=== PATIENT | female | born 1970 | race Caucasian/White ===

== ENCOUNTER 2023-03-27 11:01 | Outpatient (OUT) | payer BC, SELFPAY ==
--- NOTE | 2023-03-27 11:18 | US_ITS ---
The [address] [address] Patient Name: JENNIFER NAVARRO MRN: [id number] date: 1970 Sex: F Assigned Patient Location: US Current Patient Location: Accession/Order Number: [id number] Exam Date: 03/27/2023 11:36 Report Date: 03/28/2023 06:48 At the request of: SUZANNE MCCLAIN Procedure: US thyroid EXAMINATION: US thyroid HISTORY: Thyroid Nodule E04.1 COMPARISON: No relevant comparison available. FINDINGS: RIGHT LOBE: Normal size and echotexture. Contains a 3 mm TR 3 nodule. Lobe size: 4.6 x 1.4 x 1.7 cm LEFT LOBE: Normal size and echotexture. Contains a 6 mm TR 4 nodule. Lobe size: 4.6 x 1.3 x 1.5 cm ISTHMUS: Normal size and echotexture. Thickness: 2 mm US/US thyroid IMPRESSION: 1. Normal homogeneous echotexture bilaterally with incidental small TR 3 nodule on right and TR 4 nodule left. Follow-up in 2 years is recommended. TR4 (moderately suspicious): If > 1.0 cm, follow-up ultrasound in 1, 2, 3, and 5 years. If > 1.5 cm, fine needle aspiration (FNA). TR3 (mildly suspicious): > 1.5 cm, follow-up ultrasound in 1, 3, and 5 years. > 2.5 cm, fine needle aspiration. Electronically authenticated by: GLENDA DEL VALLE Date: 03/28/2023 06:48
--- NOTE | 2023-03-27 11:19 | XR_ITS ---
The [address] [address] Patient Name: JENNIFER NAVARRO MRN: [id number] date: 1970 Sex: F Assigned Patient Location: US Current Patient Location: US Accession/Order Number: [id number] Exam Date: 03/27/2023 11:21 Report Date: 03/27/2023 17:26 At the request of: SUZANNE MCCLAIN Procedure: XR chest 2V EXAM: XR chest 2V HISTORY: Sternal Pain R07.89 COMPARISON: None. TECHNIQUE: PA and lateral views of the chest performed. FINDINGS: The trachea is midline. The heart size is normal. The cardiomediastinal silhouette and hilar shadows are normal. The lung volumes are normal. The lung luke are clear. There is no pneumothorax. There is a 0.7 cm metallic appearing foreign body within the left upper abdomen. Correlate with clinical findings to determine the etiology of this. There is no osseous abnormality. XR/XR chest 2V IMPRESSION: There is a 0.7 cm metallic appearing foreign body within the left upper abdomen. Correlate with clinical findings to determine the etiology of this. The PA and lateral views of the chest are otherwise unremarkable. Electronically authenticated by: MARLEN WOODALL Date: 03/27/2023 17:26
== END 2023-03-27 11:02 | disposition home or self-care (01) ==
LOC: US 11:04
PROVIDERS: PCP Family Medicine; Visit Provider Nurse Practitioner Family
DX: E04.1 Nontoxic single thyroid nodule (principal); R13.19 Other dysphagia; R07.89 Other chest pain
CPT/HCPCS: 71046; 76536

== ENCOUNTER 2023-04-13 08:11 | Outpatient (OUT) | payer BC, SELFPAY ==
--- NOTE | 2023-04-13 | XR_ITS ---
The [address] [address] Patient Name: JENNIFER NAVARRO MRN: [id number] date: 1970 Sex: F Assigned Patient Location: LAB Current Patient Location: Accession/Order Number: [id number] Exam Date: 04/13/2023 08:45 Report Date: 04/14/2023 10:58 At the request of: SUZANNE MCCLAIN Procedure: XR abdomen 1V PROCEDURE: XR abdomen 1V DATE: 04/13/2023 7:45 AM SIL[employer] COMPARISONS: Chest x-ray from 03/27/2023 CLINICAL INDICATION: 52 years Female Abnormal Xray FINDINGS: There is moderate stool and scattered gas of the colon. There is a small amount of gas within the stomach. The small bowel is not visualized. No abnormal small bowel distention identified Surgical clips overlie the right upper quadrant No abnormal calcifications overlie the abdomen. The 7 mm high density structure overlying the left upper quadrant on the caudal aspect of the chest x-ray from 03/27/2023 is not seen today. Presumably it was in stool and has passed. A few scattered areas of high density overlies the mid and lower right abdomen possibly high density within stool. Phleboliths overlie the right aspect of the pelvis. The visualized osseous structures show no significant abnormalities. XR/XR abdomen 1V IMPRESSION: Supine abdominal radiograph shows no evidence of significant abnormalities. The 7 mm high density findings left upper quadrant is no longer visualized today. It was probably within stool. It is noted that there again appears to be some scattered high density within stool on today's exam. This scattered high density is presumably related to high density material ingested by the patient, possibly medication. Electronically authenticated by: BENI HAMPTON Date: 04/14/2023 10:58
--- OUTSIDE RECORDS SUMMARY | 2023-04-13 08:14 | XMS_ITS | CCD ---
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 06/27/2022 Mold exposure [Z77.120] 11/10/2020 06/27/2022 Risk of exposure to Lyme disease [Z91.89] 11/10/2020 06/27/2022 EBV exposure [Z20.828] 11/10/2020 06/27/2022 Lipoma of neck [D17.0] 11/14/2020 06/27/2022 NAFLD (nonalcoholic fatty liver disease) [K76.0]09/20/2021 Functional dyspepsia [K30] 11/14/2021 06/27/2022 SVT (supraventricular tachycardia) (HCC) [I47.1*06/27/2022 Osteoarthritis of hands, bilateral [M19.041, M1*06/27/2022 Dysphagia, pharyngoesophageal [R13.14] 03/07/2023 Menopause since age 48 [Z78.0] 03/22/2023 Encounter Status:Closed by RACHEL NASCIMENTO on 03/29/23 [facility] HNO ID: [id number] Author: Coordinator, Mammography Service: ? Author Type: Physician Type: Letter Filed: 03/25/2023 11:35 PM Note Text: March 22, 2023 PID: [id number] Jennifer A. Makeda [address] [place] [address] Dear Shaun Ferraramariel, We are pleased to inform you that the results of your recent breast imaging exam on 03/21/2023 are normal. Your mammogram demonstrates that you have dense breast tissue, which could hide abnormalities. Dense breast tissue, in and of itself, is a relatively common condition. Therefore, this information is not provided to cause undue concern; rather, it is to raise your awareness and promote discussion with your health care provider regarding the presence of dense breast tissue in addition to other risk factors. Early detection of cancer is very important. We also understand recommendations regarding breast cancer screening are controversial. Please discuss with your primary care provider which strategy is best for you and whether a mammogram is right for you. Your imaging studies and report will be kept on file at [facility] as part of your permanent medical record and are available for your continuing care. Thank you for allowing us to help in meeting your health care needs. Sincerely, Dr. Guallpa Interpreting Radiologist [facility] (Normal over 40) [facility] CNOVon 03-22-2023 CNOV Office Visit (GYNMN) -- JENNIFER NAVARRO ([id number]) 1970 F Date Time Provider Department 03/22/23 11:30 AM JOELLEN BROWNING GYNMN During your visit today, we recorded the following information about you: Blood pressure Weight 127/81 80.8 kg Joellen Browning APRN.DIRECTOR HOSPICE OPERATIONS 03/22/2023 10:54 AM Signed Adenomyosis Overview Adenomyosis (rk-kf-dn-my-O-sis) occurs when the tissue that normally lines the uterus (endometrial tissue) grows into the muscular wall of the uterus. The displaced tissue continues to act normally -- thickening, breaking down and bleeding -- during each menstrual cycle. An enlarged uterus and painful, heavy periods can result. Doctors aren't sure what causes adenomyosis, but the disease usually resolves after menopause. For women who have severe discomfort from adenomyosis, hormonal treatments can help. Removal of the uterus (hysterectomy) cures adenomyosis Symptoms Sometimes, adenomyosis causes no signs or symptoms or only mild discomfort. However, adenomyosis can cause: Heavy or prolonged menstrual bleeding Severe cramping or sharp, knifelike pelvic pain during menstruation (dysmenorrhea) Chronic pelvic pain Painful intercourse (dyspareunia) Your uterus might get bigger. Although you might not know if your uterus is bigger, you may notice tenderness or pressure in your lower abdomen. Causes The cause of adenomyosis isn't known. There have been many theories, including: Invasive tissue growth. Some experts believe that endometrial cells from the lining of the uterus invade the muscle that forms the uterine okeefe. Uterine incisions made during an operation such as a section () might promote the direct invasion of the endometrial cells into the wall of the uterus. Developmental origins. Other experts suspect that endometrial tissue is deposited in the uterine muscle when the uterus is first formed in the fetus. Uterine inflammation related to childbirth. Another theory suggests a link between adenomyosis and childbirth. Inflammation of the uterine lining during the period might cause a break in the normal boundary of cells that line the uterus. Stem cell origins. A recent theory proposes that bone marrow stem cells might invade the uterine muscle, causing adenomyosis. Regardless of how adenomyosis develops, its growth depends on the body's circulating estrogen. Risk factors Risk factors for adenomyosis include: Prior uterine surgery, such as , fibroid removal, or dilatation and curettage (DANDC) Childbirth Middle age Most cases of adenomyosis -- which depends on estrogen -- are found in women in their 40s and 50s. Adenomyosis in these women could relate to longer exposure to estrogen compared with that of younger women. However, current research suggests that the condition might also be common in younger women. Complications If you often have prolonged, heavy bleeding during your periods, you can develop chronic anemia, which causes fatigue and other health problems. Although not harmful, the pain and excessive bleeding associated with adenomyosis can disrupt your lifestyle. You might avoid activities you've enjoyed in the past because you're in pain or you worry that you might start bleeding. Your ultrasound is reassuring. There is a suggestion of adenomyosis. Adenomyosis is a very common condition in women in their 40's. It is also seen more often in people who have had babies in the past. Adenomyosis is when the lining of the uterus invaginates into the muscle layer of the uterus making the muscle somewhat boggy. One third of women with adenomyosis on ultrasound have no symptoms and it can be an incidental finding. The most common symptoms of women affected with adenomyosis are heavy, painful periods, abnormal bleeding, painful intercourse, and infertility. Painful periods also can occur in some women with adenomyosis. Joellen Browning, PHARMACY AIDE.DIRECTOR HOSPICE OPERATIONS 03/22/2023 11:35 AM Signed [facility] Benign Gynecology [facility] PATIENT NAME: Jennifer Navarro PCP: Martell Burciaga MD, MD DATE: 03/22/2023 Chief Complaint CC: Annual CHLORINATION OPERATOR exam History of Present Illness: Jennifer is a 52 year old who presents for her annual gynecologic exam. Patient also would like to discuss the following concerns: None Denies vaginal itching, irritation, discharge or odor. Had thyroid nodule incidentally found. US was normal 2020. Postmenopausal: Yes, since age 48 Hot flashes: No Night sweats: No Vaginal dryness: No Mood swings: No Insomnia: No Postmenopausal bleeding: No HRT use: none Component Latest Ref Rng AND Units 01/12/2020 FSH mU/mL 103.3 Estradiol 17B pg/mL <25 PAP HISTORY: Immunocompromised? No Last Pap: 02/26/2022, normal HPV: 02/26/ (more content not included)... Normal [place] HPV W/GENOTYPE THIN PREPon 1 05-23-2022 HPV 16 Ag Ql (Unsp spec) Negative Normal Negative for HPV DNA high risk type 16 by PCR [place] Comment on above: Order Comment: Speci men Type: FLUID SPECIMENOrdering Facility: [facility] Address: [address] [place] [address] Performed By: #### H PVHRT ####[facility] LABCLIA [id number] [place] [address] [place] HPV 18 Ag Ql (Unsp spec) Negative Normal Negative for HPV DNA high risk type 18 by PCR [place] Comment on above: Order Comment: Speci men Type: FLUID SPECIMENOrdering Facility: [facility] Address: [address] [place] [address] Performed By: #### H PVHRT ####[facility] LABCLIA [id number] [place] [address] [place] HPV 31+33+35+39+45+51+52+ 56+58+59+66+68 DNA SONIA+probe Ql (Cvx) Negative for HPV DNA high risk types: 31,33,35,39,45,51,52,56,58 ,59,66,68 by PCR. Normal Negative for HPV DNA high risk types: 31,33,35,3 9,45,51,52 ,56,58,59, 66,68 by PCR. [place] Comment on above: Order Comment: Speci men Type: FLUID SPECIMENOrdering Facility: [facility] Address: [address] [place] [address] Performed By: #### H PVHRT ####[facility] LABCLIA [id number] [place] [address] [place] PAP TESTon 03-22-2023 ADEQUACY Satisfactory for interpretation Normal [place] Comment on above: Order Comment: Speci men Type: FLUID SPECIMENOrdering Facility: [facility] Address: [address] [place] [address] Performed By: #### L [id number] ####[facility] LABCLIA [id number] [place] [address] [place] CASE REPORT Normal [place] Comment on above: Order Comment: Speci men Type: FLUID SPECIMENOrdering Facility: [facility] Address: [address] [place] [address] Result Comment: Gyne cologic Cytology Report Case: [id number] Authorizing Provider: Joellen Browning APRN.DIRECTOR HOSPICE OPERATIONS Collected: 03/22/2023 10:58 AM Ordering Location: Gynecology Received: 03/22/2023 01:03 PM First Screen: Kyle Espinoza Tech Specimen: Pap Test, ThinPrep, Cervix Performed By: #### L [id number] ####[facility] LABCLIA [id number] [place] [id number] [place] CLINICAL HISTORY, CYTOLOGY, CHLORINATION OPERATOR Routine Exam Normal [place] Comment on above: Order Comment: Speci men Type: FLUID SPECIMENOrdering Facility: [facility] Address: [address] [place] [address] Result Comment: Judie pausal Performed By: #### L [id number] ####[facility] LABCLIA [id number] [place] [address] [place] CYTOLOGY PAP OTHER INT Atrophic specimen Normal [place] Comment on above: Order Comment: Speci men Type: FLUID SPECIMENOrdering Facility: [facility] Address: [address] [place] [address] Performed By: #### L [id number] ####[facility] LABCLIA [id number] [place] [address] [place] FINAL PERFORMING LAB Normal [facility] Comment on above: Order Comment: Speci men Type: FLUID SPECIMENOrdering Facility: [facility] Address: [address] [place] [address] Result Comment: Tech nical component, cryptoanalysis teacher screening performed at [facility], [facility] [address] CLIA# [id number] Diagnostic interpretation performed at [facility], [address] [facility], [place] [address] CLIA# [id number] Payroll Administrative Assistant: Juan Mayes M.D. Performed By: #### L [id number] ####[facility] LABCLIA [id number] [place] [address] [place] HPV REFLEX Yes HPV Normal [place] Comment on above: Order Comment: Speci men Type: FLUID SPECIMENOrdering Facility: [facility] Address: [address] [place] [address] Performed By: #### L [id number] ####[facility] LABCLIA [id number] [place] [id number] [place] INTERPRETATION, CYTOLOGY, CHLORINATION OPERATOR Normal [place] Comment on above: Order Comment: Speci men Type: FLUID SPECIMENOrdering Facility: [facility] Address: [address] [place] [address] Result Comment: Nega tive for intraepithelial lesion or malignancy. Performed By: #### L [id number] ####[facility] LABCLIA [id number] [place] [address] [place] LMP menopausal Normal [place] Comment on above: Order Comment: Speci men Type: FLUID SPECIMENOrdering Facility: [facility] Address: [address] [place] [address] Performed By: #### L [id number] ####[facility] LABCLIA [id number] [place] [id number] [place] PAP DISCLAIMER COMMENT The Pap Smear is a screening test for cervical cancer. False negative results occur with all screening tests, emphasizing the need for rescreening at recommended intervals, and clinical correlation. Normal [place] Comment on above: Order Comment: Speci men Type: FLUID SPECIMENOrdering Facility: [facility] Address: [address] [place] [address] Performed By: #### L [id number] ####[facility] LABCLIA [id number] [place] [id number] [place] PAP MICROBIOLOGY TECHNICIAN COMMENT This specimen has be en analyzed by the ThinPrep Imaging System, an automated imaging and review system, which assists the laboratory in evaluating cells on ThinPrep Pap tests. Following automated imaging, selected mariscal from every slide are reviewed by a cryptoanalysis teacher. Normal [place] Comment on above: Order Comment: Speci men Type: FLUID SPECIMENOrdering Facility: [facility] Address: [address] [place], [place] [address] [id number] Performed By: #### L [id number] ####[facility] LABCLIA [id number] [place] [id number] [place] XR ESOPHAGRAMon 03-22-2023 XR ESOPHAGRAM * * *Final Report* * * DATE OF EXAM: Mar 22 2023 9:39AM LUX 5378 - XR ESOPHAGRAM / PROCEDURE REASON: Dysphagia, unspecified type * * * * Physician Interpretation * * * * EXAM: XR ESOPHAGRAM HISTORY: Dysphagia, unspecified type. TECHNIQUE: AP and lateral fluoroscopic spot images of the cervical esophagus during swallows of thick liquid barium. Multiple upright double contrast and recumbent single contrast fluoroscopic spot images of the thoracic esophagus. FINDINGS: No Zenker's diverticulum. Thoracic esophagus displays normal course and caliber with no mucosal irregularity. Motility appears satisfactory. No hiatal hernia. No gastroesophageal reflux is observed. IMPRESSION: Normal esophagram. Fluoroscopic Radiation Summary: Plane A, Air Kerma: 66.3 mGy Dose Area Product (DAP): Fluoro time: 1:24 min:sec Supervisor Audit Clerks: PSCB Transcribe Date/Time: Mar 22 2023 4:25P Dictated by : Elli BAZAN MD This examination was interpreted and the report reviewed and electronically signed by: Elli BAZAN MD on Mar 22 2023 4:33PM EST [id number] [facility] SCREENING W TOMOon 03-21 [facility] SCREENING W ANG * * *Final Report* * * DATE OF EXAM: Mar 21 2023 6:00PM [facility] - [facility] SCREENING W ANG / PROCEDURE REASON: Encounter for screening mammogram for malignant neoplasm of breast * * * * Physician Interpretation * * * * RESULT: #[id number] - [facility] SCREENING W ANG BILATERAL DIGITAL SCREENING MAMMOGRAM TOMOSYNTHESIS WITH CAD: 03/21/2023 HISTORY: Encounter For Screening Mammogram For Malignant Neoplasm Of Breast / Screening Mammogram-Patient reports NO symptoms. /SEE TECH NOTE. RESULT: TECHNIQUE: The study was acquired using full field digital technology and interpreted from soft copy. Digital Breast Tomosynthesis (DBT) images were obtained and used to assist in the interpretation of this examination. Current study was also evaluated with a Computer Aided Detection (CAD). Comparison is made to exams dated: 11/17/2022 mammogram - [facility], 01/03/2022 mammogram - [facility], 06/03/2020 mammogram, and 06/05/2019 mammogram - [facility]. The breasts are heterogeneously dense, which may obscure small masses. No significant masses, calcifications, or other findings are seen in either breast. There has been no significant interval change. IMPRESSION: NEGATIVE There is no mammographic evidence of malignancy. A 1 year screening mammogram is recommended. Sasha sheppard/barney:03/22/2023 08:14:11 Senior Contracts Manager(s): RT Alvarez(R)(M), [facility] letter sent: Normal over 40 Mammogram BI-RADS: 1 Negative Multiple national specialty organizations have released breast cancer screening guidelines for women at average risk for developing breast cancer - guidelines that are based on both evidence and opinion, yet differ on when to start and how often to screen for breast cancer. With representation from Breast Imaging, Internal Medicine, Women's Health, Family Medicine, and Medical/Surgical Oncology, the [facility] has carefully reviewed the data and reached the following consensus: 1) All women should engage in shared decision-making with their providers to decide when to start and how often to screen; 2) All women should have the opportunity to start screening mammography at age 40; 3) For women ages 45-55, we recommend annual screening mammograms; 4) For women ages 55 and over, we support both the transition from an annual to a biennial interval if this aligns more with patient's values and preferences, or continuation with annual screening; 5) All women should discuss with their providers when to stop screening mammograms. Supervisor Audit Clerks: Barney Transcribe Date/Time: Mar 21 2023 5:38P Dictated by : SASHA GUALLPA MD This examination was interpreted and the report reviewed and electronically signed by: SASHA GUALLPA MD on Mar 22 2023 8:14AM EST [id number] Normal [facility] HISTORY PHYSICALon 3 HISTORY PHYSICAL HNO ID: [id number] Author: Moustapha Rivera MD Service: Gastroenterology Author Type: Physician Type: HANDP Filed: 03/12/2023 9:35 AM Note Text: HISTORY AND PHYSICAL Jennifer Amelia Navaror, 52 year old female Current history and physical on file: Yes Is a new History and Physical required for today's visit? Yes Indication for procedure: Dysphagia PROCEDURE(S) SCHEDULED FOR: Dilation (any means), treatment of bleeding (any means) based on clinical findings and EGD (Esophagogastroduodenoscop y) with or without biopsies, removal of polyps or lesions, dilation ( any means), treatment of bleeding ( any means), Barrx treatment of Navjot's Esophagus, image tube placement or cryo therapy treatment based on clinical findings. BASELINE BEHAVIOR: Calm BASELINE ORIENTATION: A AND O x3 All medications and allergies reviewed: Yes Skin Assessment: Warm dry mucus membranes pink Airway/Respiratory Assessment: Airway: visualization of the uvula- Yes Mouth: opening greater than 2 fingerbreadths- Yes Neck: full range of motion- Yes Breath sounds clear/equal- Yes Cardiac Assessment: Regular rate and rhythm without murmur Abdominal Assessment: Abdomen soft, non-tender, no masses or organomegaly. Sedation Plan: Moderate Additional Comments: None Moustapha Rivera MD [facility] NURSING PROGon 03-12-2023 NURSING PROG HNO ID: [id number] Author: Vernell Navarrete LPN Service: ? Author Type: LICENSED NURSE Type: Nursing Progress Note Filed: 03/12/2023 10:06 AM Note Text: AMBULATORY PATIENT EDUCATION NOTE TOPIC: GI PROCEDURES: Esophagogastroduodenoscopy (EGD) with or without biopies based on clinical findings, removal of polyps or lesions READINESS TO LEARN INSTRUCTION PROVIDED TO: Patient and family member COGNITIVE ABILITY: Alert and oriented PTED MOTIVATION TO LEARN: Interested FAMILY SUPPORT: High - Very involved in pt care IPATIENT LEARNS BEST BY: Individual Instruction Written Instruction - Hand-outs Verbal Instruction FACTORS AFFECTING LEARNING: None PHYSICAL LIMITATIONS AFFECTING LEARNING: None LEARNING RESPONSE METHOD OF INSTRUCTION: Individual instruction PATIENT / FAMILY RESPONSE: Verbalizes understanding of: WORSENING CONDITION-Signs and symptoms of a worsening condition that warrant a call to the physician FOLLOW-UP PLAN: Recommend - Recommend continued instruction and follow up as directed SUPPLEMENTAL MATERIAL: Procedure Discharge Instructions REFERRAL (RECOMMENDATION): None Electronically Signed By: Vernell Navarrete LPN Normal [place] NURSING PROG HNO ID: [id number] Author: Sherron Ayala, RN Service: ? Author Type: Registered Nurse Type: Nursing Progress Note Filed: 03/12/2023 9:18 AM Note Text: PRE OP LEARNING ASSESSMENT PROCEDURE/SURGERY: GI PROCEDURES: EGD READINESS TO LEARN COGNITIVE ABILITY: Alert and oriented MOTIVATION TO LEARN: Interested FAMILY SUPPORT: High - Very involved in pt care PATIENT LEARNS BEST BY: Individual Instruction FACTORS AFFECTING LEARNING: None PHYSICAL LIMITATIONS AFFECTING LEARNING: None Electronically Signed By: Sherron Ayala, PHYLLIS In Department: GASTROENTEROLOGY Normal [place] SURGICAL PATHOLOGYon 023 CASE REPORT Normal [place] Comment on above: Order Comment: Reyna sandhu Type: TISSUE SPECIMENOrdering Facility: [facility] Address: [address] [place] [address] Result Comment: Surg ical Pathology Report Case: [id number] Authorizing Provider: Moustapha Rivera MD Collected: 03/12/2023 09:54 AM Ordering Location: Gastroenterology Received: 03/12/2023 01:40 PM Pathologist: Rocco Tipton MD Specimens: A) - ESOPHAGUS BIOPSY, r/o EOE B) - ESOPHAGUS BIOPSY, r/o EOE Performed By: #### S ####[facility] LABCLIA [id number] [address] FINAL DIAGNOSIS Normal [place] Comment on above: Order Comment: Reyna sandhu Type: TISSUE SPECIMENOrdering Facility: [facility] Address: [address] [place] [address] Result Comment: A. E sophagus, distal, biopsy: - Squamous mucosa with no diagnostic abnormality. B. Esophagus, proximal, biopsy: - Squamous mucosa with no diagnostic abnormality. Performed By: #### S ####[facility] LABCLIA [id number] [address] [place] FINAL PERFORMING LAB Normal [facility] Comment on above: Order Comment: Speci men Type: TISSUE SPECIMENOrdering Facility: [facility] Address: [address] [place] [address] Result Comment: Diag nostic interpretation performed at [facility], [address] [place] [address] CLIA# [id number] Payroll Administrative Assistant: Juan Mayes M.D. Performed By: #### S ####[facility] [id number] [place] [address] [place] GROSS DESCRIPTION [facility] Comment on above: Order Comment: Speci men Type: TISSUE SPECIMENOrdering Facility: [facility] Address: [address] [place] [address] Result Comment: A. E SOPHAGUS BIOPSY Received in formalin is one piece of willis, soft tissue measuring 0.6 x 0.4 x 0.2 cm. Totally submitted in one cassette. B. ESOPHAGUS BIOPSY Received in formalin are multiple pieces of willis, soft tissue aggregating to 0.5 x 0.4 x 0.1 cm. Totally submitted in one cassette. March 12, 2023 3:55 PM Gross examination performed at [facility], [address] [place] [address] Performed By: #### S ####[facility] LABIA [id number] [place] [address] [place] Upper GI endoscopy 12--2 023 Upper GI endoscopy A31 Gastrointestinal Endoscopy Patient Name: Jennifer Navarro Procedure Date: 03/12/2023 9:21 AM Date of : 1970 Admit Type: Outpatient Age: 52 Room: [place] [address] Gender: Female Note Status: Finalized Attending MD: Moustapha Rivera MD, [id number] Procedure: Upper GI endoscopy Indications: Dysphagia Providers: Moustapha Rivera MD Patient Profile: This is a 52 year old female. Refer to note in patient chart for documentation of history and physical. Referring Physician: Yancy Perla MD (Referring MD) Medicines: Fentanyl 75 micrograms IV, Midazolam 5 mg IV, Diphenhydramine 25 mg IV Complications: No immediate complications. Requesting Provider: Procedure: Pre-Anesthesia Assessment: - Prior to the procedure, a History and Physical was performed, and patient medications and allergies were reviewed. The patient is competent. The risks and benefits of the procedure and the sedation options and risks were discussed with the patient. All questions were answered and informed consent was obtained. Patient identification and proposed procedure were verified by the physician in the pre-procedure area. Mental Status Examination: alert and oriented. Airway Examination: normal oropharyngeal airway and neck mobility. Respiratory Examination: clear to auscultation. CV Examination: normal. Prophylactic Antibiotics: The patient does not require prophylactic antibiotics. Prior Anticoagulants: The patient has taken no anticoagulant or antiplatelet agents. ASA Grade Assessment: II - A patient with mild systemic disease. After reviewing the risks and benefits, the patient was deemed in satisfactory condition to undergo the procedure. The anesthesia plan was to use minimal sedation / analgesia (anxiolysis). Immediately prior to administration of medications, the patient was re-assessed for adequacy to receive sedatives. The heart rate, respiratory rate, oxygen saturations, blood pressure, adequacy of pulmonary ventilation, and response to care were monitored throughout the procedure. The physical status of the patient was re-assessed after the procedure. After obtaining informed consent, the endoscope was passed under direct vision. Throughout the procedure, the patient's blood pressure, pulse, and oxygen saturations were monitored continuously. The Endoscope was introduced through the mouth, and advanced to the second part of duodenum. The upper GI endoscopy was accomplished without difficulty. The patient tolerated the procedure well. Moderate Sedation: The administration of moderate sedation was initiated at 09:47 AM. Moderate (conscious) sedation was administered by the nurse and supervised by the endoscopist. The following parameters were monitored: oxygen saturation, heart rate, blood pressure, and response to care. Findings: The examined esophagus was normal. Biopsies were taken with a cold forceps for histology. Verification of patient identification for the specimen was done. Estimated blood loss was minimal. The Z-line was variable and was found 35 cm from the incisors. The entire examined stomach was normal. The cardia and gastric fundus were normal on retroflexion. The examined duodenum was normal. Impression: - Normal esophagus. Biopsied. - Z-line variable, 35 cm from the incisors. - Normal stomach. - Normal examined duodenum. Estimated Blood Loss: Estimated blood loss: none. Recommendation: - Patient has a contact number available for emergencies. The signs and symptoms of potential delayed complications were discussed with the patient. Return to normal activities tomorrow. Written discharge instructions were provided to the patient. - Resume previous diet. - Continue present medications. - Await pathology results. - Return to referring physician as previously scheduled. Attending Participation: I personally performed the entire procedure. Scope In: 9:51:42 AM Scope Out: 9:55:35 AM MD Moustapha Lin MD 03/12/2023 9:59:29 AM This report has been signed electronically by Moustapha Rivera MD Number of Addenda: 0 Note Initiated On: 03/12/2023 9:21 AM [facility] [place] ED NOTEon 03-07-2023 ED NOTE HNO ID: [id number] Author: Gera Khan MD Service: Emergency Medicine Author Type: Physician Type: ED Notes Filed: 03/07/2023 6:25 PM Note Text: ED Attending Continuation of Care Note March 07, 2023 3:49 PM Jennifer Navarro was endorsed to me by Dr. Guaman The patient initially presented to the ED for: Difficulty swallowing Signout note reviewed BP 145/84 Pulse 79 Temp 36.6 ?C (97.9 ?F) (Oral) Resp 18 Ht 170.2 cm (5' 7 ) Wt 77.1 kg (170 lb) LMP (LMP Unknown) SpO2 95% BMI 26.63 kg/m? ED Medication Administration from 03/07/2023 0908 to 03/07/2023 1550 None Dx: Clinical Impression ICD-10-CM 1. Dysphagia, unspecified type R13.10 2. Odynophagia R13.10 Disposition: Home Condition: Good Follow-up: With PCP as needed or as previously scheduled. Gera Khan MD [facility] [place] ED PROV NOTEon 03-07-2023 ED PROV NOTE HNO ID: [id number] Author: Marely Tejeda MD Service: Emergency Medicine Author Type: Resident Type: ED Provider Notes Filed: 03/07/2023 4:00 PM Note Text: -- Attestation signed by Quan Guaman MD at 03/07/2023 4:47 PM [facility] STAFF PHYSICIAN NOTE OF PERSONAL INVOLVEMENT IN CARE I evaluated the patient and personally participated in the fraga components. I agree with the resident's findings and plan with the following revisions and/or additions: History revisions or additions: Jennifer Navarro is 52 year old who presents reporting dysphagia. Symptom onset Saturday after eating cheese. [place] it was stuck in throat. Improved on drinking some water. [place] in USOH the next day, swallowing without difficulty. Saturday eating beans and felt stuck. Pain with swallowing, difficulty drinking liquids. Is tolerating liquid intake, but feels difficulty swallowing solids. She ate noodles this morning. No emesis. Has had similar intermittent symptoms over years but this is worse. Last EGD dec 2020, rare eosinophils on bx CT neck last year no acute findings Modified barium is ordered but not completed Denies cough, sputum, n/v, diarrhea Exam revisions or additions: Alert with normal mental status Oropharynx is clear including no erythema or exudate, no palpable mass or abscess, teeth non-tender, oral floor soft, no trismus, uvula midline, normal phonation, swallowing/ handling secretions normally, no other abnormal findings. Symmetric non-labored breathing, normal air movement, clear to ausculation bilaterally. Rrr, no murmur Abdomen soft and non-tender MDM/Plan: Vital signs, triage records, nursing notes, and medical records reviewed. Please refer to the resident note for full details, including a summary of our mutually agreed upon findings, medical decision making, and assessment/plan. In brief: Jennifer Navarro is 52 year old with pmhx as noted including NAFLD, HTN, HLD EGD 01/25/21 -examined esophagus was normal. Biopsies were obtained from proximal and distal esophagus for histology of suspected eosinophilic esophagitis. Subsequent biopsy results showed squamous mucosa with reactive epithelial changes and rare eosinophils This patient returns with odynophagia. On my evaluation alert, normal oropharyngeal exam, no airway signs, tolerating liquids. HANDP does not suggest complete obstruction, no signs airway compromise. Differential includes inflammatory event such as eosinophilic esophagitis. No signs PNA on my evaluation. Pt is non-toxic and there are no signs deep neck space infection. Plan is MBSS. At time of sign out this had been completed and was pending interpretation from NURSING SURGICAL SERVICES DIRECTOR. Plan at time of sign out was to monitor and reassess pending this. Signature: Quan Guaman MD Date: 03/07/2023 Time: 4:42 PM -- ED Provider Note Patient Name: Jennifer Navarro : 1970 SERVICE DATE: 03/07/23 History 52F w/ pmh NAFLD, HTN, HLD presenting with 5 day history of dysphagia to solids and liquids and odynophagia. Symptoms first began on 03/03 when patient was eating cheese. Patient felt cheese get stuck in throat. Patient drank some water which improved symptoms. The next day patient was able to eat and drink normally without sensation of dysphagia or pain. On Saturday patient ate beans and felt that they were stuck in throat. Patient also felt sensation of throat tightness and felt some difficulty getting a full breath of air. Patient also experienced pain with swallowing. The next two day patient's sensation of throat fullness and pain with swallowing improved. Patient has been able to tolerate drinking liquids in the past 2 days, however patient still experiencing dysphagia to solid foods. PAST MEDICAL HISTORY Diagnosis Date Bleeding ulcer Cervical dysplasia 1992 s/p LEEP Cervicalgia 10/17/2020 Cholecystitis 12/2010 cholesterol polyps COVID-19 12/31/2019 presumed - no test - dtr positive Fatty liver Heavy metal exposure 11/10/2020 History of bleeding ulcers when she was 21 years old History of hypertension History of pre-eclampsia HSIL (high grade squamous intraepithelial lesion) on Pap smear of cervix 04/22/2013 1993 LEEP 06/2016 Colposcopy negative 09/2016 PAP LSIL 05/2017 PAP ASCUS HPV NEG 12/2017 PAP normal 12/2018 PAP normal HPV NEG Liver lesion 12/2010 Lung nodule Mold exposure 11/10/2020 NAFLD (nonalcoholic fatty liver disease) 09/20/2021 Osteoarthritis of hands, bilateral Palpitations 08/31/2019 Pap smear for cervical cancer screening 10/2011 due in 11/11 [id number] condition 11/03/2020 RECOVER Clinic initial visit at [place] on 11/03 (VV), pc RECOVER follow up #1 at on 11/11 (VV), pc Preeclampsia Primary hypertension 09/15/2020 (more content not included)... [facility] [place] THERAPY NTon 03-07-2023 THERAPY NT HNO ID: [id number] Author: Serafin Schultz CCC-NURSING SURGICAL SERVICES DIRECTOR Service: Speech/Swallow Author Type: Speech Language Pathologist Type: Therapy (PT/OT/Speech/Resp) Filed: 03/07/2023 2:59 PM Note Text: -- Summary: Modified Barium Swallow Study (MBSS) -- [facility] Speech-Language Pathology (NURSING SURGICAL SERVICES DIRECTOR) Modified Barium Swallow Study (MBSS) March 07, 2023 NURSING SURGICAL SERVICES DIRECTOR is consulted by ED service to complete a MBSS study on Jennifer Navarro to comprehensively assess the oral and pharyngeal phases of swallowing. Chart review and patient interview in the fluoroscopy suite notes that Jennifer experienced a period of dysphagia/odynophagia requiring a visit to the ED on 06/30/22. She was treated for oral thrush at that time and visited Dr. Yancy Perla (GI) on 07/02 when a modified barium swallow, barium esophagram and EGD were ordered. Shaun Daniellemaria a today indicated her swallowing difficulty subsided and she did not schedule these studies. Jennifer today reported that she began to experience further dysphagia with symptoms of food sticking in her throat (cheese) on 03/02. On 03/04 she ate/drank without difficulty swallowing, but on 03/05 again began experiencing symptoms while at work. It felt like her throat was swelling up. She contacted Dr. Perla who suggested she visit the ED. She is able to swallow liquids without difficulty for the most and uses liquids to try to wash down whatever she still felt stuck. Today she showed the area of issues to be between the larynx and the sternal notch. Noodles from (chicken noodle soup) replicated her symptoms in the ED. IMPRESSIONS: Normal oropharyngeal swallow function with good airway protection during trials of thin and nectar thick liquid, semi-solid and a chewable/solid consistency. No aspiration was identified. Ms. Navarro was hesitant to eat/swallow the Pb cracker, but did so when told she could chew as much as needed to turn it into mush . When asked if she felt comfortable swallowing a Ba tablet, she politely refused. NURSING SURGICAL SERVICES DIRECTOR mentioned that one would be given if/when a barium esophagram was completed. An esophageal screening noted the thicker cracker/pudding material to clear from the esophagus with thin liquid barium wash (see [facility] video images 15 and 16). Given that patient was reportedly treated for thrush in June and dysphagia/odynophagia improved, this should be ruled out as a cause of her current dysphagia. ORAL PHASE: Good willi-lingual manipulation, mastication and bolus formation and A-P transfer. The oral cavity cleared very well. There was no anterior loss of material from the mouth. Onset of the pharyngeal swallow response was prompt. PHARYNGEAL PHASE: Tongue base retraction/lingual bolus propulsion, laryngeal elevation and closure of the laryngeal entrance were good. Epiglottic inversion was complete. No retention of contrast material was observed within the pharynx. No laryngeal penetration/subglottic aspiration was identified. [facility] video images are available for review in Epic under the Get Images tab. PROGNOSIS: Appears safe to continue an oral diet given today's results. Further assessment of the esophageal phase may still be warranted. RECOMMENDATIONS: 1. Oral diet as tolerated as aspiration risk does not appear elevated. 2. Follow up with the barium esophagram and EGD if deemed beneficial as per Dr. Perla's orders placed 07/02/22 (assess esophageal motility, etc.). PLAN: Please page or call with questions or concerns. PAST MEDICAL HISTORY Diagnosis Date Bleeding ulcer Cervical dysplasia 1992 s/p LEEP Cervicalgia 10/17/2020 Cholecystitis 12/2010 cholesterol polyps COVID-19 12/31/2019 presumed - no test - dtr positive Fatty liver Heavy metal exposure 11/10/2020 History of bleeding ulcers when she was 21 years old History of hypertension History of pre-eclampsia HSIL (high grade squamous intraepithelial lesion) on Pap smear of cervix 04/22/2013 1993 LEEP 06/2016 Colposcopy negative 09/2016 PAP LSIL 05/2017 PAP ASCUS HPV NEG 12/2017 PAP normal 12/2018 PAP normal HPV NEG Liver lesion 12/2010 Lung nodule Mold exposure 11/10/2020 NAFLD (nonalcoholic fatty liver disease) 09/20/2021 Osteoarthritis of hands, bilateral Palpitations 08/31/2019 Pap smear for cervical cancer screening 10/2011 due in 11/11 [id number] condition 11/03/2020 RECOVER Clinic initial visit at [place] on 11/03 (VV), pc RECOVER follow up #1 at on 11/11 (VV), pc Preeclampsia Primary hypertension 09/15/2020 SVT (supraventricular tachycardia) Tachycardia 08/31/2019 Thyroid nodule 01/19/2021 left 0.6x0.8x0.5 Trauma in childhood 11/10/2020 PAST SURGICAL HISTORY Procedure Laterality Date CHOLECYSTECTOMY HX COLONOSCOPY GEN ANES CONIZATION CERVIX W/ (more content not included)... [facility] [place] XR MOD BARIUM SWALLOW W SPEE Flavio 03-07-2023 XR MOD BARIUM SWALLOW W SPEECH * * *Final Report* * * DATE OF EXAM: Mar 07 2023 2:03PM [id number] [id number] - XR MOD BARIUM SWALLOW W SPEECH / PROCEDURE REASON: Dysphagia, unexplained * * * * Physician Interpretation * * * * EXAMINATION: Modified barium swallow with Speech Therapy. RESULT: Fluoroscopy was provided for an oropharyngeal examination performed by Speech Therapy. The results will be reported by the Speech Therapist in [facility]. Contrast: ORAL: 60 ml of VARIBAR THIN ORAL: 50 ml of VARIBAR NECTAR ORAL: 20 ml of VARIBAR PUDDING Fluoroscopy radiation summary: Fluoroscopy time: 3:24 (min:sec). Air kerma: 40.3 mGy. IMPRESSION: Oropharyngeal evaluation performed by Speech Therapy Supervisor Audit Clerks: BRETT Transcribe Date/Time: Mar 07 2023 2:25P Dictated by : MANNIE STRONG MD This examination was interpreted and the report reviewed and electronically signed by: MANNIE STRONG MD on Mar 07 2023 2:26PM EST [id number] [facility] [place] Quick Strepon 03-06-2023 S. pyogenes Org specific cx Ql (Throat) Negative [employer] [facility] [employer] Other Quick Strep [facility] [employer] Other ECG 12 lead ECGon 03-05-2023 ECG 12 lead ECG [facility] [place] [address] Electrocardiograph Report Signed Patient: Jennifer Navarro MR#: [id number] : 1970 Acct:[id number] Age/Sex: 52 / F ADM Date: 03/05/23 Loc: ER Room: Type: [facility] ER Attending Dr: Ordering Provider: Amanda Diaz DO Date of Service: 03/05/2308/21/2053 ECG/ECG 12 lead ECG: throat discomfort Copies to: Test Reason : Blood Pressure : 181/089 mmHG Vent. Rate : 069 BPM Atrial Rate : 069 BPM P-R Int : 152 ms QRS Dur : 084 ms QT Int : 410 ms P-R-T Axes : 075 045 037 degrees QTc Int : 439 ms Normal sinus rhythm Normal ECG When compared with ECG of 26-FEB-2023 14:59, No significant change was found Confirmed by JM ZULETA [facility], RAVI ([id number]) on 03/08/2023 9:54:30 AM Referred By: Electronically Signed By:RAVI ONEAL MD [facility] Transcribed By: MUS Signed By Ravi Oneal MD, [facility] 03/08/[address] [facility] CNOVon 02-28-2023 CNOV Office Visit (AMDERM ) -- JENNIFER NAVARRO ([id number]) 1970 F Date Time Provider Department 02/28/23 12:30 PM JOAO BELL During your visit today, we recorded the following information about you: Joao Bell PA-C 03/01/2023 8:33 AM Signed SKIN EXAM ESTABLISHED LAST OFFICE VISIT: 02/13/2023 CC: This patient is a 52 year old female. Patient presents with: Rash HPI: # Location: bottom of right foot Appearance (size, shape, color): red spots Duration: just noticed last night Symptoms (growing, itching, bleeding, tender): painful Treatments: alcohol swab Did have some foot pain over weekend Has had rash on the foot previously- ILK injection (broke out in hives) # Notes spot on forehead near left hairline, at last visit deferred LN2 but would like a recheck Getting itchy, dry # Location: bottom on right foot closer to the toes Appearance (size, shape, color): flesh colored, firm Duration: unsure Symptoms (growing, itching, bleeding, tender): tender at times Treatments: none # Notes fingernails are rough, bumpy with ridges No treatment -Personal history of skin cancer: No -Personal history of atypical nevi: No -History of immunosuppression: No -History of blistering sunburns:Yes -Family history of skin cancer: Yes, mother NMSC SOC: Social History Tobacco Use Smoking status: Former Packs/day: 0.50 Years: 10.00 Additional pack years: 0.00 Total pack years: 5.00 Types: Cigarettes Quit date: 02/13/2007 Years since quittin.0 Smokeless tobacco: Never Vaping Use Vaping Use: Never used Substance Use Topics Alcohol use: Not Currently Alcohol/week: 4.0 standard drinks of alcohol Types: 4 Glasses of wine per week Drug use: No MEDS: Current outpatient prescriptions: Current Outpatient Medications on File Prior to Visit Medication Sig simvastatin (ZOCOR) 20 mg tablet TAKE 1 TABLET BY MOUTH EVERYDAY AT BEDTIME (Patient not taking: Reported on 11/16/2022) propranolol (INDERAL) 20 mg tablet Take 1 tablet by mouth as directed. Take 20 mg daily as needed for sustained arrhythmias with HR >110 for >1 hr ibuprofen (MOTRIN) 600 mg tablet Take 1 tablet by mouth every 8 hours as needed for pain. (Patient not taking: Reported on 11/16/2022) cyclobenzaprine (FLEXERIL) 5 mg tablet Take 1 tablet by mouth three times daily. (Patient not taking: Reported on 11/16/2022) fluconazole (DIFLUCAN) 200 mg tablet Take 4 tablets on day 1, then 1 tablet daily for days 2-14 (Patient not taking: Reported on 11/16/2022) No current facility-administered medications on file prior to visit. ALLERGY: ALLERGIES Allergen Reactions Doxycycline Hives Sanjuana [Fexofenadi* Diarrhea, Other: See Comments Causes high heart rate Aristocort Intrales* Hives Cats Anaphylaxis Dogs Anaphylaxis Imodium [Loperamide] Other: See Comments High heart rate Kenalog-H Hives Medrol [Methylpredn* Itching, Shortness of Breath, Other: See Comments Scratchy throat, high heart rate, couldn't catch breath Miralax [Polyethyle* Hives, Itching Polyethylene Glycol Hives, GI Upset, Itching REVIEW OF SYSTEMS: Patient feels well and denies any recent fevers, chills, or nightsweats. PHYSICAL EXAM: The patient is a pleasant female in no distress. Patient appears healthy, well developed, well nourished and in otherwise good health. Alert and oriented x 3. A skin exam was done of the Scalp, face, right foot, fingernails Canseco Skin Type: II IMPRESSION: Left frontal hairline with stuck on white to light pink stuck on plaque Right plantar foot with circular patch several deep seeded erythematous papules Right distal plantar foot with flesh colored thickened small area of skin, pared down Longitudinal ridging throughout fingernails A/P: (L30.1) Dyshidrotic eczema - Counseled patient on the etiology, course, and treatment options - Recommend use of gentle, unscented cleansers - Recommend applying moisturizer after washing - Begin triamcinolone 0.1% cream BID- Apply thin layer to affected areas 2 times daily for up to 5 days. Take 2 days off, and repeat cycle as needed. - Risks, benefits, and alternatives for the medication including possible side effects discussed and reviewed with patient. - Advised generous emollients throughout the day (Cetaphil, CeraVe, Vanicream, Aveeno) (L98.9) Foot lesion - Pared down with no e/o distinct lesion. 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 Reassured of benign nature. -Apply Trevon [facility] nail conditioner to all finger nails once daily -Keep nails trimmed short (L82.1) Seborrheic keratosis -Discussed etiology and educated. Reassured of benign nature. - Discussed R/B/A of treating with LN2, including risk of hyper vs hypopigmentation and risk of reucrrence (more content not included)... [facility] [place] Alanine aminotransferase [En zymatic activity/volume] in Serum or PlasmaOrdered By: Marvin Dimas on 02-26-2023 ALT [Catalytic activity/Vol] 22 U/L 7-52 [facility] Albumin [Mass/volume] in Ser um or Plasma by Bromocresol green (BCG) dye binding methoOrdered By: Marvin Dimas on 02-26-2023 Albumin BCG dye [Mass/Vol] 4.6 g/dL 3.5-5.7 [facility] Alkaline phosphatase [Enzyma tic activity/volume] in Serum or PlasmaOrdered By: Marvin Dimas on 02-26-2023 ALP [Catalytic activity/Vol] 55 U/L 34-104 [facility] Aspartate aminotransferase [ Enzymatic activity/volume] in Serum or PlasmaOrdered By: Marvin Dimas on 02-26-2023 AST [Catalytic activity/Vol] 23 U/L 13-39 [facility] Basophils Auto (Bld) [#/Vol] Ordered By: Marvin Dimas on 02-26-2023 Basophils (Bld) [#/Vol] 0.0 10*3/uL 0.0-0.2 [facility] Basophils/100 WBC Auto (Bld) Ordered By: Marvin Dimas on 02-26-2023 Basophils/100 WBC (Bld) 0.3 % . [facility] Bilirubin Test strip Ql (U)O rdered By: Marvin Dimas on 02-26-2023 Bilirubin Ql (U) Negative Negative [facility] Bilirubin.total [Mass/volume ] in Serum or PlasmaOrdered By: Marvin Dimas on 02-26-2023 Bilirubin [Mass/Vol] 0.5 mg/dL 0.3-1.0 [facility] BioFire Not Detectedon 02-26 BioFire Not Detected Not detected Normal Not Detecte [facility] Comment on above: Result Comment: This is a duplicate RP2.1 COVID (PCR) result to be used for statistical tracking purpose only. PERFORMED BY: [facility] [address] [place] [address] PATHOLOGIST FRONT DESK ADMINISTRATOR WILMER SIDDIQUI M.D. Performed By: #### R DICKSON PANEL UPP., BIOFIRECOVNOTDE #### [address] COVID-19 Detected/Not Detect edOrdered By: Marvin Dimas on 02-26-2023 SARS-CoV-2 (COVID-19) RNA SONIA+non-probe Ql (Nph) Not detected Not Detecte [facility] Comment on above: This is a duplicate RP2.1 COVID (PCR) result to be used for statistical tracking purpose only. Calcium [Mass/volume] in Ser um or PlasmaOrdered By: Marvin Dimas on 02-26-2023 Calcium [Mass/Vol] 9.5 mg/dL 8.6-10.3 [facility] Carbon dioxide, total [Moles /volume] in Serum or PlasmaOrdered By: Marvin Dimas on 02-26-2023 CO2 [Moles/Vol] 27.4 mmol/L 21.0-31.0 [facility] Chloride [Moles/volume] in S joby or PlasmaOrdered By: Marvin Dimas on 02-26-2023 Chloride [Moles/Vol] 108 mmol/L 98-107 [facility] Color Auto (U)Ordered By: Ronald Dimas on 02-26-2023 Color (U) Yellow Yellow [facility] Complete Blood Count Auto Di ffon 02-26-2023 Basophils (Bld) [#/Vol] 0.0 10*3/uL Normal 0.0-0.2 [facility] Comment on above: Result Comment: PERF ORMED BY: [place] [address] PATHOLOGIST FRONT DESK ADMINISTRATOR WILMER SIDDIQUI M.D. Performed By: #### H S TROP, CBC, LIPASE, CMP #### [address] Basophils/100 WBC (Bld) 0.3 % Normal . [facility] Comment on above: Performed By: #### H S TROP, CBC, LIPASE, CMP #### [address] Eosinophils (Bld) [#/Vol] 0.0 10*3/uL Normal 0.0-0.45 [facility] Comment on above: Performed By: #### H S TROP, CBC, LIPASE, CMP #### [address] Eosinophils/100 WBC (Bld) 0.3 % Normal . [facility] Comment on above: Performed By: #### H S TROP, CBC, LIPASE, CMP #### [address] Erythrocyte distribution width (RBC) [Ratio] 14.2 % Normal 11.9-15.3 [facility] Comment on above: Performed By: #### H S TROP, CBC, LIPASE, CMP #### [address] Hematocrit (Bld) [Volume fraction] 42.5 % Normal 34.0-46.4 [facility] Comment on above: Performed By: #### H S TROP, CBC, LIPASE, CMP #### [address] Hemoglobin (Bld) [Mass/Vol] 14.3 g/dL Normal 11.8-15.4 [facility] Comment on above: Performed By: #### H S TROP, CBC, LIPASE, CMP #### [place] [address] [place] Lymphocytes (Bld) [#/Vol] 1.0 10*3/uL Normal 1.00-4.8 [facility] Comment on above: Performed By: #### H S TROP, CBC, LIPASE, CMP #### [address] Lymphocytes/100 WBC (Bld) 14.8 % Normal . [facility] Comment on above: Performed By: #### H S TROP, CBC, LIPASE, CMP #### [address] MCH (RBC) [Entitic mass] 31.2 pg Normal 24.7-34.3 [facility] Comment on above: Performed By: #### H S TROP, CBC, LIPASE, CMP #### [address] MCV (RBC) [Entitic vol] 93.1 fL Normal 80-100 [facility] Comment on above: Performed By: #### H S TROP, CBC, LIPASE, CMP #### [address] Mean Corpuscular HGB Conc 33.5 g/dL Normal 32.0-35.0 [facility] Comment on above: Performed By: #### H S TROP, CBC, LIPASE, CMP #### [address] Monocytes (Bld) [#/Vol] 0.3 10*3/uL Normal 0.0-0.8 [facility] Comment on above: Performed By: #### H S TROP, CBC, LIPASE, CMP #### [address] Monocytes/100 WBC (Bld) 18.10 % Normal 0.00-20.00 [facility] Comment on above: Performed By: #### H S TROP, CBC, LIPASE, CMP #### [address] Monocytes/100 WBC (Bld) 4.9 % Normal . [facility] Comment on above: Performed By: #### H S TROP, CBC, LIPASE, CMP #### [facility] [address] [place] [address] Neutrophils (Bld) [#/Vol] 5.2 10*3/uL Normal 1.8-7.7 [facility] Comment on above: Performed By: #### H S TROP, CBC, LIPASE, CMP #### [address] Neutrophils/100 WBC (Bld) 79.7 % Normal . [facility] Comment on above: Performed By: #### H S TROP, CBC, LIPASE, CMP #### [address] NRBC% 0.0 /100{WBC} Normal 0-0.5 [facility] Comment on above: Performed By: #### H S TROP, CBC, LIPASE, CMP #### [address] Platelet mean volume (Bld) [Entitic vol] 7.6 fL Normal 6.3-10.7 [facility] Comment on above: Performed By: #### H S TROP, CBC, LIPASE, CMP #### [address] Platelets (Bld) [#/Vol] 218 10*3/uL Normal 150-450 [facility] Comment on above: Performed By: #### H S TROP, CBC, LIPASE, CMP #### [address] RBC (Bld) [#/Vol] 4.57 10*6/uL Normal 3.60-5.00 [facility] Comment on above: Performed By: #### H S TROP, CBC, LIPASE, CMP #### [address] WBC (Bld) [#/Vol] 6.5 10*3/uL Normal 3.8-11.6 [facility] Comment on above: Performed By: #### H S TROP, CBC, LIPASE, CMP #### [address] Comprehensive Metabolic Pane alan 02-26-2023 Albumin [Mass/Vol] 4.6 g/dL Normal 3.5-5.7 [facility] Comment on above: Performed By: #### H S TROP, CBC, LIPASE, CMP #### [facility] [address] Albumin/Globulin [Mass ratio] 1.7 {ratio} Normal [facility] Comment on above: Performed By: #### H S TROP, CBC, LIPASE, CMP #### [facility] [address] ALP [Catalytic activity/Vol] 55 U/L Normal 34-104 [facility] Comment on above: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 [address] [facility] Comprehensive Metabolic Pane alan 07-02-2022 Albumin [Mass/Vol] 4.6 g/dL Normal 3.5-5.7 [facility] Comment on above: Performed By: #### C BC, CMP ####[place] [address] [place] [address] [facility] Albumin/Globulin [Mass ratio] 2.2 {ratio} Normal [facility] Comment on above: Performed By: #### C BC, CMP ####[address] [address] [facility] ALP [Catalytic activity/Vol] 64 U/L Normal 34-104 [facility] Comment on above: Performed By: #### C CRIS, CMP ####[address] [address] [facility] ALT [Catalytic activity/Vol] 15 U/L Normal 7-52 [facility] Comment on above: Performed By: #### C CRIS, CMP ####[place] [id number] [facility] Anion gap [Moles/Vol] 10.9 mmol/L Normal 6.0-15.0 [facility] Comment on above: Performed By: #### C CRIS, CMP ####[address] [address] [facility] AST [Catalytic activity/Vol] 20 U/L Normal 13-39 [facility] Comment on above: Performed By: #### C CRIS, CMP ####[address] [address] [facility] Bilirubin [Mass/Vol] 0.4 mg/dL Normal 0.3-1.0 [facility] Comment on above: Performed By: #### C BC, CMP ####[address] [address] [facility] Calcium [Mass/Vol] 9.1 mg/dL Normal 8.6-10.3 [facility] Comment on above: Performed By: #### C BC, CMP ####[address] [address] [facility] Chloride [Moles/Vol] 105 mmol/L Normal 98-107 [facility] Comment on above: Performed By: #### C BC, CMP ####[place] [address] [place] [address] [facility] CO2 [Moles/Vol] 25.9 mmol/L Normal 21.0-31.0 [facility] Comment on above: Performed By: #### C BC, CMP ####[place] [address] [place] [address] [facility] Creatinine [Mass/Vol] 0.66 mg/dL Normal 0.60-1.20 [facility] Comment on above: Performed By: #### C BC, CMP ####[place] [address] [place] [address] [facility] Creatinine Clr Calc Pharmacy 111.[address] [facility] Comment on above: Result Comment: PERF ORMED BY: [facility] [address] [facility] [place] [address] PATHOLOGIST FRONT DESK ADMINISTRATOR WILMER SIDDIQUI M.D. Performed By: #### C BC, CMP ####[address] [address] [facility] GFR/1.73 sq M.predicted MDRD (S/P/Bld) [Vol rate/Area] mL/min/{1.73_m2} [facility] Comment on above: Performed By: #### C BC, CMP ####[place] [address] [place] [address] [facility] Globulin (S) [Mass/Vol] 2.1 g/dL [facility] Comment on above: Performed By: #### C BC, CMP ####[place] [address] [place] [address] [facility] Glucose [Mass/Vol] 85 mg/dL Normal 70-100 [facility] Comment on above: Result Comment: [place] Glucose Reference Range is dependent on time and content of last meal. Glucose of more than 200 mg/dL in a nonstressed, ambulatory subject supports the diagnosis of Diabetes Mellitus. ADA recommended reference range Performed By: #### C BC, CMP ####[place] [address] [place] [address] Potassium [Moles/Vol] 3.8 mmol/L Normal 3.5-5.1 [facility] Comment on above: Performed By: #### C BC, CMP ####[facility] [address] [place] [id number] [facility] Protein [Mass/Vol] 6.7 g/dL Normal 6.4-8.9 [facility] Comment on above: Performed By: #### C BC, CMP ####[facility] [address] [place] [id number] [facility] Sodium [Moles/Vol] 138 mmol/L Normal 136-145 [facility] Comment on above: Performed By: #### C CRIS, CMP ####[facility] [address] Urea nitrogen [Mass/Vol] 10 mg/dL Normal 7-25 [facility] Comment on above: Performed By: #### C CRIS, CMP ####[facility] Qeo[address] Creatinine [Mass/volume] in Serum or PlasmaOrdered By: Akiko Bullimore on 07-02-2022 Creatinine [Mass/Vol] 0.66 mg/dL 0.60-1.20 [facility] Eosinophils Auto (Bld) [#/Vo l]Ordered By: Akiko Bullimore on 07-02-2022 Eosinophils (Bld) [#/Vol] 0.1 10*3/uL 0.0-0.45 [facility] Eosinophils/100 WBC Auto (Bl d)Ordered By: Akiko Bullimore on 07-02-2022 Eosinophils/100 WBC (Bld) 1.4 % . [facility] Erythrocyte distribution wid th Auto (RBC) [Ratio]Ordered By: Akiko Bullimore on 07-02-2022 Erythrocyte distribution width (RBC) [Ratio] 13.7 % 11.9-15.3 [facility] Globulin Calc (S) [Mass/Vol] Ordered By: Akiko Bullimore on 07-02-2022 Globulin (S) [Mass/Vol] 2.1 g/dL [facility] Glucose [Mass/volume] in Ser um or PlasmaOrdered By: Akiko Ayoub on 07-02-2022 Glucose [Mass/Vol] 85 mg/dL 70-100 [facility] Comment on above: ADA recommended refe rence rangeRandom Glucose Reference Range is dependent on time and content of last meal. Glucose of more than 200 mg/dL in a nonstressed, ambulatory subject supports the diagnosis of Diabetes Mellitus. Hematocrit Auto (Bld) [Volum e fraction]Ordered By: Akiko Ayoub on 07-02-2022 Hematocrit (Bld) [Volume fraction] 41.7 % 34.0-46.4 [facility] Hemoglobin [Mass/volume] in BloodOrdered By: Akiko Ayoub on 07-02-2022 Hemoglobin (Bld) [Mass/Vol] 13.7 g/dL 11.8-15.4 [facility] Ketones Auto test strip (U) [Mass/Vol]Ordered By: Akiko Ayoub on 07-02-2022 Ketones (U) [Mass/Vol] Negative Negative [facility] Leukocytes [#/volume] correc bernabe for nucleated erythrocytes in Blood by Automated counOrdered By: Akiko Ayoub on 07-02-2022 WBC corrected for nucl RBC Auto (Bld) [#/Vol] 5.5 10*3/uL 3.8-11.6 [facility] Lymphocytes Auto (Bld) [#/Vo l]Ordered By: Akikonimesh Ayoub on 07-02-2022 Lymphocytes (Bld) [#/Vol] 1.4 10*3/uL 1.00-4.8 [facility] Lymphocytes/100 WBC Auto (Bl d)Ordered By: Akikonimesh Ayoub on 07-02-2022 Lymphocytes/100 WBC (Bld) 24.8 % . [facility] MCH Auto (RBC) [Entitic mass ]Ordered By: Akiko Ayoub on 07-02-2022 MCH (RBC) [Entitic mass] 30.9 pg 24.7-34.3 [facility] MCHC Auto (RBC) [Mass/Vol]Or dered By: Akiko Ayoub on 07-02-2022 MCHC (RBC) [Mass/Vol] 32.9 g/dL 32.0-35.0 [facility] MCV Auto (RBC) [Entitic vol] Ordered By: Akiko Ayoub on 07-02-2022 MCV (RBC) [Entitic vol] 94.0 fL 80-100 [facility] Monocyte distribution width [Entitic volume] in Blood by AutomatedOrdered By: Akiko Garciaimore on 07-02-2022 Monocyte distribution width Auto (Bld) [Entitic vol] 15.47 % 0.00-20.00 [facility] Monocytes Auto (Bld) [#/Vol] Ordered By: Akiko Garciaimore on 07-02-2022 Monocytes (Bld) [#/Vol] 0.5 10*3/uL 0.0-0.8 [facility] Monocytes/100 WBC Auto (Bld) Ordered By: Akiko Garciaimore on 07-02-2022 Monocytes/100 WBC (Bld) 8.6 % . [facility] Neutrophils Auto (Bld) [#/Vo l]Ordered By: Akiko Ayoub on 07-02-2022 Neutrophils (Bld) [#/Vol] 3.6 10*3/uL 1.8-7.7 [facility] Neutrophils/100 WBC Auto (Bl d)Ordered By: Akiko Ayoub on 07-02-2022 Neutrophils/100 WBC (Bld) 64.8 % . [facility] Nitrite Test strip Ql (U)Ord ered By: Akikonimesh Ayoub on 07-02-2022 Nitrite Ql (U) Negative Negative [facility] No Panel InformationOrdered By: Akiko Ayoub on 07-02-2022 SARS Antigen (LFIA) [facility] Estimated GFR (CKD-EPI) > 60.0 mL/Min [facility] Creatinine Clearance (Chem 111.86 [facility] Nucleated erythrocytes [Pres ence] in Blood by Automated countOrdered By: Akiko Ayoub on 07-02-2022 Nucleated RBC Auto Ql (Bld) 0.1 /100{WBC} 0-0.5 [facility] Platelet mean volume Auto (B ld) [Entitic vol]Ordered By: Akiko Garciaimore on 04-03-2023 Platelet mean volume (Bld) [Entitic vol] 7.4 fL 6.3-10.7 [facility] Platelets Auto (Bld) [#/Vol] Ordered By: Akiko Bullimore on 07-02-2022 Platelets (Bld) [#/Vol] 226 10*3/uL 150-450 [facility] Potassium [Moles/volume] in Serum or PlasmaOrdered By: Akiko Bullimore on 07-02-2022 Potassium [Moles/Vol] 3.8 mmol/L 3.5-5.1 [facility] Protein Auto test strip (U) [Mass/Vol]Ordered By: Akiko Bullimore on 07-02-2022 Protein (U) [Mass/Vol] Negative Negative [facility] Protein [Mass/volume] in Ser um or PlasmaOrdered By: Akiko Bullimore on 07-02-2022 Protein [Mass/Vol] 6.7 g/dL 6.4-8.9 [facility] RBC Auto (Bld) [#/Vol]Ordere d By: Akiko Bullimore on 07-02-2022 RBC (Bld) [#/Vol] 4.43 10*6/uL 3.60-5.00 [facility] Serum or plasma albumin/glob ulin mass ratioOrdered By: Akiko Bullimore on 07-02-2022 Albumin/Globulin [Mass ratio] 2.2 {ratio} [facility] Serum or plasma anion gap de terminationOrdered By: Akiko Bullimore on 07-02-2022 Anion gap [Moles/Vol] 10.9 mmol/L 6.0-15.0 [facility] Sodium [Moles/volume] in Ser um or PlasmaOrdered By: Akiko Bullimore on 07-02-2022 Sodium [Moles/Vol] 138 mmol/L 136-145 [facility] Galen Ag Negativeon 07-03-19 23 Galen Ag Negative Negative Normal Negative [facility] Comment on above: Result Comment: This is a duplicate Galen SARS Antigen (MERI) result to be used for statistical tracking purpose only. PERFORMED BY: [facility] [address] [place] [address] PATHOLOGIST FRONT DESK ADMINISTRATOR WILMER SIDDIQUI M.D. Performed By: #### C OVID-19 GALEN, SOFIANEG ####[place] [address] [place] [id number] [facility] Specific gravity Auto test s trip (U) [Rel density]Ordered By: Akiko Ayoub on 07-02-2022 Specific gravity (U) [Rel density] 1.001 1.001-1.03 0 [facility] Troponin I High Sensitivityo n 07-02-2022 Troponin I High Sensitivity 3.6 pg/mL Normal 0.0-15.0 [facility] Comment on above: Result Comment: PERF ORMED BY: [facility] [address] [place] [address] PATHOLOGIST FRONT DESK ADMINISTRATOR WILMER SIDDIQUI M.D. Performed By: #### H S TROP ####[place] [id number] [facility] Troponin I.cardiac [Mass/vol ume] in Serum or Plasma by Detection limit <= 0.01 ng/Ordered By: Akiko Ayoub on 07-02-2022 Troponin I.cardiac DL <= 0.01 ng/mL [Mass/Vol] 3.6 pg/mL 0.0-15.0 [facility] Urea nitrogen [Mass/volume] in Serum or PlasmaOrdered By: Akiko Anitra on 07-02-2022 Urea nitrogen [Mass/Vol] 10 mg/dL 7-25 [facility] Urinalysison 07-02-2022 Appearance (U) Clear Normal Clear [facility] Comment on above: Order Comment: Name Collection Type:: Clean-Voided Midstream Performed By: #### U A #### [facility] [address] Bilirubin,Urine Negative Normal Negative [facility] Comment on above: Order Comment: Name Collection Type:: Clean-Voided Midstream Performed By: #### U A #### [facility] [address] Color (U) Yellow Normal Yellow [facility] Comment on above: Order Comment: Name Collection Type:: Clean-Voided Midstream Performed By: #### U A #### [facility] [address] [place] [address] [place] Glucose Ql (U) Normal Normal Normal [facility] Comment on above: Order Comment: Name Collection Type:: Clean-Voided Midstream Performed By: #### U A #### [facility] [address] [place] [address] [place] Ketones Ql (U) Negative Normal Negative [facility] Comment on above: Order Comment: Name Collection Type:: Clean-Voided Midstream Performed By: #### U A #### [address] Leukocyte esterase Test strip Ql (U) Negative Normal Negative [facility] Comment on above: Order Comment: Name Collection Type:: Clean-Voided Midstream Performed By: #### U A #### [place] [address] [place] Nitrite,Urine Negative Normal Negative [facility] Comment on above: Order Comment: Name Collection Type:: Clean-Voided Midstream Performed By: #### U A #### [place] [address] [place] Occult Blood,Urine Negative Normal Negative [facility] Comment on above: Order Comment: Name Collection Type:: Clean-Voided Midstream Result Comment: PERF ORMED BY: [place] [address] PATHOLOGIST FRONT DESK ADMINISTRATOR WILMER SIDDIQUI M.D. Performed By: #### U A #### [facility] [address] [place] [address] [place] pH (U) 6.0 [pH] Normal 5.0-9.0 [facility] Comment on above: Order Comment: Name Collection Type:: Clean-Voided Midstream Performed By: #### U A #### [place] [address] [place] Protein,Urine Negative Normal Negative [facility] Comment on above: Order Comment: Name Collection Type:: Clean-Voided Midstream Performed By: #### U A #### [facility] [address] Specificy [place],Urine 1.001 Normal 1.001-1.03 0 [facility] Comment on above: Order Comment: Name Collection Type:: Clean-Voided Midstream Performed By: #### U A #### [facility] [address] Urobilinogen,Urine Normal Normal Normal [facility] Comment on above: Order Comment: Name Collection Type:: Clean-Voided Midstream Performed By: #### U A #### [facility] [address] Urine clarity by refractomet ry automatedOrdered By: Akiko Ayoub on 07-02-2022 Clarity Refractometry automated (U) Clear Clear [facility] Urine glucose measurement by automated test strip (mass/volume)Ordered By: Akiko Ayoub on 07-02-2022 Glucose Auto test strip (U) [Mass/Vol] Normal mg/dL Normal [facility] Urine hemoglobin detection b y automated test stripOrdered By: Akiko Ayoub on 07-02-2022 Hemoglobin Auto test strip Ql (U) Negative Negative [facility] Urine leukocyte esterase det ection by automated test stripOrdered By: Akiko Ayoub on 07-02-2022 Leukocyte esterase Auto test strip Ql (U) Negative Negative [facility] Urobilinogen Auto test strip (U) [Mass/Vol]Ordered By: Akiko Ayoub on 07-02-2022 Urobilinogen (U) [Mass/Vol] Normal mg/dL Normal [facility] WBC Auto (Bld) [#/Vol]Ordere d By: Akiko Ayoub on 07-02-2022 WBC (Bld) [#/Vol] 5.5 10*3/uL 3.8-11.6 [facility] pH Auto test strip (U)Ordere d By: Akiko Ayoub on 07-02-2022 pH (U) 6.0 [pH] 5.0-9.0 [facility] Basic metabolic 2000 panelon 06-30-2022 Anion gap [Moles/Vol] 12 mmol/L Normal 9-18 [facility] Comment on above: Order Comment: Speci men Type: BLOOD SPECIMENOrdering Facility: [facility] Address: [address] [address] Performed By: #### 2 4321-2 ####[facility] LABORATORYCLIA [id number] [place] [address] [place] Calcium [Mass/Vol] 9.4 mg/dL Normal 8.5-10.2 [facility] Comment on above: Order Comment: Speci men Type: BLOOD SPECIMENOrdering Facility: [facility] Address: [address] [address] Performed By: #### 2 4321-2 ####[facility] [id number] [place] [address] [place] Chloride [Moles/Vol] 103 mmol/L Normal 97-105 [facility] Comment on above: Order Comment: Speci men Type: BLOOD SPECIMENOrdering Facility: [facility] Address: [address] [address] Performed By: #### 2 4321-2 ####[facility] LABORATORYIA [id number] [place] [address] [place] CO2 [Moles/Vol] 25 mmol/L Normal 22-30 [facility] Comment on above: Order Comment: Speci men Type: BLOOD SPECIMENOrdering Facility: [facility] Address: [address] Performed By: #### 2 4321-2 ####[facility] LABORATORYIA [id number] [place] [address] [place] Creatinine [Mass/Vol] 0.71 mg/dL Normal 0.58-0.96 [facility] Comment on above: Order Comment: Speci men Type: BLOOD SPECIMENOrdering Facility: [facility] Address: [address] [address] Performed By: #### 2 4321-2 ####[facility] LABORATORYIA [id number] [place] [address] [place] ESTIMATED GLOMERULAR FILTRATION RATE 104 mL/min/1.73m??? Normal >=60 [facility] Comment on above: Order Comment: Reyna sandhu Type: BLOOD SPECIMENOrdering Facility: [facility] Address: [address] [place] [address] Result Comment: Lien mated Glomerular Filtration Rate (eGFR) is calculated using the 2020 CKD-EPI creatinine equation. This equation utilizes serum creatinine, sex, and age as parameters. The creatinine assay has traceable calibration to isotope dilution-mass spectrometry. Refer to KDIGO guidelines for clinical interpretation. In patients with unstable renal function, e.g. those with acute kidney injury, the eGFR may not accurately reflect actual GFR. Performed By: #### 2 4321-2 ####[facility] LABORATORYCLIA [id number] [place] [address] [place] Glucose [Mass/Vol] 88 mg/dL Normal 74-99 [facility] Comment on above: Order Comment: Reyna sandhu Type: BLOOD SPECIMENOrdering Facility: [facility] Address: [address] [place] [address] Result Comment: The [place] Diabetes Association (ADA) provides guidance for cutoff values for fasting glucose and random glucose. The ADA defines fasting as no caloric intake for at least 8 hours. Fasting plasma glucose results between 100 to 125 mg/dL indicate increased risk for diabetes (prediabetes). Fasting plasma glucose results greater than or equal to 126 mg/dL meet the criteria for diagnosis of diabetes. In the absence of unequivocal hyperglycemia, results should be confirmed by repeat testing. In a patient with classic symptoms of hyperglycemia or hyperglycemic crisis, random plasma glucose results greater than or equal to 200 mg/dL meet the criteria for diagnosis of diabetes. Reference: Standards of Medical Care in Diabetes 2016, [place] [employer] Association. Diabetes Care. 2016.39(Suppl 1). Performed By: #### 2 4321-2 ####[facility] LABORATORYCLIA [id number] [place] [address] [place] Potassium [Moles/Vol] 3.5 mmol/L Low 3.7-5.1 [facility] Comment on above: Order Comment: Speci men Type: BLOOD SPECIMENOrdering Facility: [facility] Address: [address] [address] Performed By: #### 2 4321-2 ####[facility] [id number] [address] [place] Sodium [Moles/Vol] 140 mmol/L Normal 136-144 [facility] Comment on above: Order Comment: Speci men Type: BLOOD SPECIMENOrdering Facility: [facility] Address: [address] [address] Performed By: #### 2 4321-2 ####[facility] [id number] [place] [address] [place] Urea nitrogen [Mass/Vol] 11 mg/dL Normal 7-21 [facility] Comment on above: Order Comment: Speci men Type: BLOOD SPECIMENOrdering Facility: [facility] Address: [address] [address] Performed By: #### 2 4321-2 ####[facility] [id number] [place] [address] [place] CBC W Auto Differential pane l (Bld)on 06-30-2022 Basophils (Bld) [#/Vol] 10*3/uL Normal <0.11 [facility] Comment on above: Order Comment: Speci men Type: BLOOD SPECIMENOrdering Facility: [facility] Address: [address] [address] Performed By: #### 5 7021-8 ####[facility] [id number] [address] [place] Basophils/100 WBC (Bld) 0.3 % Normal [facility] Comment on above: Order Comment: Speci men Type: BLOOD SPECIMENOrdering Facility: [facility] Address: [address] [address] Performed By: #### 5 7021-8 ####[facility] LABORATORYIA [id number] [address] [place] Differential cell count method Nom (Bld) Auto Normal [facility] Comment on above: Order Comment: Speci men Type: BLOOD SPECIMENOrdering Facility: [facility] Address: [address] [address] Performed By: #### 5 7021-8 ####[facility] LABORATORYCLIA [id number] [place] [address] [place] Eosinophils (Bld) [#/Vol] 0.05 10*3/uL Normal <0.46 [facility] Comment on above: Order Comment: Speci men Type: BLOOD SPECIMENOrdering Facility: [facility] Address: [address] [address] Performed By: #### 5 7021-8 ####[facility] LABORATORYCLIA [id number] [address] [place] Eosinophils/100 WBC (Bld) 0.8 % Normal [facility] Comment on above: Order Comment: Speci men Type: BLOOD SPECIMENOrdering Facility: [facility] Address: [address] [address] Performed By: #### 5 7021-8 ####[facility] LABORATORYIA [id number] [address] [place] Erythrocyte distribution width (RBC) [Ratio] 13.1 % Normal 11.5-15.0 [facility] Comment on above: Order Comment: Speci men Type: BLOOD SPECIMENOrdering Facility: [facility] Address: [address] [address] Performed By: #### 5 7021-8 ####[facility] LABORATORYCLIA [id number] [address] [place] Hematocrit (Bld) [Volume fraction] 44.5 % Normal 36.0-46.0 [facility] Comment on above: Order Comment: Speci men Type: BLOOD SPECIMENOrdering Facility: [facility] Address: [address] [address] Performed By: #### 5 7021-8 ####[facility] LABORATORYIA [id number] [place] [address] [place] Hemoglobin (Bld) [Mass/Vol] 14.4 g/dL Normal 11.5-15.5 [facility] Comment on above: Order Comment: Speci men Type: BLOOD SPECIMENOrdering Facility: [facility] Address: [address] [address] Performed By: #### 5 7021-8 ####[facility] LABORATORYCLIA [id number] [facility] [place] [address] [place] Immature granulocytes (Bld) [#/Vol] 10*3/uL Normal <0.10 [facility] Comment on above: Order Comment: Speci men Type: BLOOD SPECIMENOrdering Facility: [facility] Address: [address] [place] [address] Performed By: #### 5 7021-8 ####[facility]ITALIA [id number] [place] [address] [place] Immature granulocytes/100 WBC (Bld) 0.3 % Normal [facility] Comment on above: Order Comment: Speci men Type: BLOOD SPECIMENOrdering Facility: [facility] Address: [address] [place] [address] Performed By: #### 5 7021-8 ####[facility] LABORATORYIA [id number] [address] [id number] [place] Lymphocytes (Bld) [#/Vol] 1.68 10*3/uL Normal 1.00-4.00 [facility] Comment on above: Order Comment: Speci men Type: BLOOD SPECIMENOrdering Facility: [facility] Address: [address] [place] [address] Performed By: #### 5 7021-8 ####[facility] LABORATORYIA [id number] [address] [id number] [place] Lymphocytes/100 WBC (Bld) 26.4 % Normal [facility] Comment on above: Order Comment: Speci men Type: BLOOD SPECIMENOrdering Facility: [facility] Address: [address] [address] Performed By: #### 5 7021-8 ####[facility]ITALIA [id number] [address] MCH (RBC) [Entitic mass] 30.2 pg Normal 26.0-34.0 [facility] Comment on above: Order Comment: Speci men Type: BLOOD SPECIMENOrdering Facility: [facility] Address: [address] [address] Performed By: #### 5 7021-8 ####[facility]ITALIA [id number] [address] OF [facility] MCHC (RBC) [Mass/Vol] 32.4 g/dL Normal 30.5-36.0 [facility] Comment on above: Order Comment: Speci men Type: BLOOD SPECIMENOrdering Facility: [facility] Address: [address] [address] Performed By: #### 5 7021-8 ####[facility] [id number] [address] [place] MCV (RBC) [Entitic vol] 93.3 fL Normal 80.0-100.0 [facility] Comment on above: Order Comment: Speci men Type: BLOOD SPECIMENOrdering Facility: [facility] Address: [address] [address] Performed By: #### 5 7021-8 ####[facility]ITAL[facility] [id number] [address] [place] Monocytes (Bld) [#/Vol] 0.34 10*3/uL Normal <0.87 [facility] Comment on above: Order Comment: Speci men Type: BLOOD SPECIMENOrdering Facility: [facility] Address: [address] [address] Performed By: #### 5 7021-8 ####[facility] LABORATORYIA [id number] [place] [address] [place] Monocytes/100 WBC (Bld) 5.3 % Normal [facility] Comment on above: Order Comment: Speci men Type: BLOOD SPECIMENOrdering Facility: [facility] Address: [address] [address] Performed By: #### 5 7021-8 ####[facility] LABORATORYCLIA [id number] [place] [address] [place] Neutrophils (Bld) [#/Vol] 4.26 10*3/uL Normal 1.45-7.50 [facility] Comment on above: Order Comment: Speci men Type: BLOOD SPECIMENOrdering Facility: [facility] Address: [address] [address] Performed By: #### 5 7021-8 ####[facility] LABORATORYCLIA [id number] [address] [place] Neutrophils/100 WBC (Bld) 66.9 % Normal [facility] Comment on above: Order Comment: Speci men Type: BLOOD SPECIMENOrdering Facility: [facility] Address: [address] [address] Performed By: #### 5 7021-8 ####[facility] LABORATORYIA [id number] [place] [address] [place] Nucleated RBC (Bld) [#/Vol] 10*3/uL Normal <0.01 [facility] Comment on above: Order Comment: Speci men Type: BLOOD SPECIMENOrdering Facility: [facility] Address: [address] [address] Performed By: #### 5 7021-8 ####[facility] LABORATORYCLIA [id number] [place] [address] [place] Nucleated RBC/100 WBC (Bld) [Ratio] 0.0 /100 WBC Normal [facility] Comment on above: Order Comment: Speci men Type: BLOOD SPECIMENOrdering Facility: [facility] Address: [address] [address] Performed By: #### 5 7021-8 ####[facility] LABORATORYIA [id number] [place] [address] [place] Platelet mean volume (Bld) [Entitic vol] 9.2 fL Normal 9.0-12.7 [facility] Comment on above: Order Comment: Speci men Type: BLOOD SPECIMENOrdering Facility: [facility] Address: [address] [place] [address] Performed By: #### 5 7021-8 ####[facility]ITALIA [id number] [place] [address] [place] Platelets (Bld) [#/Vol] 242 10*3/uL Normal 150-400 [facility] Comment on above: Order Comment: Speci men Type: BLOOD SPECIMENOrdering Facility: [facility] Address: [address] [place] [address] Performed By: #### 5 7021-8 ####[facility] [id number] [address] [id number] [place] RBC (Bld) [#/Vol] 4.77 10*6/uL Normal 3.90-5.20 [facility] Comment on above: Order Comment: Speci men Type: BLOOD SPECIMENOrdering Facility: [facility] Address: [address] Performed By: #### 5 7021-8 ####[facility]ITALIA [id number] [address] [id number] [place] WBC (Bld) [#/Vol] 6.37 10*3/uL Normal 3.70-11.00 [facility] Comment on above: Order Comment: Speci men Type: BLOOD SPECIMENOrdering Facility: [facility] Address: [address] [place], [place] [address] Performed By: #### 5 7021-8 ####[facility] [id number] [place] [address] [facility] [place] ED NOTEon 06-30-2022 ED NOTE HNO ID: [id number] Author: Radha Carpio PHYLLIS Service: ? Author Type: Registered Nurse Type: ED Notes Filed: 06/30/2022 12:04 PM Note Text: Patient states that she feels like her throat is restricted for past few days, worse today. Patient states that she is able to swallow water, able to maintain full sentences. Patient states that it feels like things are getting stuck. Patient denies any fevers or chills. Airway patent in triage. [facility] ED PROV NOTEon 06-30-2022 ED PROV NOTE HNO ID: [id number]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 video telecommunication system which permits real time communications between the patient (at the originating site) and provider (at the distant site) was utilized to provide this telehealth service. Verbal consent was requested and obtained from JENNIFER NAVARRO on this date, 11/06/2021 10:20 AM , for a telehealth visit. History of Present IllnessMsShaun Guadarrama is a 50 year old woman following up for ELEVATED CALCIUM LEVEL. She was last seen 03/27/21. Reports she has had calcium checked a couple times and sometimes it is normal (9s) and sometimes still mildly elevated. Lost weight but is concerned because most recent fibroscan showed she developed fibrosis. Has deep leg aches and pain in her hands/feet, intermittently. No personal hx of nephrolithiasis or fractures. Hasn't had DXA yet but scheduled in Mar 2022. ENDOCRINE Hx: Noted to have mildly elevated calcium level on/off in the past. 09/05/20: Ca 9.5, Alb 4.4 01/24/21: Ca 10.3 (ULN 10.2), Albumin 4.7, vit D 34.3, Alk phos 107, normal LFTs AND CBC 02/13/21: PTH 44, calcium 9.1, albumin 3.9 THYROID ULTRASOUND 01/22/21: TI-RADS 4 LLL nodule 0.6 x 0.9 x 0.5 cm (solid, hypoechoic) Started gaining weight about 2013 associated with significant stress in life - weighed 120-140 lbs prior to that. More recently, lost weight from 200 lbs in July to 148 lbs in Nov 2020, after changing diet and exercising twice a day. Postmenopausal - No menses in 3 years (age 47) PAST MEDICAL HISTORY: Migraines with aura Hemangioma of liver COVID in Dec 2019 GERD starting in May 2020 NAFLD first noted on a CT scan spring 2020 Allergy to peanuts recently discovered Lipoma in neck s/p surgical removal 10/2020 s/p cholecystecomy 2010 osteoarthritis SOCIAL HISTORY: DIET: follows a whole food diet, no processed food other than some 92% chocolate PHYSICAL ACTIVITY: not right now FAMILY HISTORY: mom went through menopause at age 50 mom's side has diabetes great grandmother with osteoporosis; hip fx in 70s ROS: 10 point review of systems was otherwise negative except per the HPI. Active Problems Problems Chronic diarrhea (787.91) (K52.9) Chronic right upper quadrant pain (789.01,338.29) (R10.11,G89.29) Colon cancer screening (V76.51) (Z12.11) Muscle cramps (729.82) (R25.2) NAFLD (nonalcoholic fatty liver disease) (571.8) (K76.0) Fibroscan 08/22/20 [facility] F0-F1 and steatosis S3 Serum calcium elevated (275.42) (E83.52) Past Medical History Problems Chronic diarrhea (787.91) (K52.9) Chronic right upper quadrant pain (789.01,338.29) (R10.11,G89.29) Colon cancer screening (V76.51) (Z12.11) History of COVID-19 virus infection (079.89) (U07.1) History of bleeding peptic ulcer (V12.71) (Z87.11) History of cervical dysplasia (V13.22) (Z87.410) History of Hemangioma of liver (V13.89) (Z86.018) History of hypertension (V12.59) (Z86.79) History of insulin resistance (V12.29) (Z86.39) History of palpitations (V12.59) (Z87.898) History of tachycardia (V13.89) (Z87.898) NAFLD (nonalcoholic fatty liver disease) (571.8) (K76.0) Fibroscan 08/22/20 [facility] F0-F1 and steatosis S3 Surgica (more content not included)... Normal [facility] Initial Visit (Gastroenterol ogy)on 07-14-2021 Initial Visit (Gastroenterology) Diagnoses/Problems Assessed Colon cancer screening (V76.51) (Z12.11) NAFLD (nonalcoholic fatty liver disease) (571.8) (K76.0) Fibroscan 08/22/20 [facility] F0-F1 and steatosis S3 Orders Chronic diarrhea Start: Colestipol HCl - 1 GM Oral Tablet; TAKE 1 TABLET Before meals PRN before fatty meals Rx By: Evans Arevalo; Dispense: 30 Days ; #:90 Tablet; Refill: 1;For: Chronic diarrhea; KRYS = N; Verified Transmission to [facility]; Last Updated By: [employer]; 07/14/2021 12:54:44 PM Colon cancer screening Start: Suprep Bowel Prep Kit 17.5-3.13-1.6 GM/177ML Oral Solution; DILUTE CONTENTS AND USE DIRECTED FOR BOWEL PREP Rx By: Evans Arevalo; Dispense: 0 Days ; #:1 X 2 x 177 ML Bottle; Refill: 0;For: Colon cancer screening; KRYS = N; Verified Transmission to [facility]; Last Updated By: [employer]; 07/14/2021 12:41:33 PM Colonoscopy Screening; Status:Hold For - Scheduling; Requested for:14Jul2021; [facility]; Due:[id number]; Last Updated By:Rick Arredondo; 07/14/2021 12:42:15 PM;Ordered; For:Colon cancer screening; Ordered By:Rick Arredondo; Patient competent to provide consent? : Yes-pt mentally competent to provide consent Sedation Type : Anesthesia (Deep Sedation) NAFLD (nonalcoholic fatty liver disease) Complete Blood Count; Status:Active; Requested for:[id number]; Perform:Lab Services - Lab To Draw (Blood Test); Due:[id number]; Last Updated By:Rick Arredondo; 07/14/2021 12:45:10 PM;Ordered; For:NAFLD (nonalcoholic fatty liver disease); Ordered By:Rick Arredondo; Comprehensive Metabolic Panel; Status:Active; Requested for:14Jul2021; Perform:Lab Services - Lab To Draw (Blood Test); Due:[id number]; Last Updated By:Rick Arredondo; 07/14/2021 12:45:10 PM;Ordered; For:NAFLD (nonalcoholic fatty liver disease); Ordered By:Rick Arredondo; Patient Discussion/Summary Thank you very much for visiting our clinic today. As per our discussion, your abdominal pain could be related to ribs pains, scar from prior gallbladder surgery or muscular pains. Your abdominal exam did not show any any issues with your liver. We are excited to hear that you had lost 50 Ib. Please exercising and reduce the amount of carbohydrate consumption and replace it with non-starchy meals. Regarding your diarrhea, it is likely related to post gallbladder resection diarrhea with element of Irritable bowel Syndrome. We will prescribe you some medication for that. Please see us in clinic in 6 months and do the blood works prior to clinic visit. Provider Impressions Mrs. Navarro is a 50 year old female, known to have NAFLD, Cholelithiasis s/p lap fab complicated with loose stools who presents today for second opinion. # Fatty liver: - Established Diagnosis at [facility]. - Her AST and ALT were x2 upper normal and US liver suggestive of fatty liver. - Patient lost 50 ib (intentional weight loss). - Patient does not have any history of DM or dyslipidemia. # Diarrhea: - Patient had alternating bowel habits (more of diarrhea) for few years. - This could be augmented with cholecystectomy (post cholecystectomy syndrome). - DDx: IBS-D, Post Cholecystectomy syndrome, food intolerance (Artificial sweetener causes diarrhea). - Patient denied any alarming symptoms. Plan: - Patient encouraged to keep losing weight and consume less carbohydrates. - Prescribe colestipol as PRN for diarrhea. - Proceed with colonoscopy. Given allergy to polyethylene glycol will prep using Suprep. - RTC in 6 months with labs. Chief Complaint New patient Vist; 50 y/o female here today for initial evaluation History of Present IllnessMrsShaun Navarro is a 50 year old female, known to have NAFLD, Cholelithiasis s/p lap fab complicated with loose stools who presents today for second opinion. Patient stated that her fatty liver disease was first diagnosed at [facility] (AST/ALT x2 upper normal and US liver suggestive of fatty liver). Of note, patient lost 50 ib (intentional weight loss). Regarding her abdominal pain, she described it as a non-specific dull RUQ abdominal pain, neither radiating nor migrating, worse with applying pressure over chest wall. She described her BMs as very soft to occasionally watery diarrhea, however, with normal color. She denied any signs of GI bleeding, vomiting, jaundice, pruritus, urinary symptoms or other pertinent symptoms. [facility] US ABD RIGHT UPPER QUADRANT * * *Final Report* * * DATE OF EXAM: Feb 24 2021 11:23AM LNU 1032 - US ABD RIGHT UPPER QUADRANT / PROCEDURE REASON: multiple diagnoses * * * * Physician Interpretation * * * * EXAMINATION: RIGHT UPPER QUADRANT AND SPLEEN ULTRASOUND CLINICAL HISTORY: Fatty liver. TECHNIQUE: Sonography of the right upper quadrant and spleen was performed. Images were obtained and stored in a permanent archive. MQ: [id number] COMPARISON: 11/05/2020 RESULT: Pancreas: Not vis (more content not included)... Normal [facility] Tobacco Screening.on 022 Fall risk assessment a) No falls within the last year [facility] Work Phone: Tobacco use status CPHS b) No [facility] Work Phone: US EXT NON VASC LIMITED LTon 05-08-2021 US EXT NON VASC LIMITED LT EXAMINATION: US EXT NON VASC LIMITED LT HISTORY: Benign lipomatous tumor COMPARISON: No relevant comparison available. FINDINGS: Ultrasound of the proximal left arm demonstrates normal skin, subcutaneous fat and muscle. No focal mass to correspond to the patient's palpable abnormality. Ultrasound of the distal forearm in the area the patient's palpable abnormality demonstrates an oval area of hypoechogenicity measuring 3.9 x 1.3 x 2.1 mm. No color-flow definitively seen. This lesion is just below the skin surface within the subcutaneous fat.. IMPRESSION: No mass to correspond to the patient's proximal left arm mass 3.9 mm indeterminate hypodensity in the area of the patient's distal forearm mass. As there is bruising in this area, consideration should be given to a small hematoma. Electronically authenticated by: RUBY SMALL Date: 2021-05-08 14:52 Normal [facility] Complete Blood Count with Au to Diffon 05-02-2021 Basophils (Bld) [#/Vol] 0.02 10*3/uL Normal 0.00-0.20 [facility] Comment on above: Performed By: #### V ITD, TSH reflex FT4, CMP, CBCAD #### [facility] [address], [place] [id number] Basophils/100 WBC (Bld) 0.4 % Normal [facility] Comment on above: Performed By: #### V ITD, TSH reflex FT4, CMP, CBCAD #### [facility] [address], [place] [id number] Eosinophils (Bld) [#/Vol] 0.22 10*3/uL Normal 0.02-0.50 [facility] Comment on above: Performed By: #### V ITD, TSH reflex FT4, CMP, CBCAD #### [facility] [address], [place] [id number] Eosinophils/100 WBC (Bld) 4.1 % Normal [facility] Comment on above: Performed By: #### V ITD, TSH reflex FT4, CMP, CBCAD #### [facility] [address], [place] [id number] Erythrocyte distribution width (RBC) [Ratio] 12.8 % Normal 11.0-15.0 [facility] Comment on above: Performed By: #### V ITD, TSH reflex FT4, CMP, CBCAD #### [facility] [address], [place] [id number] Hematocrit (Bld) [Volume fraction] 44.4 % Normal 35.0-47.0 [facility] Comment on above: Performed By: #### V ITD, TSH reflex FT4, CMP, CBCAD #### [facility] [address], [place] [id number] Hemoglobin (Bld) [Mass/Vol] 14.4 g/dL Normal 11.6-15.5 [facility] Comment on above: Performed By: #### V ITD, TSH reflex FT4, CMP, CBCAD #### [facility] [address], [place] [id number] Lymphocytes (Bld) [#/Vol] 1.6 10*3/uL Normal 0.9-3.9 [facility] Comment on above: Performed By: #### V ITD, TSH reflex FT4, CMP, CBCAD #### [facility] [address], [place] [id number] Lymphocytes/100 WBC (Bld) 29.5 % Normal [facility] Comment on above: Performed By: #### V ITD, TSH reflex FT4, CMP, CBCAD #### [facility] [address], [place] [id number] MCH (RBC) [Entitic mass] 31.5 pg Normal 27.0-33.0 [facility] Comment on above: Performed By: #### V ITD, TSH reflex FT4, CMP, CBCAD #### [facility] [address], [place] [id number] MCHC (RBC) [Mass/Vol] 32.4 g/dL Normal 32.0-36.0 [facility] Comment on above: Performed By: #### V ITD, TSH reflex FT4, CMP, CBCAD #### [facility] [address], [place] [id number] MCV (RBC) [Entitic vol] 97 fL Normal 80-100 [facility] Comment on above: Performed By: #### V ITD, TSH reflex FT4, CMP, CBCAD #### [facility] [address], [place] [id number] Monocytes (Bld) [#/Vol] 0.4 10*3/uL Normal 0.2-0.9 [facility] Comment on above: Performed By: #### V ITD, TSH reflex FT4, CMP, CBCAD #### [facility] [address], [place] [id number] Monocytes/100 WBC (Bld) 7.1 % Normal [facility] Comment on above: Performed By: #### V ITD, TSH reflex FT4, CMP, CBCAD #### [facility] [address], [place] [id number] Neutrophils (Bld) [#/Vol] 3.1 10*3/uL Normal 1.5-7.8 [facility] Comment on above: Performed By: #### V ITD, TSH reflex FT4, CMP, CBCAD #### [facility] [address], [place] [id number] Neutrophils/100 WBC (Bld) 58.7 % Normal [facility] Comment on above: Performed By: #### V ITD, TSH reflex FT4, CMP, CBCAD #### [facility] [address], [place] [id number] Platelet mean volume (Bld) [Entitic vol] 10.30 fL Normal 7.50-12.50 [facility] Comment on above: Performed By: #### V ITD, TSH reflex FT4, CMP, CBCAD #### [facility] [address], [place] [id number] Platelets (Bld) [#/Vol] 235 10*3/uL Normal 140-400 [facility] Comment on above: Performed By: #### V ITD, TSH reflex FT4, CMP, CBCAD #### [facility] [address], [place] [id number] RBC (Bld) [#/Vol] 4.57 10*6/uL Normal 3.90-5.20 [facility] Comment on above: Performed By: #### V ITD, TSH reflex FT4, CMP, CBCAD #### [facility] [address], [place] [id number] RDW-SD 46.3 fL Normal 37.0-50.0 [facility] Comment on above: Performed By: #### V ITD, TSH reflex FT4, CMP, CBCAD #### [facility] [address], [place] [id number] WBC (Bld) [#/Vol] 5.3 10*3/uL Normal 3.8-11.0 [facility]igh muk[facility] [place] [facility] Comment on above: Performed By: #### V ITD, TSH reflex FT4, CMP, CBCAD #### [facility] [address], [place] [id number] Comprehensive Metabolic Pane [facility] 05-02-2021 Albumin [Mass/Vol] 4.7 g/dL Normal 3.6-5.1 Haleigh mukherjee [place] [employer] [facility] Comment on above: Performed By: #### V ITD, TSH reflex FT4, CMP, CBCAD #### [facility] [address], [place] [id number] Albumin/Globulin [Mass ratio] 2.4 {ratio} Normal 1.0-2.5 [facility] [employer] [facility] Comment on above: Performed By: #### V ITD, TSH reflex FT4, CMP, CBCAD #### [facility] [address], [place] [id number] ALP [Catalytic activity/Vol] 90 U/L Normal 35-119 [facility] [employer] Comment on above: Performed By: #### V ITD, TSH reflex FT4, CMP, CBCAD #### [facility] [address], [place] [id number] ALT [Catalytic activity/Vol] 16 U/L Normal 6-33 [facility] [employer] Comment on above: Result Comment: 03/01 Female reference range changed. Performed By: #### V ITD, TSH reflex FT4, CMP, CBCAD #### [facility] [address], [place] [id number] Anion gap [Moles/Vol] 17 mmol/L Normal 12-20 [facility] Comment on above: Result Comment: Effe ctive 04/06/2019 reference range changed. Performed By: #### V ITD, TSH reflex FT4, CMP, CBCAD #### [facility] [address] [place], [place] [id number] AST [Catalytic activity/Vol] 19 U/L Normal 9-34 [facility] Comment on above: Performed By: #### V ITD, TSH reflex FT4, CMP, CBCAD #### [facility] [address], [place] [id number] BUN/CREA 16 Ratio Normal 6-22 [facility] Comment on above: Performed By: #### V ITD, TSH reflex FT4, CMP, CBCAD #### [facility] [address], [place] [id number] Calcium [Mass/Vol] 9.6 mg/dL Normal 8.6-10.2 [facility] Comment on above: Performed By: #### V ITD, TSH reflex FT4, CMP, CBCAD #### [facility] [address], [place] [id number] Chloride [Moles/Vol] 107 mmol/L Normal 98-107 [facility] Comment on above: Performed By: #### V ITD, TSH reflex FT4, CMP, CBCAD #### [facility] [address], [place] [id number] CO2 [Moles/Vol] 25 mmol/L Normal 20-31 [facility] Comment on above: Performed By: #### V ITD, TSH reflex FT4, CMP, CBCAD #### [facility] [address], [place] [id number] Creatinine [Mass/Vol] 0.6 mg/dL Normal 0.6-1.4 [facility] Comment on above: Performed By: #### V ITD, TSH reflex FT4, CMP, CBCAD #### [facility] [address], [place] [id number] eGFRAA 132 mL/min/1.73m2 Normal >60 [facility] Comment on above: Performed By: #### V ITD, TSH reflex FT4, CMP, CBCAD #### [facility] [address], [place] [id number] eGFRNAA 109 mL/min/1.73m2 Normal >60 [facility] Comment on above: Performed By: #### V ITD, TSH reflex FT4, CMP, CBCAD #### [facility] [address], [place] [id number] Globulin (S) [Mass/Vol] 2.0 g/dL Normal 1.9-3.7 [facility] Comment on above: Performed By: #### V ITD, TSH reflex FT4, CMP, CBCAD #### [facility] [address], [place] [id number] Glucose [Mass/Vol] 82 mg/dL Normal 65-99 [facility] Comment on above: Result Comment: For FASTING Glucose --- ADA reference ranges: Normal 65-99 mg/dl Prediabetes 100-125 Diabetes >/= 126 Performed By: #### V ITD, TSH reflex FT4, CMP, CBCAD #### [facility] [address], [place] [id number] Potassium [Moles/Vol] 4.3 mmol/L Normal 3.5-5.5 [facility] Comment on above: Performed By: #### V ITD, TSH reflex FT4, CMP, CBCAD #### [facility] [address], [place] [id number] Protein [Mass/Vol] 6.7 g/dL Normal 6.1-8.1 [facility] Comment on above: Performed By: #### V ITD, TSH reflex FT4, CMP, CBCAD #### [facility] [address], [place] [id number] Sodium [Moles/Vol] 144 mmol/L Normal 135-146 [facility] [employer] [facility] Comment on above: Performed By: #### V ITD, TSH reflex FT4, CMP, CBCAD #### [facility] [address], [place] [id number] TBIL <0.3 Normal [facility] Comment on above: Performed By: #### V ITD, TSH reflex FT4, CMP, CBCAD #### [facility] [address], [place] [id number] Urea nitrogen [Mass/Vol] 10 mg/dL Normal 7-25 [facility] Comment on above: Performed By: #### V ITD, TSH reflex FT4, CMP, CBCAD #### [facility] [address], [place] [id number] TSH w/ Reflex to Free T4on 0 05-02-2021 TSH 1.830 uIU/mL Normal 0.400-4.50 0 [facility] [employer] [facility] Comment on above: Performed By: #### V ITD, TSH reflex FT4, CMP, CBCAD #### [facility] [address], [place] [id number] Vitamin D 25-OHon 05-02-2021 VIT D 25 OH 27 ng/ml Low >29 [facility] [employer] [facility] Comment on above: Result Comment: Obdulia min D Status Deficiency <20 ng/mL Insufficiency 20-29 ng/mL Optimal 30-100 ng/mL Possible Toxicity >=150 ng/mL Performed By: #### V ITD, TSH reflex FT4, CMP, CBCAD #### [facility] [address], [place] [id number] Initial Visit (Endocrinology )on 03-27-2021 Initial Visit (Endocrinology) Diagnoses/Problems Assessed Serum calcium elevated (275.42) (E83.52) Muscle cramps (729.82) (R25.2) Orders Muscle cramps Calcium, Urine 24 Hour; Status:Active; Requested for:27Mar2021; Perform:Lab Services - Lab To Draw (Non-Blood Test); Due:25Jun2021;Ordered; For:Muscle cramps; Ordered By:Yolanda Miguel; Parathormone Intact, Serum; Status:Active; Requested for:27Mar2021; Perform:Lab Services - Lab To Draw (Blood Test); Due:25Jun2021;Ordered; For:Muscle cramps; Ordered By:Yolanda Miguel; Muscle cramps, Serum calcium elevated Renal Function Panel; Status:Active; Requested for:27Mar2021; Perform:Lab Services - Lab To Draw (Blood Test); Due:25Jun2021;Ordered; For:Muscle cramps, Serum calcium elevated; Ordered By:Yolanda Miguel; Provider Impressions Mildly elevated serum calcium noted on some labs (normalizes if corrected for serum albumin) Most recent calcium was wnl Normal 25OH vit D, PTH, alk phos No h/o nephrolithiasis or fracture but does report some bony pains PLAN - labs as ordered - FUV pending review of the above Chief Complaint An interactive audio and video telecommunication system which permits real time communications between the patient (at the originating site) and provider (at the distant site) was utilized to provide this telehealth service. Verbal consent was requested and obtained from JENNIFER GUADARRAMA on this date, 03/27/2021 10:20 AM , for a telehealth visit. History of Present IllnessMsShaun Guadarrama is a 50 year old woman presenting for an initial endocrinology evaluation of ELEVATED CALCIUM LEVEL; she is seeking a second opinion. She notes in her recent labwork she has had some high calcium levels. [place] like it was not really investigated. Reports deep leg aches and pain in her hands/feet, intermittently. No personal hx of nephrolithiasis or fractures. 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 Has been following with apron trimmer at [facility]; most of her other doctors are there as well. Other endocrine issues she has been evaluated for include some up and down blood sugars associated with feeling shaky (ranging 60s to 190s on a home glucometer) after rapid weight loss - this seems to have resolved on its own. This past fall she also had a thyroid ultrasound which noted a small nodule - was told to just keep an eye on it. Started gaining weight about 2013 associated with significant stress in life - weighed 120-140 lbs prior to that. More recently, lost weight - went from 200 lbs in July to 148 lbs in Nov 2020 - after changing diet and exercising twice a day. Postmenopausal - No menses in 3 years (age 47) LABS per CHART REVIEW ([facility]): 02/13/21: PTH 44, calcium 9.1, albumin 3.9 01/24/21: Ca 10.3 (ULN 10.2), Albumin 4.7, vit D 34.3, Alk phos 107, normal LFTs AND CBC 09/05/20: Ca 9.5, Alb 4.4 PAST MEDICAL HISTORY: Migraines with aura Hemangioma of liver COVID in Dec 2019 GERD starting in May 2020 NAFLD first noted on a CT scan spring 2020 Allergy to peanuts recently discovered Lipoma in neck s/p surgical removal 10/2020 s/p cholecystecomy 2010 osteoarthritis SOCIAL HISTORY: DIET: follows a whole food diet, no processed food other than some 92% chocolate PHYSICAL ACTIVITY: not right now FAMILY HISTORY: mom went through menopause at age 50 mom's side has diabetes great grandmother with osteoporosis; hip fx in 70s ROS: 10 point review of systems was otherwise negative except per the HPI. THYROID ULTRASOUND 01/22/21: NODULE 1: Location: LEFT lower Size: 0.6 x 0.9 x 0.5 cm Characteristics: Composition: Solid or almost completely solid, 2 points Echogenicity: Hypoechoic, 2 points Shape: [id number], 0 points Margin: Smooth, 0 points Echogenic foci (add points for all that apply): None, 0 points Internal vascularity: present Interval growth: No prior available for comparison TI-RADS Category: TR4 ACR Recommendation: TI-RADS 4 nodule. No FNA or follow-up imaging is advised. Active Problems Problems NAFLD (nonalcoholic fatty liver disease) (571.8) (K76.0) Past Medical History Problems History of COVID-19 virus infection (079.89) (U07.1) History of Hemangioma of liver (V13.89) (Z86.018) History of insulin resistance (V12.29) (Z86.39) NAFLD (nonalcoholic fatty liver disease) (571.8) (K76.0) Surgical History Problems History of Cholecystectomy History of Esophagogastroduodenoscopy Allergies Medication Sanjuana Hives;; Updated By: Bethanie Arellano; 01/31/2021 8:46:42 AM Kenalog Hives;; Recorded By: Bethanie Arellano; 01/31/2021 1:09:35 PM Medrol Hives;; Updated By: Bethanie Arellano; 01/31/2021 8:46:42 AM MiraLax 17 GM Oral Packet Hives;; Updated By: Bethanie Arellano; 01/31/2021 8:46:42 AM polyethylene glycol 3350 Hives;; Updated By: Bethanie rAellano; 01/31/2021 8:46:42 AM Current Meds Medication NameInstruction No Reported Medications Vitals Vital Signs Recorded: [id number] (more content not included)... Normal [facility] PTH INTACTon 11-16-2021 PTH, Intact 44 pg/mL Normal 15-65 [facility] Comment on above: Performed By: #### P THINT #### [facility] [address] [place] [address] Dr. Mesha Umanzor CBC AUTO DIFFon 02-13-2021 BASO # 0.0 103/ul Normal 0.0-0.1 [facility] Comment on above: Performed By: #### C BC #### [facility] [address] [place] [address] Dr. Mesha Umanzor Basophils/100 WBC (Bld) 0.5 % Normal 0.2-2.0 [facility] Comment on above: Performed By: #### C BC #### [facility] [address] [place] [address] Dr. Mesha Umanzor EO # 0.2 103/ul Normal 0.0-0.7 [facility] Comment on above: Performed By: #### C BC #### [facility] [address] [place] [address] Dr. Mesha Umanzor Eosinophils/100 WBC (Bld) 3.0 % Normal 0.9-7.0 [facility] Comment on above: Performed By: #### C BC #### [facility] [address] [place] [address] Dr. Mesha Umanzor Erythrocyte distribution width (RBC) [Ratio] 12.8 % Normal 11.0-15.0 [facility] Comment on above: Performed By: #### C BC #### [facility] [address] [place] [address] Dr. Mesha Umanzor Hematocrit (Bld) [Volume fraction] 43.0 % Normal 36.0-48.0 [facility] Comment on above: Performed By: #### C BC #### [facility] [address] [place] [address] Dr. Mesha Umanzor Hemoglobin (Bld) [Mass/Vol] 14.2 g/dL Normal 12.0-16.0 [facility] Comment on above: Performed By: #### C BC #### [facility] [address] [place] [address] Dr. Mesha Umanzor IG # 0.00 10e3/ul Normal 0.00-0.03 [facility] Comment on above: Performed By: #### C BC #### [facility] [address] [place] [address] Dr. Mesha Umanzor IG % 0.0 % Normal 0.0-0.5 [facility] Comment on above: Performed By: #### C BC #### [facility] [address] [place] [address] Dr. Mesha Umanzor LYMPH # 1.7 103/ul Normal 1.2-3.8 [facility] Comment on above: Performed By: #### C BC #### [facility] [address] [place] [address] Dr. Mesha Umanzor Lymphocytes/100 WBC (Bld) 30.7 % Normal 20.5-60.0 [facility] Comment on above: Performed By: #### C BC #### [facility] [address] [place] [address] Dr. Mesha Umanzor MANUAL DIFF REQ NO Normal [facility] Comment on above: Performed By: #### C BC #### [facility] [address] [place] [address] Dr. Mesha Umanzor MCH (RBC) [Entitic mass] 32.3 pg Normal 26.7-34.0 [facility] Comment on above: Performed By: #### C BC #### [facility] [address] [place] [address] Dr. Mesha Umanzor MCHC (RBC) [Mass/Vol] 33.0 g/dL Normal 29.9-35.2 [facility] Comment on above: Performed By: #### C BC #### [facility] [address] [place] [address] Dr. Mesha Umanzor MCV (RBC) [Entitic vol] 97.9 fL Normal 81.0-99.0 [facility] Comment on above: Performed By: #### C BC #### [facility] [address] [place] [address] Dr. Mesha Umanzor MONO # 0.4 103/ul Normal 0.3-0.8 [facility] Comment on above: Performed By: #### C BC #### [facility] [address] [place] [address] Dr. Mesha Umanzor Monocytes/100 WBC (Bld) 6.4 % Normal 1.7-12.0 [facility] Comment on above: Performed By: #### C BC #### [facility] [address] [place] [address] Dr. Mesha Umanzor NEUT # 3.4 103/ul Normal 1.4-6.5 [facility] Comment on above: Performed By: #### C BC #### [facility] [address] [place] [address] Dr. Mesha Umanzor Neutrophils/100 WBC (Bld) 59.4 % Normal 43.0-75.0 [facility] Comment on above: Performed By: #### C BC #### [facility] [address] [place] [address] Dr. Mesha Umanzor Platelet mean volume (Bld) [Entitic vol] 9.9 fL Normal 9.5-13.5 [facility] Comment on above: Performed By: #### C BC #### [facility] [address] [place] [address] Dr. Mesha Umanzor PLT 226 103/ul Normal 150-450 [facility] Comment on above: Performed By: #### C BC #### [facility] [address] [place] [address] Dr. Mesha Umanzor RBC 4.39 106/ul Normal 4.20-5.40 [facility] Comment on above: Performed By: #### C BC #### [facility] [address] [place] [address] Dr. Mesha Umanzor WBC 5.7 103/ul Normal 4.0-11.0 [facility] Comment on above: Performed By: #### C BC #### [facility] [address] [place] [address] Dr. Mesha Umanzor PROF 14(COMP METB)on 021 Albumin [Mass/Vol] 3.9 g/dL Normal 3.5-5.0 [place] Comment on above: Performed By: #### C MP #### [facility] [address] [place] [address] Dr. Mesha Umanzor Albumin/Globulin [Mass ratio] 1.3 {ratio} Normal [facility] Comment on above: Performed By: #### C MP #### [facility] [address] [address] [address] Mesha Umanzor ALP [Catalytic activity/Vol] 89 U/L Normal 38-126 [facility] Comment on above: Performed By: #### C MP #### [facility] [address] [place] [address] Dr. Mesha Umanzor ALT [Catalytic activity/Vol] 28 U/L Normal 9-52 [facility] Comment on above: Performed By: #### C MP #### [facility] [address] [place] [address] Dr. Mesha Umanzor Anion gap [Moles/Vol] 11.1 mmol/L Normal [facility] Comment on above: Performed By: #### C MP #### [facility] [address] [place] [address] Dr. Mesha Umanzor AST [Catalytic activity/Vol] 20 U/L Normal 14-36 [facility] Comment on above: Performed By: #### C MP #### [facility] [address] [place] [address] Dr. Mesha Umanzor Bilirubin [Mass/Vol] 0.4 mg/dL Normal 0.2-1.3 [facility] Comment on above: Performed By: #### C MP #### [facility] [address] [place] [address] Dr. Mesha Umanzor Calcium [Mass/Vol] 9.1 mg/dL Normal 8.4-10.2 [facility] Comment on above: Performed By: #### C MP #### [facility] [address] [place] [address] Dr. Mesha Umanzor Chloride [Moles/Vol] 107 mmol/L Normal 98-107 [facility] Comment on above: Performed By: #### C MP #### [facility] [address] [address] [address] Mesha Umanzor CO2 [Moles/Vol] 26.9 mmol/L Normal 22.0-30.0 [facility] Comment on above: Performed By: #### C MP #### [facility] [address] [place] [address] Dr. Mesha Umanzor Creatinine [Mass/Vol] 0.74 mg/dL Normal 0.52-1.04 [facility] Comment on above: Performed By: #### C MP #### [facility] [address] [place] [address] Dr. Mesha Umanzor EGFR-AF IRISH >60 Normal >=60 [facility] Comment on above: Performed By: #### C MP #### [facility] [address] [place] [address] Dr. Mesha Umanzor EGFR-NON AF IRISH >60 Normal >=60 [facility] Comment on above: Performed By: #### C MP #### [facility] [address] [place] [address] Dr. Mesha Umanzor Globulin (S) [Mass/Vol] 3.1 g/dL Normal [facility] Comment on above: Performed By: #### C MP #### [facility] [address] [place] [address] Dr. Mesha Umanzor Glucose [Mass/Vol] 95 mg/dL Normal 74-106 [facility] Comment on above: Performed By: #### C MP #### [facility] [address] [place] [address] Dr. Mesha Umanzor Potassium [Moles/Vol] 4.0 mmol/L Normal 3.4-5.0 [facility] Comment on above: Performed By: #### C MP #### [facility] [address] [place] [address] Dr. Mesha Umanzor Protein [Mass/Vol] 7.0 g/dL Normal 6.1-8.2 [facility] Comment on above: Performed By: #### C MP #### [facility] [address] [place] [address] Dr. Mesha Umanzor Sodium [Moles/Vol] 141 mmol/L Normal 137-145 [place] Comment on above: Performed By: #### C MP #### [facility] [address] [address] [address] Mesha Umanzor Urea nitrogen [Mass/Vol] 15.0 mg/dL Normal 7.0-17.0 [facility] Comment on above: Performed By: #### C MP #### [facility] [address] [address] [address] Mesha Umanzor Urea nitrogen/Creatinine [Mass ratio] 20.3 mg/mg Normal [facility] Comment on above: Performed By: #### C MP #### [facility] [address] [address] [address] Mesha Umanzor Initial Visit (Gastroenterol ogy)on 01-31-2021 Initial Visit (Gastroenterology) Diagnoses/Problems Assessed NAFLD (nonalcoholic fatty liver disease) (571.8) (K76.0) Patient Discussion/Summary follow up with your liver specialist at [facility] Avoid foods which contain complex sugars like wheat, rice, potatoes and corn Avoid eating foods that are rich in sugar in excess such as hgih sugar fruits (pineapple, hafsa...) and desserts, cakes and pies Eat more good foods that are rich in good fat such as cold water fish (salmon, swordfish...) as well as avocados and peanut butter in moderation Snack on nuts that are high in protein and good oils such as walnuts, almonds. Eat a mediteranean diet which is rich in grilled lean meats, high protein beans and legumes and olive oil Exercise for 30 minutes or more at least 3 times a week focus on exercises that build muscle mass like working with weights and lifting. Try swimming or water aerobics if you have access to a pool Aim to lose 7-10% of your total body weight over 6-12 months Provider Impressions our best assessment is that she has NAFLD. Recent fibrosis assessment is not available to us. 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 30 minutes spent discussing condition, explaining results of tests and formulating plan of care Chief Complaint A telephone visit (audio only) between the patient (at the originating site) and the provider (at the distant site) was utilized to provide this telehealth service. Verbal consent was requested and obtained from JENNIFER GUADARRAMA on this date, 01/31/2021 08:00 AM , for a telehealth visit. NPV SECOND OPINION FATTY LIVER, FOLLOWED AT [facility]. History of Present Illnessluz has a longstanding diagnosis of NAFLD and is followed at [facility]. She is here mainly for a second opinion regarding this. it does appear that she has had recent abdominal imaging showing steatosis and recent labs which show a normal hepatic panel. she does endorse fatigue but no significant fluid overload. no records accompany the patient Upper Gastrointestinal: abdominal pain, but no eructation, no heartburn, no nausea, no pain while swallowing, no regurgitation. Lower Gastrointestinal: bloating, steatorrhea, but no constipation, no diarrhea, no fecal incontinence. Perirectal Disease no anal itching, did not have an anal fistula, no anal pain. Symptom History: Modifying Factors: Associated Symptoms: Skin: there are no skin symptoms. Eyes: there are no eye symptoms. Ears: there are no ear symptoms. Nose: there are no nasal symptoms. Mouth/Throat/Teeth: there are no oral symptoms. Cardiovascular: there are no cardiovascular symptoms. Review of Systems Constitutional: recent weight loss, but no fever, no chills and not feeling tired. ENT: no lymphadenopathy. Cardiovascular: no shortness of breath and no chest pain. Respiratory: no cough. Gastrointestinal: as noted in HPI. Musculoskeletal: no joint swelling. Integumentary: no rashes, no skin lesions and was no jaundiced. All other systems have been reviewed and are negative for complaint. Past Medical History Problems History of COVID-19 virus infection (079.89) (U07.1) History of Hemangioma of liver (V13.89) (Z86.018) History of insulin resistance (V12.29) (Z86.39) NAFLD (nonalcoholic fatty liver disease) (571.8) (K76.0) Surgical History Problems History of Cholecystectomy History of Esophagogastroduodenoscopy Allergies Medication Sanjuana Hopkins;; Updated By: Bethaine Arellano; 01/31/2021 8:46:42 AM Kenalog Hives;; Recorded By: Bethanie Arellano; 01/31/2021 1:09:35 PM Medrol Hives;; Updated By: Bethanie Arellano; 01/31/2021 8:46:42 AM MiraLax 17 GM Oral Packet Hives;; Updated By: Bethanie Arellano; 01/31/2021 8:46:42 AM polyethylene glycol 3350 Hives;; Updated By: Bethanie Arellano; 01/31/2021 8:46:42 AM Current Meds Medication NameInstruction No Reported Medications Vitals Vital Signs Recorded: 31Jan2021 08:41AM Height5 ft 7 in Cxodhu131 lb BMI Adluqzstok15.34 kg/m2 BSA Calculated1.78 Signatures Electronically signed by : Elijah Cunningham MD; Feb 10 2021 11:54AM EST (Author) Normal [facility] - Chemistry and C hemistry - challengeon 01-10-2021 Anion gap (Bld) [Moles/Vol] 10 mmol/L 10 - 25 [facility] Work Phone: Calcium.ionized (Bld) [Moles/Vol] 1.20 mmol/L See Below [facility] Work Phone: Comment on above: Reference Range: 1.1 0 - 1.33 Carboxyhemoglobin (BldV) [Mass fraction] 1.9 % Abnormal [facility] Work Phone: Comment on above: REF VALUESNONSMOKERS 0.5-1.5%SMOKERS 0.5-10.0% Chloride [Moles/Vol] 105 mmol/L 98 - 107 [facility] Work Phone: CO2 (BldV) [Partial pressure] 46 mm[Hg] 41 - 51 [facility] ke [facility] Work Phone: Glucose [Mass/Vol] 147 mg/dL above high threshold 74 - 99 [facility] Work Phone: HCO3 (Bld) [Moles/Vol] 28.5 mmol/L above high threshold See Below -Linda irvin [facility] Work Phone: Comment on above: Reference Range: 22. 0 - 26.0 Lactate [Moles/Vol] 1.4 mmol/L 0.4 - 2.0 -Erik irvin [facility] Work Phone: Methemoglobin (BldV) [Mass fraction] 0.8 % 0.0 - 1.5 -Linda irvin [facility] Work Phone: Oxygen (BldV) [Partial pressure] 40 mm[Hg] 35 - 45 Eliseo irvin [address] Work Phone: pH (BldV) 7.40 [pH] See Below Eliseo irvin [address] Work Phone: Comment on above: Reference Range: 7.3 3 - 7.43 Potassium [Moles/Vol] 3.1 mmol/L below low threshold 3.5 - 5.3 Eliseo irvin [facility] Work Phone: Sodium [Moles/Vol] 140 mmol/L 136 - 145 -Mike irvin [facility] Work Phone: Laboratory - Hematology and Cell countson 01-10-2021 Hematocrit (Bld) [Volume fraction] 39.0 % See Below Eliseo irvin [address] Work Phone: Comment on above: Reference Range: 36. 0 - 46.0 Hemoglobin (Bld) [Mass/Vol] 13.3 g/dL See Below -Linda irvin [address] Work Phone: Comment on above: Reference Range: 12. 0 - 16.0 No Panel Informationon 10-12 -2021 3.0 mmol/L -2.0 - 3.0 [facility] Work Phone: 72 % 45 - 75 [facility] Work Phone: 37.0 {degrees_C} [facility] Work Phone: Comment on above: NOTE: PATIENT RESULT S ARE NOT CORRECTED FOR TEMPERATURE. Risk Screen - Adult Emergenc yon 01-10-2021 Risk Screen - Adult Emergency Preferred Language: Preferred Language: Preferred Language for Discussing Health Care (patient/designee)Montenegrin Advanced Directives: Advance Directive/DNRno Family Violence Adult: Abuse Screen: Are you or have you been threatened or abused physically, emotionally, or sexually by anyoneno Learning Assessment (Patient): Learning Assessment (Patient): Patient is Able to be Assessed for Learningyes Factors Influencing Readiness to Learnacuteness of illness Factors that Impact Ability to Learnacuteness of illness Devices/Methods Used to Communicatenone Learning Preferencesverbal instruction; written material Cultural Considerationsnone Developmental Considerationsnone Uatsdin Considerationsnone Learning Assessment (Other Learner): Learning Assessment (Other Learner): Other learner availableno Pressure Injury/TB/Substance: Pressure Injury: Do you have a coughno Smoking Statusformer smoker Admission Risk Screen: Significant IndicatorsComplete CAGE: CAGE: Is this an injured [place] at a Tra[place] Center [place]/ [place] no Electronic Signatures: Sowmya Eckert (PHYLLIS) (Signed 10-Jan-2021 00:47) Authored: Preferred Language, Advanced Directives, Family Violence Adult, Learning Assessment (Patient), Learning Assessment (Other Learner), Pressure Injury/TB/Substance, Pressure Injury, CAGE Last Updated: 10-Jan-2021 00:47 by Sowmya Eckert (PHYLLIS) Normal [facility] [place] - E[place] 01-10-2021 Triage - ED Quick Triage: Are You no Are You Currently Breastfeedingno Chart Review: PRIMARY ASSESSMENT JENNIFER Amelia BUCHANANBERGER's primary assessment is Within Defined Limits. The airway is open and patent. Breathing spontaneous and unlabored with clear breath sounds bilaterally. Circulation is normal with good peripheral pulses. Skin is warm and dry and color is normal for race. ARRIVAL INFORMATION Means of Arrival: Ambulatory Mode of Arrival: private vehicle Accompanied By: self CHIEF COMPLAINT JENNIFER NAVARRO is a Female patient with a chief complaint of eye pain traumatic (bilateral eye redness/burning). Triage Date/Time: 10-Jan-2021 00:43 MARY LOU: 4 Pain Rating (0-10): 6 = Moderate Pain location: bilateral eyes Vital Signs: Temperature: 98.4F ( 36.9C) taken temporal Blood Pressure: 161/93 Mean: Heart Rate: 82 Respiratory Rate: 16 Pulse Oximetry: 98% on room air, no respiratory support. Height: 5 feet 7.00 inches. 170.1 CM Weight: 152.3 pounds. Calculated 69.1 kg. (stated) Calculated BMI (kg/m2): 23.881 Calculated BSA (m2) 1.81 Mcwilliams Coma Scale: Best Eye Response: (E4) spontaneous Best Motor Response: (M6) obeys commands Best Verbal Response: (V5) oriented Mcwilliams Score: 15 Allergies: yes Patient has homicidal thoughts: no Symptoms Are POSITIVE For: eye pain and redness. Symptoms Are Negative For: blurred vision, double vision, eye discharge, FB sensation, itching, photophobia and vision changes. Risk Screens Suicide Risk Screen In the Past Month: Have you wished you were or wished you could go to sleep and not wake up no In the Past Month: Have you had any actual thoughts of killing yourself no In Your Lifetime: Have you ever done anything, started to do anything, or prepared to do anything to end your life no Medina Fall Scale Screening Has the patient fallen before (or is the patient in the ED as a result of a fall) has not had a fall Does the patient have an impaired gait does not have impaired gait Is the patient cognitively impaired not cognitively impaired Interventions: Medina Fall Interventions: LOW INTERVENTIONS: *patient oriented to surroundings and call system, * patient/family falls education completed and documented, *patients fall status communicated during bedside handoff, *whiteboard updated, *mode of toileting discussed with patient, *bed in low position with brakes locked, *call light in reach, * non-skid footwear TRAVEL HISTORY Travel History Coronavirus Screening: COVID positive 14 or more days ago Coronavirus Screening Details: dec 2019 Travel Exposure History: NO travel to International locations in the past 30 days PAIN Pain Scale Used: EVERETT Pain Rating (0-10): 6 = Moderate Past Medical History: Past Medical History Reviewedno Electronic Signatures: Sowmya Eckert (RN) (Signed 10-Jan-2021 00:46) Entered: Risk Screens, Pain, Arrival, ABCD, Travel History, Chart Review, Scores, Past Medical History Authored: Quick Triage, Risk Screens, Pain, Arrival, ABCD, Travel History, Chart Review, Scores, Past Medical History Last Updated: 10-Jan-2021 00:46 by Sowmya Eckert (RN) Normal [facility] [place] ABD RIGHT UPPER QUADRANTo n 08-26-2020 US ABD RIGHT UPPER QUADRANT * * *Final Report* * * DATE OF EXAM: Aug 26 2020 7:54AM SPU 1032 - US ABD RIGHT UPPER QUADRANT / PROCEDURE REASON: multiple diagnoses * * * * Physician Interpretation * * * * RESULT: EXAMINATION: RIGHT UPPER QUADRANT AND SPLEEN ULTRASOUND CLINICAL HISTORY: Fatty liver BMI 30.0-30.9,adult Elevated HDL TECHNIQUE: Sonography of the right upper quadrant and spleen was performed. Images were obtained and stored in a permanent archive. MQ: URUQ_2 COMPARISON: CT abdomen and pelvis dated 08/05/2020.. RESULT: Pancreas: Limited views of the pancreas are grossly unremarkable. Liver: Echotexture: Normal, homogeneous. Echogenicity: Increased Surface contour: Smooth Lesions: None. Biliary: No intrahepatic biliary duct dilation. CBD: 0.8 cm at the hilum. Gallbladder: Prior cholecystectomy Kidneys: No hydronephrosis. The right kidney measures approximately 8.6 cm. The left kidney measures approximately 10.4 cm. Ascites: None. Spleen: The craniocaudal length of the spleen is 9.2 cm, normal. There are no splenic lesions. IMPRESSION: Findings suggesting fatty infiltration of the liver, without focal hepatic lesion. Status post cholecystectomy. Mild biliary dilation, likely related to the cholecystectomy. No splenomegaly or focal splenic mass. Transcribed Using Voice Recognition Transcribe Date/Time: Aug 26 2020 7:59A Dictated by: ANGELA RAGSDALE MD This examination was interpreted and the report reviewed and electronically signed by: ANGELA RAGSDALE MD on Aug 26 2020 8:01AM EST [id number] [facility] US ABD SPLEEN -NBon 08-27-19 21 US ABD SPLEEN -NB * * *Final Report* * * DATE OF EXAM: Aug 26 2020 7:54AM SPU 1232 - US ABD SPLEEN -NB / PROCEDURE REASON: multiple diagnoses * * * * Physician Interpretation * * * * RESULT: EXAMINATION: RIGHT UPPER QUADRANT AND SPLEEN ULTRASOUND CLINICAL HISTORY: Fatty liver BMI 30.0-30.9,adult Elevated HDL TECHNIQUE: Sonography of the right upper quadrant and spleen was performed. Images were obtained and stored in a permanent archive. MQ: URUQ_2 COMPARISON: CT abdomen and pelvis dated 08/05/2020.. RESULT: Pancreas: Limited views of the pancreas are grossly unremarkable. Liver: Echotexture: Normal, homogeneous. Echogenicity: Increased Surface contour: Smooth Lesions: None. Biliary: No intrahepatic biliary duct dilation. CBD: 0.8 cm at the hilum. Gallbladder: Prior cholecystectomy Kidneys: No hydronephrosis. The right kidney measures approximately 8.6 cm. The left kidney measures approximately 10.4 cm. Ascites: None. Spleen: The craniocaudal length of the spleen is 9.2 cm, normal. There are no splenic lesions. IMPRESSION: Findings suggesting fatty infiltration of the liver, without focal hepatic lesion. Status post cholecystectomy. Mild biliary dilation, likely related to the cholecystectomy. No splenomegaly or focal splenic mass. Transcribed Using Voice Recognition Transcribe Date/Time: Aug 26 2020 7:59A Dictated by: ANGELA RAGSDALE MD This examination was interpreted and the report reviewed and electronically signed by: ANGELA RAGSDALE MD on Aug 26 2020 8:01AM EST [id number] [facility] Vital Signs Date Time Vital Sign Value Performing Clinician Facility 03-06-2023 09:55-0500 Body height 170.18 cm Tomás Alegria Other [facility] Other 03-06-2023 09:55-0500 Body mass index (BMI) [Ratio] 26.62 kg/m2 Tomás Alegria Other [facility] Other 03-06-2023 09:55-0500 Body temperature 98.2 [degF] Tomás Alegria Other [facility] Other 03-06-2023 09:55-0500 Body weight 77.11 kg Tomás Alegria Other [facility] Other 03-06-2023 09:55-0500 Diastolic blood pressure 92 mm[Hg] Tomás Alegria Other [facility] Other 03-06-2023 09:55-0500 Respiratory rate 18 /min Tomás Alegria Other [facility] Other 03-06-2023 09:55-0500 SaO2% (BldA) [Mass fraction] 97 % Tomás Alegria Other [facility] Other 03-06-2023 09:55-0500 Systolic blood pressure 144 mm[Hg] Tomás Alegria Other [facility] Other 02-26-2023 16:15-0500 Body temperature 97.7 [degF] MD Martell Burciaga Work Phone: [facility] 02-26-2023 16:15-0500 Diastolic blood pressure 79 mm[Hg] MD Martell Burciaga Work Phone: [facility] 02-26-2023 16:15-0500 Heart rate 71 /min MD Martell Burciaga Work Phone: [facility] 02-26-2023 16:15-0500 Respiratory rate 18 /min MD Martell Burciaga Work Phone: [facility] 02-26-2023 16:15-0500 SaO2% (BldA) [Mass fraction] 99 % MD Martell Burciaga Work Phone: [facility] 02-26-2023 16:15-0500 Systolic blood pressure 139 mm[Hg] MD Martell Burciaga Work Phone: [facility] 02-26-2023 14:24-0500 Body height 170.18 cm MD Martell Burciaga Work Phone: [facility] 02-26-2023 14:24-0500 Body weight 80.2 kg MD Martell Burciaga Work Phone: [facility] 08-07-2022 16:00-0400 Body height 170.18 cm Guy Vega Other [employer] [facility] Other 08-07-2022 16:00-0400 Body mass index (BMI) [Ratio] 29.75 kg/m2 Guy Scovanner Other [facility] Other 08-07-2022 16:00-0400 Body weight 86.18 kg Guy Sceladioner Other [facility] Other 08-07-2022 16:00-0400 Diastolic blood pressure 88 mm[Hg] Guy Scovanner Other [facility] Other 08-07-2022 16:00-0400 Systolic blood pressure 120 mm[Hg] Guy Scovanner Other [facility] Other 07-02-2022 16:13-0400 Body height 170.18 cm MD Martell Burciaga Work Phone: [facility] 07-02-2022 16:13-0400 Body temperature 98 [degF] MD Martell Burciaga Work Phone: [facility] 07-02-2022 16:13-0400 Body weight 79.4 kg MD Martell Burciaga Work Phone: [facility] 07-02-2022 16:13-0400 Diastolic blood pressure 92 mm[Hg] MD Martell Burciaga Work Phone: [facility] 07-02-2022 16:13-0400 Heart rate 70 /min MD Martell Burciaga Work Phone: [facility] 07-02-2022 16:13-0400 Respiratory rate 16 /min MD Martell Burciaga Work Phone: [facility] 07-02-2022 16:13-0400 SaO2% (BldA) [Mass fraction] 100 % MD Martell Burciaga Work Phone: [facility] 07-02-2022 16:13-0400 Systolic blood pressure 167 mm[Hg] MD Martell Burciaga Work Phone: [facility] 06-26-2022 16:05-0400 Body height 170.18 cm Yadira Healy Other [facility] Other 06-26-2022 16:05-0400 Body mass index (BMI) [Ratio] 29.75 kg/m2 Yadira Healy Other [facility] Other 06-26-2022 16:05-0400 Body temperature 98.3 [degF] Yadira Healy Other [facility] Other 06-26-2022 16:05-0400 Body weight 86.18 kg Yadira Healy Other [facility] Other 06-26-2022 16:05-0400 Diastolic blood pressure 84 mm[Hg] Yadira Healy Other [facility] Other 06-26-2022 16:05-0400 Respiratory rate 18 /min Yadira Healy Other [facility] Other 06-26-2022 16:05-0400 SaO2% (BldA) [Mass fraction] 97 % Yadira Healy Other [facility] Other 06-26-2022 16:05-0400 Systolic blood pressure 118 mm[Hg] Yadira Healy Other [facility] Other 06-20-2022 12:45-0400 Body height 170.18 cm Tomás Alegria Other [facility] Other 06-20-2022 12:45-0400 Body mass index (BMI) [Ratio] 29.75 kg/m2 Tomás Alegria Other [facility] Other 06-20-2022 12:45-0400 Body temperature 98.4 [degF] Tomás Alegria Other [facility] Other 06-20-2022 12:45-0400 Body weight 86.18 kg Tomás Alegria Other [facility] Other 06-20-2022 12:45-0400 Respiratory rate 18 /min Tomás [place] Other [facility] Other 06-20-2022 12:45-0400 SaO2% (BldA) [Mass fraction] 98 % Tomás Alegria Other [facility] Other 06-11-2022 17:35-0400 Body height 170.18 cm Karoline Dorsey Other [facility] Other 06-11-2022 17:35-0400 Body mass index (BMI) [Ratio] 29.75 kg/m2 Karoline Dorsey Other [facility] Other 06-11-2022 17:35-0400 Body temperature 97.8 [degF] Karoline Dorsey Other [facility] Other 06-11-2022 17:35-0400 Body weight 86.18 kg Karoline Dorsey Other [facility] Other 06-11-2022 17:35-0400 Diastolic blood pressure 86 mm[Hg] Karoline Dorsey Other [facility] Other 06-11-2022 17:35-0400 Respiratory rate 18 /min Karoline Dorsey Other [facility] Other 06-11-2022 17:35-0400 SaO2% (BldA) [Mass fraction] 98 % Karoline Dorsey Other [facility] Other 06-11-2022 17:35-0400 Systolic blood pressure 132 mm[Hg] Karoline Dorsey Other [facility] Other 07-14-2021 10:42-0400 Body height 170.18 cm Referring Provider Unknown [facility] Work Phone: 07-14-2021 10:42-0400 Body mass index (BMI) [Ratio] 23.96 kg/m2 Referring Provider Unknown [facility] Work Phone: 07-14-2021 10:42-0400 Body surface area Derived from formula 1.8 m2 Referring Provider Unknown [facility] Work Phone: 07-14-2021 10:42-0400 Body weight 69.4 kg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 claudication. Relevant comorbidities include: Nonalcoholic fatty liver disease, dysphagia REVIEW OF SYSTEMS: 10 systems reviewed and are negative with the exception of pertinent positives described in HPI PHYSICAL EXAMINATION: BP 134/90 (BP Site: Left Arm, BP Position: Sitting, BP Cuff Size: Regular Adult) Pulse 78 Ht 170.2 cm (5' 7 ) Wt 78.2 kg (172 lb 6.4 oz) LMP (LMP Unknown) SpO2 98% BMI 27.00 kg/m? General: No acute distress, appears comfortable HEENT: no bruits, No JVD Pulmonary/chest: CTA b/L. No chest wall tenderness/venous engorgments CVS: Normal S1 and S2, Regular rhythm, normal rate. No murmurs/rubs or gallops. No JVD, no lower extremity edema. Central and peripheral pulses 2+ B/L, no carotid or abdominal bruits. Abdomen: Soft, non-tender, non-distended. Bowel sounds normal Extremities: No peripheral edema/varicosities Skin: No rashes/ulcers, warm and pink Neuro: AAOx4 Psych: Normal mood and affect CARDIOVASCULAR MEDICINE TESTING: I have personally reviewed EKG: Sinus rhythm, 110 bpm PAST MEDICAL HISTORY Diagnosis Date Bleeding ulcer Cervical dysplasia 1992 s/p LEEP Cervicalgia 10/17/2020 Cholecystitis 12/2010 cholesterol polyps COVID-19 12/31/2019 presumed - no test - dtr positive Fatty liver Heavy metal exposure 11/10/2020 History of bleeding ulcers when she was 21 years old History of hypertension History of pre-eclampsia HSIL (high grade squamous intraepithelial lesion) on Pap smear of cervix 04/22/20131992 LEEP 06/2016 Colposcopy negative 09/2016 PAP LSIL 05/2017 PAP ASCUS HPV NEG 12/2017 PAP normal 12/2018 PAP normal HPV NEG Liver lesion 12/2010 Lung nodule Mold exposure 11/10/2020 NAFLD (nonalcoholic fatty liver disease) 09/20/2021 Osteoarthritis of hands, bilateral Palpitations 08/31/2019 Pap smear for cervical cancer screening 10/2011 due in 11/11 [id number]-[id number] condition 11/03/2020 RECOVER Clinic initial visit at [place] on 11/03 (VV), pc RECOVER follow up #1 at on 11/11 (VV), pc Preeclampsia Primary hypertension 09/15/2020 SVT (supraventricular tachycardia) (HCC) Tachycardia 08/31/2019 Thyroid nodule 01/19/2021 left 0.6x0.8x0.5 Trauma in childhood 11/10/2020 PAST SURGICAL HISTORY Procedure Laterality Date CHOLECYSTECTOMY HX COLONOSCOPY GEN ANES CONIZATION CERVIX W/WO DANDC RPR ELTRD EXC 04/01/1992 LEEP-Cervix for dysplasia NECK SURGERY HX lipoma PAST SURGICAL HISTORY OF gallbladder TONSILLECTOMY HX SOCIAL HISTORY Social History Tobacco Use Smoking status: Former Packs/day: 0.50 Years: 10.00 Additional pack years: 0.00 Total pack years: 5.00 Types: Cigarettes Quit date: 02/13/2007 Years since quittin.7 Smokeless tobacco: Never Vaping Use Vaping Use: Never used Substance Use Topics Alcohol use: Not Currently Alcohol/week: 3.3 standard drinks of alcohol Types: 4 Glasses of wine per week Drug use: No FAMILY HISTORY Problem Relation Age of Onset Cancer Mother skin Hypertension Mother Headache Mother migrane Asthma Mother Heart Mother SVT; PAF Stroke Mother mini-strokes GI Mother Fatty liver Ischemic Heart Disease Father Parkinson?s Disease Father Hyperlipidemia Father Asthma Brother Hypertension Brother Alzheimer's Disease Maternal Grandmother Breast Cancer Maternal Grandmother skin Heart Maternal Grandmother valves Heart Paternal Grandfather Stroke Paternal Grandfather Primary Biliary Cirrhosis Paternal Grandfat (more content not included)... [place]08-02-2023 NoteHNO ID: [id number] Author: Joellen Browning APRN.SHAYNA Service: ? Author Type: Nurse Practitioner Type: Progress Notes Filed: 10/31/2022 10:47 AM Note Text: [facility] [place] Department of Benign Gynecology [facility] PATIENT NAME: Jennifer Navarro DATE: 10/31/2022 Patient Name and verified: Yes Patient Location: [place] This Virtual Visit was completed using My Chart Zoom platform. I have communicated my name and active licensure. The patient's identity and physical location were verified at the time of this visit. Either the patient or their legal outside medical sales representative has been informed of the risks and benefits of -- and alternatives to -- treatment through a remote evaluation and consents to proceed with the evaluation remotely. Chief Complaint CC/REASON FOR VIRTUAL VISIT: LLQ pain History of Present Illness: Jennifer is a 51 year old who presents for a Distance Health visit to discuss LLQ pain (confirms left sided) She has a Bernese mountain dog. 100lbs puppy. Puppy jumped up on patients bed and landed on her. Dog's paw landed on her lower abdomen and caused severe pain. Patient lost her breath after the injury She thought she might have needed to go to the hospital, but didn't. This happened 6am Saturday. Then around 4pm on Saturday she noticed she had severe pain. [place] heavy in vaginal/groin area Had cramps. Reminded her of period pain. Saturday pain was pretty bad , considered going to Urgent Care but didn't. She called her Family Physician on Saturday - out of office, earliest appt offered with PCP office was (11/01) Pain has not subsided - still present. Has very small bruise on LLQ abdomen, size of a fingertip. If she pushes deep on this spot, causes pain. She has NOT taken any tylenol or ibuprofen. She has non-alcoholic fatty liver, avoids OTC meds if possible. Just has done heat pack. Doesn't want to mask anything Noticed constipation yesterday, this is atypical for her. However, bowels moving normally as of today. Has huge BMs, eats lots of fiber. BM this morning was very skinny/thin in circumference. Increased her fluid intake. Following BM was back to baseline. OB History T0 L1 SAB0 IAB0 Ectopic0 Multiple0 Live Births0 Comment: 1 FTVD born [birth year] Crop Picker History LMP: LMP Unknown, Postmenopausal Age at Menarche: Age at First : Age at Menopause: Crop Picker History Comments: Sexual Activity: Yes; Male Contraception: No contraception data on record Past Medical History: PAST MEDICAL HISTORY Diagnosis Date Bleeding ulcer Cervical dysplasia 1992 s/p LEEP Cervicalgia 10/17/2020 Cholecystitis 12/2010 cholesterol polyps COVID-19 12/31/2019 presumed - no test - dtr positive Fatty liver Heavy metal exposure 11/10/2020 History of bleeding ulcers when she was 21 years old History of hypertension History of pre-eclampsia HSIL (high grade squamous intraepithelial lesion) on Pap smear of cervix 04/22/2013 1993 LEEP 06/2016 Colposcopy negative 09/2016 PAP LSIL 05/2017 PAP ASCUS HPV NEG 12/2017 PAP normal 12/2018 PAP normal HPV NEG Liver lesion 12/2010 Lung nodule Mold exposure 11/10/2020 NAFLD (nonalcoholic fatty liver disease) 09/20/2021 Osteoarthritis of hands, bilateral Palpitations 08/31/2019 Pap smear for cervical cancer screening 10/2011 due in 11/11 Ahow-USULW-26 condition 11/03/2020 RECOVER Clinic initial visit at [place] on 11/03 (VV), pc RECOVER follow up #1 at on 11/11 (VV), pc Preeclampsia Primary hypertension 09/15/2020 SVT (supraventricular tachycardia) (HCC) Tachycardia 08/31/2019 Thyroid nodule 01/19/2021 left 0.6x0.8x0.5 Trauma in childhood 11/10/2020 Family History: Family History Problem Relation Age of Onset Cancer Mother skin Hypertension Mother Headache Mother migrane Asthma Mother Heart Mother SVT; PAF Stroke Mother mini-strokes GI Mother Fatty liver Ischemic Heart Disease Father Parkinson?s Disease Father Hyperlipidemia Father Asthma Brother Hypertension Brother Alzheimer's Disease Maternal Grandmother Breast Cancer Maternal Grandmother skin Heart Maternal Grandmother valves Heart Paternal Grandfather Stroke Paternal Grandfather Primary Biliary Cirrhosis Paternal Grandfather Colon Cancer No Family History Past Surgical History: PAST SURGICAL HISTORY Procedure Laterality Date CHOLECYSTECTOMY HX COLONOSCOPY GEN ANES CONIZATION CERVIX W/WO DANDC RPR ELTRD EXC 04/01/1992 LEEP-Cervix for dysplasia NECK SURGERY HX lipoma PAST SURGICAL HISTORY OF gallbladder TONSILLECTOMY HX Social History: Social History Tobacco Use Smoking status: Former Packs/day: 0.50 Years: 10.00 Total pack years: 5.00 Types: Cigarettes Quit date: 02/13/2007 Years since quittin.7 Smokeless tobacco: Never Substance Use Topics Alcohol use: Not Currently A (more content not included)...[place]07-14-2023 NoteHNO ID: [id number] Author: Nasreen Mohamud MD Service: ? Author Type: Physician Type: Progress Notes Filed: 10/12/2022 10:15 AM Note Text: Hepatology Clinic virtual visit Date of visit: 10/12/22 CC: MEGAN HPI: Jennifer Navarro is a 51 year old woman with PCOS, cholecystectomy, and MASLD here for follow-up. Since I last saw her, she was seen by Dr. Perla for dysphagia/odynophagia. Repeat EGD pending She has gained around 20 lbs since last summer (our visit 08/2021) due to being frustrated with the thought that her fibrosis progressed Clinic 03/2022 Since I last saw her, recently diagnosed with likely Sjogren's syndrome Saw Dr. Diaz, diagnosed with functional dyspepsia and prescribed amitriptyline but hasn't started it Still having some twinges of pain in abdomen associated with change in bowel consistency or increased mucus in stool Still eating healthy, avoiding alcohol. Weight has been stable Review of Systems: See note Past Medical/surgical/family History: unchanged Social History: Tobacco: denies EtOH: rare Drugs: denies I have confirmed and edited as necessary, the PFSH and ROS obtained by others. Outpatient medications: Current Outpatient Medications on File Prior to Visit Medication Sig NAC 600mg 90 ct[address] (Pure Encapsulations) Take 1 capsule twice daily, between meals. Ox Bile 125 mg ([employer]) Take 1 capsule three times daily with meals, or as directed by a healthcare practitioner. BiotaGen capsules (Klaire/Prothera) 4 capsules once daily Probiotic 50B (Pure Encapsulations) Take 1 capsule daily Biocidin Advanced Formula ([employer]) Take 5 Drops by mouth three times daily. Zinc citrate (Pure Encapsulations) Take 1 capsule by mouth twice daily with meals. Homocysteine [place] [employer] ([employer]) Take 2 capsules by mouth daily with food. sodium sulfate-potassium sulfate-magnesium sulfate (SUPREP BOWEL PREP KIT) 17.5-3.13-1.6 gram oral liquid Refer to instructions given by your provider. amLODIPine (NORVASC) 5 mg tablet Take 1 tablet by mouth once daily as needed. Silymarin 80 ([employer]) milk thistle/liver support Take 1 capsule by mouth three times daily. COVID-19 vaccine 30 mcg/0.3 mL (PF) (Thrinacia) Inject 0.3 ml intramuscularly as directed blood sugar diagnostic (BLOOD GLUCOSE TEST) test strip Use to test BG 4 times daily. Blood-Glucose Meter For blood sugar checks 4 times a day. Hypoglycemia Lancets lancets Use as instructed No current facility-administered medications on file prior to visit. Vitals: There were no vitals taken for this visit. Physical Exam: Well appearing, in NAD No jaundice mentating well Laboratory: Liver Biopsy 01/09/2011 - Hepatic parenchyma with no specific diagnostic alteration. - No evidence of fibrosis Imaging: Fibroscan 08/22/2020 E9kPa); 6.3 c/w Fibrosis F0-F1 CAP: 355 c/w Grade 3 steatosis Fibroscan 08/2021: IQR:22% E (kpa):8.2 CAP:200 Impression. The reading was adequate, and corresponds to Fibrosis stage F2 and steatosis grade of S0. Assessment and Plan: Jennifer Navarro is a 51 year old woman with PCOS, cholecystectomy, and MASLD here for follow-up. Reassured her that even her fibroscan from 08/2021 is not particularly worrisome and in fact may be inaccurate. Told her we could try MRE to better quantify fibrosis/steatosis and then make further treatment decisions pending those results. Did discuss statin initiation but she is not interested in starting at this time. Told her to be more diligent with diet/exercise, get MRI, and then further treatment planning is pending RTC 1 year I spent a total of 45 minutes on the date of the service which included preparing to see the patient, wjse-zh-[id number] patient care, completing clinical documentation, obtaining and/or reviewing separately obtained history, performing a medically appropriate examination, counseling and educating the patient/family/caregiver, and ordering medications, tests, or procedures. Nasreen Mohamud MD Associate Staff, Department of Gastroenterology and Hepatology [facility] [place] I have communicated my name and active licensure. The patient's identity and physical location were verified at the time of this visit. Either the patient or their legal outside medical sales representative has been informed of the risks and benefits of -- and alternatives to -- treatment through a remote evaluation and consents to proceed with the evaluation remotely.[place]06-28-2023 Evaluation note* Encounter Date Diagnosis Assessment Notes Treatment Notes Treatment Clinical Notes Aug, Fatigue (ICD-10 - R53.83) [facility] Other 06-02-2023 NoteHNO ID: [id number] Author: Adelia Frank, DO Service: ? Author Type: Physician Type: Progress Notes Filed: 08/31/2022 12:30 PM Note Text: Virtual Follow-up Visit I have communicated my name and active licensure. The patient's identity and physical location were verified at the time of this visit. Either the patient or their legal outside medical sales representative has been informed of the risks and benefits of -- and alternatives to -- treatment through a remote evaluation and consents to proceed with the evaluation remotely. Patient: Jennifer Navarro There is no height or weight on file to calculate BMI. Resting Metabolic Rate: 1450 Waist measurement: No waist measurement recorded. BP: ALLERGIES Allergen Reactions Doxycycline Hives Sanjuana [Fexofenadi* Diarrhea, Other: See Comments Causes high heart rate Aristocort Intrales* Hives Cats Anaphylaxis Dogs Anaphylaxis Imodium [Loperamide] Other: See Comments High heart rate Kenalog-H Hives Medrol [Methylpredn* Itching, Shortness of Breath, Other: See Comments Scratchy throat, high heart rate, couldn't catch breath Miralax [Polyethyle* Hives, Itching Polyethylene Glycol Hives, GI Upset, Itching Current Outpatient Medications on File Prior to Visit Medication Sig fluconazole (DIFLUCAN) 200 mg tablet Take 4 tablets on day 1, then 1 tablet daily for days 2-14 fluticasone (FLONASE ALLERGY RELIEF) 50 mcg/actuation nasal spray Use 2 Sprays in each nostril once daily. No current facility-administered medications on file prior to visit. PAST MEDICAL HISTORY Diagnosis Date Bleeding ulcer Cervical dysplasia 1992 s/p LEEP Cervicalgia 10/17/2020 Cholecystitis 12/2010 cholesterol polyps COVID-19 12/31/2019 presumed - no test - dtr positive Fatty liver Heavy metal exposure 11/10/2020 History of bleeding ulcers when she was 21 years old History of hypertension History of pre-eclampsia HSIL (high grade squamous intraepithelial lesion) on Pap smear of cervix 04/22/20131992 LEEP 06/2016 Colposcopy negative 09/2016 PAP LSIL 05/2017 PAP ASCUS HPV NEG 12/2017 PAP normal 12/2018 PAP normal HPV NEG Liver lesion 12/2010 Lung nodule Mold exposure 11/10/2020 NAFLD (nonalcoholic fatty liver disease) 09/20/2021 Osteoarthritis of hands, bilateral Palpitations 08/31/2019 Pap smear for cervical cancer screening 10/2011 due in 11/11 Iume-[id number]-66 condition 11/03/2020 RECOVER Clinic initial visit at [place] on 11/03 (VV), pc RECOVER follow up #1 at on 11/11 (VV), pc Preeclampsia Primary hypertension 09/15/2020 SVT (supraventricular tachycardia) (HCC) Tachycardia 08/31/2019 Thyroid nodule 01/19/2021 left 0.6x0.8x0.5 Trauma in childhood 11/10/2020 PAST SURGICAL HISTORY Procedure Laterality Date CHOLECYSTECTOMY HX COLONOSCOPY GEN ANES CONIZATION CERVIX W/WO DANDC RPR ELTRD EXC 04/01/1992 LEEP-Cervix for dysplasia NECK SURGERY HX lipoma PAST SURGICAL HISTORY OF gallbladder TONSILLECTOMY HX Social History Tobacco Use Smoking status: Former Packs/day: 0.50 Years: 10.00 Pack years: 5.00 Types: Cigarettes Quit date: 02/13/2007 Years since quittin.5 Smokeless tobacco: Never Substance Use Topics Alcohol use: Not Currently Alcohol/week: 3.3 standard drinks Types: 4 Glasses of wine per week Drug use: No Functional Medicine Timeline MSQ: Patient Entered Questionnaire PROMIS Scale T-Scores -- HIGHER SCORES BETTER PROMIS Global Health - (T-Scores - the mean of general population = 50. Five points is a clinically meaningful difference.) 01/15/2022 02/19/2022 06/27/2022 Physical T-Score 42.3 50.8 44.9 Mental T-Score 59 62.5 62.5 Depression Screening: PHQ-9 01/26/2021 Score 2 PHQ-9 Self Harm 01/26/2021 Question 9 Not at all PHQ-9 Self-Harm (Item 9) response options: 0 Not at all 1 Several days 2 More than half the days 3 Nearly every day PHQ-9 Levels: 0-4 Minimal depression 5-9 Mild depression 10-14 Moderate depression 15-19 Moderately severe depression 20-27 Severe depression August 28, 2022 Adelia Frank, DO Subjective: Nutraeval- stars- missing tube Struggling with longstanding fatigue- Not going to do any supplements- Low blood pressures- 90/60 Were previously high Review of Systems: Low blood pressure July 21, 2021 Lorene Angel APRN.SHAYNA Subjective: Goals: Review labs and GI Effects Update progress 2017 - elevated liver enzymes, US normal 2018- menopause - she thinks this was the trigger 2020 - severe fatty liver on US Feels likes she is wasting but not losing anymore weight. Feels malnourished Feels itchy after eating Nuts and gum were causing GI issues. Better with stopping those. Able to eat walnuts Having occasional nausea Diet - Mediterranean, organic, low meat BM - daily, formed. Sometimes floaty Supplement - none May 29, 2021 Lorene Angel APRN.CNP Subjective: Goals: Update progress (more content not included)...[place]05-09-2023 Evaluation note* Encounter Date Diagnosis Assessment Notes Treatment Notes Treatment Clinical Notes July, Dysphagia (ICD-10 - R13.10) Patient has a history of gastritis Patient is had an EGD in 2019 and gastritis was found Patient is to continue sucralfate as directed Patient is to start 40mg daily 30 minutes prior to meal of protonix for 3 months trial Will obtain records release from patient Saji is to take a daily probiotic twice daily July, SALINAS (nonalcoholic steatohepatitis) (ICD-10 - K75.81) Patient is due for fibro scan next year and she wants to have this done at [facility] Records release requested from [employer] [facility] Other 04-03-2023 NoteHNO ID: [id number] Author: Yancy Perla MD Service: ? Author Type: Physician Type: Progress Notes Filed: 07/02/2022 9:56 AM Note Text: VIRTUAL VISIT NEW PATIENT SWALLOW CENTER NAME: Jennifer Navarro CLINIC NO: [id number] DATE: 07/02/2022 REASON FOR VISIT Jennifer Navarro [id number] has requested a video telemedicine initial consultation at the request of Merrill Morgan MD. Jennifer Navarro verbalized informed consent to proceed with the video telemedicine initial consultation. Jennifer Navarro was informed that the details of this video visit would be recorded as part of their electronic medical record. My recommendations will be conveyed to the consulting provider by way of shared electronic medical record, fax, or U.S. Mail. I have communicated my name and active licensure. The patient's identity and physical location were verified at the time of this visit. Either the patient or their legal outside medical sales representative has been informed of the risks and benefits of -- and alternatives to -- treatment through a remote evaluation and consents to proceed with the evaluation remotely. Patient location at time of call: home Callback number: [phone] Additional encounter participants and relationship: none PRESENTING COMPLAINT Jennifer Navarro is a 51 year old female with NAFLD, presenting with dysphagia Patient reported thrush started a week ago. Went to urgent care and given fluconazole/nystatin swish and swallow. Does not feel like this is helping. Patient concerned about esophageal candidiasis Difficulty with swallowing started around that time - intermittently prior to that (for a few months. Peanut butter, but can be anything). Could be solid foods, liquids - lower throat - stuck for about an hour +choking, feeling it's going down the 'wrong pipe' and coughing - solid foods/liquids Eckardt Score Dysphagia: 1 Regurgitation: 0 Retrosternal pain: 0 Weight loss (lb): 0 Total: 1 0=none 1=occasional; <11 lb 2=daily; 11-22 lb 3=each meal; >22 lb Denies heartburn CURRENT MEDICATIONS Current Outpatient Medications Medication Sig Dispense Refill fluconazole (DIFLUCAN) 200 mg tablet Take 4 tablets on day 1, then 1 tablet daily for days 2-14 17 tablet 0 nystatin (MYCOSTATIN) 100,000 unit/mL suspension Take 1 mL by mouth four times daily. Swish and swallow. 120 mL 0 fluticasone (FLONASE ALLERGY RELIEF) 50 mcg/actuation nasal spray Use 2 Sprays in each nostril once daily. 15.8 mL 3 No current facility-administered medications for this visit. Doxycycline, Sanjuana [Fexofenadine], Aristocort Intralesional [Triamcinolone], Cats, Dogs, Imodium [Loperamide], Kenalog-H, Medrol [Methylprednisolone], Miralax [Polyethylene Glycol 3350], and Polyethylene Glycol PAST MEDICAL HISTORY PAST MEDICAL HISTORY Diagnosis Date Bleeding ulcer Cervical dysplasia 1992 s/p LEEP Cervicalgia 10/17/2020 Cholecystitis 12/2010 cholesterol polyps COVID-19 12/31/2019 presumed - no test - dtr positive Fatty liver Heavy metal exposure 11/10/2020 History of bleeding ulcers when she was 21 years old History of hypertension History of pre-eclampsia HSIL (high grade squamous intraepithelial lesion) on Pap smear of cervix 04/22/2013 1993 LEEP 06/2016 Colposcopy negative 09/2016 PAP LSIL 05/2017 PAP ASCUS HPV NEG 12/2017 PAP normal 12/2018 PAP normal HPV NEG Liver lesion 12/2010 Lung nodule Mold exposure 11/10/2020 NAFLD (nonalcoholic fatty liver disease) 09/20/2021 Osteoarthritis of hands, bilateral Palpitations 08/31/2019 Pap smear for cervical cancer screening 10/2011 due in 11/11 [id number] condition 11/03/2020 RECOVER Clinic initial visit at [place] on 11/03 (VV), pc RECOVER follow up #1 at on 11/11 (VV), pc Preeclampsia Primary hypertension 09/15/2020 SVT (supraventricular tachycardia) (HCC) Tachycardia 08/31/2019 Thyroid nodule 01/19/2021 left 0.6x0.8x0.5 Trauma in childhood 11/10/2020 PAST SURGICAL HISTORY PAST SURGICAL HISTORY Procedure Laterality Date CHOLECYSTECTOMY HX COLONOSCOPY GEN ANES CONIZATION CERVIX W/WO DANDC RPR ELTRD EXC 04/01/1992 LEEP-Cervix for dysplasia NECK SURGERY HX lipoma PAST SURGICAL HISTORY OF gallbladder TONSILLECTOMY HX FAMILY HISTORY FAMILY HISTORY Problem Relation Age of Onset Cancer Mother skin Hypertension Mother Headache Mother migrane Asthma Mother Heart Mother SVT; PAF Stroke Mother mini-strokes GI Mother Fatty liver Ischemic Heart Disease Father Parkinson?s Disease Father Hyperlipidemia Father Asthma Brother Hypertension Brother Alzheimer's Disease Maternal Grandmother Breast Cancer Maternal Grandmother skin Heart Maternal Grandmother valves Heart Paternal Grandfather Stroke Paternal Grandfather Primary Biliary Cirrhosis Paternal Grandfather Colon Cancer No Family History SOCIAL HISTORY Social History Tobacc (more content not included)...[place]04-01-2023 Note HNO ID: [id number] Author: RT Yasir(R) Service: Radiology Author Type: Technologist Type: Progress Notes Filed: 06/30/2022 1:37 PM Note Text: Radiology Service Progress Note PATIENT NAME: Jennifer Navarro DATE OF SERVICE: June 30, 2022 TIME: 1:36 PM PATIENT IDENTITY VERIFICATION COMPLETED USING TWO (2) IDENTIFIERS: Name and Date of confirmed by patient verbally and Name and Date of confirmed by identification band. FALL SCREENING: Has the patient had 2 falls in the last year or 1 fall with injury or currently using an Ambulatory Assistive Device (Walker, Cane, Wheelchair, Crutches, etc.)? Emergency Room Patient: Screened in ED PATIENT GENDER DATA: Female. status: : No status: NO. PATIENT RELEVANT IMPLANT DATA REVIEWED: Not Applicable RADIOLOGY DEPARTMENT: General X-ray: Exam(s) Completed: Chest X-Ray PERIPHERAL IV DATA: Not applicable SIGNED BY: RT Yasir(R) June 30, 2022 1:36 [id number] NoteHNO ID: [id number] Author: Merrill Morgan MD Service: ? Author Type: Physician Type: Progress Notes Filed: 06/28/2022 3:36 PM Note Text: DISTANCE HEALTH VISIT This Team Access Model visit is a virtual encounter. It required patient-provider interaction for the medical decision making as documented below. I have communicated my name and active licensure. The patient's identity and physical location were verified at the time of this visit. Either the patient or their legal outside medical sales representative has been informed of the risks and benefits of -- and alternatives to -- treatment through a remote evaluation and consents to proceed with the evaluation remotely. Jennifer Navarro is a 51 year old female seen yesterday for thrush. She went to the urgent care before seeing me yesterday and was prescribed Diflucan 150 mg x 1 dose and was concerned about taking it because she has a history of nonalcoholic fatty liver disease. 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 I prescribed yesterday nystatin suspension for oral thrush and terconazole for vaginal candidiasis. She had reported to me that she was on multiple antibiotics previously which has led to the infections. She heard from a covering GI provider that she was okay to take the Diflucan so she did do that yesterday. Today she sent me a copy of her throat culture results from 06/20/2022 which were negative. Now states that she is feeling off. Her body itches without a rash, describes throat tightness and feels as if food gets stuck. States her muscles are fatigued, her mouth burn and she has cough. She wonders if the fungal infection continues into her esophagus. HISTORY REVIEWED (electronic chart updated): - medical history - medications - allergies REVIEW OF SYSTEMS: General: Complains of itching gastrointestinal: Feels like things are getting stuck when she swallows HEENT: Coating on tongue and burning in mouth Respiratory: Cough Musculoskeletal: Myalgias PHYSICAL EXAMINATION: VIDEO EXAM: (if done, performed via video enabled technology) GENERAL: alert and appropriate, in no distress SKIN: no rash noted HEAD: normocephalic, no abnormality or lesion noted EYES: no injection and visual acuity is grossly normal RESPIRATORY: breathing non-labored CK CREATINE KINASE Order: [id number] Status: Final result Visible to patient: Yes (seen) 0 Result Notes Component Ref Range AND Units 2 wk ago 4 yr ago CK 42 - 196 U/L 54 62 Resulting Agency CMP: Glucose, POC 95 06/13/2022 BUN 8 06/13/2022 Creatinine 0.68 06/13/2022 Sodium 142 06/13/2022 Potassium, POC 4.0 06/13/2022 Chloride 105 06/13/2022 CO2 26 06/13/2022 Protein, Total 6.8 06/13/2022 Albumin 4.6 06/13/2022 Calcium 8.9 06/13/2022 Alkaline Phosphatase 80 06/13/2022 Bilirubin, Total 0.4 06/13/2022 AST 22 06/13/2022 ALT 24 06/13/2022 Hemoglobin (g/dL) Date Value 06/13/2022 13.6 05/06/2021 14.0 Hematocrit (%) Date Value 06/13/2022 42.1 05/06/2021 42.0 WBC (k/uL) Date Value 06/13/2022 6.39 05/06/2021 6.79 Platelet Count (k/uL) Date Value 06/13/2022 216 05/06/2021 207 ASSESSMENT AND PLAN: ASSESSMENT/PLAN: 1. Acute cough - ICD9: 786.2, ICD10: R05.1 (primary diagnosis) - XR CHEST 2V FRONTAL/LAT 2. Mouth problem - ICD9: 528.9, ICD10: K13.70 - CONSULT TO ENT 3. 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 Pharyngitis, unspecified etiology - ICD9: 462, ICD10: J02.9 - THROAT CULTURE. She agrees to the urine culture. She declined COVID and flu testing today. 5. NAFLD (nonalcoholic fatty liver disease) - ICD9: 571.8, ICD10: K76.0 - She was advised to follow-up with her district commercial superintendent. 6. Dysphagia, unspecified type - ICD9: 787.20, ICD10: R13.10 - She was advised to follow-up with her district commercial superintendent and discussed with them the feeling that something is getting stuck when she swallows and to evaluate her further for evidence of esophageal candidiasis in which case a longer course of antifungal medication would be necessary. 7. Thrush - ICD9: 112.0, ICD10: B37.0 - I advised her that the dose of Diflucan she took late yesterday would not work immediately. I informed her that it may take 3 to 5 days for complete resolution of thrush. I advised her to use the nystatin swish and swallow 4 times daily and that when her tongue is back to normal that she should continue it for an additional 7 days afterwards and then discontinue. I spent a total of 25 minutes on the date of the service which included preparing to see the patient, [id number] patient care, completing clinical documentation, obtaining and/or reviewing separately obtained history, performing a medically appropriate examination, counseling and educating the patient/family/caregiver, ordering medications, tests, or proced (more content not included)...[place]03-29-2023 Note HNO ID: [id number] Author: Merrill Morgan MD Service: ? Author Type: Physician Type: Progress Notes Filed: 06/27/2022 2:23 PM Note Text: Patient presents with: Mouth/Lip Problem: Possible Thrush in mouth sx started two days ago HPI: Jennifer Navarro, 51 year old female, presents in the office today complaining of being on multiple antibiotics. She had augmentin in March for root canal. Then is May was on a zpack. Had a sinus infecction and was put back on Augmentin at end of May. 06/11/22 tested positive for strep and was put on a zpack. Two days ago noticed things did not taste right and tongue is white. PAST MEDICAL HISTORY Diagnosis Date Bleeding ulcer Cervical dysplasia 1992 s/p LEEP Cervicalgia 10/17/2020 Cholecystitis 12/2010 cholesterol polyps COVID-19 12/31/2019 presumed - no test - dtr positive Fatty liver Heavy metal exposure 11/10/2020 History of bleeding ulcers when she was 21 years old History of hypertension History of pre-eclampsia HSIL (high grade squamous intraepithelial lesion) on Pap smear of cervix 04/22/2013 1993 LEEP 06/2016 Colposcopy negative 09/2016 PAP LSIL 05/2017 PAP ASCUS HPV NEG 12/2017 PAP normal 12/2018 PAP normal HPV NEG Liver lesion 12/2010 Lung nodule Mold exposure 11/10/2020 NAFLD (nonalcoholic fatty liver disease) 09/20/2021 Osteoarthritis of hands, bilateral Palpitations 08/31/2019 Pap smear for cervical cancer screening 10/2011 due in 11/11 [id number] condition 11/03/2020 RECOVER Clinic initial visit at [place] on 11/03 (VV), pc RECOVER follow up #1 at on 11/11 (VV), pc Preeclampsia Primary hypertension 09/15/2020 SVT (supraventricular tachycardia) (HCC) Tachycardia 08/31/2019 Thyroid nodule 01/19/2021 left 0.6x0.8x0.5 Trauma in childhood 11/10/2020 Current Outpatient Medications on File Prior to Visit Medication Sig ondansetron orally disintegrating (ZOFRAN ODT) 4 mg disintegrating tablet Take 1 tablet by mouth every 4 hours as needed for nausea/vomiting. (Patient taking differently: Take 4 mg by mouth every 4 hours as needed for nausea/vomiting. As needed) fluticasone (FLONASE ALLERGY RELIEF) 50 mcg/actuation nasal spray Use 2 Sprays in each nostril once daily. predniSONE (DELTASONE) 10 mg tablet Take by mouth four (4) tabs daily for 3 days; then three (3) tabs daily fpr 3days; then two (2) tabs daily for3 days; then one (1) tab a day for 3 days (Patient not taking: Reported on 06/27/2022) sodium chloride (AYR, OCEAN) 0.65 % nasal spray Use 2 Sprays in the nose as needed. (Patient not taking: Reported on 06/27/2022) No current facility-administered medications on file prior to visit. Allergies: Doxycycline Hives Sanjuana [Fexofenadi* Diarrhea, Other: See Comments Comment:Causes high heart rate Aristocort Intrales* Hives Cats Anaphylaxis Dogs Anaphylaxis Imodium [Loperamide] Other: See Comments Comment:High heart rate Kenalog-H Hives Medrol [Methylpredn* Itching, Shortness of Breath, Other: See Comments Comment:Scratchy throat, high heart rate, couldn't catch breath Miralax [Polyethyle* Hives, Itching Polyethylene Glycol Hives, GI Upset, Itching Review of Systems Constitutional: Negative for chills and fever. HENT: Negative for congestion, ear pain and sore throat. Eyes: Negative for discharge. Respiratory: Negative for shortness of breath and wheezing. Cardiovascular: Negative for chest pain and palpitations. Gastrointestinal: Negative for abdominal pain, constipation, diarrhea and nausea. Genitourinary: Negative for dysuria and hematuria. Skin: Negative for rash. Psychiatric/Behavioral: Negative for confusion. BP 121/76 Pulse 83 Ht 170.2 cm (5' 7 ) Wt 78.9 kg (174 lb) LMP (LMP Unknown) SpO2 98% BMI 27.25 kg/m? Physical Exam Vitals reviewed. HENT: Head: Normocephalic and atraumatic. Right Ear: External ear normal. Left Ear: External ear normal. Eyes: Conjunctiva/sclera: Conjunctivae normal. Pupils: Pupils are equal, round, and reactive to light. Cardiovascular: Rate and Rhythm: Normal rate and regular rhythm. Heart sounds: No murmur heard. Pulmonary: Effort: Pulmonary effort is normal. Breath sounds: Normal breath sounds. No wheezing. Abdominal: General: Bowel sounds are normal. Palpations: Abdomen is soft. Musculoskeletal: General: Normal range of motion. Cervical back: Normal range of motion and neck supple. Skin: General: Skin is warm and dry. Findings: No rash. Neurological: Mental Status: She is alert and oriented to person, place, and time. Psychiatric: Mood and Affect: Affect normal. Judgment: Judgment normal. ASSESSMENT/PLAN: 1. Oral thrush - ICD9: 112.0, ICD10: B37.0 (primary diagnosis) - NYSTATIN 100,000 UNIT/ML ORAL SUSPENSION 2. Vagina, candidiasis - ICD9: 112.1, ICD10: B37.31 - [place] 0.8 % VAGINAL CREAM I spent a total of 30 minutes on the date of the service which inc (more content not included)...[place]03-28-2023 Evaluation note* Encounter Date Diagnosis Assessment Notes Treatment Notes Treatment Clinical Notes May, Oral thrush (ICD-10 - B37.0) Rx meds as directed. Change toothbrush as directed. F/u with pcp as needed for persistent or worsening sx. Pt understood and agreed to tx plan. [facility] Other 03-22-2023 Evaluation note* Encounter Date Diagnosis Assessment Notes Treatment Notes Treatment Clinical Notes May, Sore throat (ICD-10 - J02.9) May, Acute pharyngitis, unspecified etiology (ICD-10 - J02.9) Will complete throat culture and await results to treat. Advised to follow up with pcp in 7 days as needed. [facility] Other 03-13-2023 Evaluation note* Encounter Date Diagnosis Assessment Notes Treatment Notes Treatment Clinical Notes May, Sore throat (ICD-10 - J02.9) May, Strep pharyngitis (ICD-10 - J02.0) Strep throat material was printed Drink plenty fluids, get plenty of rest. Take the Zithromax as prescribed until gone. Take Tylenol or Motrin as needed for aches pains or fevers. Follow-up with your family physician if no improvement in 2 to 3 days. [facility] Other 03-02-2023 NoteHNO ID: [id number] Author: OSIRIS Kerns) Service: Radiology Author Type: Technologist Type: Progress Notes Filed: 06/01/2022 12:26 PM Note Text: RADIOLOGY SERVICE PROGRESS NOTE DATE OF SERVICE: May 31, 2022 TIME OF SERVICE: 8:30AM EVENT: pt did not want neck with contrast done ADDITIONAL EVENT DETAILS: N/A SIGNATURE: OSIRIS Kerns) PATIENT NAME: Jennifer Navarro DATE: June 01, 2022 TIME: 12:25 PM PAGER/CONTACT #:[place]03-02-2023 NoteHNO ID: [id number] Author: OSIRIS Kerns) Service: Radiology Author Type: Technologist Type: Progress Notes Filed: 05/31/2022 8:29 AM Note Text: Radiology Service Progress Note PATIENT NAME: Jennifer Navarro DATE OF SERVICE: May 31, 2022 TIME: 8:29 AM PATIENT IDENTITY VERIFICATION COMPLETED USING TWO (2) IDENTIFIERS: Name and Date of confirmed by patient verbally and Name and Date of confirmed by identification band. FALL SCREENING: Has the patient had 2 falls in the last year or 1 fall with injury or currently using an Ambulatory Assistive Device (Walker, Cane, Wheelchair, Crutches, etc.)? No PATIENT GENDER DATA: Female. status: : No status: NO. PATIENT RELEVANT IMPLANT DATA REVIEWED: Not Applicable RADIOLOGY DEPARTMENT: CT; Exam(s) Completed: Sinus PERIPHERAL IV DATA: Not applicable SIGNED BY: RT Saumya(R) May 31, 2022 8:29 [facility]02-03-2023 NoteHNO ID: [id number] Author: Moustapha Cardenas MD Service: ? Author Type: Physician Type: Progress Notes Filed: 05/04/2022 12:10 PM Note Text: 51 year old female here for lesion Location mid chest Present x 3 weeks ago Started off looking like a raised blister, has gotten smaller in size, feels rough. Pinkish color Originally started to look like a blister Again, getting smaller Had a similar lesion on her left chest that went away completely There is only a little dark spot where it used to be currently Also complaining about lines in her nails Has noticed more recently Washes her hands a lot Has a dog at home where she is washing her hands a lot. Personal history of skin cancer: no Derm Family history: mother-BCC, uncle-melanoma Denies fevers, chills Denies wt loss Denies new or changing moles PAST MEDICAL HISTORY Diagnosis Date Arthritis Bleeding ulcer Bowel disease Cervical dysplasia 1993 s/p LEEP Cholecystitis 12/2010 cholesterol polyps COVID-19 12/31/2019 presumed - no test - dtr positive Fatty liver Hypertension Liver lesion 12/2010 Lung nodule Palpitations 08/31/2019 Pap smear for cervical cancer screening 10/2011 due in 11/11 Personal history of unspecified urinary disorder Preeclampsia Primary hypertension 09/15/2020 Tachycardia 08/31/2019 Thyroid disease Social History Tobacco Use Smoking status: Former Packs/day: 0.50 Years: 10.00 Pack years: 5.00 Types: Cigarettes Quit date: 02/13/2009 Years since quittin.2 Smokeless tobacco: Never Substance Use Topics Alcohol use: Not Currently Alcohol/week: 3.3 standard drinks Types: 4 Glasses of wine per week Drug use: No Allergies: ALLERGIES Allergen Reactions Doxycycline Hives Sanjuana [Fexofenadi* Diarrhea, Other: See Comments Causes high heart rate Aristocort Intrales* Hives Cats Anaphylaxis Dogs Anaphylaxis Imodium [Loperamide] Other: See Comments High heart rate Kenalog-H Hives Medrol [Methylpredn* Itching, Shortness of Breath, Other: See Comments Scratchy throat, high heart rate, couldn't catch breath Miralax [Polyethyle* Hives, Itching Polyethylene Glycol Hives, GI Upset, Itching Current Outpatient Medications on File Prior to Visit Medication Sig cyclobenzaprine (FLEXERIL) 10 mg tablet Take 0.5 tablets by mouth three times daily for 7 days. predniSONE (DELTASONE) 10 mg tablet Take by mouth four (4) tabs daily for 3 days; then three (3) tabs daily fpr 3days; then two (2) tabs daily for3 days; then one (1) tab a day for 3 days fluticasone (FLONASE ALLERGY RELIEF) 50 mcg/actuation nasal spray Use 2 Sprays in each nostril once daily. sodium chloride (AYR, OCEAN) 0.65 % nasal spray Use 2 Sprays in the nose as needed. No current facility-administered medications on file prior to visit. PE: Limited exam with tia General: no acute distress Mood: alert and oriented X's 3 Hair/Scalp: normal Face: normal Eyes/eyelids: normal Lips/Oral mucosa: normal Neck: normal Chest: mid chest 5mm prink inflamed papule with overlying wafer like scale --Left mid chest with gone metal porras macular hyperpigmentation Digits/Nails: Longitudinal ridging of multiple fingernails A/P: Benign lichenoid keratosis Postinflammatory hyperpigmentation Educated and reassured Clinical story is good for this condition getting better over time Discussed observation versus biopsy Concern for abnormal scarring on the chest given history of poor scarring from previous biopsy She will notify us in my chart if is not improving or if is getting worse. Brittle nails Etiology discussed Avoidance of wet and dry of the hands and nails Moisturizers discussed RTC prn Pt voiced understanding The documentation for this note was completed by Tia Madera LPN acting as scribe for Moustapha Cardenas MD. May 04, 2022 11:52 AM. I agree with the Chief Complaint, ROS, and Past Histories independently gathered by the clinical net application support specialist and the remaining scribed note accurately describes my personal service to the patient. Moustapha Cardenas, [facility]01-27-2023 NoteHNO ID: [id number] Author: Cyndy Greer APRN.DIRECTOR HOSPICE OPERATIONS Service: ? Author Type: Nurse Practitioner Type: Progress Notes Filed: 04/27/2022 4:31 PM Note Text: [facility] Note CC: follow up jaw/face pain Patient of Dr. Lebron Last clinic visit on: 04/12/[address] Healy HPI: Patient is a 51 year old female with a history of Patient reports having a tooth pulled out March 19, had sutures removed April 05. Patient states she has sinus pressure, right ear pain, headaches on right side. Patient had a CBCT test completed, was told there is something noticed on results. Today she feels that her tooth concerns have resolved. She still has pain in her jaw it will go up in to her roman catholic she was told she has a lump in front of her ear- if she pushes it too hard she will have pain one dentist told her to try to squeeze it really hard- this caused her pain she does note that the crown she had on the tooth that was pulled was too big she would avoid biting on that side because it would be the first tooth to hit and cause her discomfort she had this crown x 5 yrs she has no trismus she does feel that she feels better when supports her jaw with her hand she completed her atb no fevers no neck lumps does feels some pain in the back of her neck on the right side smoking: No Last 2 Encounter Wt Readings: Date: Wt: 04/27/2022 78.2 kg (172 lb 4.8 oz) 02/20/2022 75.5 kg (166 lb 8 oz) BP 133/85 (BP Site: Left Arm, BP Position: Sitting, BP Cuff Size: Regular Adult) Pulse 79 Temp 36.4 ?C (97.6 ?F) (Temporal) Resp 18 Wt 78.2 kg (172 lb 4.8 oz) LMP (LMP Unknown) SpO2 98% BMI 26.99 kg/m? Current Outpatient Medications Medication Sig Dispense Refill predniSONE (DELTASONE) 10 mg tablet Take by mouth four (4) tabs daily for 3 days; then three (3) tabs daily fpr 3days; then two (2) tabs daily for3 days; then one (1) tab a day for 3 days 30 tablet 0 fluticasone (FLONASE ALLERGY RELIEF) 50 mcg/actuation nasal spray Use 2 Sprays in each nostril once daily. 15.8 mL 3 sodium chloride (AYR, OCEAN) 0.65 % nasal spray Use 2 Sprays in the nose as needed. 60 mL 1 No current facility-administered medications for this visit. EXAM: Constitutional - General Appearance: well developed, well nourished, without obvious deformities Communication: speaks with a strong voice without hoarseness Head AND Face - Overall: no obvious scars, lesions or masses Parotid and submandibular glands: 2-3mm nodule anterior to right ear/parotid space, no other masses or tenderness Facial strength: normal and equal bilaterally Ear, Nose, Mouth AND Throat - Ears: both left and right external auditory canals and TM's are normal, no external deformities Nasal exam: mucosa is pink, septum is without perforation, visible turbinates are normal on anterior rhinoscopy Mastication: teeth appear intact, she has tenderness along the buccinator muscle Oral Cavity and oropharynx: mucosa, hard and soft palates, tongue, tonsil area, posterior pharyngeal wall, lips and gums are without lesions Neck: appears symmetric, and on palpation is without masses or lymphadenopathy Thyroid: no asymmetry, thyromegaly, or thyroid nodules on palpation Neuro: CN III - CN XII grossly intact TSH (uU/mL) Date Value 01/03/2021 1.670 01/03/2021 1.680 CMP Latest Ref Rng AND Units 05/06/2021 07/20/2021 09/26/2021 SODIUM 136 - 144 mmol/L 140 137 139 SODIUM, POC 132 - 148 mmol/L - - - POTASSIUM 3.7 - 5.1 mmol/L 4.0 4.3 3.7 POTASSIUM, POC 3.5 - 5.0 mmol/L - - - CHLORIDE 97 - 105 mmol/L 103 99 102 CO2 22 - 30 mmol/L 26 26 25 GLUCOSE 74 - 99 mg/dL 90 99 86 GLUCOSE, POC 60 - 105 mg/dL Fasting - - - BUN 7 - 21 mg/dL 15 10 9 CREATININE 0.58 - 0.96 mg/dL 0.66 0.75 0.70 EGFR >=60 mL/min/1.73m? - 98 107 EGFR-ALL OTHER RACES . >60 - - EGFR- - >60 - - PROTEIN, TOTAL 6.3 - 8.0 g/dL - 7.1 7.1 ALBUMIN 3.9 - 4.9 g/dL - 4.8 4.5 CALCIUM, TOTAL 8.5 - 10.2 mg/dL 9.2 9.6 9.6 BILIRUBIN, TOTAL 0.2 - 1.3 mg/dL - 0.6 0.6 AST 13 - 35 U/L - 22 18 ALT 7 - 38 U/L - 19 12 ALKALINE PHOSPHATASE 34 - 123 U/L - 96 85 CBC Latest Ref Rng AND Units 05/06/2021 07/20/2021 09/26/2021 WBC 3.70 - 11.00 k/uL 6.79 6.95 6.52 RBC 3.90 - 5.20 m/uL 4.26 4.57 4.49 HEMOGLOBIN 11.5 - 15.5 g/dL 14.0 14.1 14.3 HEMATOCRIT 36.0 - 46.0 % 42.0 43.4 43.2 HEMATOCRIT, POC 36 - 46 % - - - MCV 80.0 - 100.0 fL 98.6 95.0 96.2 MCH 26.0 - 34.0 pg 32.9 30.9 31.8 MCHC 30.5 - 36.0 g/dL 33.3 32.5 33.1 RDW-CV 11.5 - 15.0 % 12.9 13.2 12.6 PLATELETS 150 - 400 k/uL 207 232 211 MPV 9.0 - 12.7 fL 9.7 9.4 9.4 BASO% % 0.4 - 0.3 ABS NEUT (ANC) 1.45 - 7.50 k/uL 4.27 - 3.87 ABS LYMPH 1.00 - 4.00 k/uL 1.79 - 2.03 ABS MONO <0.87 k/uL 0.43 - 0.51 ABS EOSIN <0.46 k/uL 0.25 - 0.07 ABS BASO <0.11 k/uL 0.03 - <0.03 NRBC /100 WBC - - 0.0 DIFF TYPE - Auto Diff - - ASSESSMENT: Jennifer Navarro is a 51 year old female with miles (more content not included)...[place]01-12-2023 NoteHNO ID: [id number] Author: Yamileth Healy MD Service: ? Author Type: Physician Type: Progress Notes Filed: 04/13/2022 2:06 PM Note Text: SECTION OF RHINOLOGY, SINUS AND SKULL BASE SURGERY Head and Neck [place], [facility] NOTE Chief Complaint: Jennifer Navarro is a 51 year old female who is here for Patient presents with: Sinus Problem: Patient reports having a tooth pulled out March 19, had sutures removed April 05. Patient states she has sinus pressure, right ear pain, headaches on right side. Patient had a CBCT test completed, was told there is something noticed on results. Patient is currently on antibiotics. Patient reports having chills, no temp. ASSESSMENT/PLAN: (J32.8) Other chronic sinusitis (primary encounter diagnosis) (M54.2) Cervicalgia (J32.9) Chronic sinusitis, unspecified location Office Visit on 04/12/22 CT SINUS STEREO WO IVCON amoxicillin-clavulanic acid (AUGMENTIN) 875-125 mg per tablet predniSONE (DELTASONE) 10 mg tablet fluticasone (FLONASE ALLERGY RELIEF) 50 mcg/actuation nasal spray sodium chloride (AYR, OCEAN) 0.65 % nasal spray Patient with clinical symptoms of CRS after right #4 tooth extraction with outside cone beam at dentist with reports of inflammatory findings. Reviewed patient's endoscopy findings today, with endoscopy alone would recommend INCS, but given the outside CT report, will treat empirically. She did have an elevated HR with methylprednisolone in the past, but is willing to try prednisone at this time. Reviewed that it can make her feel jittery/agitated or possibly cause elevated HR, in addition to other risks. If these side effects are too much, she will decrease to a lower dose, and continue to do so until tolerable. Flonase daily - reviewed proper technique. Will give another course of augmentin given slight crusting/blood in the nose in addition to the steroid - prefer PCN base which she has tolerated before. If symptoms are refractory, recommend a CT sinus to fully evaluate sinuses, particularly given relatively clear endoscopy. Reviewed possibility that this could be neuropathic in nature triggered by dental intervention, but with outside CT comfortable with proceeding with oral medical therapy which patient agrees. Saline gels for dryness in the nose. These risks include but are not limited to increased appetite, insomnia, acne, fluid retention, mood swings, weight gain, change in blood pressure, high blood glucose, possible adrenal suppression, osteoporosis, avascular necrosis of the hip, menstrual irregularities if applicable, and cataracts. The patient understands these risks and is willing to proceed with oral steroid therapy. RTC 1-month. Yamileth Healy MD HPI: Jennifer Navarro is a 51 year old female referred by my head and neck partner for evaluation of her sinuses after recent root canal. Message from patient: I had #4 tooth extracted 03/19/22. Root canal infected. Sutures removed 04/05/22. By Saturday04/07/22 I started feeling like I had a sinus infection only on the right side. Jaw hurt. Ear pain. Neck pain. All pretty intense pain. Placed in zpak 04/09/22. A little improvement with ear pain and cheek bone pain but still feel like a terrible pain in sinus on right side. Worried about possible leakage into sinus. Notice when swishing with mouth rinse it feels like it?s running down like a post nasal. Something isn?t right and I?m not feeling right. I do not feel the best. I don?t have any other illness symptoms and the sinus thing is making me feel an unwell feeling. History of posterior neck lipoma excision by Dr Lebron, last seen in postop followup June2021. She reports that she had some work done on tooth #4 and then last week had sutures removed. About a day after that had same side pressure, congestion, referred ear pressure. Reached out to the commercial management accountant - started a zpak on Saturday. Was seen by dentist on Saturday - no findings of infection. Still persistent right malar pressure and radiating to the right ear. Congested on the right. Notes some clear post nasal drainage. Diminished sense of smell and taste since this occurred. No left sided symptoms. Last sinus infection requiring intervention was a few years prior. Denies any nasal spray use, but did some afrin last night. Additional factors include: Environmental Allergies: denies Use of nasal steroids for 8 weeks in the past 12 months: denies Migraine Disorder: intermittently - well controlled TMJ Disorder: possible diagnosis, possible bruxism at night Prior Sinus Surgery: denies Reactive Airway Disease: denies Aspirin Sensitivity: denies ALLERGIES ALLERGIES Allergen Reactions Doxycycline Hives Sanjuana [Fexofenadi* Diarrhea, Other: See Comments Causes high heart rate Aristocort Intrales* Hives Cats Anaphylaxis Dogs Anaphylaxis Imodium [Loperamide] Other: See Comments Hi (more content not included)...[place]01-10-2023 NoteHNO ID: [id number] Author: Bethanie Lake APRN.CNP Service: ? Author Type: Nurse Practitioner Type: Progress Notes Filed: 04/10/2022 1:27 PM Note Text: This is an Express Care eVisit note for Jennifer Navarro eVisit/Questionnaire reviewed The chief complaint for the visit - Patient presents with: Sinus Problem Recommendations/Treatment plan - See My Chart Message to patient Bethanie Lake APRN.DIRECTOR HOSPICE OPERATIONS Total time spent on e-Visit: 3 minutes[place]12-29-2022 Note HNO ID: [id number] Author: RT Annita(Miroslava) Service: ? Author Type: Tapering Machine Operator Type: Progress Notes Filed: 03/29/2022 1:47 PM Note Text: Radiology Service Progress Note PATIENT NAME: Jennifer Navarro DATE OF SERVICE: March 29, 2022 TIME: 1:47 PM PATIENT IDENTITY VERIFICATION COMPLETED USING TWO (2) IDENTIFIERS: Name and Date of confirmed by patient verbally. FALL SCREENING: Has the patient had 2 falls in the last year or 1 fall with injury or currently using an Ambulatory Assistive Device (Walker, Cane, Wheelchair, Crutches, etc.)? No PATIENT GENDER DATA: Female. status: : No status: NO. PATIENT RELEVANT IMPLANT DATA REVIEWED: Not Applicable RADIOLOGY DEPARTMENT: Bone Density PERIPHERAL IV DATA: Not applicable SIGNED BY: RT Annita(R) March 29, 2022 1:47 [facility]08-08-2022 Chief complaint Narrative - Reported* An interactive audio and video telecommunication system which permits real time communications between the patient (at the originating site) and provider (at the distant site) was utilized to providethis telehealth service. * Verbal consent was requested and obtained from JENNIFER NAVARRO on this date, 11/06/2021 10:20 AM, for a telehealth visit. [facility] [address] Work Phone: 1([phone]) 196-376912-27-2021 History of Present illness Narrative* Ms. Guadarrama is a 50 year old woman following up for ELEVATED CALCIUM LEVEL. * She was last seen 03/27/21. * Reports she has had calcium checked a couple times and sometimes it is normal (9s) and sometimes still mildly elevated. Lost weight but is concerned because most recent fibroscan showed she developedfibrosis. * Has deep leg aches and pain in her hands/feet, intermittently. * No personal hx of nephrolithiasis or fractures. * Hasn't had DXA yet but scheduled in Mar 2022. * ENDOCRINE Hx: Noted to have mildly elevated calcium level on/off in the past. * 09/05/20: Ca 9.5, Alb 4.4 * 01/24/21: Ca 10.3 (ULN 10.2), Albumin 4.7, vit D 34.3, Alk phos 107, normal LFTs & CBC * 02/13/21: PTH 44, calcium 9.1, albumin 3.9 * THYROID ULTRASOUND 01/22/21: TI-RADS 4 LLL nodule 0.6 x 0.9 x 0.5 cm (solid, hypoechoic) * Started gaining weight about 2013 associated with significant stress in life - weighed 120-140 lbs prior to that. More recently, lost weight from 200 lbs in July to 148 lbs in Nov 2020, after changing diet and exercising twice a day. * Postmenopausal - No menses in 3 years (age 47) * PAST MEDICAL HISTORY: * Migraines with aura * Hemangioma of liver * COVID in Dec 2019 * GERD starting in May 2020 * NAFLD first noted on a CT scan spring 2020 * Allergy to peanuts recently discovered * Lipoma in neck s/p surgical removal 10/2020 * s/p cholecystecomy 2010 * osteoarthritis * SOCIAL HISTORY: * DIET: follows a whole food diet, no processed food other than some 92% chocolate * PHYSICAL ACTIVITY: not right now * FAMILY HISTORY: * mom went through menopause at age 50 * mom's side has diabetes * great grandmother with osteoporosis; hip fx in 70s * ROS: 10 point review of systems was otherwise negative except per the HPI. XQ-Zgpuwrukhqryd-IJQ [place] [address] Work Phone: [phone]) 147-556812-27-2021 Chief complaint Narrative - Reported* An interactive audio and video telecommunication system which permits real time communications between the patient (at the originating site) and provider (at the distant site) was utilized to providethis telehealth service. * Verbal consent was requested and obtained from JENNIFER GUADARRAMA on this date, 03/27/2021 10:20 AM , for a telehealth visit. XW-Shhltszhtqaic-YCD [facility] Work Phone: [phone] 308-154612-27-2021 Chief complaint Narrative - Reported* An interactive audio and video telecommunication system which permits real time communications between the patient (at the originating site) and provider (at the distant site) was utilized to providethis telehealth service. * Verbal consent was requested and obtained from JENNIFER GUADARRAMA on this date, 03/27/2021 10:20 AM , for a telehealth visit. [facility] [address] Work Phone: [phone]) 632-330705-28-2021 NoteHNO ID: [id number] Author: Gabriela Floyd Service: Radiology Author Type: Tapering Machine Operator Type: Progress Notes Filed: 08/26/2020 7:54 AM Note Text: Radiology Service Progress Note PATIENT NAME: Jennifer Navarro DATE OF SERVICE: August 26, 2020 TIME: 7:53 AM PATIENT IDENTITY VERIFICATION COMPLETED USING TWO (2) IDENTIFIERS: Name and Date of confirmed by patient verbally. FALL SCREENING: Has the patient had 2 falls in the last year or 1 fall with injury or currently using an Ambulatory Assistive Device (Walker, Cane, Wheelchair, Crutches, etc.)? No PATIENT GENDER DATA: Female. status: : No status: N/A PATIENT RELEVANT IMPLANT DATA REVIEWED: Not Applicable RADIOLOGY DEPARTMENT: Ultrasound PERIPHERAL IV DATA: Not applicable SIGNED BY: Gabriela Floyd August 26, 2020 7:53 [facility] Narrative - ReportedNew patient Vist; 50 y/o female here today for initial evaluation LZ-Yyznygvcmjsrrjqw-[facility]San[facility] Work Phone: Evaluation noteNo assessment information available [facility] Work Phone: Evaluation noteNo InformationNort [email or web address] Other History general Narrative - Reported* Type Description Date Surgical History gall bladder 2010 Surgical History tonsillectomy 1996 Hospitalization History see above [facility] Other Hisvrgr general Narrative - Reported* Type Description Date Medical History SALINAS Surgical History gall bladder 2010 Surgical History tonsillectomy 1996 Hospitalization History see above [facility] Other History of Present illness Narrative* Ms. Guadarrama is a 50 year old woman presenting for an initial endocrinology evaluation of ELEVATED CALCIUM LEVEL, referred by ##### for consultation. * Has had some high calcium levels. Had also had some up and down blood sugars associated with feeling shaky (ranging 60s to 190s on a home glucometer). Had a thyroid ultrasound and was told she had a nodule, then had further imaging and was told to just keep an eye on it. * Has been following with apron trimmer at [facility]; most of her other doctors are there. * Started gaining weight about 2013 associated with significant stress in life - was 120-140 lbs prior to that. * More recently, lost weight from 200 lbs in July to 148 lbs in Nov 2020 after changing diet and exercising twice a day. * Postmenopausal - No menses in 3 years (age 47) * No personal hx of nephrolithiasis or fractures. * PAST MEDICAL HISTORY: * Migraines with aura * Hemangioma of liver * COVID in Dec 2019 * GERD starting in May 2020 * NAFLD first noted on a CT scan spring 2020 * Allergy to peanuts recently discovered * Lipoma in neck s/p surgical removal 10/2020 * s/p cholecystecomy 2010 * osteoarthritis * SOCIAL HISTORY: * DIET: follows a whole food diet, no processed food other than some 92% chocolate * PHYSICAL ACTIVITY: not right now * FAMILY HISTORY: * mom went through menopause at age 50 * mom's side has diabetes * great grandmother with osteoporosis; hip fx in 70s * ROS: 10 point review of systems was otherwise negative except per the HPI. BT-Lsicbrrynhwxk-KII [place] [address] Work Phone: History of Present illness Narrative* Ms. Guadarrama is a 50 year old woman presenting for an initial endocrinology evaluation of ELEVATED CALCIUM LEVEL; she is seeking a second opinion. * She notes in her recent labwork she has had some high calcium levels. [place] like it was not really investigated. Reports deep leg aches and pain in her hands/feet, intermittently. No personal hx of nephrolithiasis or fractures. 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 * Has been following with apron trimmer at [facility]; most of her other doctors are there aswell. Other endocrine issues she has been evaluated for include some up and down blood sugars associated with feeling shaky (ranging 60s to 190s on a home glucometer) after rapid weight loss - this seems to have resolved on its own. This past fall she also had a thyroid ultrasound which noted a small nodule - was told to just keep an eye on it. * Started gaining weight about 2013 associated with significant stress in life - weighed 120-140 lbs prior to that. * More recently, lost weight - went from 200 lbs in July to 148 lbs in Nov 2020 - after changing dietand exercising twice a day. * Postmenopausal - No menses in 3 years (age 47) * LABS per CHART REVIEW ([facility]): * 02/13/21: PTH 44, calcium 9.1, albumin 3.9 * 01/24/21: Ca 10.3 (ULN 10.2), Albumin 4.7, vit D 34.3, Alk phos 107, normal LFTs & CBC * 09/05/20: Ca 9.5, Alb 4.4 * PAST MEDICAL HISTORY: * Migraines with aura * Hemangioma of liver * COVID in Dec 2019 * GERD starting in May 2020 * NAFLD first noted on a CT scan spring 2020 * Allergy to peanuts recently discovered * Lipoma in neck s/p surgical removal 10/2020 * s/p cholecystecomy 2010 * osteoarthritis * SOCIAL HISTORY: * DIET: follows a whole food diet, no processed food other than some 92% chocolate * PHYSICAL ACTIVITY: not right now * FAMILY HISTORY: * mom went through menopause at age 50 * mom's side has diabetes * great grandmother with osteoporosis; hip fx in 70s * ROS: 10 point review of systems was otherwise negative except per the HPI. * THYROID ULTRASOUND 01/22/21: * NODULE 1: * Location: LEFT lower * Size: 0.6 x 0.9 x 0.5 cm * Characteristics: * Composition: Solid or almost completely solid, 2 points * Echogenicity: Hypoechoic, 2 points * Shape: Xhaxj-adjx-unak, 0 points * Margin: Smooth, 0 points * Echogenic foci (add points for all that apply): None, 0 points * Internal vascularity: present * Interval growth: No prior available for comparison * TI-RADS Category: TR4 * ACR Recommendation: TI-RADS 4 nodule. No FNA or follow-up imaging is advised. PS-Zjxcnjmminjwi-REQ [facility] [employer] Work Phone: History of Present illness Narrative* Mrs. Navarro is a 50 year old female, known to have NAFLD, Cholelithiasis s/p lap fab complicated with loose stools who presents today for second opinion. * Patient stated that her fatty liver disease was first diagnosed at [facility] (AST/ALT x2 upper normal andUS liver suggestive of fatty liver). Of note, patient lost 50 ib (intentional weight loss). * Regarding her abdominal pain, she described it as a non-specific dull RUQ abdominal pain, neither radiating nor migrating, worse with applying pressure over chest wall. * She described her BMs as very soft to occasionally watery diarrhea, however, with normal color. * She denied any signs of GI bleeding, vomiting, jaundice, pruritus, urinary symptoms or other pertinent symptoms. * [facility] * US ABD RIGHT UPPER QUADRANT * * * *Final Report* * * * DATE OF EXAM: Feb 24 2021 11:23AM * U 1032 - US ABD RIGHT UPPER QUADRANT / * PROCEDURE REASON: multiple diagnoses * * * * * Physician Interpretation * * * * * EXAMINATION: RIGHT UPPER QUADRANT AND SPLEEN ULTRASOUND * CLINICAL HISTORY: Fatty liver. * TECHNIQUE: Sonography of the right upper quadrant and spleen was * performed. Images were obtained and stored in a permanent archive. * MQ: [id number]_2 * COMPARISON: 11/05/2020 * RESULT: * Pancreas: Not visualized due to overlying bowel gas. * Liver: * Echotexture: Normal, homogeneous. * Echogenicity: Mildly increased * Surface contour: Smooth * Lesions: Probable hepatic hemangioma measuring 1.1 x 1.1 x 1.2 cm * in the right hepatic lobe. * Biliary: No intrahepatic biliary duct dilation. * CBD: 1.0 cm at the hilum likely physiologic in the setting of * cholecystectomy. * Gallbladder: Prior cholecystectomy * Right Kidney: No hydronephrosis. * Left kidney: No hydronephrosis. * Ascites: None. * Spleen: The craniocaudal length of the spleen is 8.8 cm, normal. There * are no splenic lesions. * IMPRESSION: * Mild hepatic steatosis. Probable hepatic hemangioma, as described. * Physiologic extrahepatic biliary dilation post-cholecystectomy. * Normal sonographic appearance of the spleen. JB-Qsbbqzgbatneyjkr-BgmqxxtMcKenzie County Healthcare SystemI Work Phone: Hospital Discharge instructions Additional Instructions Rest as needed Increase oral fluids such as water Gatorade Pedialyte Stop the medications for thrush May still take xaae-lkf-ipbdobu decongestant such as Sudafed or if you like to try an allergy medicine such as Claritin or Zyrtec to see if that helps her symptoms Follow-up with family doctor for recheck Return to the ER for worsening weakness chest pain shortness of breath high fever vomiting or any other [facility] Work Phone: Hospital Discharge instructions Additional Instructions If your symptoms return/worsen or you develop any further concerns or symptoms please see your doctor or return to the emergency department immediately.[facility] Work Phone: Summary Purpose Family History No Family History Records FoundUnknown Family Member Name Dates Details Family history of malignant neoplasm of skin: Mother(V16.8, Z80.8) Status:Active Family history of hypertensi on: Mother(V17.49, Z82.49) Status:Active Family history of migraine h eadaches: Mother(V17.2, Z82.0) Status:Active Family history of asthma: Mo ther, Brother(V17.5, Z82.5) Status:Active FHx: SVT (supraventricular t achycardia): Mother(V17.49, Z82.49) Status:Active TIA (transient ischemic gabrielle ck): Mother Status:Active Family history of ischemic h eart disease: Father(V17.3, Z82.49) Status:Active Family history of hyperlipid emia: Father(V18.19, Z83.438) Status:Active Unknown Family Member Name Dates Details Family history of malignant neoplasm of skin: Mother(V16.8, Z80.8) Status:Active Family history of hypertensi on: Mother(V17.49, Z82.49) Status:Active Family history of migraine h eadaches: Mother(V17.2, Z82.0) Status:Active Family history of asthma: Mo ther, Brother(V17.5, Z82.5) Status:Active FHx: SVT (supraventricular t achycardia): Mother(V17.49, Z82.49) Status:Active TIA (transient ischemic gabrielle ck): Mother Status:Active Family history of ischemic h eart disease: Father(V17.3, Z82.49) Status:Active Family history of hyperlipid emia: Father(V18.19, Z83.438) Status:Active Unknown Family Member Name Dates Details Family history of malignant neoplasm of skin: Mother(V16.8, Z80.8) Status:Active Family history of hypertensi on: Mother(V17.49, Z82.49) Status:Active Family history of migraine h eadaches: Mother(V17.2, Z82.0) Status:Active Family history of asthma: Mo ther, Brother(V17.5, Z82.5) Status:Active FHx: SVT (supraventricular t achycardia): Mother(V17.49, Z82.49) Status:Active TIA (transient ischemic gabrielle ck): Mother Status:Active Family history of ischemic h eart disease: Father(V17.3, Z82.49) Status:Active Family history of hyperlipid emia: Father(V18.19, Z83.438) Status:Active Advance Directives No Advanced Directives Records Found Advance Directive Response Recorded Date/ Time Advance Directives No April 02, 2017 11:36am Advance Directive Response Recorded Date/ Time Advance Directives No April 02, 2017 12:36pm Chief Complaint * A telephone visit (audio only) between the patient (at the originating site) and the provider (at the distant site) was utilized to provide this telehealth service. * Verbal consent was requested and obtained from JENNIFER GUADARRAMA on this date, 01/31/2021 08:00 AM , for a telehealth visit. * NPV SECOND OPINION FATTY LIVER, FOLLOWED AT [facility]. * A telephone visit (audio only) between the patient (at the originating site) and the provider (at the distant site) was utilized to provide this telehealth service. * Verbal consent was requested and obtained from JENNIFER GUADARRAMA on this date, 01/31/2021 08:00 AM , for a telehealth visit. * NPV SECOND OPINION FATTY LIVER, FOLLOWED AT [facility]. Chief Complaint and Reason for Visit Chief Complaint J02.9 R53.83 Chief Complaint J02.9 R53.83 J02.9 Took meds don't feel right Chief Complaint headache , high bp , nausea Additional Source Comments INFORMATION SOURCE (unrecogn ized section and content) DATE CREATED AUTHOR 09/19/2017 [facility] DATE CREATED AUTHOR AUTHOR'S ORGANIZ ATION 08/28/2020 [facility] DATE CREATED AUTHOR AUTHOR'S ORGANIZ ATION 01/16/2021 [facility] DATE CREATED AUTHOR AUTHOR'S ORGANIZ ATION 05/03/2021 [facility] DATE CREATED AUTHOR AUTHOR'S ORGANIZ ATION 05/13/2021 [facility] DATE CREATED AUTHOR AUTHOR'S ORGANIZ ATION 11/07/2021 [facility] DATE CREATED AUTHOR AUTHOR'S ORGANIZ ATION 03/30/2022 [facility] DATE CREATED AUTHOR AUTHOR'S ORGANIZ ATION 07/03/2022 [facility] DATE CREATED AUTHOR AUTHOR'S ORGANIZ ATION 03/15/2023 [facility] DATE CREATED AUTHOR AUTHOR'S ORGANIZ ATION 03/23/2023 [facility] DATE CREATED AUTHOR AUTHOR'S ORGANIZ ATION 03/27/2023 [facility] DATE CREATED AUTHOR AUTHOR'S ORGANIZ ATION 04/04/2023 [place] DATE CREATED AUTHOR AUTHOR'S ORGANIZ ATION 04/04/2023 [facility] dical Specialists EPIC <item><item> Privacy Markings (unrecogniz ed section and content) Section Author: Ashley Blood PROHIBITION ON REDISCLOSURE OF CONFIDENTIAL INFORMATION This notice accompanies a disclosure of information concerning a client made to you with the consent of such client. Section Author: Ashley Blood PROHIBITION ON REDISCLOSURE OF CONFIDENTIAL INFORMATION This notice accompanies a disclosure of information concerning a client made to you with the consent of such client. Care Teams (unrecognized sec tion and content) Team Status: Inactive Member Role Status Dates Martell Burciaga MD Primary Care Provider, Attending Pro vider Active Team Status: Active Member Role Status Dates Martell Burciaga MD Primary Care Provider Active Team Status: Inactive Member Role Status Dates Martell Burciaga MD Primary Care Provider Active Tomás Alegria , WESTLEYC Attending Provider Activ e Team Status: Inactive Member Role Status Dates Martell Burciaga MD Primary Care Provider Active Akiko yAoub [facility] Emergency Provider Active Team Status: Inactive Member Role Status Dates Martell Burciaga MD Primary Care Provider Active Marvin Dimas DO Emergency Provider Active Goals (unrecognized section and content) Goals may be documented in a n alternate sectionNo InformationGoals may be documented in an alternate sectionNo InformationNo InformationNo InformationNo InformationNo InformationGoals may be documented in an alternate sectionNo InformationNo InformationNo InformationNo InformationGoals may be documented in an alternate sectionNo InformationNo Information REASON FOR VISIT (unrecogniz ed section and content) sore throatNo Informationtes t resultsPOSS THRUSHPOSSIBLE STREP THROATNo InformationPatient is here for dysphagia she is a previous Dr. Chávez patientClinicalAbdominal Pain, 100+lbs dog jumped full force onto her abdomen 4 days agoschedule fibroscanClinicalSORE THROAT FOR RECORDS PERTAINING TO PATIENTS WHO ARE OR HAVE BEEN ENROLLED IN A CHEMICAL DEPENDENCY/SUBSTANCEABUSE PROGRAM, SOME INFORMATION MAY BE OMITTED. This clinical summary was aggregated from multiple sources. Caution should be exercised in using it in the provision of clinical care. This summary normalizes information from multiple sources, and as a consequence, information in this document may materially change the coding, format and clinical context of patient data. In addition, data may be omitted in some cases. CLINICAL DECISIONS SHOULD BE BASED ON THE PRIMARY CLINICAL RECORDS. [employer] [facility]. provides no warranty or guarantee of the accuracy or completeness of information in this document.
== END 2023-04-13 08:12 | disposition home or self-care (01) ==
LOC: RAD 08:11
PROVIDERS: PCP Family Medicine; Visit Provider Nurse Practitioner Family
DX: R93.89 Abnormal findings on diagnostic imaging of other specified body structures (principal)
CPT/HCPCS: 74018

== ENCOUNTER 2023-04-13 09:08 | Outpatient (OUT) | payer BC, SELFPAY ==
--- OUTSIDE RECORDS SUMMARY | 2023-04-13 09:13 | XMS_ITS | CCD ---
Author Name Unknown Address [address] [place] [address] Organization [facility] Care Team Providers Care Manager Art Name Role Phone NELIA, MAGALIS Unavailable Unavailable [...] Unavailable MD Martell Burciaga Primary Care Provider [phone] MD Martell Burciaga Attending Provider Karoline Dorsey Unavailable MD Martell Burciaga Primary Care Provider MD Martell Burciaga Attending Provider CK Alegria [...] Unavailable Mrs. Enmanuel Green Attending Unavailable Anitra, [facility]- Akiko E Emergency Provider Guy Vega [...] Unavailable Patrica, Rugen M Primary Care Unavailable [place], Rugen M Primary Care Unavailable Marvin Dimas Admitting Unavailable Marvin Dimas Attending Unavailable [place], Rugen M Attending Unavailable Patrica, Rugen M Admitting Unavailable [place], Rugen M Primary Care Unavailable YANCY PERLA [...] RUGEN MABALAY Primary Care Unavailable NARGIS TONY Attending Unavailable PATRICA, RUGEN MABALAY Primary [...] PATRICA, RUGEN MABALAY Primary Care Unavailable JENNIFER ARODN Attending Unavailable FREIDA HARGROVE Referring Unavailabl e PATRICA, RUGEN MABALAY Primary Care Unavailable JOAO BELL Attending Unavailable PATRICA, RUGEN MABALAY Primary Care Unavailable YAMILETH HEALY Attending Unavailable PATRICA, RUGEN MABALAY Primary Care Unavailable CYNDY GREER Attending Unavailabl e PATRICA, RUGEN MABALAY Primary Care Unavailable SKYLAR, JOAO Attending Unavailable ROSA MAYES Attending Unavailable SUZANNE MCCLAIN Referring Unavailable SUZANEN MCCLAIN Attending Unavailable Allergies Allergy Classification Reported Allergen(s) Allergy Type Date of Onset Reaction(s) Facility (16 sources) Doxycycline; Translations: [DOXYCYCLINE] Drug Allergy 10-14-19 19 Hives/Urticari a, Unknown, Rash [facility] (2 sources) Triamcinolone Drug Allergy Hives/Urticari a [facility] (16 sources) fexofenadine; Translations: [Sanjuana] Drug Allergy Hives, Unknown [facility] [address] Work Phone: (16 sources) methylPREDNISolone ; Translations: [Medrol] Drug Allergy Hives, Unknown [facility] [address] [facility] Work Phone: (15 sources) POLYETHYLENE GLYCOL 3350; Translations: [polyethylene glycol 3350] Drug Allergy 01-21-20 21 Hives, Unknown [facility] Repository (7 sources) MiraLax 17 GM Oral Packet; Translations: [MiraLax 17 GM Oral Packet] Allergy to drug (finding) Hives [facility] [address] [facility] Work Phone: (20 sources) Triamcinolone; Translations: [Kenalog] Drug Allergy Hives, Unknown [facility] [address] [facility] Work Phone: (4 sources) Cat; Translations: [CATS] Propensity to adverse reactions (disorder) 10-14-19 [facility] Repository (4 sources) Dog; Translations: [DOGS] Propensity to adverse reactions (disorder) 10-14-19 [facility] (4 sources) fexofenadine; Translations: [FEXOFENADINE] Drug Allergy 07-23-19 [facility] Repository (13 sources) Loperamide; Translations: [LOPERAMIDE] Drug Allergy 07-23-19 Unknown [facility] Repository (4 sources) methylPREDNISolone ; Translations: [METHYLPREDNISOLON E] Drug Allergy 07-23-19 [facility] Repository (4 sources) Polyethylene Glycols; Translations: [POLYETHYLENE GLYCOL] Drug Allergy 01-27-20 [facility] Repository (6 sources) Triamcinolone; Translations: [TRIAMCINOLONE] Drug Allergy 03-23-20 Hives [facility] Repository (4 sources) KENALOG-H; Translations: [KENALOG-H] Propensity to adverse reactions to drug (disorder) 03-22-20 [facility] Repository (6 sources) POLYETHYLENE GLYCOL 3350 Drug Allergy Unknown [facility] Other (9 sources) Polyethylene Glycols Drug Allergy Unknown [facility] Other (1 source) diphenhydrAMINE Drug Allergy 03-05-20 [facility] Repository (1 source) Doxycycline Drug Allergy 03-05-20 [facility] Repository (1 source) Polyethylene Glycols Drug Allergy 03-05-20 [facility] Repository Medications Current Medications Medication Drug Class(es) [...] mg/ml ophthalmic solution (1 source) Plasma Volume Ball Holder, Non-Standardized Chemical Allergen Start: 01-10-2021 take 1 [...] once for 1 days May, Active nystatin 633464 unt/ml oral suspension (3 sources) Polyene Antifungal Start: 06-26-2022 Nystatin 045779 units/mL 5 ml rinse and spit Four [...] Quantity: 20 Refills: 0 Ordered: 02-Sep-2015 Elda Ramriez Start: 02-Sep-2015 Status: Other Generic Substitution Allowed [...] Avelar Status: Other Generic Substitution Allowed vitamin g46-fkkyi acid (2 sources) take 1 tablet by mouth once daily vitamin p32-jusor acid ; 1 tab(s) orally once a [...] by mouth every week D3-50 1.25 MG (16441 UT) Oral Capsule TAKE 1 CAPSULE BY [...] Test Name Value Interpretation Reference Range Facility [facility] 03-29-2023 [facility] Telephone (HNQ) -- JENNIFER NAVARRO ([id number]) 1970 F Date Time Provider Department 03/29/23 [...] treatment options. Please call. Also, sent a Okairos msg. Pt Phone #: [phone] Pharmacy Name and # : [facility] [address] [facility] [place] [address] [address] - [phone] Pt last seen: 10/01/2022 Hanane Solomon RN 03/29/2023 10:38 AM Signed [employer] message has been routed to Dr. Lebron [...] hypertension [I10] 09/15/2020 06/27/2022 Cervicalgia [M54.2] 10/17/2020 Nhfv-VTBZF-22 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] 11/03/2020 Trauma in childhood [T14.90XA] [...] Encounter Status:Closed by RACHEL NASCIMENTO [facility]/23 [facility] HNO ID: [id number] Author: Coordinator, Mammography Service: ? Author Type: Physician Type: Letter Filed: 03/25/2023 11:35 PM Note Text: March 22, 2023 PID: [id number] Jennifer A. Makeda [address] [place] [address] Dear Shaun Ferraramariel, We are pleased to [...] report will be kept on file at [facility] as part of your permanent medical record and are available for your continuing care. Thank you for allowing us to help in meeting your health care needs. Sincerely, Dr. Guallpa Interpreting Radiologist [facility] (Normal over 40) [facility] CNOVon 03-22-2023 CNOV Office Visit (GYNMN) -- JENNIFER NAVARRO ([id number]) 1970 F Date Time Provider Department 03/22/23 11:30 AM JOELLEN BROWNING GYNMN During your visit today, we recorded the following information about you: Blood pressure Weight 127/81 80.8 kg Joellen Browning APRN.BRUSHER AND SHEARER 03/22/2023 10:54 AM Signed Adenomyosis Overview Adenomyosis (bz-fi-pa-my-O-sis) occurs when the tissue that normally lines [...] in some women with adenomyosis. Joellen Browning, SERVICE SPRINKLER HELPER.BRUSHER AND SHEARER 03/22/2023 11:35 AM Signed [facility] Department of Benign Gynecology [facility] PATIENT NAME: Jennifer Navarro PCP: Martell Burciaga MD, MD DATE: 03/22/2023 Chief Complaint CC: Annual ABORIGINAL EDUCATION WORKER COORDINATOR exam History of Present Illness: Jennifer is [...] HPV: 02/26/ (more content not included)... Normal [facility] HPV W/GENOTYPE THIN PREPon 1 05-23-2022 HPV 16 Ag Ql (Unsp spec) Negative Normal Negative for HPV DNA high risk type [address] [facility] Comment on above: Order Comment: Speci men Type: FLUID SPECIMENOrdering Facility: [facility] Address: [address] [place] [address] Performed By: #### H PVHRT ####[facility] LABCLIA [id number] [place] [address] [place] HPV 18 Ag Ql (Unsp spec) Negative Normal Negative for HPV DNA high risk type [address] [facility] Comment on above: Order Comment: Speci men Type: FLUID SPECIMENOrdering Facility: [facility] Address: [address] [place] [address] Performed By: #### H PVHRT ####[facility] LABCLIA [id number] [place] [address] [place] HPV 31+33+35+39+45+51+52+ 56+58+59+66+68 DNA SONIA+probe Ql (Cvx) Negative for HPV DNA high risk types: 31,33,35,39,45,51,52,56,58 ,59,66,68 by PCR. Normal Negative for HPV DNA high risk types: 31,33,35,3 9,45,51,52 ,56,58,59, 66,[address] [facility] Comment on above: Order Comment: Speci men Type: FLUID SPECIMENOrdering Facility: [facility] Address: [address] [place] [address] Performed By: #### H PVHRT ####[facility] LABCLIA [id number] [place] [address] [place] PAP TESTon 03-22-2023 ADEQUACY Satisfactory for interpretation Normal [facility] Comment on above: Order Comment: Speci men Type: FLUID SPECIMENOrdering Facility: [facility] Address: [address] [place] [address] Performed By: #### L [id number] ####[facility] LABCLIA [id number] [place] [address] [place] CASE REPORT Normal [facility] Comment on above: Order Comment: Speci men Type: FLUID SPECIMENOrdering Facility: [facility] Address: [address] [place] [address] Result Comment: Gyne cologic Cytology Report Case: [id number] Authorizing Provider: Joellen Browning APRN.BRUSHER AND SHEARER Collected: 03/22/2023 10:58 AM Ordering Location: Gynecology Received: 03/22/2023 01:03 PM First Screen: Kyle Espinoza Tech Specimen: Pap Test, ThinPrep, Cervix Performed By: #### L [id number] ####[facility] LABCLIA [id number] [place] [id number] [place] CLINICAL HISTORY, CYTOLOGY, ABORIGINAL EDUCATION WORKER COORDINATOR Routine Exam Normal [facility] Comment on above: Order Comment: Speci men Type: FLUID SPECIMENOrdering Facility: [facility] Address: [address] [place] [address] Result Comment: Judie pausal Performed By: #### L [id number] ####[facility] LABCLIA [id number] [place] [address] [place] CYTOLOGY PAP OTHER INT Atrophic specimen Normal [facility] Comment on above: Order Comment: Speci men Type: FLUID SPECIMENOrdering Facility: [facility] Address: [address] [place] [address] Performed By: #### L [id number] ####[facility] LABCLIA [id number] [place] [address] [place] FINAL PERFORMING LAB Normal [facility] Comment on above: Order Comment: Speci men Type: FLUID SPECIMENOrdering Facility: [facility] Address: [address] [place] [address] Result Comment: Tech nical component, automatic clipper screening performed at [facility], [facility] [address] CLIA# [id number] Diagnostic interpretation performed at [facility], [address] [facility] [place] [address] CLIA# [id number] Reinforcing Steel Placer: Juan Mayes M.D. Performed By: #### L [id number] ####[facility] LABCLIA [id number] [place] [address] [place] HPV REFLEX Yes HPV Normal [facility] Comment on above: Order Comment: Speci men Type: FLUID SPECIMENOrdering Facility: [facility] Address: [address] [place] [address] Performed By: #### L [id number] ####[facility] LABCLIA [id number] [place] [id number] [place] INTERPRETATION, CYTOLOGY, ABORIGINAL EDUCATION WORKER COORDINATOR Normal [facility] Comment on above: Order Comment: Speci men Type: FLUID SPECIMENOrdering Facility: [facility] Address: [address] [place] [address] Result Comment: Nega tive for intraepithelial lesion or malignancy. Performed By: #### L [id number] ####[facility] LABCLIA [id number] [place] [address] [place] LMP menopausal Normal [facility] Comment on above: Order Comment: Speci men Type: FLUID SPECIMENOrdering Facility: [facility] Address: [address] [place] [address] Performed By: #### L [id number] ####[facility] LABCLIA [id number] [place] [id number] [place] PAP DISCLAIMER COMMENT The Pap Smear is a screening test for cervical cancer. False negative results occur with all screening tests, emphasizing the need for rescreening at recommended intervals, and clinical correlation. Normal [facility] Comment on above: Order Comment: Speci men Type: FLUID SPECIMENOrdering Facility: [facility] Address: [address] [place] [address] Performed By: #### L [id number] ####[facility] LABCLIA [id number] [place] [id number] [place] PAP COMMUTATOR PRESSER COMMENT This specimen has be en analyzed by the ThinPrep Imaging System, an automated imaging and review system, which assists the laboratory in evaluating cells on ThinPrep Pap tests. Following automated imaging, selected mariscal from every slide are reviewed by a automatic clipper. Normal [facility] Comment on above: Order Comment: Speci men Type: FLUID SPECIMENOrdering Facility: [facility] Address: [address] [place], [place] [address] [id number] Performed By: #### L [id number] ####[facility] LABCLIA [id number] [place] [id number] [place] XR ESOPHAGRAMon 03-22-2023 [...] Area Product (DAP): Fluoro time: 1:24 min:sec Assembler Hydraulic Backhoe: PSCB Transcribe Date/Time: Mar 22 2023 4:25P Dictated by : Elli BAZAN MD This examination was interpreted and the report reviewed and electronically signed by: Elli BAZAN MD on Mar 22 2023 4:33PM EST [id number] [facility] SCREENING W TOMOon 03-21 [facility] SCREENING W ANG * * *Final Report* * * DATE OF EXAM: Mar 21 2023 6:00PM [facility] - [facility] SCREENING W ANG / PROCEDURE REASON: Encounter for screening mammogram for malignant neoplasm of breast * * * * Physician Interpretation * * * * RESULT: #[id number] - [facility] SCREENING W ANG BILATERAL DIGITAL SCREENING MAMMOGRAM [...] made to exams dated: 11/17/2022 mammogram - [facility], 01/03/2022 mammogram - [facility], 06/03/2020 mammogram, and 06/05/2019 mammogram - [facility]. The breasts are heterogeneously dense, which may obscure small masses. No significant masses, calcifications, or other findings are seen in either breast. There has been no significant interval change. IMPRESSION: NEGATIVE There is no mammographic evidence of malignancy. A 1 year screening mammogram is recommended. Sasha sheppard/barney:03/22/2023 08:14:11 Livestock Trader(s): RT Alvarez(R)(M), [facility] letter sent: Normal over 40 Mammogram [...] Health, Family Medicine, and Medical/Surgical Oncology, the [facility] has carefully reviewed the data and reached [...] their providers when to stop screening mammograms. Assembler Hydraulic Backhoe: Barney Transcribe Date/Time: Mar 21 2023 5:38P Dictated by : SASHA GUALLPA MD This examination was interpreted and the report reviewed and electronically signed by: SASHA GUALLPA MD on Mar 22 2023 8:14AM EST [id number] Normal [facility] HISTORY PHYSICALon 3 HISTORY PHYSICAL HNO ID: [id number] Author: Moustapha Rivera MD Service: Gastroenterology Author Type: Physician Type: HANDP Filed: 03/12/2023 9:35 AM Note Text: HISTORY AND PHYSICAL Jennifer Amelia Navarro, 52 year old female Current history and [...] Moderate Additional Comments: None Moustapha Rivera MD [facility] NURSING PROGon 03-12-2023 NURSING PROG HNO ID: [id number] Author: Vernell Navarrete LPN Service: ? Author [...] Electronically Signed By: Vernell Navarrete LPN Normal [facility] NURSING PROG HNO ID: [id number] Author: Sherron Ayala, RN Service: ? Author [...] Sherron Ayala, PHYLLIS In Department: GASTROENTEROLOGY Normal [facility] SURGICAL PATHOLOGYon 023 CASE REPORT Normal [facility] Comment on above: Order Comment: Reyna sandhu Type: TISSUE SPECIMENOrdering Facility: [facility] Address: [address] [place] [address] Result Comment: Surg ical Pathology Report Case: [id number] Authorizing Provider: Moustapha Rivera MD Collected: 03/12/2023 09:54 AM Ordering Location: Gastroenterology Received: 03/12/2023 01:40 PM Pathologist: Rocco Tipton MD Specimens: A) - ESOPHAGUS BIOPSY, r/o EOE B) - ESOPHAGUS BIOPSY, r/o EOE Performed By: #### S ####[facility] LABCLIA [id number] [address] FINAL DIAGNOSIS Normal [facility] Comment on above: Order Comment: Reyna sandhu Type: TISSUE SPECIMENOrdering Facility: [facility] Address: [address] [place] [address] Result Comment: A. E sophagus, distal, biopsy: - Squamous mucosa with no diagnostic abnormality. B. Esophagus, proximal, biopsy: - Squamous mucosa with no diagnostic abnormality. Performed By: #### S ####[facility] LABCLIA [id number] [address] [place] FINAL PERFORMING LAB Normal [facility] Comment on above: Order Comment: Speci men Type: TISSUE SPECIMENOrdering Facility: [facility] Address: [address] [place] [address] Result Comment: Diag nostic interpretation performed at [facility], [address] [place] [address] CLIA# [id number] Reinforcing Steel Placer: Juan Mayes M.D. Performed By: #### S ####[facility] [id number] [place] [address] [place] GROSS DESCRIPTION [facility] Comment on above: Order Comment: Speci men Type: TISSUE SPECIMENOrdering Facility: [facility] Address: [address] [place] [address] Result Comment: A. E SOPHAGUS BIOPSY Received in formalin is one piece of willis, soft tissue measuring 0.6 x 0.4 x 0.2 cm. Totally submitted in one cassette. B. ESOPHAGUS BIOPSY Received in formalin are multiple pieces of willis, soft tissue aggregating to 0.5 x 0.4 x 0.1 cm. Totally submitted in one cassette. March 12, 2023 3:55 PM Gross examination performed at [facility], [address] [place] [address] Performed By: #### S ####[facility] LABIA [id number] [place] [address] [place] Upper GI endoscopy 12--2 023 Upper GI endoscopy A31 Gastrointestinal Endoscopy Patient Name: Jennifer Navarro Procedure Date: 03/12/2023 9:21 AM Date of : 1970 Admit Type: Outpatient Age: 52 Room: [place] [address] Gender: Female Note Status: Finalized Attending MD: Moustapha Rivera MD, [id number] Procedure: Upper GI endoscopy Indications: Dysphagia Providers: [...] Note Initiated On: 03/12/2023 9:[address] [facility] ED NOTEon 03-07-2023 ED NOTE HNO ID: [id number] Author: Gera Khan MD Service: Emergency Medicine [...] as previously scheduled. Gera Khan MD Normal [facility] ED PROV NOTEon 03-07-2023 ED PROV NOTE HNO ID: [id number] Author: Marely Tejeda MD Service: Emergency Medicine Author Type: Resident Type: ED Provider Notes Filed: 03/07/2023 4:00 PM Note Text: -- Attestation signed by Quan Guaman MD at 03/07/2023 4:47 PM [facility] STAFF PHYSICIAN NOTE OF PERSONAL INVOLVEMENT IN CARE I evaluated the patient and personally participated in the fraga components. I agree with the resident's findings and plan with the following revisions and/or additions: History revisions or additions: Jennifer Navarro is 52 year old who presents reporting dysphagia. Symptom onset Saturday after eating cheese. [place] it was stuck in throat. Improved on drinking some water. [place] in [facility] the next day, swallowing without [...] been completed and was pending interpretation from CHANNEL OPENER. 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 Normal [facility] THERAPY NTon 03-07-2023 THERAPY NT HNO ID: [id number] Author: Serafin Schultz CCC-CHANNEL OPENER Service: Speech/Swallow Author Type: Speech Language Pathologist Type: Therapy (PT/OT/Speech/Resp) Filed: 03/07/2023 2:59 PM Note Text: -- Summary: Modified Barium Swallow Study (MBSS) -- [facility] Speech-Language Pathology (CHANNEL OPENER) Modified Barium Swallow Study (MBSS) March 07, 2023 CHANNEL OPENER is consulted by ED service to complete [...] swallowing a Ba tablet, she politely refused. CHANNEL OPENER mentioned that one would be given if/when a barium esophagram was completed. An esophageal screening noted the thicker cracker/pudding material to clear from the esophagus with thin liquid barium wash (see [facility] video images 15 and 16). Given that [...] pharynx. No laryngeal penetration/subglottic aspiration was identified. [facility] video images are available for review in [...] cervical cancer screening 10/2011 due in 11/11 Gxqe-UKUHF-73 condition 11/03/2020 RECOVER Clinic initial visit at [place] on 11/03 (VV), pc RECOVER follow up #1 at on 11/11 (VV), pc Preeclampsia Primary hypertension 09/15/2020 SVT (supraventricular tachycardia) Tachycardia 08/31/2019 Thyroid nodule 01/19/2021 left 0.6x0.8x0.5 Trauma in childhood 11/10/2020 PAST SURGICAL HISTORY Procedure Laterality Date CHOLECYSTECTOMY HX COLONOSCOPY GEN ANES CONIZATION CERVIX W/ (more content not included)... Normal [facility] XR MOD BARIUM SWALLOW W SPEE Flavio [...] be reported by the Speech Therapist in [facility]. Contrast: ORAL: 60 ml of VARIBAR THIN ORAL: 50 ml of VARIBAR NECTAR ORAL: 20 ml of VARIBAR PUDDING Fluoroscopy radiation summary: Fluoroscopy time: 3:24 (min:sec). Air kerma: 40.3 mGy. IMPRESSION: Oropharyngeal evaluation performed by Speech Therapy Assembler Hydraulic Backhoe: BRETT Transcribe Date/Time: Mar 07 2023 2:25P Dictated by : MANNIE STRONG MD This examination was interpreted and the report reviewed and electronically signed by: MANNIE STRONG MD on Mar 07 2023 2:26PM EST [id number] Normal [facility] Quick Strepon 03-06-2023 S. pyogenes Org specific cx Ql (Throat) Negative Curiously [facility] [employer] Other Quick Strep [facility] [employer] Other ECG 12 lead ECGon 03-05-2023 ECG 12 lead ECG [facility] [place] [address] Electrocardiograph Report Signed Patient: Jennifer Navarro MR#: [id number] : 1970 Acct:[id number] Age/Sex: 52 / F ADM Date: 03/05/23 Loc: ER Room: Type: [facility] ER Attending Dr: Ordering Provider: Amanda Diaz [...] change was found Confirmed by JM ZULETA [facility], RAVI ([id number]) on 03/08/2023 9:54:30 AM Referred By: Electronically Signed By:RAVI ONEAL MD [facility] Transcribed By: MUS Signed By Ravi Oneal MD, [facility] 03/08/23 0954 [facility] CNOVon 02-28-2023 CNOV Office Visit (AMDERM ) -- JENNIFER NAVARRO ([id number]) 1970 F Date Time Provider Department 02/28/23 [...] education. Reassured of benign nature. -Apply Trevon [facility] nail conditioner to all finger nails once daily -Keep nails trimmed short (L82.1) Seborrheic keratosis -Discussed etiology and educated. Reassured of benign nature. - Discussed R/B/A of treating with LN2, including risk of hyper vs hypopigmentation and risk of reucrrence (more content not included)... Normal [facility] Alanine aminotransferase [En zymatic activity/volume] in Serum or PlasmaOrdered By: Marvin Dimas on 02-26-2023 ALT [Catalytic activity/Vol] 22 U/L 7-52 [facility] Albumin [Mass/volume] in Ser um or Plasma by Bromocresol green (BCG) dye binding methoOrdered By: Marvin Dimas on 02-26-2023 Albumin BCG dye [Mass/Vol] 4.6 g/dL 3.5-5.7 [facility] Alkaline phosphatase [Enzyma tic activity/volume] in Serum or PlasmaOrdered By: Marvin Dimas on 02-26-2023 ALP [Catalytic activity/Vol] 55 U/L 34-104 [facility] Aspartate aminotransferase [ Enzymatic activity/volume] in Serum or PlasmaOrdered By: Marvin Dimas on 02-26-2023 AST [Catalytic activity/Vol] 23 U/L 13-39 [facility] Basophils Auto (Bld) [#/Vol] Ordered By: Marvin Dimas on 02-26-2023 Basophils (Bld) [#/Vol] 0.0 10*3/uL 0.0-0.2 [facility] Basophils/100 WBC Auto (Bld) Ordered By: Marvin Dimas on 02-26-2023 Basophils/100 WBC (Bld) 0.3 % . [facility] Bilirubin Test strip Ql (U)O rdered By: Marvin Dimas on 02-26-2023 Bilirubin Ql (U) Negative Negative [facility] Bilirubin.total [Mass/volume ] in Serum or PlasmaOrdered By: Marvin Dimas on 02-26-2023 Bilirubin [Mass/Vol] 0.5 mg/dL 0.3-1.0 [facility] BioFire Not Detectedon 02-26 BioFire Not Detected Not detected Normal Not Detecte [facility] Comment on above: Result Comment: This is a duplicate RP2.1 COVID (PCR) result to be used for statistical tracking purpose only. PERFORMED BY: [facility] [address] [place] [address] PATHOLOGIST COLLEGE ADVISOR WILMER SIDDIQUI M.D. Performed By: #### R DICKSON PANEL UPP., BIOFIRECOVNOTDE #### [address] COVID-19 Detected/Not Detect edOrdered By: Marvin Dimas on 02-26-2023 SARS-CoV-2 (COVID-19) RNA SONIA+non-probe Ql (Nph) Not detected Not Detecte [facility] Comment on above: This is a duplicate RP2.1 COVID (PCR) result to be used for statistical tracking purpose only. Calcium [Mass/volume] in Ser um or PlasmaOrdered By: Mavrin Dimas on 02-26-2023 Calcium [Mass/Vol] 9.5 mg/dL 8.6-10.3 [facility] Carbon dioxide, total [Moles /volume] in Serum or PlasmaOrdered By: Marvin Dimas on 02-26-2023 CO2 [Moles/Vol] 27.4 mmol/L 21.0-31.0 [facility] Chloride [Moles/volume] in S joby or PlasmaOrdered By: Marvin Dimas on 02-26-2023 Chloride [Moles/Vol] 108 mmol/L 98-107 [facility] Color Auto (U)Ordered By: Ronald Dimas on 02-26-2023 Color (U) Yellow Yellow [facility] Complete Blood Count Auto Di ffon 02-26-2023 Basophils (Bld) [#/Vol] 0.0 10*3/uL Normal 0.0-0.2 [facility] Comment on above: Result Comment: PERF ORMED BY: [place] [address] PATHOLOGIST [employer]LEGE ADVISOR WILMER SIDDIQUI M.D. Performed By: #### H S TROP, CBC, LIPASE, CMP #### [address] Basophils/100 WBC (Bld) 0.3 % Normal . [facility] Comment on above: Performed By: #### H S TROP, CBC, LIPASE, CMP #### [address] Eosinophils (Bld) [#/Vol] 0.0 10*3/uL Normal 0.0-0.45 [facility] Comment on above: Performed By: #### H S TROP,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 above: Performed By: #### C BC, CMP ####[place] [id number] [facility] MCV (RBC) [Entitic vol] 94.0 fL Normal 80-100 [facility] Comment on above: Performed By: #### C BC, CMP ####[place] [id number] [facility] Mean Corpuscular HGB Conc 32.9 g/dL Normal 32.0-35.0 [facility] Comment on above: Performed By: #### C BC, CMP ####[place] [id number] [facility] Monocytes (Bld) [#/Vol] 0.5 10*3/uL Normal 0.0-0.8 [facility] Comment on above: Performed By: #### C BC, CMP ####[place] [id number] [facility] Monocytes/100 WBC (Bld) 15.47 % Normal 0.00-20.00 [facility] Comment on above: Performed By: #### C BC, CMP ####[place] [id number] [facility] Monocytes/100 WBC (Bld) 8.6 % Normal . [facility] Comment on above: Performed By: #### C BC, CMP ####[place] [address] [place] [address] [facility] Neutrophils (Bld) [#/Vol] 3.6 10*3/uL Normal 1.8-7.7 [facility] Comment on above: Performed By: #### C BC, CMP ####[place] [address] [place] [address] [facility] Neutrophils/100 WBC (Bld) 64.8 % Normal . [facility] Comment on above: Performed By: #### C BC, CMP ####[place] [address] [place] [address] [facility] NRBC% 0.1 /100{WBC} Normal 0-0.5 [facility] Comment on above: Performed By: #### C BC, CMP ####[place] [address] [place] [address] [facility] Platelet mean volume (Bld) [Entitic vol] 7.4 fL Normal 6.3-10.7 [facility] Comment on above: Performed By: #### C BC, CMP ####[address] [address] [facility] Platelets (Bld) [#/Vol] 226 10*3/uL Normal 150-450 [facility] Comment on above: Performed By: #### C BC, CMP ####[place] [address] [place] [address] [facility] RBC (Bld) [#/Vol] 4.43 10*6/uL Normal 3.60-5.00 [facility] Comment on above: Performed By: #### C BC, CMP ####[address] [address] [facility] WBC (Bld) [#/Vol] 5.5 10*3/uL Normal 3.8-11.6 [facility] Comment on above: Performed By: #### C BC, CMP ####[address] [address] [facility] Comprehensive Metabolic Pane laan 07-02-2022 Albumin [Mass/Vol] 4.6 g/dL Normal 3.5-5.7 [facility] Comment on above: Performed By: #### C BC, CMP ####[place] [address] [place] [address] [facility] Albumin/Globulin [Mass ratio] 2.2 {ratio} Normal [facility] Comment on above: Performed By: #### C BC, CMP ####[address] [address] [facility] ALP [Catalytic activity/Vol] 64 U/L Normal 34-104 [facility] Comment on above: Performed By: #### C CRIS, CMP ####[address] [address] [facility] ALT [Catalytic activity/Vol] 15 U/L Normal 7-52 [facility] Comment on above: Performed By: #### C CRIS, CMP ####[place] [id number] [facility] Anion gap [Moles/Vol] 10.9 mmol/L Normal 6.0-15.0 [facility] Comment on above: Performed By: #### C CRIS, CMP ####[address] [address] [facility] AST [Catalytic activity/Vol] 20 U/L Normal 13-39 [facility] Comment on above: Performed By: #### C CRIS, CMP ####[address] [address] [facility] Bilirubin [Mass/Vol] 0.4 mg/dL Normal 0.3-1.0 [facility] Comment on above: Performed By: #### C BC, CMP ####[address] [address] [facility] Calcium [Mass/Vol] 9.1 mg/dL Normal 8.6-10.3 [facility] Comment on above: Performed By: #### C BC, CMP ####[address] [address] [facility] Chloride [Moles/Vol] 105 mmol/L Normal 98-107 [facility] Comment on above: Performed By: #### C BC, CMP ####[place] [address] [place] [address] [facility] CO2 [Moles/Vol] 25.9 mmol/L Normal 21.0-31.0 [facility] Comment on above: Performed By: #### C BC, CMP ####[place] [address] [place] [address] [facility] Creatinine [Mass/Vol] 0.66 mg/dL Normal 0.60-1.20 [facility] Comment on above: Performed By: #### C BC, CMP ####[place] [address] [place] [address] [facility] Creatinine Clr Calc Pharmacy 111.86 [facility] Comment on above: Result Comment: PERF ORMED BY: [facility] [address] [facility] [place] [address] PATHOLOGIST COLLEGE ADVISOR WILMER SIDDIQUI M.D. Performed By: #### C BC, CMP ####[address] [address] [facility] GFR/1.73 sq M.predicted MDRD (S/P/Bld) [Vol rate/Area] mL/min/{1.73_m2} [facility] Comment on above: Performed By: #### C BC, CMP ####[place] [address] [place] [address] [facility] Globulin (S) [Mass/Vol] 2.1 g/dL [facility] Comment on above: Performed By: #### C BC, CMP ####[place] [address] [place] [address] [facility] Glucose [Mass/Vol] 85 mg/dL Normal 70-100 [facility] Comment on above: Result Comment: [place] Glucose Reference Range is dependent on time and content of last meal. Glucose of more than 200 mg/dL in a nonstressed, ambulatory subject supports the diagnosis of Diabetes Mellitus. ADA recommended reference range Performed By: #### C BC, CMP ####[place] [address] [place] [address] Potassium [Moles/Vol] 3.8 mmol/L Normal 3.5-5.1 [facility] Comment on above: Performed By: #### C BC, CMP ####[facility] [id number] [place] [id number] [facility] Protein [Mass/Vol] 6.7 g/dL Normal 6.4-8.9 [facility] Comment on above: Performed By: #### C BC, CMP ####[facility] [address] [place] [id number] [facility] Sodium [Moles/Vol] 138 mmol/L Normal 136-145 [facility] Comment on above: Performed By: #### C CRIS, CMP ####[facility] [id number] Urea nitrogen [Mass/Vol] 10 mg/dL Normal 7-25 [facility] Comment on above: Performed By: #### C CRIS, CMP ####[facility] [id number] [address] Creatinine [Mass/volume] in Serum or PlasmaOrdered By: Akiko Bullimore on 07-02-2022 Creatinine [Mass/Vol] 0.66 mg/dL 0.60-1.20 [facility] Eosinophils Auto (Bld) [#/Vo l]Ordered By: Akiko Bullimore on 07-02-2022 Eosinophils (Bld) [#/Vol] 0.1 10*3/uL 0.0-0.45 [facility] Eosinophils/100 WBC Auto (Bl d)Ordered By: Akiko Bullimore on 07-02-2022 Eosinophils/100 WBC (Bld) 1.4 % . [facility] Erythrocyte distribution wid th Auto (RBC) [Ratio]Ordered By: Akiko Bullimore on 07-02-2022 Erythrocyte distribution width (RBC) [Ratio] 13.7 % 11.9-15.3 [facility] Globulin Calc (S) [Mass/Vol] Ordered By: Akiko Bullimore on 07-02-2022 Globulin (S) [Mass/Vol] 2.1 g/dL [facility] Glucose [Mass/volume] in Ser um or PlasmaOrdered By: Akiko Ayoub on 07-02-2022 Glucose [Mass/Vol] 85 mg/dL 70-100 [facility] Comment on above: ADA recommended refe rence rangeRandom Glucose Reference Range is dependent on time and content of last meal. Glucose of more than 200 mg/dL in a nonstressed, ambulatory subject supports the diagnosis of Diabetes Mellitus. Hematocrit Auto (Bld) [Volum e fraction]Ordered By: Akiko Ayoub on 07-02-2022 Hematocrit (Bld) [Volume fraction] 41.7 % 34.0-46.4 [facility] Hemoglobin [Mass/volume] in BloodOrdered By: Akiko Ayoub on 07-02-2022 Hemoglobin (Bld) [Mass/Vol] 13.7 g/dL 11.8-15.4 [facility] Ketones Auto test strip (U) [Mass/Vol]Ordered By: Akiko Ayoub on 07-02-2022 Ketones (U) [Mass/Vol] Negative Negative [facility] Leukocytes [#/volume] correc bernabe for nucleated erythrocytes in Blood by Automated counOrdered By: Akiko Ayoub on 07-02-2022 WBC corrected for nucl RBC Auto (Bld) [#/Vol] 5.5 10*3/uL 3.8-11.6 [facility] Lymphocytes Auto (Bld) [#/Vo l]Ordered By: Akikonimesh Ayoub on 07-02-2022 Lymphocytes (Bld) [#/Vol] 1.4 10*3/uL 1.00-4.8 [facility] Lymphocytes/100 WBC Auto (Bl d)Ordered By: Akikonimesh Ayoub on 07-02-2022 Lymphocytes/100 WBC (Bld) 24.8 % . [facility] MCH Auto (RBC) [Entitic mass ]Ordered By: Akiko Ayoub on 07-02-2022 MCH (RBC) [Entitic mass] 30.9 pg 24.7-34.3 [facility] MCHC Auto (RBC) [Mass/Vol]Or dered By: Akiko Ayoub on 07-02-2022 MCHC (RBC) [Mass/Vol] 32.9 g/dL 32.0-35.0 [facility] MCV Auto (RBC) [Entitic vol] Ordered By: Akiko Ayoub on 07-02-2022 MCV (RBC) [Entitic vol] 94.0 fL 80-100 [facility] Monocyte distribution width [Entitic volume] in Blood by AutomatedOrdered By: Akiko Garciaimore on 07-02-2022 Monocyte distribution width Auto (Bld) [Entitic vol] 15.47 % 0.00-20.00 [facility] Monocytes Auto (Bld) [#/Vol] Ordered By: Akiko Garciaimore on 07-02-2022 Monocytes (Bld) [#/Vol] 0.5 10*3/uL 0.0-0.8 [facility] Monocytes/100 WBC Auto (Bld) Ordered By: Akiko Garciaimore on 07-02-2022 Monocytes/100 WBC (Bld) 8.6 % . [facility] Neutrophils Auto (Bld) [#/Vo l]Ordered By: Akiko Ayoub on 07-02-2022 Neutrophils (Bld) [#/Vol] 3.6 10*3/uL 1.8-7.7 [facility] Neutrophils/100 WBC Auto (Bl d)Ordered By: Akiko Ayoub on 07-02-2022 Neutrophils/100 WBC (Bld) 64.8 % . [facility] Nitrite Test strip Ql (U)Ord ered By: Akikonimesh Ayoub on 07-02-2022 Nitrite Ql (U) Negative Negative [facility] No Panel InformationOrdered By: Akiko Ayoub on 07-02-2022 SARS Antigen (LFIA) [facility] Estimated GFR (CKD-EPI) > 60.0 mL/Min [facility] Creatinine Clearance (Chem 111.86 [facility] Nucleated erythrocytes [Pres ence] in Blood by Automated countOrdered By: Akiko Ayoub on 07-02-2022 Nucleated RBC Auto Ql (Bld) 0.1 /100{WBC} 0-0.5 [facility] Platelet mean volume Auto (B ld) [Entitic vol]Ordered By: Akiko Garciaimore on 04-03-2023 Platelet mean volume (Bld) [Entitic vol] 7.4 fL 6.3-10.7 [facility] Platelets Auto (Bld) [#/Vol] Ordered By: Akiko Bullimore on 07-02-2022 Platelets (Bld) [#/Vol] 226 10*3/uL 150-450 [facility] Potassium [Moles/volume] in Serum or PlasmaOrdered By: Akiko Bullimore on 07-02-2022 Potassium [Moles/Vol] 3.8 mmol/L 3.5-5.1 [facility] Protein Auto test strip (U) [Mass/Vol]Ordered By: Akiko Bullimore on 07-02-2022 Protein (U) [Mass/Vol] Negative Negative [facility] Protein [Mass/volume] in Ser um or PlasmaOrdered By: Akiko Bullimore on 07-02-2022 Protein [Mass/Vol] 6.7 g/dL 6.4-8.9 [facility] RBC Auto (Bld) [#/Vol]Ordere d By: Akiko Bullimore on 07-02-2022 RBC (Bld) [#/Vol] 4.43 10*6/uL 3.60-5.00 [facility] Serum or plasma albumin/glob ulin mass ratioOrdered By: Akiko Bullimore on 07-02-2022 Albumin/Globulin [Mass ratio] 2.2 {ratio} [facility] Serum or plasma anion gap de terminationOrdered By: Akiko Bullimore on 07-02-2022 Anion gap [Moles/Vol] 10.9 mmol/L 6.0-15.0 [facility] Sodium [Moles/volume] in Ser um or PlasmaOrdered By: Akiko Bullimore on 07-02-2022 Sodium [Moles/Vol] 138 mmol/L 136-145 [facility] Galen Ag Negativeon 07-03-19 23 [place] Ag Negative Negative Normal Negative [facility] Comment on above: Result Comment: This is a duplicate [place] SARS Antigen (MERI) result to be used for statistical tracking purpose only. PERFORMED BY: [facility] [address] [place] [address] PATHOLOGIST COLLEGE ADVISOR WILMER SIDDIQUI M.D. Performed By: #### C OVID-19 GALEN, SOFIANEG ####[place] [address] [place] [id number] [facility] Specific gravity Auto test s trip (U) [Rel density]Ordered By: Akiko Ayoub on 07-02-2022 Specific gravity (U) [Rel density] 1.001 1.001-1.03 0 [facility] Troponin I High Sensitivityo n 07-02-2022 Troponin I High Sensitivity 3.6 pg/mL Normal 0.0-15.0 [facility] Comment on above: Result Comment: PERF ORMED BY: [facility] [address] [place] [address] PATHOLOGIST COLLEGE ADVISOR WILMER SIDDIQUI M.D. Performed By: #### H S TROP ####[place] [id number] [facility] Troponin I.cardiac [Mass/vol ume] in Serum or Plasma by Detection limit <= 0.01 ng/Ordered By: Akiko Ayoub on 07-02-2022 Troponin I.cardiac DL <= 0.01 ng/mL [Mass/Vol] 3.6 pg/mL 0.0-15.0 [facility] Urea nitrogen [Mass/volume] in Serum or PlasmaOrdered By: Akiko Anitra on 07-02-2022 Urea nitrogen [Mass/Vol] 10 mg/dL 7-25 [facility] Urinalysison 07-02-2022 Appearance (U) Clear Normal Clear [facility] Comment on above: Order Comment: Name Collection Type:: Clean-Voided Midstream Performed By: #### U A #### [facility] [address] Bilirubin,Urine Negative Normal Negative [facility] Comment on above: Order Comment: Name Collection Type:: Clean-Voided Midstream Performed By: #### U A #### [facility] [address] Color (U) Yellow Normal Yellow [facility] Comment on above: Order Comment: Name Collection Type:: Clean-Voided Midstream Performed By: #### U A #### [facility] [address] [place] [address] [place] Glucose Ql (U) Normal Normal Normal [facility] Comment on above: Order Comment: Name Collection Type:: Clean-Voided Midstream Performed By: #### U A #### [facility] [address] [place] [address] [place] Ketones Ql (U) Negative Normal Negative [facility] Comment on above: Order Comment: Name Collection Type:: Clean-Voided Midstream Performed By: #### U A #### [address] Leukocyte esterase Test strip Ql (U) Negative Normal Negative [facility] Comment on above: Order Comment: Name Collection Type:: Clean-Voided Midstream Performed By: #### U A #### [place] [address] [place] Nitrite,Urine Negative Normal Negative [facility] Comment on above: Order Comment: Name Collection Type:: Clean-Voided Midstream Performed By: #### U A #### [place] [address] [place] Occult Blood,Urine Negative Normal Negative [facility] Comment on above: Order Comment: Name Collection Type:: Clean-Voided Midstream Result Comment: PERF ORMED BY: [place] [address] PATHOLOGIST COLLEGE ADVISOR WILMER SIDDIQUI M.D. Performed By: #### U A #### [facility] [address] [place] [address] [place] pH (U) 6.0 [pH] Normal 5.0-9.0 [facility] Comment on above: Order Comment: Name Collection Type:: Clean-Voided Midstream Performed By: #### U A #### [place] [address] [place] Protein,Urine Negative Normal Negative [facility] Comment on above: Order Comment: Name Collection Type:: Clean-Voided Midstream Performed By: #### U A #### [facility] [address] Specificy [place],Urine 1.001 Normal 1.001-1.03 0 [facility] Comment on above: Order Comment: Name Collection Type:: Clean-Voided Midstream Performed By: #### U A #### [facility] [address] Urobilinogen,Urine Normal Normal Normal [facility] Comment on above: Order Comment: Name Collection Type:: Clean-Voided Midstream Performed By: #### U A #### [facility] [address] Urine clarity by refractomet ry automatedOrdered By: Akiko Ayoub on 07-02-2022 Clarity Refractometry automated (U) Clear Clear [facility] Urine glucose measurement by automated test strip (mass/volume)Ordered By: Akiko Ayoub on 07-02-2022 Glucose Auto test strip (U) [Mass/Vol] Normal mg/dL Normal [facility] Urine hemoglobin detection b y automated test stripOrdered By: Akiko Ayoub on 07-02-2022 Hemoglobin Auto test strip Ql (U) Negative Negative [facility] Urine leukocyte esterase det ection by automated test stripOrdered By: Akiko Ayoub on 07-02-2022 Leukocyte esterase Auto test strip Ql (U) Negative Negative [facility] Urobilinogen Auto test strip (U) [Mass/Vol]Ordered By: Akiko Ayoub on 07-02-2022 Urobilinogen (U) [Mass/Vol] Normal mg/dL Normal [facility] WBC Auto (Bld) [#/Vol]Ordere d By: Akiko Ayoub on 07-02-2022 WBC (Bld) [#/Vol] 5.5 10*3/uL 3.8-11.6 [facility] pH Auto test strip (U)Ordere d By: Akiko Ayoub on 07-02-2022 pH (U) 6.0 [pH] 5.0-9.0 [facility] Basic metabolic 2000 panelon 06-30-2022 Anion gap [Moles/Vol] 12 mmol/L Normal 9-18 [facility] Comment on above: Order Comment: Speci men Type: BLOOD SPECIMENOrdering Facility: [facility] Address: [address] [address] Performed By: #### 2 4321-2 ####[facility]ATORYCLIA [id number] [place] [address] [place] Calcium [Mass/Vol] 9.4 mg/dL Normal 8.5-10.2 [facility] Comment on above: Order Comment: Speci men Type: BLOOD SPECIMENOrdering Facility: [facility] Address: [address] [address] Performed By: #### 2 4321-2 ####[facility]ENTER[facility] [id number] [place] [address] [place] Chloride [Moles/Vol] 103 mmol/L Normal 97-105 [facility] Comment on above: Order Comment: Speci men Type: BLOOD SPECIMENOrdering Facility: [facility] Address: [address] [address] Performed By: #### 2 4321-2 ####[facility]ORATORYIA [id number] [place] [address] [place] CO2 [Moles/Vol] 25 mmol/L Normal 22-30 [facility] Comment on above: Order Comment: Speci men Type: BLOOD SPECIMENOrdering Facility: [facility] Address: [address] Performed By: #### 2 4321-2 ####[facility]ATORYIA [id number] [place] [address] [place] Creatinine [Mass/Vol] 0.71 mg/dL Normal 0.58-0.96 [facility] Comment on above: Order Comment: Speci men Type: BLOOD SPECIMENOrdering Facility: [facility] Address: [address] [address] Performed By: #### 2 4321-2 ####[facility]ORYIA [id number] [facility] [place] [address] [place] ESTIMATED GLOMERULAR FILTRATION RATE 104 mL/min/1.73m??? Normal >=60 [facility] Comment on above: Order Comment: Reyna sandhu Type: BLOOD SPECIMENOrdering Facility: [facility] Address: [address] [place] [address] Result Comment: Lien mated Glomerular Filtration Rate [...] actual GFR. Performed By: #### 2 4321-2 ####[facility]ATORYCLIA [id number] [facility] [place] [address] [place] Glucose [Mass/Vol] 88 mg/dL Normal 74-99 [facility] Comment on above: Order Comment: Reyna sandhu Type: BLOOD SPECIMENOrdering Facility: [facility] Address: [address] [place] [address] Result Comment: The [place] Diabetes Association (ADA) provides guidance for cutoff [...] Standards of Medical Care in Diabetes 2016, [place] [employer]. Diabetes Care. 2016.39(Suppl 1). Performed By: #### 2 4321-2 ####[facility]ORYCLIA [id number] [facility] [place] [address] [place] Potassium [Moles/Vol] 3.5 mmol/L Low 3.7-5.1 [facility] Comment on above: Order Comment: Speci men Type: BLOOD SPECIMENOrdering Facility: [facility] Address: [address] [address] Performed By: #### 2 4321-2 ####[facility] [id number] [address] [place] Sodium [Moles/Vol] 140 mmol/L Normal 136-144 [facility] Comment on above: Order Comment: Speci men Type: BLOOD SPECIMENOrdering Facility: [facility] Address: [address] [address] Performed By: #### 2 4321-2 ####[facility] [id number] [place] [address] [place] Urea nitrogen [Mass/Vol] 11 mg/dL Normal 7-21 [facility] Comment on above: Order Comment: Speci men Type: BLOOD SPECIMENOrdering Facility: [facility] Address: [address] [address] Performed By: #### 2 4321-2 ####[facility] [id number] [place] [address] [place] CBC W Auto Differential pane l (Bld)on 06-30-2022 Basophils (Bld) [#/Vol] 10*3/uL Normal <0.11 [facility] Comment on above: Order Comment: Speci men Type: BLOOD SPECIMENOrdering Facility: [facility] Address: [address] [address] Performed By: #### 5 7021-8 ####[facility]ENTERIA [id number] [address] [place] Basophils/100 WBC (Bld) 0.3 % Normal [facility] Comment on above: Order Comment: Speci men Type: BLOOD SPECIMENOrdering Facility: [facility] Address: [address] [address] Performed By: #### 5 7021-8 ####[facility]ORYIA [id number] [address] [place] Differential cell count method Nom (Bld) Auto Normal [facility] Comment on above: Order Comment: Speci men Type: BLOOD SPECIMENOrdering Facility: [facility] Address: [address] [address] Performed By: #### 5 7021-8 ####[facility]ATORYCLIA [id number] [place] [address] [place] Eosinophils (Bld) [#/Vol] 0.05 10*3/uL Normal <0.46 [facility] Comment on above: Order Comment: Speci men Type: BLOOD SPECIMENOrdering Facility: [facility] Address: [address] [address] Performed By: #### 5 7021-8 ####[facility]ATORYCLIA [id number] [address] [place] Eosinophils/100 WBC (Bld) 0.8 % Normal [facility] Comment on above: Order Comment: Speci men Type: BLOOD SPECIMENOrdering Facility: [facility] Address: [address] [address] Performed By: #### 5 7021-8 ####[facility]ORYIA [id number] [address] [place] Erythrocyte distribution width (RBC) [Ratio] 13.1 % Normal 11.5-15.0 [facility] Comment on above: Order Comment: Speci men Type: BLOOD SPECIMENOrdering Facility: [facility] Address: [address] [address] Performed By: #### 5 7021-8 ####[facility]ATORYCLIA [id number] [address] [place] Hematocrit (Bld) [Volume fraction] 44.5 % Normal 36.0-46.0 [facility] Comment on above: Order Comment: Speci men Type: BLOOD SPECIMENOrdering Facility: [facility] Address: [address] [address] Performed By: #### 5 7021-8 ####[facility]ORYIA [id number] [facility] [place] [address] [place] Hemoglobin (Bld) [Mass/Vol] 14.4 g/dL Normal 11.5-15.5 [facility] Comment on above: Order Comment: Speci men Type: BLOOD SPECIMENOrdering Facility: [facility] Address: [address] [address] Performed By: #### 5 7021-8 ####[facility]ATORYCLIA [id number] [facility] [place] [address] [place] Immature granulocytes (Bld) [#/Vol] 10*3/uL Normal <0.10 [facility] Comment on above: Order Comment: Speci men Type: BLOOD SPECIMENOrdering Facility: [facility] Address: [address] [place] [address] Performed By: #### 5 7021-8 ####[facility]ENTERIA [id number] [place] [address] [place] Immature granulocytes/100 WBC (Bld) 0.3 % Normal [facility] Comment on above: Order Comment: Speci men Type: BLOOD SPECIMENOrdering Facility: [facility] Address: [address] [place] [address] Performed By: #### 5 7021-8 ####[facility]ORYIA [id number] [address] [id number] [place] Lymphocytes (Bld) [#/Vol] 1.68 10*3/uL Normal 1.00-4.00 [facility] Comment on above: Order Comment: Speci men Type: BLOOD SPECIMENOrdering Facility: [facility] Address: [address] [place] [address] Performed By: #### 5 7021-8 ####[facility]ORYIA [id number] [address] [address] [place] Lymphocytes/100 WBC (Bld) 26.4 % Normal [facility] Comment on above: Order Comment: Speci men Type: BLOOD SPECIMENOrdering Facility: [facility] Address: [address] [address] Performed By: #### 5 7021-8 ####[facility]ENTERIA [id number] [address] MCH (RBC) [Entitic mass] 30.2 pg Normal 26.0-34.0 [facility] Comment on above: Order Comment: Speci men Type: BLOOD SPECIMENOrdering Facility: [facility] Address: [address] [address] Performed By: #### 5 7021-8 ####[facility]ENTERIA [id number] [address] [facility] MCHC (RBC) [Mass/Vol] 32.4 g/dL Normal 30.5-36.0 [facility] Comment on above: Order Comment: Speci men Type: BLOOD SPECIMENOrdering Facility: [facility] Address: [address] [address] Performed By: #### 5 7021-8 ####[facility] [id number] [address] [place] MCV (RBC) [Entitic vol] 93.3 fL Normal 80.0-100.0 [facility] Comment on above: Order Comment: Speci men Type: BLOOD SPECIMENOrdering Facility: [facility] Address: [address] [address] Performed By: #### 5 7021-8 ####[facility]ENTERIA [id number] [address] [place] Monocytes (Bld) [#/Vol] 0.34 10*3/uL Normal <0.87 [facility] Comment on above: Order Comment: Speci men Type: BLOOD SPECIMENOrdering Facility: [facility] Address: [address] [address] Performed By: #### 5 7021-8 ####[facility]ORYIA [id number] [place] [address] [place] Monocytes/100 WBC (Bld) 5.3 % Normal [facility] Comment on above: Order Comment: Speci men Type: BLOOD SPECIMENOrdering Facility: [facility] Address: [address] [address] Performed By: #### 5 7021-8 ####[facility]ATORYCLIA [id number] [place] [address] [place] Neutrophils (Bld) [#/Vol] 4.26 10*3/uL Normal 1.45-7.50 [facility] Comment on above: Order Comment: Speci men Type: BLOOD SPECIMENOrdering Facility: [facility] Address: [address] [address] Performed By: #### 5 7021-8 ####[facility]ATORYCLIA [id number] [address] [place] Neutrophils/100 WBC (Bld) 66.9 % Normal [facility] Comment on above: Order Comment: Speci men Type: BLOOD SPECIMENOrdering Facility: [facility] Address: [address] [address] Performed By: #### 5 7021-8 ####[facility]ORYIA [id number] [place] [address] [place] Nucleated RBC (Bld) [#/Vol] 10*3/uL Normal <0.01 [facility] Comment on above: Order Comment: Speci men Type: BLOOD SPECIMENOrdering Facility: [facility] Address: [address] [address] Performed By: #### 5 7021-8 ####[facility]ORYCLIA [id number] [place] [address] [place] Nucleated RBC/100 WBC (Bld) [Ratio] 0.0 /100 WBC Normal [facility] Comment on above: Order Comment: Speci men Type: BLOOD SPECIMENOrdering Facility: [facility] Address: [address] [address] Performed By: #### 5 7021-8 ####[facility]ORYIA [id number] [facility] [place] [address] [place] Platelet mean volume (Bld) [Entitic vol] 9.2 fL Normal 9.0-12.7 [facility] Comment on above: Order Comment: Speci men Type: BLOOD SPECIMENOrdering Facility: [facility] Address: [address] [place] [address] Performed By: #### 5 7021-8 ####[facility]ENTERIA [id number] [place] [address] [place] Platelets (Bld) [#/Vol] 242 10*3/uL Normal 150-400 [facility] Comment on above: Order Comment: Speci men Type: BLOOD SPECIMENOrdering Facility: [facility] Address: [address] [place] [address] Performed By: #### 5 7021-8 ####[facility] [id number] [address] [id number] [place] RBC (Bld) [#/Vol] 4.77 10*6/uL Normal 3.90-5.20 [facility] Comment on above: Order Comment: Speci men Type: BLOOD SPECIMENOrdering Facility: [facility] Address: [address] Performed By: #### 5 7021-8 ####[facility]ENTERIA [id number] [address] [place] [address] [place] WBC (Bld) [#/Vol] 6.37 10*3/uL Normal 3.70-11.00 [facility] Comment on above: Order Comment: Speci men Type: BLOOD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
[2023-04-13 11:37] LABS: Bilirubin Urine NEGATIVE (NEGATIVE); Blood Urine NEGATIVE (NEGATIVE); Clarity Urine CLEAR (CLEAR); Color Urine LT. YELLOW (YELLOW); Glucose Urine UA NEGATIVE (NEGATIVE); Ketones Urine NEGATIVE (NEGATIVE); Leukocyte Esterase Urine NEGATIVE (NEGATIVE); Nitrite Urine NEGATIVE (NEGATIVE); Protein Urine NEGATIVE (NEG/TRACE); Specific Gravity Urine <=1.005 (1.005-1.025); Urobilinogen Urine 0.2 EU/dL (0.2-1.0)
[2023-04-13 11:46] LABS: Bacteria Urine NONE SEEN #/HPF (NONE SEEN); Cast Seen? NONE SEEN #/LPF (NONE SEEN); Crystals Seen? None Seen #/HPF (None Seen); Mucus Urine NONE SEEN (NONE SEEN); RBC Urine NONE SEEN #/HPF (0-2); Squamous Epithelial Cell Urine RARE #/LPF (NONE/RARE); WBC Urine 0-2 #/HPF (NONE SEEN)
== END 2023-04-13 09:09 | disposition home or self-care (01) ==
PROVIDERS: PCP Family Medicine; Visit Provider Nurse Practitioner Family
DX: R30.0 Dysuria (principal)
CPT/HCPCS: 81001

== ENCOUNTER 2023-04-13 09:15 | Outpatient (OUT) | payer BC, SELFPAY ==
--- OUTSIDE RECORDS SUMMARY | 2023-04-13 09:19 | XMS_ITS | CCD ---
Author Name Unknown Address [address] [place] [address] Organization [facility] Care Team Providers Care Count Room Clerk Name Role Phone NELIA, MAGALIS Unavailable Unavailable [...] PATRICA, DR MOURA Attending Unavailable Unavailable Unavailable SHAAR HOUSTON Referring Unavailable MARTELL BURCIAGA Primary Care Unavailable MD Martell Burciaga Primary Care Provider MD Martell Burciaga Attending Provider Karoline Dorsey Unavailable MD Martell Burciaga Primary Care Provider [phone] MD Martell Burciaga Attending Provider [phone] CK Alegria Attending Provider Tomás Alegria Unavailable [...] Unavailable Mrs. Enmanuel Green Attending Unavailable Anitra, [facility]- Akiko E Emergency Provider Guy Vega Unavailable Joan Garcia Unavailable MD Martell Burciaga Primary Care Provider [phone] DO Marvin Dimas Emergency Provider [phone] Tomás Alegria Admitting Unavaila ble Tomás Alegria Attending Unavaila ble Patrica, Rugen M Primary Care Unavailable Patrica, Rugen M Primary Care Unavailable Tupa Amanda M Admitting Unavailable TuAmanda garcia M Attending Unavailable Anitra, Akiko Eng Admitting Unavailable BullAkiko luque Attending Unavailable Patrica, Rugen M Primary Care Unavailable Wallace, Rugen M Primary Care Unavailable Marvin Dimas Admitting Unavailable Marvin Dimas Attending Unavailable Wallace, Rugen M Attending Unavailable Patrica, Rugen M Admitting Unavailable Wallace, Rugen M Primary Care Unavailable YANCY PERLA [...] Unavailable PATRICA, RUGEN MABALAY Primary Care Unavailable NAGRIS TONY Attending Unavailable PATRICA, RUGEN MABALAY Primary [...] Allergy 10-14-19 19 Hives/Urticari a, Unknown, Rash [facility] (2 sources) Triamcinolone Drug Allergy Hives/Urticari a [facility] (16 sources) fexofenadine; Translations: [Sanjuana] Drug Allergy Hives, Unknown [facility] [address] Work Phone: (16 sources) methylPREDNISolone ; Translations: [Medrol] Drug Allergy Hives, Unknown [facility] [address] Work Phone: (15 sources) POLYETHYLENE GLYCOL 3350; Translations: [polyethylene glycol 3350] Drug Allergy 01-21-20 21 Hives, Unknown [facility] Repository (7 sources) MiraLax 17 GM Oral Packet; Translations: [MiraLax 17 GM Oral Packet] Allergy to drug (finding) Hives [facility] [facility] Work Phone: (20 sources) Triamcinolone; Translations: [Kenalog] Drug Allergy Hives, Unknown [facility] [facility] Work Phone: (4 sources) Cat; Translations: [CATS] Propensity to adverse reactions (disorder) 10-14-[address] [facility] Repository (4 sources) Dog; Translations: [DOGS] Propensity to adverse reactions (disorder) 10-14-[address] [facility] Repository (4 sources) fexofenadine; Translations: [FEXOFENADINE] Drug Allergy 07-23-[address] [facility] Repository (13 sources) Loperamide; Translations: [LOPERAMIDE] Drug Allergy 07-23-[address] [facility] Repository (4 sources) methylPREDNISolone ; Translations: [METHYLPREDNISOLON E] Drug Allergy 07-23-[address] [facility] Repository (4 sources) Polyethylene Glycols; Translations: [POLYETHYLENE GLYCOL] Drug Allergy 01-27-[address] [facility] Repository (6 sources) Triamcinolone; Translations: [TRIAMCINOLONE] Drug Allergy 03-23-[address] [facility] Repository (4 sources) KENALOG-H; Translations: [KENALOG-H] Propensity to adverse reactions to drug (disorder) 03-22-[address] [facility] Repository (6 sources) POLYETHYLENE GLYCOL 3350 Drug Allergy Unknown [facility] Other (9 sources) Polyethylene Glycols Drug Allergy Unknown [facility] Other (1 source) diphenhydrAMINE Drug Allergy 03-05-20 [facility] Repository (1 source) Doxycycline Drug Allergy 03-05-20 [facility] Repository (1 source) Polyethylene Glycols Drug Allergy 03-05-20 [facility] Repository Medications Current Medications Medication Drug [...] mg/ml ophthalmic solution (1 source) Plasma Volume Way Inspector, Non-Standardized Chemical Allergen Start: 01-10-2021 take 1 [...] once for 1 days May, Active nystatin 278139 unt/ml oral suspension (3 sources) Polyene Antifungal Start: 06-26-2022 Nystatin 458917 units/mL 5 ml rinse and spit Four [...] Avelar Status: Other Generic Substitution Allowed vitamin e11-fegeg acid (2 sources) take 1 tablet by mouth once daily vitamin x54-jmykt acid ; 1 tab(s) orally once a [...] by mouth every week D3-50 1.25 MG (20905 UT) Oral Capsule TAKE 1 CAPSULE BY [...] Test Name Value Interpretation Reference Range Facility [facility] 03-29-2023 [facility] Telephone (HNQ) -- JENNIFER NAVARRO ([id number]) 1970 F Date Time Provider Department 03/29/23 [...] treatment options. Please call. Also, sent a [employer] msg. Pt Phone #: [phone] Pharmacy Name and # : [id number] [facility] [employer] [facility] [place] [address] - [address] - [phone] Pt last seen: 10/01/2022 Hannae Solomon RN 03/29/2023 10:38 AM Signed [employer] message has been routed to Dr. Lebron [...] hypertension [I10] 09/15/2020 06/27/2022 Cervicalgia [M54.2] 10/17/2020 Ymhn-ESMZI-36 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] 11/03/2020 Trauma in childhood [T14.90XA] [...] Encounter Status:Closed by RACHEL [facility] HNO [facility]: [id number] Author: Coordinator, Mammography Service: ? Author Type: Physician Type: Letter Filed: 03/25/2023 11:35 PM Note Text: March 22, 2023 PID: [id number] Jennifer A. Makeda [address] [place] [address] Dear Shaun Ferraramariel, We are pleased to [...] report will be kept on file at [facility] as part of your permanent medical record and are available for your continuing care. Thank you for allowing us to help in meeting your health care needs. Sincerely, Dr. Guallpa Interpreting Radiologist [facility] (Normal over 40) [facility] CNOVon 03-22-2023 CNOV Office Visit (GYNMN) -- JENNIFER NAVARRO ([id number]) 1970 F Date Time Provider Department 03/22/23 11:30 AM JOELLEN BROWNING GYNMN During your visit today, we recorded the following information about you: Blood pressure Weight 127/81 80.8 kg Joellen Browning APRN.ORE SAMPLER 03/22/2023 10:54 AM Signed Adenomyosis Overview Adenomyosis (nz-cd-gu-my-O-sis) occurs when the tissue that normally lines [...] in some women with adenomyosis. 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 Normal [facility] HPV W/GENOTYPE THIN PREPon 1 05-23-2022 HPV 16 Ag Ql (Unsp spec) Negative Normal Negative for HPV DNA high risk type 16 by PCR [facility] Comment on above: Order Comment: Speci men Type: FLUID SPECIMENOrdering Facility: [facility] Address: [address] [place] [address] Performed By: #### H PVHRT ####[facility] LABCLIA [id number] [place] [address] [place] HPV 18 Ag Ql (Unsp spec) Negative Normal Negative for HPV DNA high risk type 18 by PCR [facility] Comment on above: Order Comment: Speci men Type: FLUID SPECIMENOrdering Facility: [facility] Address: [address] [place] [address] Performed By: #### H PVHRT ####[facility] LABCLIA [id number] [place] [address] [place] HPV 31+33+35+39+45+51+52+ 56+58+59+66+68 DNA SONIA+probe Ql (Cvx) Negative for HPV DNA high risk types: 31,33,35,39,45,51,52,56,58 ,59,66,68 by PCR. Normal Negative for HPV DNA high risk types: 31,33,35,3 9,45,51,52 ,56,58,59, 66,68 by PCR. [facility] Comment on above: Order Comment: Speci men Type: FLUID SPECIMENOrdering Facility: [facility] Address: [address] [place] [address] Performed By: #### H PVHRT ####[facility] LABCLIA [id number] [place] [address] [place] PAP TESTon 03-22-2023 ADEQUACY Satisfactory for interpretation Normal [facility] Comment on above: Order Comment: Speci men Type: FLUID SPECIMENOrdering Facility: [facility] Address: [address] [place] [address] Performed By: #### L [id number] ####[facility] LABCLIA [id number] [place] [address] [place] CASE REPORT Normal [facility] Comment on above: Order Comment: Speci men Type: FLUID SPECIMENOrdering Facility: [facility] Address: [address] [place] [address] Result Comment: Gyne cologic Cytology Report Case: [id number] Authorizing Provider: Joellen Browning APRN.ORE SAMPLER Collected: 03/22/2023 10:58 AM Ordering Location: Gynecology Received: 03/22/2023 01:03 PM First Screen: Kyle Espinoza Tech Specimen: Pap Test, ThinPrep, Cervix Performed By: #### L [id number] ####[facility] LABCLIA [id number] [place] [id number] [place] CLINICAL HISTORY, CYTOLOGY, NUCLEAR PHYSICS TEACHER Routine Exam Normal [facility] Comment on above: Order Comment: Speci men Type: FLUID SPECIMENOrdering Facility: [facility] Address: [address] [place] [address] Result Comment: Judie pausal Performed By: #### L [id number] ####[facility] LABCLIA [id number] [place] [address] [place] CYTOLOGY PAP OTHER INT Atrophic specimen Normal [facility] Comment on above: Order Comment: Speci men Type: FLUID SPECIMENOrdering Facility: [facility] Address: [address] [place] [address] Performed By: #### L [id number] ####[facility] LABCLIA [id number] [place] [address] [place] FINAL PERFORMING LAB Normal [facility] Comment on above: Order Comment: Speci men Type: FLUID SPECIMENOrdering Facility: [facility] Address: [address] [place] [address] Result Comment: Tech nical component, highway traffic control technician screening performed at [facility], [facility] [address] CLIA# [id number] Diagnostic interpretation performed at [facility], [address] [facility] [place] [address] CLIA# [id number] Transportation Driver: Juan Mayes M.D. Performed By: #### L [id number] ####[facility] LABCLIA [id number] [place] [address] [place] HPV REFLEX Yes HPV Normal [facility] Comment on above: Order Comment: Speci men Type: FLUID SPECIMENOrdering Facility: [facility] Address: [address] [place] [address] Performed By: #### L [id number] ####[facility] LABCLIA [id number] [place] [id number] [place] INTERPRETATION, CYTOLOGY, NUCLEAR PHYSICS TEACHER Normal [facility] Comment on above: Order Comment: Speci men Type: FLUID SPECIMENOrdering Facility: [facility] Address: [address] [place] [address] Result Comment: Nega tive for intraepithelial lesion or malignancy. Performed By: #### L [id number] ####[facility] LABCLIA [id number] [place] [address] [place] LMP menopausal Normal [facility] Comment on above: Order Comment: Speci men Type: FLUID SPECIMENOrdering Facility: [facility] Address: [address] [place] [address] Performed By: #### L [id number] ####[facility] LABCLIA [id number] [place] [id number] [place] PAP DISCLAIMER COMMENT The Pap Smear is a screening test for cervical cancer. False negative results occur with all screening tests, emphasizing the need for rescreening at recommended intervals, and clinical correlation. Normal [facility] Comment on above: Order Comment: Speci men Type: FLUID SPECIMENOrdering Facility: [facility] Address: [address] [place] [address] Performed By: #### L [id number] ####[facility] LABCLIA [id number] [place] [id number] [place] PAP DRILL BIT SHARPENER COMMENT This specimen has be en analyzed by the ThinPrep Imaging System, an automated imaging and review system, which assists the laboratory in evaluating cells on ThinPrep Pap tests. Following automated imaging, selected mariscal from every slide are reviewed by a highway traffic control technician. Normal [facility] Comment on above: Order Comment: Speci men Type: FLUID SPECIMENOrdering Facility: [facility] Address: [address] [place], [place] [address] [id number] Performed By: #### L [id number] ####[facility] LABCLIA [id number] [id number] [id number] [place] XR ESOPHAGRAMon 03-22-2023 [...] Area Product (DAP): Fluoro time: 1:24 min:sec Slope Tender: PSCB Transcribe Date/Time: Mar 22 2023 4:25P Dictated by : Elli BAZAN MD This examination was interpreted and the report reviewed and electronically signed by: Elli BAZAN MD on Mar 22 2023 4:33PM EST [id number] [facility] SCREENING W TOMOon 03-21 [facility] SCREENING W ANG * * *Final Report* * * DATE OF EXAM: Mar 21 2023 6:00PM [facility]82 - [facility] SCREENING W ANG / PROCEDURE REASON: Encounter for screening mammogram for malignant neoplasm of breast * * * * Physician Interpretation * * * * RESULT: #[id number] - [facility] SCREENING W ANG BILATERAL DIGITAL [...] made to exams dated: 11/17/2022 mammogram - [facility], 01/03/2022 [facility], 06/03/2020 mammogram, and 06/05/2019 mammogram - [facility]. The breasts are heterogeneously dense, which may obscure small masses. No significant masses, calcifications, or other findings are seen in either breast. There has been no significant interval change. IMPRESSION: NEGATIVE There is no mammographic evidence of malignancy. A 1 year screening mammogram is recommended. Sasha sheppard/barney:03/22/2023 08:14:11 Chute Operator(s): RT Alvarez(R)(M), [facility] letter sent: Normal over 40 Mammogram [...] Health, Family Medicine, and Medical/Surgical Oncology, the [facility] has carefully reviewed the data and [...] their providers when to stop screening mammograms. Slope Tender: Barney Transcribe Date/Time: Mar 21 2023 5:38P Dictated by : SASHA GUALLPA MD This examination was interpreted and the report reviewed and electronically signed by: SASHA GUALLPA MD on Mar 22 2023 8:14AM EST [id number] Normal [facility] HISTORY PHYSICALon 3 HISTORY PHYSICAL HNO ID: [id number] Author: Moustapha Rivera MD Service: Gastroenterology Author [...] Moderate Additional Comments: None Moustapha Rivera MD [facility] NURSING PROGon 03-12-2023 NURSING PROG HNO ID: [id number] Author: Vernell Navarrete LPN Service: ? Author [...] Electronically Signed By: Vernell Navarrete LPN Normal [facility] NURSING PROG HNO ID: [id number] Author: Sherron Ayala, RN Service: ? Author [...] Sherron Ayala, PHYLLIS In Department: GASTROENTEROLOGY Normal [facility] SURGICAL PATHOLOGYon 023 CASE REPORT Normal [facility] Comment on above: Order Comment: Reyna sandhu Type: TISSUE SPECIMENOrdering Facility: [facility] Address: [address] [place] [address] Result Comment: Surg ical Pathology Report Case: [id number] Authorizing Provider: Moustapha Rivera MD Collected: 03/12/2023 09:54 AM Ordering Location: Gastroenterology Received: 03/12/2023 01:40 PM Pathologist: Rocco Tipton MD Specimens: A) - ESOPHAGUS BIOPSY, r/o EOE B) - ESOPHAGUS BIOPSY, r/o EOE Performed By: #### S ####[facility] LABCLIA [id number] [address] FINAL DIAGNOSIS Normal [facility] Comment on above: Order Comment: Reyna sandhu Type: TISSUE SPECIMENOrdering Facility: [facility] Address: [address] [place] [address] Result Comment: A. E sophagus, distal, biopsy: - Squamous mucosa with no diagnostic abnormality. B. Esophagus, proximal, biopsy: - Squamous mucosa with no diagnostic abnormality. Performed By: #### S ####[facility] LABCLIA [id number] [address] [place] FINAL PERFORMING LAB Normal [facility] Comment on above: Order Comment: Speci men Type: TISSUE SPECIMENOrdering Facility: [facility] Address: [address] [place] [address] Result Comment: Diag nostic interpretation performed at [facility], [address] [place] [address] CLIA# [id number] Transportation Driver: Juan Mayes M.D. Performed By: #### S ####[facility] [id number] [place] [address] [place] GROSS DESCRIPTION Normal [facility] Comment on above: Order Comment: Speci men Type: TISSUE SPECIMENOrdering Facility: [facility] Address: [address] [place] [address] Result Comment: A. E SOPHAGUS BIOPSY Received in formalin is one piece of willis, soft tissue measuring 0.6 x 0.4 x 0.2 cm. Totally submitted in one cassette. B. ESOPHAGUS BIOPSY Received in formalin are multiple pieces of willis, soft tissue aggregating to 0.5 x 0.4 x 0.1 cm. Totally submitted in one cassette. March 12, 2023 3:55 PM Gross examination performed at [facility], [address] [place] [address] Performed By: #### S ####[facility] LABIA [id number] [place] [address] [place] Upper GI endoscopy 12--2 023 Upper GI endoscopy A31 Gastrointestinal Endoscopy Patient Name: Jennifer Navarro Procedure Date: 03/12/2023 9:21 AM Date of : 1970 Admit Type: Outpatient Age: 52 Room: [place] [address] Gender: Female Note Status: Finalized Attending MD: Moustapha Rivera MD, [id number] Procedure: Upper GI endoscopy Indications: Dysphagia Providers: [...] Note Initiated On: 03/12/2023 9:21 AM Normal [facility] ED NOTEon 03-07-2023 ED NOTE HNO ID: [id number] Author: Gera Khan MD Service: Emergency Medicine [...] as previously scheduled. Gera Khan MD Normal [facility] ED PROV NOTEon 03-07-2023 ED PROV NOTE HNO ID: [id number] Author: Marely Tejeda MD Service: Emergency Medicine Author Type: Resident Type: ED Provider Notes Filed: 03/07/2023 4:00 PM Note Text: -- Attestation signed by Quan Guaman MD at 03/07/2023 4:47 PM [facility] STAFF PHYSICIAN NOTE OF PERSONAL INVOLVEMENT IN CARE I evaluated the patient and personally participated in the fraga components. I agree with the resident's findings and plan with the following revisions and/or additions: History revisions or additions: Jennifer Navarro is 52 year old who presents reporting dysphagia. Symptom onset Saturday after eating cheese. Harper it was stuck in throat. Improved on drinking some water. Harper in [facility]OH the next day, swallowing without [...] been completed and was pending interpretation from SHANK THREADER. 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 Normal [facility] THERAPY NTon 03-07-2023 THERAPY NT HNO ID: [id number] Author: Serafin Schultz CCC-SHANK THREADER Service: Speech/Swallow Author Type: Speech Language Pathologist Type: Therapy (PT/OT/Speech/Resp) Filed: 03/07/2023 2:59 PM Note Text: -- Summary: Modified Barium Swallow Study (MBSS) -- [facility] Speech-Language Pathology (SHANK THREADER) Modified Barium Swallow Study (MBSS) March 07, 2023 SHANK THREADER is consulted by ED service to complete [...] swallowing a Ba tablet, she politely refused. SHANK THREADER mentioned that one would be given if/when a barium esophagram was completed. An esophageal screening noted the thicker cracker/pudding material to clear from the esophagus with thin liquid barium wash (see [facility] video images 15 and 16). Given that [...] pharynx. No laryngeal penetration/subglottic aspiration was identified. [facility] video images are available for review in [...] cervical cancer screening 10/2011 due in 11/11 Zrsw-NSPHY-37 condition 11/03/2020 RECOVER Clinic initial visit at [place] on 11/03 (VV), pc RECOVER follow up #1 at on 11/11 (VV), pc Preeclampsia Primary hypertension 09/15/2020 SVT (supraventricular tachycardia) Tachycardia 08/31/2019 Thyroid nodule 01/19/2021 left 0.6x0.8x0.5 Trauma in childhood 11/10/2020 PAST SURGICAL HISTORY Procedure Laterality Date CHOLECYSTECTOMY HX COLONOSCOPY GEN ANES CONIZATION CERVIX W/ (more content not included)... Normal [facility] XR MOD BARIUM SWALLOW W SPEE [...] be reported by the Speech Therapist in [facility]. Contrast: ORAL: 60 ml of VARIBAR THIN ORAL: 50 ml of VARIBAR NECTAR ORAL: 20 ml of VARIBAR PUDDING Fluoroscopy radiation summary: Fluoroscopy time: 3:24 (min:sec). Air kerma: 40.3 mGy. IMPRESSION: Oropharyngeal evaluation performed by Speech Therapy Slope Tender: BRETT Transcribe Date/Time: Mar 07 2023 2:25P Dictated by : MANNIE STRONG MD This examination was interpreted and the report reviewed and electronically signed by: MANNIE STRONG MD on Mar 07 2023 2:26PM EST [id number] Normal [facility] Quick Strepon 03-06-2023 S. pyogenes Org specific cx Ql (Throat) Negative Social IQ (Social Influence Quotient) [facility] [employer] Other Quick Strep [facility] [employer] Other ECG 12 lead ECGon 03-05-2023 ECG 12 lead ECG [facility] [place] [address] Electrocardiograph Report Signed Patient: Jennifer Navarro MR#: [id number] : 1970 Acct:[id number] Age/Sex: 52 / F ADM Date: 03/05/23 Loc: ER Room: Type: [facility] ER Attending Dr: Ordering Provider: Amanda [...] change was found Confirmed by JM ZULETA [facility], RAVI ([id number]) on 03/08/2023 9:54:30 AM Referred By: Electronically Signed By:RAVI ONEAL MD [facility] Transcribed By: MUS Signed By Ravi Oneal MD, [facility] 03/08/23 0954 [facility] CNOVon 02-28-2023 CNOV Office Visit (AMDERM ) -- JENNIFER NAVARRO ([id number]) 1970 F Date Time Provider Department 02/28/23 [...] education. Reassured of benign nature. -Apply Trevon [place] nail conditioner to all finger nails once daily -Keep nails trimmed short (L82.1) Seborrheic keratosis -Discussed etiology and educated. Reassured of benign nature. - Discussed R/B/A of treating with LN2, including risk of hyper vs hypopigmentation and risk of reucrrence (more content not included)... Normal [facility] Alanine aminotransferase [En zymatic activity/volume] in Serum or PlasmaOrdered By: Marvin Dimas on 02-26-2023 ALT [Catalytic activity/Vol] 22 U/L 7-52 [facility] Albumin [Mass/volume] in Ser um or Plasma by Bromocresol green (BCG) dye binding methoOrdered By: Marvin Dimas on 02-26-2023 Albumin BCG dye [Mass/Vol] 4.6 g/dL 3.5-5.7 [facility] Alkaline phosphatase [Enzyma tic activity/volume] in Serum or PlasmaOrdered By: Marvin Dimas on 02-26-2023 ALP [Catalytic activity/Vol] 55 U/L 34-104 [facility] Aspartate aminotransferase [ Enzymatic activity/volume] in Serum or PlasmaOrdered By: Marvin Dimas on 02-26-2023 AST [Catalytic activity/Vol] 23 U/L 13-39 [facility] Basophils Auto (Bld) [#/Vol] Ordered By: Marvin Dimas on 02-26-2023 Basophils (Bld) [#/Vol] 0.0 10*3/uL 0.0-0.2 [facility] Basophils/100 WBC Auto (Bld) Ordered By: Marvin Dimas on 02-26-2023 Basophils/100 WBC (Bld) 0.3 % . [facility] Bilirubin Test strip Ql (U)O rdered By: Marvin Dimas on 02-26-2023 Bilirubin Ql (U) Negative Negative [facility] Bilirubin.total [Mass/volume ] in Serum or PlasmaOrdered By: Marvin Dimas on 02-26-2023 Bilirubin [Mass/Vol] 0.5 mg/dL 0.3-1.0 [facility] BioFire Not Detectedon 02-26 BioFire Not Detected Not detected Normal Not Detecte [facility] Comment on above: Result Comment: This is a duplicate RP2.1 COVID (PCR) result to be used for statistical tracking purpose only. PERFORMED BY: [facility] [address] [place] [address] PATHOLOGIST SWAGING MACHINE ADJUSTER WILMER SIDDIQUI M.D. Performed By: #### R DICKSON PANEL UPP., BIOFIRECOVNOTDE #### [address] COVID-19 Detected/Not Detect edOrdered By: Marvin Dimas on 02-26-2023 SARS-CoV-2 (COVID-19) RNA SONIA+non-probe Ql (Nph) Not detected Not Detecte [facility] Comment on above: This is a duplicate RP2.1 COVID (PCR) result to be used for statistical tracking purpose only. Calcium [Mass/volume] in Ser um or PlasmaOrdered By: Marvin Dimas on 02-26-2023 Calcium [Mass/Vol] 9.5 mg/dL 8.6-10.3 [facility] Carbon dioxide, total [Moles /volume] in Serum or PlasmaOrdered By: Marvin Dimas on 02-26-2023 CO2 [Moles/Vol] 27.4 mmol/L 21.0-31.0 [facility] Chloride [Moles/volume] in S joby or PlasmaOrdered By: Marvin Dimas on 02-26-2023 Chloride [Moles/Vol] 108 mmol/L 98-107 [facility] Color Auto (U)Ordered By: Ronald Dimsa on 02-26-2023 Color (U) Yellow Yellow [facility] Complete Blood Count Auto Di ffon 02-26-2023 Basophils (Bld) [#/Vol] 0.0 10*3/uL Normal 0.0-0.2 [facility] Comment on above: Result Comment: PERF ORMED BY: [place] [address] PATHOLOGIST SWAGING MACHINE ADJUSTER WILMER SIDDIQUI M.D. Performed By: #### H S TROP, CBC, LIPASE, CMP #### [address] Basophils/100 WBC (Bld) 0.3 % Normal . [facility] Comment on above: Performed By: #### H S TROP, CBC, LIPASE, CMP #### [address] Eosinophils (Bld) [#/Vol] 0.0 10*3/uL Normal 0.0-0.45 [facility] Comment on above: Performed By: #### H S TROP, CBC, LIPASE, CMP #### [address] Eosinophils/100 WBC (Bld) 0.3 % Normal . [facility] Comment on above: Performed By: #### H S TROP, CBC, LIPASE, CMP #### [address] Erythrocyte distribution width (RBC) [Ratio] 14.2 % Normal 11.9-15.3 [facility] Comment on above: Performed By: #### H S TROP, CBC, LIPASE, CMP #### [address] Hematocrit (Bld) [Volume fraction] 42.5 % Normal 34.0-46.4 [facility] Comment on above: Performed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 10*3/uL Normal 1.8-7.7 [facility] Comment on above: Performed By: #### C BC, CMP ####[place] [address] [place] [address] [facility] Neutrophils/100 WBC (Bld) 64.8 % Normal . [facility] Comment on above: Performed By: #### C BC, CMP ####[place] [address] [place] [address] [facility] NRBC% 0.1 /100{WBC} Normal 0-0.5 [facility] Comment on above: Performed By: #### C BC, CMP ####[place] [address] [place] [address] [facility] Platelet mean volume (Bld) [Entitic vol] 7.4 fL Normal 6.3-10.7 [facility] Comment on above: Performed By: #### C BC, CMP ####[address] [address] [facility] Platelets (Bld) [#/Vol] 226 10*3/uL Normal 150-450 [facility] Comment on above: Performed By: #### C BC, CMP ####[place] [address] [place] [address] [facility] RBC (Bld) [#/Vol] 4.43 10*6/uL Normal 3.60-5.00 [facility] Comment on above: Performed By: #### C BC, CMP ####[address] [address] [facility] WBC (Bld) [#/Vol] 5.5 10*3/uL Normal 3.8-11.6 [facility] Comment on above: Performed By: #### C BC, CMP ####[address] [address] [facility] Comprehensive Metabolic Pane alan 07-02-2022 Albumin [Mass/Vol] 4.6 g/dL Normal 3.5-5.7 [facility] Comment on above: Performed By: #### C BC, CMP ####[place] [address] [place] [address] [facility] Albumin/Globulin [Mass ratio] 2.2 {ratio} Normal [facility] Comment on above: Performed By: #### C BC, CMP ####[address] [address] [facility] ALP [Catalytic activity/Vol] 64 U/L Normal 34-104 [facility] Comment on above: Performed By: #### C CRIS, CMP ####[address] [address] [facility] ALT [Catalytic activity/Vol] 15 U/L Normal 7-52 [facility] Comment on above: Performed By: #### C CRIS, CMP ####[place] [id number] [facility] Anion gap [Moles/Vol] 10.9 mmol/L Normal 6.0-15.0 [facility] Comment on above: Performed By: #### C CRIS, CMP ####[address] [address] [facility] AST [Catalytic activity/Vol] 20 U/L Normal 13-39 [facility] Comment on above: Performed By: #### C CRSI, CMP ####[address] [address] [facility] Bilirubin [Mass/Vol] 0.4 mg/dL Normal 0.3-1.0 [facility] Comment on above: Performed By: #### C BC, CMP ####[address] [address] [facility] Calcium [Mass/Vol] 9.1 mg/dL Normal 8.6-10.3 [facility] Comment on above: Performed By: #### C BC, CMP ####[address] [address] [facility] Chloride [Moles/Vol] 105 mmol/L Normal 98-107 [facility] Comment on above: Performed By: #### C BC, CMP ####[place] [address] [place] [address] [facility] CO2 [Moles/Vol] 25.9 mmol/L Normal 21.0-31.0 [facility] Comment on above: Performed By: #### C BC, CMP ####[place] [address] [place] [address] [facility] Creatinine [Mass/Vol] 0.66 mg/dL Normal 0.60-1.20 [facility] Comment on above: Performed By: #### C BC, CMP ####[place] [address] [place] [address] [facility] Creatinine Clr Calc Pharmacy 111.86 [facility] Comment on above: Result Comment: PERF ORMED BY: [facility] [address] [facility] [place] [address] PATHOLOGIST SWAGING MACHINE ADJUSTER WILMER SIDDIQUI M.D. Performed By: #### C BC, CMP ####[address] [address] [facility] GFR/1.73 sq M.predicted MDRD (S/P/Bld) [Vol rate/Area] mL/min/{1.73_m2} [facility] Comment on above: Performed By: #### C BC, CMP ####[place] [address] [place] [address] [facility] Globulin (S) [Mass/Vol] 2.1 g/dL [facility] Comment on above: Performed By: #### C BC, CMP ####[place] [address] [place] [address] [facility] Glucose [Mass/Vol] 85 mg/dL Normal 70-100 [facility] Comment on above: Result Comment: Clarinda Glucose Reference Range is dependent on time and content of last meal. Glucose of more than 200 mg/dL in a nonstressed, ambulatory subject supports the diagnosis of Diabetes Mellitus. ADA recommended reference range Performed By: #### C BC, CMP ####[place] [address] [place] [address] Potassium [Moles/Vol] 3.8 mmol/L Normal 3.5-5.1 [facility] Comment on above: Performed By: #### C BC, CMP ####[facility] [address] [place] [id number] [facility] Protein [Mass/Vol] 6.7 g/dL Normal 6.4-8.9 [facility] Comment on above: Performed By: #### C BC, CMP ####[facility] [address] [place] [id number] [facility] Sodium [Moles/Vol] 138 mmol/L Normal 136-145 [facility] Comment on above: Performed By: #### C CRIS, CMP ####[facility] Qar[address] Urea nitrogen [Mass/Vol] 10 mg/dL Normal 7-25 [facility] Comment on above: Performed By: #### C CRIS, CMP ####[facility] Osx[address] Creatinine [Mass/volume] in Serum or PlasmaOrdered By: Akiko Bullimore on 07-02-2022 Creatinine [Mass/Vol] 0.66 mg/dL 0.60-1.20 [facility] Eosinophils Auto (Bld) [#/Vo l]Ordered By: Akiko Bullimore on 07-02-2022 Eosinophils (Bld) [#/Vol] 0.1 10*3/uL 0.0-0.45 [facility] Eosinophils/100 WBC Auto (Bl d)Ordered By: Akiko Bullimore on 07-02-2022 Eosinophils/100 WBC (Bld) 1.4 % . [facility] Erythrocyte distribution wid th Auto (RBC) [Ratio]Ordered By: Akiko Bullimore on 07-02-2022 Erythrocyte distribution width (RBC) [Ratio] 13.7 % 11.9-15.3 [facility] Globulin Calc (S) [Mass/Vol] Ordered By: Akiko Bullimore on 07-02-2022 Globulin (S) [Mass/Vol] 2.1 g/dL [facility] Glucose [Mass/volume] in Ser um or PlasmaOrdered By: Akiko Ayoub on 07-02-2022 Glucose [Mass/Vol] 85 mg/dL 70-100 [facility] Comment on above: ADA recommended refe rence rangeRandom Glucose Reference Range is dependent on time and content of last meal. Glucose of more than 200 mg/dL in a nonstressed, ambulatory subject supports the diagnosis of Diabetes Mellitus. Hematocrit Auto (Bld) [Volum e fraction]Ordered By: Akiko Ayoub on 07-02-2022 Hematocrit (Bld) [Volume fraction] 41.7 % 34.0-46.4 [facility] Hemoglobin [Mass/volume] in BloodOrdered By: Akiko Ayoub on 07-02-2022 Hemoglobin (Bld) [Mass/Vol] 13.7 g/dL 11.8-15.4 [facility] Ketones Auto test strip (U) [Mass/Vol]Ordered By: Akiko Ayoub on 07-02-2022 Ketones (U) [Mass/Vol] Negative Negative [facility] Leukocytes [#/volume] correc bernabe for nucleated erythrocytes in Blood by Automated counOrdered By: Akiko Ayoub on 07-02-2022 WBC corrected for nucl RBC Auto (Bld) [#/Vol] 5.5 10*3/uL 3.8-11.6 [facility] Lymphocytes Auto (Bld) [#/Vo l]Ordered By: Akikonimesh Ayoub on 07-02-2022 Lymphocytes (Bld) [#/Vol] 1.4 10*3/uL 1.00-4.8 [facility] Lymphocytes/100 WBC Auto (Bl d)Ordered By: Akikonimesh Ayoub on 07-02-2022 Lymphocytes/100 WBC (Bld) 24.8 % . [facility] MCH Auto (RBC) [Entitic mass ]Ordered By: Akiko Ayoub on 07-02-2022 MCH (RBC) [Entitic mass] 30.9 pg 24.7-34.3 [facility] MCHC Auto (RBC) [Mass/Vol]Or dered By: Akiko Ayoub on 07-02-2022 MCHC (RBC) [Mass/Vol] 32.9 g/dL 32.0-35.0 [facility] MCV Auto (RBC) [Entitic vol] Ordered By: Akiko Ayoub on 07-02-2022 MCV (RBC) [Entitic vol] 94.0 fL 80-100 [facility] Monocyte distribution width [Entitic volume] in Blood by AutomatedOrdered By: Akiko Garciaimore on 07-02-2022 Monocyte distribution width Auto (Bld) [Entitic vol] 15.47 % 0.00-20.00 [facility] Monocytes Auto (Bld) [#/Vol] Ordered By: Akiko Garciaimore on 07-02-2022 Monocytes (Bld) [#/Vol] 0.5 10*3/uL 0.0-0.8 [facility] Monocytes/100 WBC Auto (Bld) Ordered By: Akiko Garciaimore on 07-02-2022 Monocytes/100 WBC (Bld) 8.6 % . [facility] Neutrophils Auto (Bld) [#/Vo l]Ordered By: Akiko Ayoub on 07-02-2022 Neutrophils (Bld) [#/Vol] 3.6 10*3/uL 1.8-7.7 [facility] Neutrophils/100 WBC Auto (Bl d)Ordered By: Akiko Ayoub on 07-02-2022 Neutrophils/100 WBC (Bld) 64.8 % . [facility] Nitrite Test strip Ql (U)Ord ered By: Akikonimesh Ayoub on 07-02-2022 Nitrite Ql (U) Negative Negative [facility] No Panel InformationOrdered By: Akiko Ayoub on 07-02-2022 SARS Antigen (LFIA) [facility] Estimated GFR (CKD-EPI) > 60.0 mL/Min [facility] Creatinine Clearance (Chem 111.86 [facility] Nucleated erythrocytes [Pres ence] in Blood by Automated countOrdered By: Akiko Ayoub on 07-02-2022 Nucleated RBC Auto Ql (Bld) 0.1 /100{WBC} 0-0.5 [facility] Platelet mean volume Auto (B ld) [Entitic vol]Ordered By: Akiko Garciaimore on 04-03-2023 Platelet mean volume (Bld) [Entitic vol] 7.4 fL 6.3-10.7 [facility] Platelets Auto (Bld) [#/Vol] Ordered By: Akiko Bullimore on 07-02-2022 Platelets (Bld) [#/Vol] 226 10*3/uL 150-450 [facility] Potassium [Moles/volume] in Serum or PlasmaOrdered By: Akiko Bullimore on 07-02-2022 Potassium [Moles/Vol] 3.8 mmol/L 3.5-5.1 [facility] Protein Auto test strip (U) [Mass/Vol]Ordered By: Akiko Bullimore on 07-02-2022 Protein (U) [Mass/Vol] Negative Negative [facility] Protein [Mass/volume] in Ser um or PlasmaOrdered By: Akiko Bullimore on 07-02-2022 Protein [Mass/Vol] 6.7 g/dL 6.4-8.9 [facility] RBC Auto (Bld) [#/Vol]Ordere d By: Akiko Bullimore on 07-02-2022 RBC (Bld) [#/Vol] 4.43 10*6/uL 3.60-5.00 [facility] Serum or plasma albumin/glob ulin mass ratioOrdered By: Akiko Bullimore on 07-02-2022 Albumin/Globulin [Mass ratio] 2.2 {ratio} [facility] Serum or plasma anion gap de terminationOrdered By: Akiko Bullimore on 07-02-2022 Anion gap [Moles/Vol] 10.9 mmol/L 6.0-15.0 [facility] Sodium [Moles/volume] in Ser um or PlasmaOrdered By: Akiko Bullimore on 07-02-2022 Sodium [Moles/Vol] 138 mmol/L 136-145 [facility] Galen Ag Negativeon 07-03-19 23 Galen Ag Negative Negative Normal Negative [facility] Comment on above: Result Comment: This is a duplicate [place] SARS Antigen (MERI) result to be used for statistical tracking purpose only. PERFORMED BY: [facility] [address] [place] [address] PATHOLOGIST SWAGING MACHINE ADJUSTER WILMER SIDDIQUI M.D. Performed By: #### C OVID-19 GALEN, SOFIANEG ####[place] [id number] [place] [id number] [facility] Specific gravity Auto test s trip (U) [Rel density]Ordered By: Akiko Ayoub on 07-02-2022 Specific gravity (U) [Rel density] 1.001 1.001-1.03 0 [facility] Troponin I High Sensitivityo n 07-02-2022 Troponin I High Sensitivity 3.6 pg/mL Normal 0.0-15.0 [facility] Comment on above: Result Comment: PERF ORMED BY: [facility] [address] [place] [address] PATHOLOGIST SWAGING MACHINE ADJUSTER WILMER SIDDIQUI M.D. Performed By: #### H S TROP ####[place] [id number] [facility] Troponin I.cardiac [Mass/vol ume] in Serum or Plasma by Detection limit <= 0.01 ng/Ordered By: Akiko Ayoub on 07-02-2022 Troponin I.cardiac DL <= 0.01 ng/mL [Mass/Vol] 3.6 pg/mL 0.0-15.0 [facility] Urea nitrogen [Mass/volume] in Serum or PlasmaOrdered By: Akiko Anitra on 07-02-2022 Urea nitrogen [Mass/Vol] 10 mg/dL 7-25 [facility] Urinalysison 07-02-2022 Appearance (U) Clear Normal Clear [facility] Comment on above: Order Comment: Name Collection Type:: Clean-Voided Midstream Performed By: #### U A #### [facility] [address] Bilirubin,Urine Negative Normal Negative [facility] Comment on above: Order Comment: Name Collection Type:: Clean-Voided Midstream Performed By: #### U A #### [facility] [address] Color (U) Yellow Normal Yellow [facility] Comment on above: Order Comment: Name Collection Type:: Clean-Voided Midstream Performed By: #### U A #### [facility] [address] [place] [address] [place] Glucose Ql (U) Normal Normal Normal [facility] Comment on above: Order Comment: Name Collection Type:: Clean-Voided Midstream Performed By: #### U A #### [facility] [address] [place] [address] [place] Ketones Ql (U) Negative Normal Negative [facility] Comment on above: Order Comment: Name Collection Type:: Clean-Voided Midstream Performed By: #### U A #### [address] Leukocyte esterase Test strip Ql (U) Negative Normal Negative [facility] Comment on above: Order Comment: Name Collection Type:: Clean-Voided Midstream Performed By: #### U A #### [place] [address] [place] Nitrite,Urine Negative Normal Negative [facility] Comment on above: Order Comment: Name Collection Type:: Clean-Voided Midstream Performed By: #### U A #### [place] [address] [place] Occult Blood,Urine Negative Normal Negative [facility] Comment on above: Order Comment: Name Collection Type:: Clean-Voided Midstream Result Comment: PERF ORMED BY: [place] [address] PATHOLOGIST SWAGING MACHINE ADJUSTER WILMER SIDDIQUI M.D. Performed By: #### U A #### [facility] [address] [place] [address] [place] pH (U) 6.0 [pH] Normal 5.0-9.0 [facility] Comment on above: Order Comment: Name Collection Type:: Clean-Voided Midstream Performed By: #### U A #### [place] [address] [place] Protein,Urine Negative Normal Negative [facility] Comment on above: Order Comment: Name Collection Type:: Clean-Voided Midstream Performed By: #### U A #### [facility] [address] Specificy [place],Urine 1.001 Normal 1.001-1.03 0 [facility] Comment on above: Order Comment: Name Collection Type:: Clean-Voided Midstream Performed By: #### U A #### [facility] [address] Urobilinogen,Urine Normal Normal Normal [facility] Comment on above: Order Comment: Name Collection Type:: Clean-Voided Midstream Performed By: #### U A #### [facility] [address] Urine clarity by refractomet ry automatedOrdered By: Akiko Ayoub on 07-02-2022 Clarity Refractometry automated (U) Clear Clear [facility] Urine glucose measurement by automated test strip (mass/volume)Ordered By: Akiko Ayoub on 07-02-2022 Glucose Auto test strip (U) [Mass/Vol] Normal mg/dL Normal [facility] Urine hemoglobin detection b y automated test stripOrdered By: Akiko Ayoub on 07-02-2022 Hemoglobin Auto test strip Ql (U) Negative Negative [facility] Urine leukocyte esterase det ection by automated test stripOrdered By: Akiko Ayoub on 07-02-2022 Leukocyte esterase Auto test strip Ql (U) Negative Negative [facility] Urobilinogen Auto test strip (U) [Mass/Vol]Ordered By: Akiko Ayoub on 07-02-2022 Urobilinogen (U) [Mass/Vol] Normal mg/dL Normal [facility] WBC Auto (Bld) [#/Vol]Ordere d By: Akiko Ayoub on 07-02-2022 WBC (Bld) [#/Vol] 5.5 10*3/uL 3.8-11.6 [facility] pH Auto test strip (U)Ordere d By: Akiko Ayoub on 07-02-2022 pH (U) 6.0 [pH] 5.0-9.0 [facility] Basic metabolic 2000 panelon 06-30-2022 Anion gap [Moles/Vol] 12 mmol/L Normal 9-18 [facility] Comment on above: Order Comment: Speci men Type: BLOOD SPECIMENOrdering Facility: [facility] Address: [address] [address] Performed By: #### 2 4321-2 ####[facility] LABORATORYCLIA [id number] [place] [address] [place] Calcium [Mass/Vol] 9.4 mg/dL Normal 8.5-10.2 [facility] Comment on above: Order Comment: Speci men Type: BLOOD SPECIMENOrdering Facility: [facility] Address: [address] [address] Performed By: #### 2 4321-2 ####[facility]ENTERIA [id number] [place] [address] [place] Chloride [Moles/Vol] 103 mmol/L Normal 97-105 [facility] Comment on above: Order Comment: Speci men Type: BLOOD SPECIMENOrdering Facility: [facility] Address: [address] [address] Performed By: #### 2 4321-2 ####[facility] LABORATORYIA [id number] [place] [address] [place] CO2 [Moles/Vol] 25 mmol/L Normal 22-30 [facility] Comment on above: Order Comment: Speci men Type: BLOOD SPECIMENOrdering Facility: [facility] Address: [address] Performed By: #### 2 4321-2 ####[facility] LABORATORYIA [id number] [place] [address] [place] Creatinine [Mass/Vol] 0.71 mg/dL Normal 0.58-0.96 [facility] Comment on above: Order Comment: Speci men Type: BLOOD SPECIMENOrdering Facility: [facility] Address: [address] [address] Performed By: #### 2 4321-2 ####[facility] LABORATORYIA [id number] [facility] [place] [address] [place] ESTIMATED GLOMERULAR FILTRATION RATE 104 mL/min/1.73m??? Normal >=60 [facility] Comment on above: Order Comment: Reyna sandhu Type: BLOOD SPECIMENOrdering Facility: [facility] Address: [address] [place] [address] Result Comment: Lien mated Glomerular Filtration Rate [...] actual GFR. Performed By: #### 2 4321-2 ####[facility] LABORATORYCLIA [id number] [facility] [place] [address] [place] Glucose [Mass/Vol] 88 mg/dL Normal 74-99 [facility] Comment on above: Order Comment: Reyna sandhu Type: BLOOD SPECIMENOrdering Facility: [facility] Address: [address] [place] [address] Result Comment: The [place] [employer] (ADA) provides guidance for cutoff [...] Standards of Medical Care in Diabetes 2016, [place] [employer]. Diabetes Care. 2016.39(Suppl 1). Performed By: #### 2 4321-2 ####[facility] LABORATORYCLIA [id number] [facility] [place] [address] [place] Potassium [Moles/Vol] 3.5 mmol/L Low 3.7-5.1 [facility] Comment on above: Order Comment: Speci men Type: BLOOD SPECIMENOrdering Facility: [facility] Address: [address] [address] Performed By: #### 2 4321-2 ####[facility] [id number] [address] [place] Sodium [Moles/Vol] 140 mmol/L Normal 136-144 [facility]spital Comment on above: Order Comment: Speci men Type: BLOOD SPECIMENOrdering Facility: [facility] Address: [address] [address] Performed By: #### 2 4321-2 ####[facility] [id number] [place] [address] [place] Urea nitrogen [Mass/Vol] 11 mg/dL Normal 7-21 [facility] Comment on above: Order Comment: Speci men Type: BLOOD SPECIMENOrdering Facility: [facility] Address: [address] [address] Performed By: #### 2 4321-2 ####[facility] [id number] [place] [address] [place] CBC W Auto Differential pane l (Bld)on 06-30-2022 Basophils (Bld) [#/Vol] 10*3/uL Normal <0.11 [facility] Comment on above: Order Comment: Speci men Type: BLOOD SPECIMENOrdering Facility: [facility] Address: [address] [address] Performed By: #### 5 7021-8 ####[facility]ENTERIA [id number] [address] [place] Basophils/100 WBC (Bld) 0.3 % Normal [facility] Comment on above: Order Comment: Speci men Type: BLOOD SPECIMENOrdering Facility: [facility] Address: [address] [address] Performed By: #### 5 7021-8 ####[facility] LABORATORYIA [id number] [address] [place] Differential cell count method Nom (Bld) Auto Normal [facility] Comment on above: Order Comment: Speci men Type: BLOOD SPECIMENOrdering Facility: [facility] Address: [address] [address] Performed By: #### 5 7021-8 ####[facility] LABORATORYCLIA [id number] [place] [address] [place] Eosinophils (Bld) [#/Vol] 0.05 10*3/uL Normal <0.46 [facility] Comment on above: Order Comment: Speci men Type: BLOOD SPECIMENOrdering Facility: [facility] Address: [address] [address] Performed By: #### 5 7021-8 ####[facility] LABORATORYCLIA [id number] [address] [place] Eosinophils/100 WBC (Bld) 0.8 % Normal [facility] Comment on above: Order Comment: Speci men Type: BLOOD SPECIMENOrdering Facility: [facility] Address: [address] [address] Performed By: #### 5 7021-8 ####[facility] LABORATORYIA [id number] [address] [place] Erythrocyte distribution width (RBC) [Ratio] 13.1 % Normal 11.5-15.0 [facility] Comment on above: Order Comment: Speci men Type: BLOOD SPECIMENOrdering Facility: [facility] Address: [address] [address] Performed By: #### 5 7021-8 ####[facility] LABORATORYCLIA [id number] [address] [place] Hematocrit (Bld) [Volume fraction] 44.5 % Normal 36.0-46.0 [facility] Comment on above: Order Comment: Speci men Type: BLOOD SPECIMENOrdering Facility: [facility] Address: [address] [address] Performed By: #### 5 7021-8 ####[facility] LABORATORYIA [id number] [facility] [place] [address] [place] Hemoglobin (Bld) [Mass/Vol] 14.4 g/dL Normal 11.5-15.5 [facility] Comment on above: Order Comment: Speci men Type: BLOOD SPECIMENOrdering Facility: [facility] Address: [address] [address] Performed By: #### 5 7021-8 ####[facility] LABORATORYCLIA [id number] [facility] [place] [place] [address] [place] Immature granulocytes (Bld) [#/Vol] 10*3/uL Normal <0.10 [facility] Comment on above: Order Comment: Speci men Type: BLOOD SPECIMENOrdering Facility: [facility] Address: [address] [place] [address] Performed By: #### 5 7021-8 ####[facility]ENTERIA [id number] [place] [address] [place] Immature granulocytes/100 WBC (Bld) 0.3 % Normal [facility] Comment on above: Order Comment: Speci men Type: BLOOD SPECIMENOrdering Facility: [facility] Address: [address] [place] [address] Performed By: #### 5 7021-8 ####[facility] LABORATORYIA [id number] [address] [id number] [place] Lymphocytes (Bld) [#/Vol] 1.68 10*3/uL Normal 1.00-4.00 [facility] Comment on above: Order Comment: Speci men Type: BLOOD SPECIMENOrdering Facility: [facility] Address: [address] [place] [address] Performed By: #### 5 7021-8 ####[facility] LABORATORYIA [id number] [address] [place] [id number] [place] Lymphocytes/100 WBC (Bld) 26.4 % Normal [facility] Comment on above: Order Comment: Speci men Type: BLOOD SPECIMENOrdering Facility: [facility] Address: [address] [address] Performed By: #### 5 7021-8 ####[facility]IA [id number] [address] MCH (RBC) [Entitic mass] 30.2 pg Normal 26.0-34.0 [facility] Comment on above: Order Comment: Speci men Type: BLOOD SPECIMENOrdering Facility: [facility] Address: [address] [address] Performed By: #### 5 7021-8 ####[facility]ENTERIA [id number] [address] [facility] MCHC (RBC) [Mass/Vol] 32.4 g/dL Normal 30.5-36.0 [facility] Comment on above: Order Comment: Speci men Type: BLOOD SPECIMENOrdering Facility: [facility] Address: [address] [address] Performed By: #### 5 7021-8 ####[facility] [id number] [address] [place] MCV (RBC) [Entitic vol] 93.3 fL Normal 80.0-100.0 [facility] Comment on above: Order Comment: Speci men Type: BLOOD SPECIMENOrdering Facility: [facility] Address: [address] [address] Performed By: #### 5 7021-8 ####[facility]IA [id number] [address] [place] Monocytes (Bld) [#/Vol] 0.34 10*3/uL Normal <0.87 [facility] Comment on above: Order Comment: Speci men Type: BLOOD SPECIMENOrdering Facility: [facility] Address: [address] [address] Performed By: #### 5 7021-8 ####[facility] LABORATORYIA [id number] [place] [address] [place] Monocytes/100 WBC (Bld) 5.3 % Normal [facility] Comment on above: Order Comment: Speci men Type: BLOOD SPECIMENOrdering Facility: [facility] Address: [address] [address] Performed By: #### 5 7021-8 ####[facility] LABORATORYCLIA [id number] [place] [address] [place] Neutrophils (Bld) [#/Vol] 4.26 10*3/uL Normal 1.45-7.50 [facility] Comment on above: Order Comment: Speci men Type: BLOOD SPECIMENOrdering Facility: [facility] Address: [address] [address] Performed By: #### 5 7021-8 ####[facility] LABORATORYCLIA [id number] [address] [place] Neutrophils/100 WBC (Bld) 66.9 % Normal [facility] Comment on above: Order Comment: Speci men Type: BLOOD SPECIMENOrdering Facility: [facility] Address: [address] [address] Performed By: #### 5 7021-8 ####[facility] LABORATORYIA [id number] [place] [address] [place] Nucleated RBC (Bld) [#/Vol] 10*3/uL Normal <0.01 [facility] Comment on above: Order Comment: Speci men Type: BLOOD SPECIMENOrdering Facility: [facility] Address: [address] [address] Performed By: #### 5 7021-8 ####[facility] LABORATORYCLIA [id number] [place] [address] [place] Nucleated RBC/100 WBC (Bld) [Ratio] 0.0 /100 WBC Normal [facility] Comment on above: Order Comment: Speci men Type: BLOOD SPECIMENOrdering Facility: [facility] Address: [address] [address] Performed By: #### 5 7021-8 ####[facility] LABORATORYIA [id number] [facility] [place] [address] [place] Platelet mean volume (Bld) [Entitic vol] 9.2 fL Normal 9.0-12.7 [facility] Comment on above: Order Comment: Speci men Type: BLOOD SPECIMENOrdering Facility: [facility] Address: [address] [place] [address] Performed By: #### 5 7021-8 ####[facility]IA [id number] [place] [address] [place] Platelets (Bld) [#/Vol] 242 10*3/uL Normal 150-400 [facility] Comment on above: Order Comment: Speci men Type: BLOOD SPECIMENOrdering Facility: [facility] Address: [address] [place] [address] Performed By: #### 5 7021-8 ####[facility] [id number] [address] [place] [id number] [place] RBC (Bld) [#/Vol] 4.77 10*6/uL Normal 3.90-5.20 [facility] Comment on above: Order Comment: Speci men Type: BLOOD SPECIMENOrdering Facility: [facility] Address: [address] Performed By: #### 5 7021-8 ####[facility]ENTERIA [id number] [address] [id number] [place] WBC (Bld) [#/Vol] 6.37 10*3/uL Normal 3.70-11.00 [facility] Comment on above: Order Comment: Speci men Type: BLOOD SPECIMENOrdering Facility: [facility] Address: [address] [place], [place] [address] Performed By: #### 5 7021-8 ####[facility] [id number] [place] [address] [facility] [place] ED NOTEon 06-30-2022 ED NOTE HNO ID: [id number] Author: Radha Carpio PHYLLIS Service: ? Author [...] fevers or chills. Airway patent in triage. [facility] ED PROV NOTEon 06-30-2022 ED PROV NOTE HNO ID: [id number] Author: Daniela Milian PA-C Service: Emergency Medicine Author Type: Physician Artist Model Type: ED Provider Notes Filed: 06/30/2022 2:37 [...] cervical cancer screening 10/2011 due in 11/11 Rkkk-YDGWL-74 condition 11/03/2020 RECOVER Clinic initial visit at [place]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
[2023-04-13 12:18] LABS: Thyroid Stimulating Hormone 1.056 uIU/mL (0.358-3.740)
[2023-04-13 12:26] LABS: Free T4 0.91 ng/dL (0.76-1.46)
== END 2023-04-13 09:16 | disposition home or self-care (01) ==
PROVIDERS: PCP Family Medicine; Visit Provider Otolaryngology
DX: E04.2 Nontoxic multinodular goiter (principal); R93.89 Abnormal findings on diagnostic imaging of other specified body structures; R30.0 Dysuria
CPT/HCPCS: 36415; 74018; 81001; 84439; 84443

== ENCOUNTER 2024-04-02 13:40 | Outpatient (OUT) | payer BC, SELFPAY ==
--- NOTE | 2024-04-02 13:44 | US_ITS ---
[address] [address] Patient Name: JENNIFER NAVARRO MRN: [id number] date: 1970 Sex: F Assigned Patient Location: Current Patient Location: US Accession/Order Number: [id number] Exam Date: 04/02/2024 13:45 Report Date: 04/02/2024 14:49 At the request of: LEVI SANCHEZ Procedure: US renal bladder EXAMINATION: US renal bladder HISTORY: Urinary Tract Infection COMPARISON: No relevant comparison available. TECHNIQUE: Ultrasound examination was performed of the bladder. FINDINGS: Right Kidney: Normal in size and contour. The cortex measures 0.9 cm. No solid cortical mass or hydronephrosis Height: 3.76 cm Length: 8.50 cm Width: 4.27 cm Left Kidney: Normal in size and contour. The cortex measures 0.9 cm. No solid cortical mass or hydronephrosis. Height: 5.13 cm Length: 10.37 cm Width: 4.90 cm Urinary bladder: Prevoid volume 557 mL. Post void volume 7 mL Ureteral jets: Visualized bilaterally US/US renal bladder IMPRESSION: No acute abnormality Electronically authenticated by: RUBY SMALL Date: 04/02/2024 14:49
== END 2024-04-02 13:41 | disposition home or self-care (01) ==
LOC: US 13:41
PROVIDERS: PCP Family Medicine; Visit Provider Family Medicine
DX: N39.0 Urinary tract infection, site not specified (principal)
CPT/HCPCS: 76770

== ENCOUNTER 2024-10-07 16:32 | Outpatient (REF) | payer BC, SELFPAY ==
--- OUTSIDE RECORDS SUMMARY | 2023-07-15 12:30 | XMS_ITS ---
Author Organization [facility] Address [address] [place] [address] Dr [address] [place] [address] [place] [address] Care Team Providers Care Auditing Manager Name Role Phone Vinay Wong Unavailable [phone] REASON FOR VISIT f/u Encounters Encounter Location Date Provider Diagnosis [facility] [address] [place] [address] [place] [address] 07/15/2023 Vinay Wong Plan Of Treatment No Information Progress Notes * Tania NAVARRO ADOB:09/1970 (53 yo F)Acc No.[id number]:07/15/2023 Progess Note Patient: Jennifer Tania OCHOA Provider: Zhang Wong DPM :1970 A ge:52 Y S ex:Female Date:07/15/2023 Phone: Address:[address] [place], [place] [phone] Subjective: * Chief Complaints: * 1 . F/u. * Medical History: Objective: * Vitals: Assessment: Plan: * Treatment: * Images: * Electronic signature of [place] in JANNETH Wong on 10/07/2024 at 04:34 PM EDT Sign off status: Pending * Provider: Zhang Wong DPM Date: 07/15/2023 Generated for Ivelisse loja/Ada/eTkostas on: 10/07/2024 04:34 PM EDT
--- OUTSIDE RECORDS SUMMARY | 2023-09-24 11:00 | XMS_ITS ---
Author Organization [facility] Address [address] [place] [address] Dr [place] [address] Care Team Providers Care Missing Persons Investigator Name Role Phone Vinay Wong Unavailable [phone] Allergies Allergen (clinical drug ingredient) Drug/Non Drug Allergy documented on EMR Reaction Allergy Type Onset Date Status triamcinolone Kenalog Unknown Drug Allergy Act renetta doxycycline Doxycycline Unknown Drug Allergy Act renetta REASON FOR VISIT Tightness in [place] area, also in the waite Medications Medication SIG (Take, Route, Fr equency, Duration) Notes Start Date End Date Status Econazole Nitrate 1 % 1 application Exte rnally Once a day; Duration: 14 days 03/04/2023 Active Social History Tobacco Use: Social History Observation Description Date Details (start date - stop date) Former Smoker NA - NA tobacco use Question Answer Notes Patient is a: former smoker quit 2004 Vital Signs Height 65.5 in 09/24/2023 Encounters Encounter Location Date Provider Diagnosis [address] [place] [address] 09/24/2023 Vinay Wong Plan Of Treatment No Information Progress Notes * Tania NAVARRO ADOB:09/1970 (53 yo F)Acc No.[id number]:09/24/2023 Progess Note Patient: Jennifer Tania OCHOA Provider: Zhang Wong DPM :1970 A ge:52 Y S ex:Female Date:09/24/2023 Phone: Address:[address] [place] [address] [facility] Subjective: * Chief Complaints: * 1 . Tightness in R [place] area, also in the waite. * Medical History: S tomach ulcers, Preeclampsia, Hiatal hernia, IBS. * Surgical History: g all bladder 2010, neck surgery 2020. * Family History: mom high blood pressure, heart, SVT. * Social History: T obacco use P atient is a: f ormer smoker quit 2004. A lcohol D o you use alcohol? D oes not drink alcohol. M arital status m arital status m arried. * Medications: T aking Econazole Nitrate 1 % Cream 1 application Externally Once a day * Allergies: D oxycycline, Kenalog. Objective: * Vitals: H t: 65.5 in. Assessment: Plan: * Treatment: * Images: * Electronic signature of Yoandy Wong DPM on 10/07/2024 at 04:34 PM EDT Sign off status: Pending * Provider: Zhang Wong DPM Date: 0 09/24/2023 Generated for Ivelisse loja/Ada/Kristie on: 0 10/07/2024 04:34 PM EDT
--- OUTSIDE RECORDS SUMMARY | 2023-10-01 06:30 | XMS_ITS ---
Author Organization [facility] Address [address] [place] [address] [place] [address] Care Team Providers Care Coin Machine Collector Supervisor Name Role Phone Vinay Wong Unavailable [phone] REASON FOR VISIT Tightness in [place] area, also in the waite Encounters Encounter Location Date Provider Diagnosis [facility] [address] [place] [address] 10/01/2023 Vinay Wong Plan Of Treatment No Information Progress Notes * Tania NAVARRO ADOB:09/1970 (53 yo F)Acc No.[id number]:10/01/2023 Progess Note Patient: Jennifer OCHOATania Provider: Zhang Wong DPM :1970 A ge:52 Y S ex:Female Date:10/01/2023 Phone: Address:[address] [place] [address] Chad [facility] Subjective: * Chief Complaints: * 1 . Tightness in [place] area, also in the waite. * Medical History: Objective: * Vitals: Assessment: Plan: * Treatment: * Images: * Electronic signature of [place] in JANNETH Wong on 10/07/2024 at 04:35 PM EDT Sign off status: Pending * Provider: Zhang Wong DPM Date: 10/01/2023 Generated for Ivelisse loja/Ada/Ivetteitting on: 10/07/2024 04:35 PM EDT
--- OUTSIDE RECORDS SUMMARY | 2024-10-05 11:45 | XMS_ITS ---
Author Organization [facility] [place] Address [address] [place] [address] Care Team Providers Care Javascript Software Engineer Name Role Phone Mateo Penaloza Primary Care Provider Results Component Value Reference Range Notes UA DIP NONAUTO WO MICRO (810 02) - IN OFFICE Reviewed date:10/05/2024 04:05:12 PM Interpretation: Performing Lab: Notes/Report: COLOR light yellow CLARITY clear GLUCOSE n BILIRUBIN n KETONE n SPECIFIC GRAVITY 1.000 BLOOD trace PH 5 PROTEIN n UROBILINOGEN n NITRITE n LEUKOCYTE ESTERASE n REASON FOR VISIT urine dip Encounters Encounter Location Date Provider Diagnosis [address] [place] [address] 10/05/2024 Mateo Keventaylor Urinary urgency R39. 15 Assessments Encounter Date Diagnosis (ICD Code) Assessment Notes Treatment Notes Treatment Clinical Notes Section Notes 10/05/2024 Urinary urgency (ICD-10 - R39.15) Plan Of Treatment No Information Progress Notes * Tania NAVARRO ADOB:09/1970 (53 yo F)Acc No.[id number]:10/05/2024 Nurse Visit Patient: Jennifer Tania OCHOA Provider: Vasiliy Penaloza (FRANCESCA)MD :1970 A ge:53 Y S ex:Female Date:10/05/2024 Address:[facility] [address] [place]-[id number] Check In:03:47 PM ESTCheck O ut:04:01 PM EST Subjective: * Chief Complaints: * U rine dip * Active Problem List I10 Hypertension Modified On:03/30/2024 Status:confirmed K21.9 GERD (gastroesophage al reflux disease) Modified On:03/30/2024 Status:confirmed M19.90 Arthritis Modified On:03/30/2024 Status:confirmed D64.9 Anemia Modified On:03/30/2024 Status:confirmed K57.92 Diverticulitis Modified On:03/30/2024 Status:confirmed K76.9 Liver disease Modified On:03/30/2024 Status:confirmed K58.9 Irritable bowel synd arnaud (IBS) Modified On:03/30/2024 Status:confirmed E78.00 High cholesterol Modified On:03/30/2024 Status:confirmed Z00.00 Well adult Modified On:03/30/2024 Status:confirmed R59.1 Lymphadenopathy Modified On:03/30/2024 Status:confirmed E04.1 Thyroid nodule Modified On:03/30/2024 Status:confirmed B35.4 Tinea corporis Modified On:03/30/2024 Status:confirmed I49.8 Other specified card iac arrhythmias Modified On:03/30/2024 Status:confirmed I88.9 Axillary lymphadenit is Modified On:06/01/2024 Status:confirmed K21.9 GERD without esophag itis Modified On:07/01/2024 Status:confirmed * Medical History: * Surgical History: * Hospitalization/Major Diagno stic Procedure: * Medications: Objective: * Vitals: Assessment: * Assessment: 1. U rinary urgency - R39.15 (Primary) Plan: * Treatment: * Labs: * L ab: UA DIP NONAUTO WO MICRO (09158) - IN OFFICE (Collection Date & Time - 10/05/2024) Value Reference Range C OLOR light yellow * C LARITY clear * G LUCOSE n * B ILIRUBIN n * K ETONE n * S PECIFIC GRAVITY 1.000 * B LOOD trace * P H 5 * P ROTEIN n * U ROBILINOGEN n * N ITRITE n * L EUKOCYTE ESTERASE n * Procedure Codes: 8 1002 URINALYSIS WO MICRO * * Sign off status: Completed Visit Status: C HK (Check Out) true * Provider: Vasiliy Penaloza ([facility])MD Date: 10/05/2024 Generated for Ivelisse loja/Ada/eTransmitting on: 10/07/2024 04:34 PM EDT
--- OUTSIDE RECORDS SUMMARY | 2024-10-05 12:06 | XMS_ITS ---
Author Organization [facility] [place] Address [address] [place] [address] Care Team Providers Care Marketing Production Specialist Name Role Phone Mateo Penaloza Primary Care Provider REASON FOR VISIT urinary urgency Medications Medication SIG (Take, Route, Fr equency, Duration) Notes Start Date End Date Status Cefdinir 300 MG 2 capsule Orally onc e a day for 10 days 10/05/2024 Active Pyridium 200 MG 1 tablet after meals Orally Three times a day for 2 days 10/05/2024 Active Encounters Encounter Location Date Provider Diagnosis [address] [place] [address] 10/05/2024 Mateo Keventaylro Plan Of Treatment Medication Medication Name Sig Start Date Stop Date Notes Cefdinir 300 MG 2 capsule Orally once a day for 10 days Pyridium 200 MG 1 tablet after meals Orally Three times a day for 2 days 10/05/2024 Progress Notes * Tania NAVARRO ADOB:09/1970 (53 yo F)Acc No.[id number]:10/05/2024 Patient: Jennifer Tania OCHOA :1970 A ge:53 Y S ex:Female Address:[address] [place], [place] [address], [address] * Refills Start Cefdinir Capsule, 300 MG, Orally, 20 Capsule, 2 capsule, once a day, 10 days, Refills=0 Start Pyridium Tablet, 200 MG, Orally, 9, 1 tablet after meals, Three times a day, 2 days Subjective: * Chief Complaints: * U rinary urgency * Medical History: * Surgical History: * Hospitalization/Major Diagno stic Procedure: * Medications: Objective: * Vitals: * P ast Orders: L ab:UA DIP NONAUTO WO MICRO (04634) - IN OFFICE (Order Date - 10/05/2024) (Collection Date & Time - 10/05/2024) Value Reference Range COLOR light yellow CLARITY clear GLUCOSE n BILIRUBIN n KETONE n SPECIFIC GRAVITY 1.000 BLOOD trace PH 5 PROTEIN n UROBILINOGEN n NITRITE n LEUKOCYTE ESTERASE n * Physical Examination: Assessment: Plan: * Treatment: * Procedure Codes: * true * Date: Generated for Ivelisse loja/Ada/Kristie on: 0 10/07/2024 03:14 PM EDT
--- OUTSIDE RECORDS SUMMARY | 2024-10-05 16:55 | XMS_ITS | Encounter Summary ---
Author Organization [facility] Address [address] [place] [address] Care Team Providers Care Autoclave Operator Name Role Phone MonikaKevin sawant Primary Care Provider [phone] Encounter Details Date Type Department Care Team (Late st Contact Info) Description 10/05/2024 4:55 PM EDT Office Visit [facility] [address] [facility] [address] [place] [address] Jeri Obando PA [address] [facility] [address] [place] [address] Urinary frequency (Primary Dx); Dysuria Social History Tobacco Use Types Packs/Day Years Used Date Smoking Tobacco: Former Cigarettes 0.5 15 0 04/01/1991 - 04/01/2006 Smokeless Tobacco: Never Alcohol Use Standard Drinks/Week Comments Never 0 (1 standard drink = 0.6 oz pure alcohol) Coffee,tea 2-3 cups per day,,,caffeine intake: 2-3 cups per day Humiliation, Afraid, Rape, and Kick questionnair e Answer Date Recorded Within the last year, have y ou been afraid of your partner or ex-partner? No 02/04/2023 Within the last year, have y ou been humiliated or emotionally abused in other ways by your partner or ex-partner? No Within the last year, have y ou been kicked, hit, slapped, or otherwise physically hurt by your partner or ex-partner? No 02/04/2023 Within the last year, have y ou been raped or forced to have any kind of sexual activity by your partner or ex-partner? No 02/04/2023 Social Connection and Isolat ion Panel [NHANES] Answer Date Recorded In a typical week, how many times do you talk on the phone with family, friends, or neighbors? More than three times a week 02/04/2023 How often do you get togethe r with friends or relatives? Once a week 02/04/2023 How often do you attend chur ch or holiness services? 1 to 4 times per year 02/04/2023 Do you belong to any clubs o r organizations such as anabaptism groups, unions, fraternal or athletic groups, or school groups? Yes 02/04/2023 How often do you attend meet ings of the clubs or organizations you belong to? More than 4 times per year 02/04/2023 Are you , , di vorced, , never , or living with a partner? 02/04/2023 AUDIT-C Answer Date Recorded Q1: How often do you have a drink containing alcohol? Never 02/04/2023 Q2: How many drinks containi ng alcohol do you have on a typical day when you are drinking? Patient does not drink Q3: How often do you have si x or more drinks on one occasion? Never 02/04/2023 Overall Financial Resource Strain (CARDIA) Answe r Date Recorded How hard is it for you to pa y for the very basics like food, housing, medical care, and heating? Not hard at all 02/04/2023 PHQ-2 Answer Date Recorded Patient Health Questionnaire-2 Score 0 03/03/2024 [facility] - Occupational Stress Questionnaire Answer Date Recorded Do you feel stress - tense, restless, nervous, or anxious, or unable to sleep at night because your mind is troubled all the time - these days? To some extent 02/04/2023 Exercise Vital Sign Answer Date Recorde d On average, how many days pe r week do you engage in moderate to strenuous exercise (like a brisk walk)? 5 days 02/04/2023 On average, how many minutes do you engage in exercise at this level? 20 min 02/04/2023 Hunger Vital Sign Answer Date Recorded Within the past 12 months, y ou worried that your food would run out before you got the money to buy more. Never true 02/05/20 23 Within the past 12 months, t he food you bought just didn't last and you didn't have money to get more. Never true 02/04/2023 PRAPARE - Transportation Answer Date Re corded In the past 12 months, has l ack of transportation kept you from medical appointments or from getting medications? No 08/2022 In the past 12 months, has l ack of transportation kept you from meetings, work, or from getting things needed for daily living? No 02/04/2023 Housing Stability Vital Sign Answer Lucas e Recorded In the last 12 months, was t here a time when you were not able to pay the mortgage or rent on time? No 02/05/20 Number of Places Lived in the Last Year Not on f ile 02/04/2023 In the last 12 months, was t here a time when you did not have a steady place to sleep or slept in a fdc (including now)? Patient refused 02/04/2023 Comments No Sex and Gender Information Value Date Recorded Sex Assigned at Not on file Legal Sex Female 6:48 PM EDT Gender Identity Female 06/13/2022 6:48 PM EDT Sexual Orientation Not on file documented as of this encounter Last Filed Vital Signs Vital Sign Reading Time Taken Comments Blood Pressure 138/88 10/05/2024 4:59 PM EDT Pulse 82 10/05/2024 4:59 PM EDT Temperature 36.7 C (98 F) 10/05/2024 4:59 PM EDT Respiratory Rate - - Oxygen Saturation 98% 10/05/2024 4:59 PM EDT Inhaled Oxygen Concentration - - Weight - - Height - - Body Mass Index - - documented in this encounter Plan of Treatment Upcoming Encounters Date Type Department Care Team (Late st Contact Info) Description 10/28/2024 3:45 PM EDT Office Visit [facility] [address] [place] [address] Sherron Muir MD [address] [place] [address] documented as of this encounter Procedures Procedure Name Priority Date/Time Associated Diagnosis Comments URINALYSIS ANALYZER TEST Routine 10/05/2024 5:08 PM EDT Dysuria documented in this encounter Results * (ABNORMAL) URINALYSIS ANALYZER TEST (10/05/2024 5:08 PM EDT) LEUKOCYTES neg Negative NITRITES neg Negative UROBILINOGEN 0.2 0.2 - 1.0 PROTEIN neg Negative PH 6.0 5.0 - 6.0 BLOOD trace Negative SPECIFIC GRAVITY 1.005 1.001 - 1.035 KETONES neg Negative BILIRUBIN neg Negative GLUCOSE neg Negative Urine 10/05/2024 5:08 PM EDT Evans Lugo DO POINT OF CARE TEST ENTER/ED IT ORDERABLES Final Result documented in this encounter Visit Diagnoses Diagnosis Urinary frequency- Primary Dysuria documented in this encounter Care Teams Autoclave Operator Relationship Specialty Start Date End Date Kevin Kyle DO [address] [place] [address] PCP - General Family Medicine 05/23/23 documented as of this encounter
--- OUTSIDE RECORDS SUMMARY | 2024-10-06 05:57 | XMS_ITS ---
Author Organization [facility] [place] Address [address] [place] [address] Care Team Providers Care Optical Engineering Manager Name Role Phone Mateo Penaloza Primary Care Provider [phone] REASON FOR VISIT concerns Encounters Encounter Location Date Provider Diagnosis [facility] [address] [facility] [place] [address] 10/06/2024 Mateo Penaloza Urinary urgency R39 .15 Assessments Encounter Date Diagnosis (ICD Code) Assessment Notes Treatment Notes Treatment Clinical Notes Section Notes 10/06/2024 Urinary urgency (ICD-10 - R39.15) Plan Of Treatment Pending Test Test Name Order Date UA (URINALYSIS, COMPLETE) 10/06/2024 Urine Culture 10/06/2024 URINE MICROSCOPIC ONLY 10/06/2024 US renal bladder 10/06/2024 Progress Notes * Tania NAVARRO ADOB:09/1970 (53 yo F)Acc No.[id number]:10/06/2024 Patient: Jennifer OCHOA Tania Amelia :1970 A ge:53 Y S ex:Female Address:[facility] [place], [address] Subjective: * Chief Complaints: * C oncerns * Medical History: * Surgical History: * Hospitalization/Major Diagno stic Procedure: * Medications: Objective: * Vitals: * Physical Examination: Assessment: * Assessment: 1. U rinary urgency - R39.15 (Primary) Plan: * Treatment: * Procedure Codes: * true * Date: Generated for Ivelisse olja/Ada/Kristie on: 0 10/07/2024 03:14 PM EDT
--- OUTSIDE RECORDS SUMMARY | 2024-10-07 15:00 | XMS_ITS | Encounter Summary ---
Author Organization [facility] Address [address] [place] [address] Care Team Providers Care Chandelier Maker Name Role Phone AnabellaKevin Primary Care Provider [phone] Encounter Details Date Type Department Care Team (Late st Contact Info) Description 10/07/2024 3:00 PM EDT Office Visit [facility] [address] [place] [address] Dysuria (Primary Dx) Social History Tobacco Use Types Packs/Day Years [...] often do you attend chur ch or confucianism services? 1 to 4 times per year 02/04/2023 Do you belong to any clubs o r organizations such as protestant groups, unions, fraternal or athletic groups, or [...] Recorded Patient Health Questionnaire-2 Score 0 03/03/2024 [facility] - Occupational Stress Questionnaire Answer Date [...] mortgage or rent on time? No 02/05/20 23 Number of Places Lived in the Last Year Not on f ile 02/04/2023 In the last 12 months, was t here a time when you did not have a steady place to sleep or slept in a alf (including now)? Patient refused 02/04/2023 Comments No Sex and Gender Information Value Date Recorded Sex Assigned at Not on file Legal Sex Female 6:48 PM EDT Gender Identity Female 06/13/2022 6:48 PM EDT Sexual Orientation Not on file documented as of this encounter Plan of Treatment Upcoming Encounters Date Type Department Care Team (Late st Contact Info) Description 10/28/2024 3:45 PM EDT Office Visit [facility] [address] [place] [address] Sherron Muir MD [address] [place] [address] Pending Results Name Type Priority Associated Diagnoses Date /Time URINARY TRACT INFECTION (HTRX) Lab Routine Dysuria 10/07/2024 3:18 PM EDT documented as of this encounter Visit Diagnoses Diagnosis Dysuria- Primary documented in this encounter Care Teams Chandelier Maker Relationship Specialty Start Date End Date Kevin Kyle DO [address] [place] [address] PCP - General Family Medicine 05/23/23 documented as of this encounter
--- OUTSIDE RECORDS SUMMARY | 2024-10-07 16:34 | XMS_ITS | Encounter Summary ---
Author Organization [facility] Address [address] [place] [address] Care Team Providers Care Chemical Laboratory Tester Name Role Phone MonikaKevin sawant Primary Care Provider [phone] Daniela Vazquez YOUTH LEADER Unavailable Encounter Details Date Type Department Care Team (Late st Contact Info) Description 03/04/2024 Abstract [facility] [address] [facility] [address] [place] [address] Daniela Vazquez NP [address] [facility] [address] [place] [address] Social History Tobacco Use Types Packs/Day Years [...] often do you attend chur ch or christianity services? 1 to 4 times per year 02/04/2023 Do you belong to any clubs o r organizations such as sikhism groups, unions, fraternal or athletic groups, or [...] Recorded Patient Health Questionnaire-2 Score 0 03/03/2024 [facility] - Occupational Stress Questionnaire Answer Date [...] place to sleep or slept in a nursing home (including now)? Patient refused 02/04/2023 Comments No [...] DERM [address] [place] [address] Sherron Muir MD [address] [place] [address] documented as of this encounter Visit Diagnoses Not on filedocumented in this encounter Care Teams Chemical Laboratory Tester Relationship Specialty Start Date End Date Kevin Kyle DO [address] [place] [address] PCP - General Family Medicine 05/23/23 Daniela Vazquez NP [address] [place] [address] PCP - Chanel Luciano 01/31/24 documented as of this encounter
--- OUTSIDE RECORDS SUMMARY | 2024-10-07 16:34 | XMS_ITS | Encounter Summary ---
Author Organization [facility] Address [address] [place] [address] Care Team Providers Care Pump Mechanic Name Role Phone Kevin Kyle DO Primary Care Provider Daniela Vazquez RADIO ENGINEER Unavailable Encounter Details Date Type Department Care Team (Late st Contact Info) Description 03/06/2024 Clinisync Result Encounter [facility] External Department Unsolicited Provider, Generic External Data Social History Tobacco Use Types Packs/Day Years [...] often do you attend chur ch or synagogue services? 1 to 4 times per year 02/04/2023 Do you belong to any clubs o r organizations such as christianity groups, unions, fraternal or athletic groups, or [...] Recorded Patient Health Questionnaire-2 Score 0 03/03/2024 [facility] of Occupat ional [facility] - Occupational Stress Questionnaire Answer Date Recorded [...] place to sleep or slept in a intermediate (including now)? Patient refused 02/04/2023 Comments No [...] 3:45 PM EDT Office Visit [facility] [address] [place] [address] Sherron Muir MD [address] [place] [address] documented as of this encounter Procedures Procedure Name Priority Date/Time Associated Diagnosis Comments ECG 12-LEAD 03/06/2024 2:14 PM EST documented in this encounter Results * ECG 12 lead (03/06/2024 2:14 PM EST) 03/06/2024 2:14 PM EST Narrative [facility] - 03/07/2024 7:31 AM EST Ventricular Rate : 70 BPM Atrial Rate : 70 BPM P-R Interval : 172 ms QRS Duration : 84 ms Q-T Interval : 400 ms QTC Calculation(Bazett) : 432 ms Calculated P [place] : 56 degrees Calculated R [place] : 1 degrees Calculated T [place] : 21 degrees NORMAL SINUS RHYTHM CANNOT EXCLUDE ANTERIOR MYOCARDIAL INFARCTION , AGE UNDETERMINED ABNORMAL ECG 1420 Confirmed by BALDEMAR RIVERA MD ([id number]), editorial project manager DOUG URIBE ([id number]) on 03/07/2024 7:31:33 AM NAME : JENNIFER NAVARRO PID : [id number] : 1970 Gender : Female Race : ORD : [id number] Procedure Date : Mar 06 2024 14:14:34 Edit Date : Mar 07 2024 07:31:36 Diagnosis: NORMAL SINUS RHYTHM CANNOT EXCLUDE ANTERIOR MYOCARDIAL INFARCTION , AGE UNDETERMINED ABNORMAL ECG 1420 Confirmed by BALDEMAR RIVERA MD ([id number]), DOUG Muñoz ([id number]) on 03/07/2024 7:31:33 AM Test Reason : R07.9 Chest pain, unspecified type Location : 2 : EDNS Overread By : BALDEMAR RIVERA MD Edited By : DOUG URIBE Referred By : , Acquired by : TN, Procedure Note Radiology, Radiologist, MD - 03/07/2024 Ventricular Rate : 70 BPM Atrial Rate : 70 BPM P-R Interval : 172 ms QRS Duration : 84 ms Q-T Interval : 400 ms QTC Calculation(Bazett) : 432 ms Calculated P [place] : 56 degrees Calculated R [place] : 1 degrees Calculated T [place] : 21 degrees NORMAL SINUS RHYTHM CANNOT EXCLUDE ANTERIOR MYOCARDIAL INFARCTION , AGE UNDETERMINED ABNORMAL ECG 1420 Confirmed by BALDEMAR RIVERA MD ([id number]), editorial project manager DOUG URIBE ([id number]) on03/07/2024 7:31:33 AM NAME : JENNIFER NAVARRO PID : [id number] : 1970 Gender : Female Race : ORD : [id number] Procedure Date : Mar 06 2024 14:14:34 Edit Date : Mar 07 2024 07:31:36 Diagnosis: NORMAL SINUS RHYTHM CANNOT EXCLUDE ANTERIOR MYOCARDIAL INFARCTION , AGE UNDETERMINED ABNORMAL ECG 1420 Confirmed by BALDEMAR RIVERA MD ([id number]), DOUG Muñoz ([id number]) on03/07/2024 7:31:33 AM Test Reason : R07.9 Chest pain, unspecified type Location : 2 : EDNS Overread By : BALDEMAR RIVERA MD Edited By : DOUG URIBE Referred By : , Acquired by : SC, us Generic External Data Provider ECG ORDERABLES F inal Result [facility] documented in this encounter Visit Diagnoses Not on filedocumented in this encounter Care Teams Pump Mechanic Relationship Specialty Start Date End Date Kevin Kyle DO [address] [place] [address] PCP - General Family Medicine 05/23/23 Daniela Vazquez NP [address] [place] [address] PCP - [employer] 01/31/24 documented as of this encounter
--- OUTSIDE RECORDS SUMMARY | 2024-10-07 16:34 | XMS_ITS | Encounter Summary ---
Author Organization [facility] Address [address] [place] [address] Care Team Providers Care Cream Hauler Name Role Phone Kevin Kyle DO Primary Care Provider [phone] Daniela Vazquez PACK MULE WORKER Unavailable Encounter Details Date Type Department Care Team (Late st Contact Info) Description 03/05/2024 Clinisync Result Encounter [facility] External Department Unsolicited [...] often do you attend chur ch or confucianist services? 1 to 4 times per year 02/04/2023 Do you belong to any clubs o r organizations such as zoroastrian groups, unions, fraternal or athletic groups, or [...] Recorded Patient Health Questionnaire-2 Score 0 03/03/2024 [facility] of Occupat ional [facility] - Occupational Stress Questionnaire Answer Date [...] place to sleep or slept in a long term (including now)? Patient refused 02/04/2023 Comments No [...] DERM [address] [place] [address] Sherron Muir MD [address] [place] [address] documented as of this encounter Procedures Procedure Name Priority Date/Time Associated Diagnosis Comments SHENG KADYJulio W ANG KYMBERLY 03/05/2024 8 :44 AM EST documented in this encounter Results * SHENG HILLMANG W ANG KYMBERLY (03/05/2024 8:44 AM EST) Anatomical Region Laterality Modality Other 03/05/2024 8:44 AM EST Narrative 03/05/2024 8:59 AM EST * * *Final Report* * * DATE OF EXAM: Mar 05 2024 8:44AM W 0627 - SHENG DIAG Jennifer ANG KYMBERLY / PROCEDURE REASON: Abnormal mammogram * * * * Physician Interpretation * * * * RESULT: [facility] [address] [place] [address] #[id number] - SHENG JUDE Rodriguez ANG KYMBERLY HISTORY: Patient is 53 years old and is seen for diagnostic evaluation of area of diffuse tenderness in the left breast. Patient states no personal history of breast cancer. Patient states no personal history of other cancers. COMPARISON STUDIES: The present examination has been compared to prior imaging studies dated 05/14/2018 (mammogram), 06/05/2019 (mammogram), 06/03/2020 (mammogram), 01/03/2022 (mammogram), 11/17/2022 (mammogram) and 02/26/2024 (ultrasound). MAMMOGRAM TECHNIQUE: The study was acquired using full field digital technology and interpreted from soft copy. Digital Breast Tomosynthesis (DBT) images were obtained and used to assist in the interpretation of this examination. Computer-aided detection was utilized by the radiologist in the interpretation of this examination. MAMMOGRAM FINDINGS: The breasts are heterogeneously dense, which may obscure small masses. There are no suspicious mammographic findings to correspond with the diffuse pain in the left breast. No suspicious masses, calcifications or other abnormalities are seen in the right breast. IMPRESSION: There are no suspicious findings in either breast. There is no imaging correlate to the area of tenderness in the left breast. Clinical follow up is recommended. BI-RADS Category 1: Negative RISK: Based on the Tyrer-Cuzick (TC) risk assessment model, this patient has a 22.1% lifetime risk of developing breast cancer, meaning they are at high risk for developing breast cancer. However, this is only an estimate based on available history provided on the patient's questionnaire. Because patients with a lifetime risk of 20% or greater may benefit from additional supplemental screening, we encourage a full breast clinical evaluation and comprehensive breast cancer risk assessment to guide further decision making. For more information regarding the management of high-risk patients, the following is a link to the [facility] care path [email or web address]/documents/?[email or web address]. Additionally, a referral to the [facility] is also appropriate. Interpreting Radiologist: Franklyn Molina M.D. Electronically signed on: 03/05/2024 Glue Spreader: CONG Transcrisarah Date/Time: Mar 05 2024 8:22A Dictated by: FRANKLYN MOLINA MD This examination was interpreted and the report reviewed and electronically signed by: FRANKLYN MOLINA MD on Mar 05 2024 8:53AM EST [id number]^ACN Procedure Note Radiology, Radiologist, MD - 03/05/2024 * * *Final Report* * * DATE OF EXAM: Mar 05 2024 8:44AM [facility] 0627 - SHENG DIAG W ANG KYMBERLY / PROCEDURE REASON: Abnormal mammogram * * * * Physician Interpretation * * * * RESULT: [facility] [address] [place] [address] #[id number] - SHENG DIAG W ANG KYMBERLY HISTORY: Patient is 53 years old and is seen for diagnostic evaluation of area of diffuse tenderness in the left breast. Patient states no personal history of breast cancer. Patient states no personal history of other cancers. COMPARISON STUDIES: The present examination has been compared to prior imaging studies dated 05/14/2018 (mammogram), 06/05/2019 (mammogram), 06/03/2020 (mammogram), 01/03/2022 (mammogram), 11/17/2022 (mammogram) and 02/26/2024 (ultrasound). MAMMOGRAM TECHNIQUE: The study was acquired using full field digital technology and interpreted from soft copy. Digital Breast Tomosynthesis (DBT) images were obtained and used to assist in the interpretation of this examination. Computer-aided detection was utilized by the radiologist in the interpretation of this examination. MAMMOGRAM FINDINGS: The breasts are heterogeneously dense, which may obscure small masses. There are no suspicious mammographic findings to correspond with the diffuse pain in the left breast. No suspicious masses, calcifications or other abnormalities are seen in the right breast. IMPRESSION: There are no suspicious findings in either breast. There is no imaging correlate to the area of tenderness in the left breast. Clinical follow up is recommended. BI-RADS Category 1: Negative RISK: Based on the Tyrer-Cuzick (TC) risk assessment model, this patient has a 22.1% lifetime risk of developing breast cancer, meaning they are at high risk for developing breast cancer. However, this is only an estimate based on available history provided on the patient's questionnaire. Because patients with a lifetime risk of 20% or greater may benefit from additional supplemental screening, we encourage a full breast clinical evaluation and comprehensive breast cancer risk assessment to guide further decision making. For more information regarding the management of high-risk patients, the following is a link to the [facility] care path [email or web address]/documents/?srqni=40745. Additionally, a referral to the [facility] is also appropriate. Interpreting Radiologist: Franklyn Molina M.D. Electronically signed on: 03/05/2024 Glue Spreader: CONG Transcribe Date/Time: Mar 05 2024 8:22A Dictated by: FRANKLYN MOLINA MD This examination was interpreted and the report reviewed and electronically signed by: FRANKLYN MOLINA MD on Mar 05 2024 8:53AM EST [id number]^ACN Generic External Data Provider [facility] Final Result documented in this encounter Visit Diagnoses Not on filedocumented in this encounter Care Teams Cream Hauler Relationship Specialty Start Date End Date Kevin Kyle DO [address] [place] [address] PCP - General Family Medicine 05/23/23 Daniela Vazquez NP [address] [place] [address] PCP - [employer] 01/31/24 documented as of this encounter
--- OUTSIDE RECORDS SUMMARY | 2024-10-07 16:34 | XMS_ITS | Encounter Summary ---
Author Organization [facility] Address [address] [facility] [place] [address] Care Team Providers Care Oil And Gas Principal Name Role Phone Richie Gupta MD Primary Care Provider [phone] Richie Gupta MD Unavailable Kevin Kyle DO Primary Care Provider [phone] Kevin Kyle DO Primary Care Provider [phone] Daniela Vazquez NP Unavailable Encounter Details Date Type Department Care Team (Late st Contact Info) Description 11/16/2022 Clinisync Result Encounter [facility] External Department Unsolicited Provider, Generic External Data Social History Tobacco Use Types Packs/Day Years Used Date Smoking Tobacco: Former Cigarettes 0.5 15 1 6 - 2010 Smokeless Tobacco: Never Alcohol Use Standard Drinks/Week Comments Never 0 (1 standard drink = 0.6 oz pur e alcohol) Coffee,tea 2-3 cups per day Comments No Sex and Gender Information Value [...] Office Visit [facility] [address] [facility] [address] [place] [phone] Sherron Muir MD [address] [place] [address] documented as of this encounter Procedures Procedure Name Priority Date/Time Associated Diagnosis Comments ECG01 11/16/2022 3:31 PM EDT documented in this encounter Results * ECG01 (11/16/2022 3:31 PM EDT) Anatomical Region Laterality Modality Other 11/16/2022 3:31 PM EDT Narrative 11/18/2022 1:28 PM EDT Ventricular Rate : 110 BPM Atrial Rate : 110 BPM P-R Interval : 174 ms QRS Duration : 76 ms Q-T Interval : 334 ms QTC Calculation(Bazett) : 452 ms Calculated P [place] : 71 degrees Calculated R [place] : 72 degrees Calculated T [place] : 15 degrees SINUS TACHYCARDIA CANNOT EXCLUDE SEPTAL MYOCARDIAL INFARCTION , AGE UNDETERMINED ABNORMAL ECG Confirmed by MATTHEW FALK MD ([id number]) on 11/18/2022 1:28:21 PM NAME : JENNIFER NAVARRO PID : [id number] : 1970 Gender : Female Race : [...] MATTHEW FALK MD Referred By : Ashely Dial Acquired by : gt, Procedure Note Radiology, Radiologist, - 11/18/2022 Ventricular Rate : 110 BPM Atrial Rate : 110 BPM P-R Interval : 174 ms QRS Duration : 76 ms Q-T Interval : 334 ms QTC Calculation(Bazett) : 452 ms Calculated P [place] : 71 degrees Calculated R [place] : 72 degrees Calculated T [place] : 15 degrees SINUS TACHYCARDIA CANNOT EXCLUDE SEPTAL MYOCARDIAL INFARCTION , AGE UNDETERMINED ABNORMAL ECG Confirmed by MATTHEW FALK MD ([id number]) on 11/18/2022 1:28:21 PM NAME : JENNIFER NAVRARO PID : [id number] : 1970 Gender : Female Race : [...] MATTHEW FALK MD Referred By : Ashely Dial Acquired by : gt, Generic External Data Provider [facility] Final Result documented in this encounter Visit Diagnoses Not on filedocumented in this encounter Care Teams Oil And Gas Principal Relationship Specialty Start Date End Date Richie Gupta MD [address] [place] [address] PCP - General Family Medicine 10/16/22 04/29/23 Richie Gupta MD [address] [place] [address] PCP - [facility] 11/30/22 Kevin Kyle DO [address] [place] [address] PCP - General Family Medicine 04/30/23 05/22/23 Kevin Kyle DO [address] [place] [address] PCP - General Family Medicine 05/23/23 Daniela Vazquez NP [address] [place] [address] PCP - [employer] 01/31/24 documented as of this encounter
--- OUTSIDE RECORDS SUMMARY | 2024-10-07 16:34 | XMS_ITS | Encounter Summary ---
Author Organization [facility] Address [address] [place] [address] Care Team Providers Care Customer Pricing Manager Name Role Phone MonikaKevin sawant Primary Care Provider [phone] SPRINKLER Unavailable Encounter Details Date Type Department Care Team (Late st Contact Info) Description 03/04/2024 Abstract [facility] [address] [facility] [address] [place] [phone] Daniela Vazquez NP [address] [facility] [address] [place] [address] Social History Tobacco Use Types Packs/Day Years [...] often do you attend chur ch or congregational services? 1 to 4 times per year 02/04/2023 Do you belong to any clubs o r organizations such as evangelical groups, unions, fraternal or athletic groups, or [...] Recorded Patient Health Questionnaire-2 Score 0 03/03/2024 [facility] of Occupat ionri Health - Occupational Stress Questionnaire Answer Date [...] place to sleep or slept in a usp (including now)? Patient refused 02/04/2023 Comments No [...] DERM [address] [place] [address] Sherron Muir MD [address] [place] [address] documented as of this encounter Visit Diagnoses Not on filedocumented in this encounter Care Teams Customer Pricing Manager Relationship Specialty Start Date End Date Kevin Kyle DO [address] [place] [address] PCP - General Family Medicine 05/23/23 Daniela Vazquez NP [address] [place] [address] PCP - Chanel Luciano 01/31/24 documented as of this encounter
--- OUTSIDE RECORDS SUMMARY | 2024-10-07 16:34 | XMS_ITS | Encounter Summary ---
Author Organization [facility] Address [address] [place] [address] Care Team Providers Care Final Inspector And Tester Name Role Phone Kevin Kyle DO Primary Care Provider [phone] Daniela Vazquez DIRECTOR OF STUDENT AFFAIRS Unavailable Encounter Details Date Type Department Care Team (Late st Contact Info) Description 03/02/2024 Abstract [facility] [address] [facility] [address] [place] [phone] Kevin Kyle DO [address] [place] [address] Social History Tobacco Use Types Packs/Day Years [...] often do you attend chur ch or hindu services? 1 to 4 times per year 02/04/2023 Do you belong to any clubs o r organizations such as denominational groups, unions, fraternal or athletic groups, or [...] Recorded Patient Health Questionnaire-2 Score 0 03/03/2024 [facility] of Occupat ionva Health - [...] place to sleep or slept in a group home (including now)? Patient refused 02/04/2023 Comments No Sex and Gender Information Value Date Recorded Sex Assigned at Not on file Legal Sex Female 6:48 PM EDT Gender Identity Female 06/13/2022 6:48 PM EDT Sexual Orientation Not on file documented as of this encounter Functional Status * Over the past 2 weeks, how often have you been bothered by any of the following problems? Question Answer Date of Assessment Author Little interest or pleasure in doing things Not at all 03/03/2024 8:53 AM Shikha Pickett MA Feeling down, depressed, or hopeless Not at all 03/03/2024 8:53 AM Shikha Pickett MA Patient Health Questionnaire -2 Score 0 03/03/2024 8:53 AM Shikha Pickett MA documented as of this encounter Plan of Treatment Upcoming Encounters Date Type Department Care Team (Late st Contact Info) Description 10/28/2024 3:45 PM EDT Office Visit [facility] [address] [place] [address] Sherron Muir MD [address] [place] [address] documented as of this encounter Visit Diagnoses Not on filedocumented in this encounter Care Teams Final Inspector And Tester Relationship Specialty Start Date End Date Kevin Kyle DO [address] [place] [address] PCP - General Family Medicine 05/23/23 Daniela Vazquez NP [address] [place] [address] PCP - Chanel Luciano 01/31/24 documented as of this encounter
--- OUTSIDE RECORDS SUMMARY | 2024-10-07 16:34 | XMS_ITS | Encounter Summary ---
Author Organization [facility] Address [address] [place] [address] Care Team Providers Care Push Connector Assembler Name Role Phone AnabellaKevin Primary Care Provider [phone] Daniela Vazquez AMBULATORY SERVICE REPRESENTATIVE Unavailable Encounter Details Date Type Department Care Team (Late st Contact Info) Description 03/02/2024 Abstract [facility] [address] [place] [phone] Unallocated, Noms Provider, [address] [place] [address] Social History Tobacco Use Types Packs/Day Years [...] often do you attend chur ch or yarsanism services? 1 to 4 times per year 02/04/2023 Do you belong to any clubs o r organizations such as adventist groups, unions, fraternal or athletic groups, or [...] Recorded Patient Health Questionnaire-2 Score 0 03/03/2024 [facility] of Occupat ionoh Health - Occupational Stress Questionnaire Answer Date [...] place to sleep or slept in a long-term (including now)? Patient refused 02/04/2023 Comments No [...] DERM [address] [place] [address] Sherron Muir MD [address] [place] [address] documented as of this encounter Visit Diagnoses Not on filedocumented in this encounter Care Teams Push Connector Assembler Relationship Specialty Start Date End Date Kevin Kyle DO [address] [place] [address] PCP - General Family Medicine 05/23/23 Daniela Vazquez NP [address] [place] [address] PCP - Chanel Luciano 01/31/24 documented as of this encounter
--- OUTSIDE RECORDS SUMMARY | 2024-10-07 16:34 | XMS_ITS | Encounter Summary ---
Author Organization [facility] Address [address] [place] [address] Care Team Providers Care Senior Sales Director Name Role Phone MonikaKevin sawant Primary Care Provider [phone] Daniela Vazquez RAIL SPLITTER Unavailable Encounter Details Date Type Department Care Team (Late st Contact Info) Description 03/05/2024 Abstract [facility] [address] [facility] [address] [place] [phone] Daniela Vazquez NP [address] [facility] [address] [place] [address] Social History Tobacco Use Types Packs/Day Years [...] often do you attend chur ch or quaker services? 1 to 4 times per year [...] Recorded Patient Health Questionnaire-2 Score 0 03/03/2024 [facility] of Occupat ionks Health - Occupational Stress Questionnaire Answer Date [...] place to sleep or slept in a fpc (including now)? Patient refused 02/04/2023 Comments No [...] DERM [address] [place] [address] Sherron Muir MD [address] [place] [address] documented as of this encounter Visit Diagnoses Not on filedocumented in this encounter Care Teams Senior Sales Director Relationship Specialty Start Date End Date Kevin Kyle DO [address] [place] [address] PCP - General Family Medicine 05/23/23 Daniela Vazquez NP [address] [place] [address] PCP - Chanel Luciano 01/31/24 documented as of this encounter
--- OUTSIDE RECORDS SUMMARY | 2024-10-07 16:34 | XMS_ITS | Encounter Summary ---
Author Organization [facility] Address [address] [place] [address] Care Team Providers Care Drug Safety Coordinator Name Role Phone Richie Gupta MD Primary Care Provider [phone] Richie Gupta MD Unavailable Kevin Kyle DO Primary Care Provider [phone] Kevin Kyle DO Primary Care Provider Daniela Vazquez SR. LOGISTICS ANALYST Unavailable Encounter Details Date Type Department Care Team (Late st Contact Info) Description 10/10/2022 Abstract [facility] [address], [place] [phone] Marcelo Dawn MD [address] [place] [id number] Social History Tobacco Use Types Packs/Day Years Used Date Smoking Tobacco: Former Cigarettes 0.5 15 1 996 - 2010 Smokeless Tobacco: Never Tobacco Cessation:Counseling Given: Not Answered Alcohol Use Standard Drinks/Week Comments Never 0 [...] DERM [address] [place] [address] Sherron Muir MD [address] [place] [address] documented as of this encounter Visit Diagnoses Not on filedocumented in this encounter Care Teams Drug Safety Coordinator Relationship Specialty Start Date End Date Richie Gupta MD [address] [place] [address] PCP - General Family Medicine 10/16/22 04/29/23 Richie Gupta MD [address] [place] [address] PCP - [employer] 11/30/22 Kevin Kyle DO [address] [place] [address] PCP - General Family Medicine 04/30/23 05/22/23 Kevin Kyle DO [address] [place] [address] PCP - General Family Medicine 05/23/23 Daniela Vazquez NP [address] [place] [address] PCP - [employer] 01/31/24 documented as of this encounter
--- OUTSIDE RECORDS SUMMARY | 2024-10-07 16:34 | XMS_ITS | Continuity of Care Document ---
Author Organization [facility] Address [address] [place] [address] Phone [phone] Care Team Providers Care Waste Removalist Name Role Phone SHILPI WRIGHT M.D. Care Team Information Receiv er Unavailable
--- OUTSIDE RECORDS SUMMARY | 2024-10-07 16:34 | XMS_ITS | Encounter Summary ---
Author Organization [facility] Address [address] [place] [address] Care Team Providers Care Kiln Cleaner Name Role Phone Kevin Kyle DO Primary Care Provider [phone] Daniela Vazquez DIESEL ENGINE TESTER Unavailable Encounter Details Date Type Department Care Team (Late st Contact Info) Description 03/02/2024 Abstract [facility] [address] [facility] [address] [place] [phone] Kevin Kyle DO [address] [place] [address] Social History Tobacco Use Types Packs/Day Years [...] often do you attend chur ch or anglican services? 1 to 4 times per year 02/04/2023 Do you belong to any clubs o r organizations such as muslim groups, unions, fraternal or athletic groups, or [...] Recorded Patient Health Questionnaire-2 Score 0 03/03/2024 [facility] Occupat ionfl Health - Occupational Stress Questionnaire Answer Date [...] DERM [address] [place] [address] Sherron Muir MD [address] [place] [address] documented as of this encounter Visit Diagnoses Not on filedocumented in this encounter Care Teams Kiln Cleaner Relationship Specialty Start Date End Date Kevin Kyle DO [address] [place] [address] PCP - General Family Medicine 05/23/23 Daniela Vazquez NP [address] [facility] [address] [place] [address] PCP - Chanel Luciano 01/31/24 documented as of this encounter
--- OUTSIDE RECORDS SUMMARY | 2024-10-07 16:34 | XMS_ITS | Encounter Summary ---
Author Organization [facility] Address [address] [place] [address] Care Team Providers Care Bicycle Repair Technician Name Role Phone MonikaKevin sawant Primary Care Provider [phone] Daniela Vazquez MATERIALS DIRECTOR Unavailable Encounter Details Date Type Department Care Team (Late st Contact Info) Description 03/04/2024 Abstract [facility] [address] [facility] [address] [place] [phone] Daniela Vazquez NP [address] [facility] [address] [place] [address] Social History Tobacco Use Types Packs/Day Years [...] often do you attend chur ch or hinduism services? 1 to 4 times per year [...] Recorded Patient Health Questionnaire-2 Score 0 03/03/2024 [facility] of Occupat ionde Health - Occupational Stress Questionnaire Answer Date [...] place to sleep or slept in a senior care (including now)? Patient refused 02/04/2023 Comments No [...] [address] [place] [address] Sherron Muir MD [address] [place] [address] documented as of this encounter Visit Diagnoses Not on filedocumented in this encounter Care Teams Bicycle Repair Technician Relationship Specialty Start Date End Date Kevin Kyle DO [address] [place] [address] PCP - General Family Medicine 05/23/23 Daniela Vazquez NP [address] [place] [address] PCP - Chanel Luciano 01/31/24 documented as of this encounter
--- OUTSIDE RECORDS SUMMARY | 2024-10-07 16:34 | XMS_ITS | Encounter Summary ---
Author Organization [facility] Address [address] [place] [address] Care Team Providers Care Service Technician Copier Name Role Phone MonikaKevin sawant Primary Care Provider [phone] Daniela Vazquez CLINICAL MASSAGE THERAPIST Unavailable Encounter Details Date Type Department Care Team (Late st Contact Info) Description 03/04/2024 Abstract [facility] [address] [facility] [address] [place] [phone] Daniela Vazquez NP [address] [facility] [address] [place] [address] Social History Tobacco Use Types Packs/Day Years [...] often do you attend chur ch or taoist services? 1 to 4 times per year 02/04/2023 Do you belong to any clubs o r organizations such as oriental orthodox groups, unions, fraternal or athletic groups, or [...] Recorded Patient Health Questionnaire-2 Score 0 03/03/2024 [facility] of Occupat ionin Health - Occupational Stress Questionnaire Answer Date [...] place to sleep or slept in a half-way (including now)? Patient refused 02/04/2023 Comments No [...] DERM [address] [place] [address] Sherron Muir MD [address] [place] [address] documented as of this encounter Visit Diagnoses Not on filedocumented in this encounter Care Teams Service Technician Copier Relationship Specialty Start Date End Date Kevin Kyle DO [address] [place] [address] PCP - General Family Medicine 05/23/23 Daniela Vazquez NP [address] [place] [address] PCP - Chanel Luciano 01/31/24 documented as of this encounter
--- OUTSIDE RECORDS SUMMARY | 2024-10-07 16:34 | XMS_ITS | Encounter Summary ---
Author Organization [facility] Address [address] [place] [address] Care Team Providers Care Blue Crabber Name Role Phone Kevin Kyle DO Primary Care Provider [phone] Daniela Vazquez INSURANCE CLAIMS ANALYST Unavailable Encounter Details Date Type Department [...] often do you attend chur ch or restorationism services? 1 to 4 times per year [...] Recorded Patient Health Questionnaire-2 Score 0 03/03/2024 [facility] - Occupational Stress Questionnaire Answer Date [...] place to sleep or slept in a [facility] (including now)? Patient refused 02/04/2023 Comments No [...] DERM [address] [place] [phone] Sherron Muir MD [address] [place] [address] documented as of this encounter Procedures Procedure Name Priority Date/Time Associated Diagnosis Comments US THYROID/PARATHYROID 03/06/2024 11:56 AM EST documented in this encounter Results * US THYROID/PARATHYROID (03/06/2024 11:56 AM EST) Anatomical Region Laterality Modality Other 03/06/2024 11:5 6 AM EST Narrative 03/06/2024 1:06 PM EST * * *Final Report* * * DATE OF EXAM: Mar 06 2024 11:56AM SAMANTHA 1048 - US THYROID/PARATHYROID / PROCEDURE REASON: Multiple thyroid nodules * * * * Physician Interpretation * * * * EXAMINATION: THYROID ULTRASOUND CLINICAL HISTORY: Multiple thyroid nodules TECHNIQUE: Sonography and Doppler imaging of the thyroid was performed. Images were obtained and stored in a permanent archive. MQ: UST_1 COMPARISON: None. RESULT: Right Lobe: 5.4 cm x 2.0 cm x 1.5 cm; homogeneous echogenicity, expected vascular flow. Left Lobe: 4.4 cm x 1.3 cm x 1.2 cm; homogeneous echogenicity, expected vascular flow. Isthmus: 0.2 cm Nodules: No discrete nodules seen. IMPRESSION: Unremarkable thyroid ultrasound study. Poured Wall Foreman: Next Performance Transcribe Date/Time: Mar 06 2024 1:03P Dictated by : INDIO GILL MD This examination was interpreted and the report reviewed and electronically signed by: INDIO GILL MD on Mar 06 2024 1:04PM EST [id number]^SI^ACN Procedure Note Radiology, Radiologist, MD - 03/06/2024 * * *Final Report* * * DATE OF EXAM: Mar 06 2024 11:56AM SAMAN[facility] 1048 - US THYROID/PARATHYROID / PROCEDURE REASON: Multiple thyroid nodules * * * * Physician Interpretation * * * * EXAMINATION: THYROID ULTRASOUND CLINICAL HISTORY: Multiple thyroid nodules TECHNIQUE: Sonography and Doppler imaging of the thyroid was performed. Images were obtained and stored in a permanent archive. MQ: UST_1 COMPARISON: None. RESULT: Right Lobe: 5.4 cm x 2.0 cm x 1.5 cm; homogeneous echogenicity, expected vascular flow. Left Lobe: 4.4 cm x 1.3 cm x 1.2 cm; homogeneous echogenicity, expected vascular flow. Isthmus: 0.2 cm Nodules: No discrete nodules seen. IMPRESSION: Unremarkable thyroid ultrasound study. Poured Wall Foreman: Next Performance Transcribe Date/Time: Mar 06 2024 1:03P Dictated by : INDIO GILL MD This examination was interpreted and the report reviewed and electronically signed by: INDIO GILL MD on Mar 06 2024 1:04PM EST [id number]^AGFA_[id number]^SI^ACN us Generic External Data Provider [facility] Final Result documented in this encounter Visit Diagnoses Not on filedocumented in this encounter Care Teams Blue Crabber Relationship Specialty Start Date End Date Kevin Kyle DO [address] [facility] [address] [place] [address] PCP - General Family Medicine 05/23/23 Daniela Vazquez NP [address] [facility] [address] [place] [address] PCP - Chanel Commercial 01/31/24 documented as of this encounter
--- OUTSIDE RECORDS SUMMARY | 2024-10-07 16:34 | XMS_ITS | Encounter Summary ---
Author Organization [facility] Address [address] [facility] [place] [address] Care Team Providers Care Tax Manager Public Name Role Phone Richie Gupta MD Primary Care Provider [phone] Richie Gupta MD Unavailable Kevin Kyle DO Primary Care Provider Kevin Kyle DO Primary Care Provider Daniela Vazquez NP Unavailable Encounter Details Date Type Department Care Team (Late st Contact Info) Description 11/17/2022 Clinisync Result Encounter [facility] External Department Unsolicited [...] Office Visit [facility] D[facility]M [address] [facility] [address] [place] [phone] Sherron Muir MD [address] [place] [address] documented as of this encounter Procedures Procedure Name Priority Date/Time Associated Diagnosis Comments SHENG Rodriguez ANG LT 11/17/2022 8: 36 AM EDT documented in this encounter Results * SHENG Rodriguez ANG LT (11/17/2022 8:36 AM EDT) Anatomical Region Laterality Modality Other 11/17/2022 8:36 AM EDT Narrative 11/17/2022 9:02 AM EDT * * *Final Report* * * DATE OF EXAM: Nov 17 2022 8:36AM [facility] 0628 - SHENG Rodriguez ANG LT / PROCEDURE REASON: Breast pain, left * * * * Physician Interpretation * * * * RESULT: #[id number] - SHENG Rodriguez ANG LT UNILATERAL LEFT DIGITAL DIAGNOSTIC MAMMOGRAM [...] made to exams dated: 05/14/2018 mammogram - [facility], 06/05/2019 mammogram, 06/03/2020 mammogram - [facility], 06/11/2017 mammogram, and 05/16/2016 mammogram. The tissue of left breast is heterogeneously dense. This may lower the sensitivity of mammography. No significant masses, calcifications, or other findings are seen in the breast. There has been no significant interval change. IMPRESSION: NEGATIVE There is no mammographic evidence of malignancy. A 1 year screening mammogram is recommended. Franklyn Reyes M.D. ls/penrad:11/17/2022 09:01:35 Cocoa Powder Mixer Operator(s): RT Aye(R)(M), [facility] letter sent: Normal over 40 Mammogram BI-RADS: [...] Health, Family Medicine, and Medical/Surgical Oncology, the [facility] has carefully reviewed the data [...] their providers when to stop screening mammograms. Shipwright Helper: Shaggy Transcribe Date/Time: Nov 17 2022 8:36A Dictated by: FRANKLYN REYES MD This examination was interpreted and the report reviewed and electronically signed by: FRANKLYN REYES MD on Nov 17 2022 9:01AM EST [id number]^[id number]^SI^ACN Procedure Note Radiology, Radiologist, - 11/17/2022 * * *Final Report* * * DATE OF EXAM: Nov 17 2022 8:36AM [facility] 0628 - SHENG JUDE W ANG LT / PROCEDURE REASON: Breast pain, left * * * * Physician Interpretation * * * * RESULT: #[id number] - SHENG KADYG W ANG LT UNILATERAL LEFT DIGITAL DIAGNOSTIC [...] made to exams dated: 05/14/2018 mammogram - [facility], 06/05/2019 mammogram, 06/03/2020 mammogram - [facility], 06/11/2017 mammogram, and 05/16/2016 mammogram. The tissue of left breast is heterogeneously dense. This may lower the sensitivity of mammography. No significant masses, calcifications, or other findings are seen in the breast. There has been no significant interval change. IMPRESSION: NEGATIVE There is no mammographic evidence of malignancy. A 1 year screening mammogram is recommended. Franklyn ceja/shaggy:11/17/2022 09:01:35 Cocoa Powder Mixer Operator(s): RT Aye(R)(M), [facility] letter sent: Normal over 40 Mammogram BI-RADS: [...] Health, Family Medicine, and Medical/Surgical Oncology, the [facility] has carefully reviewed the data [...] their providers when to stop screening mammograms. Shipwright Helper: Shaggy Transcribe Date/Time: Nov 17 2022 8:36A Dictated by: FRANKLYN REYES MD This examination was interpreted and the report reviewed and electronically signed by: FRANKLYN REYES MD on Nov 17 2022 9:01AM EST [id number]^AGFA_[id number]^SI^ACN us Generic External Data Provider [facility] Final Result documented in this encounter Visit Diagnoses Not on filedocumented in this encounter Care Teams Tax Manager Public Relationship Specialty Start Date End Date Richie Gupta MD [address] [place] [address] PCP - General Family Medicine 10/16/22 04/29/23 Richie Gupta MD [address] [place] [address] PCP - [place] Commercial 11/30/22 Kevin Kyle DO [address] [place] [address] PCP - General Family Medicine 04/30/23 05/22/23 Kevin Kyle DO [address] [place] [address] PCP - General Family Medicine 05/23/23 Daniela Vazquez PLATER APPRENTICE [address] [place] [address] PCP - [place] Commercial 01/31/24 documented as of this encounter
--- OUTSIDE RECORDS SUMMARY | 2024-10-07 16:34 | XMS_ITS | Encounter Summary ---
Author Organization [facility] Address [address] [place] [address] Care Team Providers Care Liability Analyst Name Role Phone Richie Gupta MD Primary Care Provider [phone] Richie Gupta MD Unavailable Kevin Kyle DO Primary Care Provider Kevin Kyle DO Primary Care Provider Daniela Vazquez NP Unavailable Encounter Details Date Type Department Care Team (Late Contact Info) Description 11/14/2022 Abstract [facility] [address] [facility] [address] [place] [phone] Richie Gupta MD 112 [facility] 110 [place], [place] [phone] Social History Tobacco Use Types Packs/Day Years [...] [address] [place] [address] Sherron Muir MD [address] [place] [address] documented as of this encounter Visit Diagnoses Not on filedocumented in this encounter Care Teams Liability Analyst Relationship Specialty Start Date End Date Richie Gupta MD [address] [place] [address] PCP - General Family Medicine 10/16/22 04/29/23 Richie Gupta MD [address] [place] [address] PCP - [place] Commercial 11/30/22 Kevin Kyle DO [address] [place] [address] PCP - General Family Medicine 04/30/23 05/22/23 Kevin Kyle DO [address] [place] [address] PCP - General Family Medicine 05/23/23 Daniela Vazquez NP [address] [place] [address] PCP - [place] Commercial 01/31/24 documented as of this encounter
--- OUTSIDE RECORDS SUMMARY | 2024-10-07 16:35 | XMS_ITS | Encounter Summary ---
Author Organization [facility] Address [address] [place] [address] Care Team Providers Care Rhinologist Name Role Phone Richie Gupta MD Primary Care Provider [phone] Richie Gupta MD Unavailable Kevin Kyle DO Primary Care Provider Kevin Kyle DO Primary Care Provider Daniela Vazquez NP Unavailable Encounter Details Date Type Department Care Team (Late st Contact Info) Description 12/13/2022 Abstract [facility] [address] [facility] 110 [place] [phone] Ashley Carrillo, SENIOR DIRECTOR MARKETING [address] [facility] [address] [place], [place] [address] Social History Tobacco Use Types Packs/Day Years Used Date Smoking Tobacco: Former Cigarettes 0.5 15 1 996 - 2010 Smokeless Tobacco: Never Alcohol Use [...] [address] [place] [address] documented as of this encounter Visit Diagnoses Not on filedocumented in this encounter Care Teams Rhinologist Relationship Specialty Start Date End Date Richie Gupta MD [address] [place] [address] PCP - General Family Medicine 10/16/22 04/29/23 Rihcie Gupta MD [address] [place] [address] PCP - [place] Commercial 11/30/22 Kevin Kyle DO [address] [place] [address] PCP - General Family Medicine 04/30/23 05/22/23 Kevin Kyle DO [address] [place] [address] PCP - General Family Medicine 05/23/23 Daniela Vazquez NP [address] [place] [address] PCP - [place] [employer] 01/31/24 documented as of this encounter
--- OUTSIDE RECORDS SUMMARY | 2024-10-07 16:35 | XMS_ITS | Encounter Summary ---
Author Organization [facility] Address [address] [place] [address] Care Team Providers Care Fire Truck Driver Name Role Phone AnabellaKevin Primary Care Provider [phone] Encounter Details Date Type Department Care Team (Latest Contact Info) Description 10/07/2024 Travel Social History Tobacco Use Types Packs/Day Years [...] 02/04/2023 How often do you attend chur or confucianism services? 1 to 4 times per year 02/04/2023 Do you belong to any clubs o r organizations such as lutheran groups, unions, fraternal or athletic groups, or [...] Health Questionnaire-2 Score 0 03/03/2024 [facility] - Occupational Stress Questionnaire Answer Date Recorded [...] place to sleep or slept in a longterm (including now)? Patient refused 02/04/2023 Comments No [...] DERM [address] [place] [address] Sherron Muir MD [address] [place] [address] documented as of this encounter Visit Diagnoses Not on filedocumented in this encounter Care Teams Fire Truck Driver Relationship Specialty Start Date End Date Kevin Kyle DO [address] [place] [address] PCP - General Family Medicine 05/23/23 documented as of this encounter
--- OUTSIDE RECORDS SUMMARY | 2024-10-07 16:35 | XMS_ITS | Encounter Summary ---
Author Organization [facility] Address [address] [place] [address] Care Team Providers Care Pepper Cutter Name Role Phone AnabellaKevin Primary Care Provider [phone] Daniela Vazquez BUILDING MECHANIC Unavailable Encounter Details Date Type Department Care Team (Late st Contact Info) Description 03/09/2024 Abstract [facility] [address] [place] [phone] Unallocated, Noms Provider, [address] [place] [address] Social History Tobacco Use Types Packs/Day Years [...] often do you attend chur ch or cheondoism services? 1 to 4 times per year [...] Recorded Patient Health Questionnaire-2 Score 0 03/03/2024 [facility] of Occupat ionmo Health - Occupational Stress Questionnaire Answer Date [...] DERM [address] [place] [address] Sherron Muir MD [address] [place] [address] documented as of this encounter Visit Diagnoses Not on filedocumented in this encounter Care Teams Pepper Cutter Relationship Specialty Start Date End Date Kevin Kyle DO [address] [place] [address] PCP - General Family Medicine 05/23/23 Daniela Vazquez NP [address] [facility] [address] [facility] 230 [place] [address] PCP - Chanel Luciano 01/31/24 documented as of this encounter
--- OUTSIDE RECORDS SUMMARY | 2024-10-07 16:35 | XMS_ITS | Encounter Summary ---
Author Organization [facility] Address [address] [place] [address] Care Team Providers Care Psychiatric Clinician Name Role Phone Richie Burciaga MD Primary Care Provider [phone] Richie Burciaga MD Unavailable Kevin Kyle DO Primary Care Provider Kevin Kyle DO Primary Care Provider [phone] Daniela Vazquez NP Unavailable Encounter Details Date Type Department Care Team (Late st Contact Info) Description 04/14/2023 Clinisync Result Encounter [facility] Department Unsolicited Suzanne Mcclain, DISTRICT MEDICAL EXAMINER [address] [facility] [address] [place] [address] Social History Tobacco Use Types Packs/Day Years [...] How often do you attend chur or congregational services? 1 to 4 times per year 02/04/2023 Do you belong to any clubs o r organizations such as yazidism groups, unions, fraternal or athletic groups, or [...] and heating? Not hard at all 02/04/2023 [facility] [place] [facility] Occupat ional Health - Occupational Stress [...] place to sleep or slept in a jail (including now)? Patient refused 02/04/2023 Comments No [...] DERM [address] [place] [address] Sherron Muir MD [address] [place] [address] documented as of this encounter Procedures Procedure Name Priority Date/Time Associated Diagnosis Comments XR ABDOMEN 1V 04/14/2023 10:58 AM EST documented in this encounter Results * XR ABDOMEN 1V (04/14/2023 10:58 AM EST) Anatomical Region Laterality Modality Other 04/14/2023 10:5 8 AM EST Narrative 04/14/2023 11:00 AM EST [address] [address] XRay Report Signed Patient: JENNIFER NAVARRO MR#: [id number] : 1970 Acct:[id number] Age/Sex: 52 / F ADM Date: 04/13/23 Loc: RAD Attending Dr: SUZANNE MCCLAIN Ordering Physician: SUZANNE MCCLAIN Date of Service: 04/13/23 Procedure(s): XR abdomen 1V Accession Number(s): [id number] cc: RICHIE BURCIAGA ; SUZANNE MCCLAIN [place] [address] Patient Name: JENNIFER NAVARRO MRN: [id number] date: 1970 Sex: F Assigned Patient Location: LAB Current Patient Location: Accession/Order Number: [id number] Exam Date: 04/13/2023 08:45 Report Date: 04/14/2023 10:58 At the request of: SUZANNE MCCLAIN Procedure: XR abdomen 1V PROCEDURE: XR abdomen 1V DATE: 04/13/2023 7:45 AM EXCEPTIONAL CHILDREN TEACHER ASSISTANT COMPARISONS: Chest x-ray from 03/27/2023 CLINICAL INDICATION: 52 years Female Abnormal Xray FINDINGS: There is moderate stool and scattered gas of the colon. There is a small amount of gas within the stomach. The small bowel is not visualized. No abnormal small bowel distention identified Surgical clips overlie the right upper quadrant No abnormal calcifications overlie the abdomen. The 7 mm high density structure overlying the left upper quadrant on the caudal aspect of the chest x-ray from 03/27/2023 is not seen today. Presumably it was in stool and has passed. A few scattered areas of high density overlies the mid and lower right abdomen possibly high density within stool. Phleboliths overlie the right aspect of the pelvis. The visualized osseous structures show no significant abnormalities. XR/XR abdomen 1V IMPRESSION: Supine abdominal radiograph shows no evidence of significant abnormalities. The 7 mm high density findings left upper quadrant is no longer visualized today. It was probably within stool. It is noted that there again appears to be some scattered high density within stool on today's exam. This scattered high density is presumably related to high density material ingested by the patient, possibly medication. Electronically authenticated by: BENI HAMPTON Date: 04/14/2023 10:58 Dictated By: Beni Hampton M.D. Signed By: 04/14/23 1100 DD/ 1058 TD/TT: Finished Hardware Erector: Procedure Note Radiology, Radiologist, MD - 04/14/2023 [place] [address] XRay Report Signed Patient: JENNIFER NAVARRO AMR#: [id number] : 1970Acct:[id number] Age/Sex: 52 / FADM Date: 04/13/23 Loc: RAD Attending Dr: SUZANNE MCCLAIN Ordering Physician: SUZANNE MCCLAIN Date of Service: 04/13/23 Procedure(s): XR abdomen 1V Accession Number(s): [id number] cc: RICHIE BURCIAGA SHERRI [address] [place] [id number] Patient Name: JENNIFER NAVARRO MRN: [id number] date: 1970 Sex: F Assigned Patient Location: LAB Current Patient Location: Accession/Order Number: [id number] Exam Date: 04/13/2023 08:45 Report Date: 04/14/2023 10:58 At the request of: SUZANNE MCCLAIN Procedure: XR abdomen 1V PROCEDURE: XR abdomen 1V DATE: 04/13/2023 7:45 AM EXCEPTIONAL CHILDREN TEACHER ASSISTANT COMPARISONS: Chest x-ray from 03/27/2023 CLINICAL INDICATION: 52 years Female Abnormal Xray FINDINGS: There is moderate stool and scattered gas of the colon. There is a small amount of gas within the stomach. The small bowel is not visualized. No abnormal small bowel distention identified Surgical clips overlie the right upper quadrant No abnormal calcifications overlie the abdomen. The 7 mm high density structure overlying the left upper quadrant on the caudal aspect of the chest x-rayfrom 03/27/2023 is not seen today. Presumably it was in stool and has passed. A few scattered areas of high density overlies the mid and lower rightabdomen possibly high density within stool. Phleboliths overlie the right aspect of the pelvis. The visualized osseous structures show no significant abnormalities. XR/XR abdomen 1V IMPRESSION: Supine abdominal radiograph shows no evidence of significant abnormalities. The 7 mm high density findings left upper quadrant is no longer visualized today. It was probably within stool. It is noted that there again appearsto be some scattered high density within stool on today's exam. This scatteredhigh density is presumably related to high density material ingested by the patient, possibly medication. Electronically authenticated by: BENI HAMPTON Date: 04/14/2023 10:58 Dictated By: Beni Hampton M.D. Signed By:04/14/23 1100 DD/ 1058 TD/TT: Finished Hardware Erector: Suzanne cMclain NP [facility] Final Resu lt documented in this encounter Visit Diagnoses Not on filedocumented in this encounter Care Teams Psychiatric Clinician Relationship Specialty Start Date End Date Richie Burciaga MD [address] [facility] [address] [place] [address] PCP - General Family Medicine 10/16/22 04/29/23 Richie Burciaga MD [address] [facility] [address] [place] [address] PCP - [facility] 11/30/22 Kevin Kyle DO [address] [place] [address] PCP - General Family Medicine 04/30/23 05/22/23 Kevin Kyle DO [address] [place] [address] PCP - General Family Medicine 05/23/23 Daniela Vazquez NP [address] [facility] [address] [place] [address] PCP - [facility] 01/31/24 documented as of this encounter
--- OUTSIDE RECORDS SUMMARY | 2024-10-07 16:35 | XMS_ITS | Clinical Summary ---
Author Organization [facility] Address [address] [place] [address] Care Team Providers Care Process Supervisor Name Role Phone Kevin Kyle Primary Care Provider [phone] Allergies Active Allergy Reactions Criticality Noted Date Comments Diphenhydramine Hives 03/05/2023 Other Reaction(s): Unknown Reaction Doxycycline Hives,Rash Low 03/22/2021 Other Reaction(s): Unknown Fexofenadine Hives 03/22/2021 Other Reaction(s): Unknown Loperamide Unknown 03/06/2023 Methylprednisolone Hives 03/22/2021 Other Reaction(s): high BP Other Reaction(s): Unknown Polyethylene Glycol Hives 03/22/2021 Triamcinolone Hives 03/22/2021 Other Reaction(s): Unknown Medications fluticasone (Flonase) 50 MCG/ACT nasal sprayIndication s:PND (post-nasal drip) ADMINISTER 1-2 SPRAYS INTO EACH NOSTRIL IN THE MORNING. SHAKE GENTLY. BEFORE FIRST USE, PRIME PUMP. AFTER USE, CLEAN TIP AND REPLACE CAP.. 48 mL 1 4 Active Additional Information Patient not taking.Reported on 10/05/2024 ergocalciferol (Vitamin D2) 1.25 MG (57231 UT) capsule TAKE 1 CAPSULE BY MOUTH TWO TIMES A WEEK DIRECTED. 4 Active estradiol (Estrace) 0.1 MG/GM vaginal cream PLEASE SEE ATTACHED FOR DETAILED DIRECTIONS 4 Active ferrous sulfate 325 (65 Fe) MG EC tablet TAKE 1 TABLET BY MOUTH TWO TIMES A DAY FOR 14 DAYS. 4 Active hydrocortisone 2.5 % cream PLEASE SEE ATTACHED FOR DETAILED DIRECTIONS 4 Active ketoconazole (NIZOral) 2 % cream PLEASE SEE ATTACHED FOR DETAILED DIRECTIONS 4 Active nitrofurantoin, macrocrystal-mo nohydrate, (Macrobid) 100 MG capsule TAKE 1 CAPSULE BY MOUTH TWO TIMES A DAY FOR 3 DAYS. SELF START NEEDED FOR UTI SYMPTOMS 5 Active phenazopyridine (Pyridium) 200 MG tablet TAKE 1 TABLET BY MOUTH THREE TIMES A DAY NEEDED FOR UP TO 5 DAYS. 5 Active Klayesta 471246 UNIT/GM powder APPLY TO AFFECTED AREA TWO TIMES A DAY FOR 7 DAYS. 4 Active diphenhydrAMINE (BENADryl) 2 % creamIndication s:Marcos's disease Apply topically 3 (three) times a day as needed for itching 30 g 2 5 04/23/19 26 Active Additional Information Patient not taking.Reported on 10/05/2024 nitrofurantoin, macrocrystal-mo nohydrate, (Macrobid) 100 MG capsuleIndicati ons:Urinary frequency Take 1 capsule (100 mg) by mouth every 12 (twelve) hours for 7 days 14 capsule 5 10/13/19 25 Active Active Problems Problem Noted Date Diagnosed Date Pain, neck 10/30/2023 Bilateral thoracic back pain 10/30/2023 Menopausal state 08/09/2023 Frequent loose stools 05/06/2023 Headache 05/06/2023 Viral illness 05/06/2023 Ear pain, bilateral 04/22/2023 Dysfunction of both eustachian tubes 04/22/2023 Assessment & Plan (04/22/2023 4:23 PM EST): Do OTC Decongestant Add Antihistamine Multinodular goiter 04/03/2023 Sacroiliitis, not elsewhere classified 3 Attention deficit disorder 10/04/2022 Disturbance of skin sensation 10/04/2022 Lumbar radiculopathy 10/04/2022 Hypercalcemia 02/11/2021 Anxiety 01/30/2021 History of multiple allergies 01/24/2021 Nonalcoholic fatty liver disease 01/24/2021 Paresthesia of right upper limb 10/28/2020 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 10/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 Dysphagia 07/26/2020 Assessment & Plan (04/22/2023 4:25 PM EST): Will apparently be getting another swallow study Has had an EGD and that was normal, ruling out Zenker's and also Shatzki's ring She also had esophagram showing normal motility to rule out Achalasia Consider Reglan Reflux gastritis 07/26/2020 Peripheral neuropathy 10/12/2019 Unspecified maternal hyperte nsion, unspecified trimester ([facility]) 08/21/2019 Obesity 08/21/2019 Osteoarthritis 08/21/2019 Chronic rhinitis 11/03/2018 Paroxysmal supraventricular tachycardia 08/20/19 19 Gastritis 02/17/2018 Chronic fatigue 11/22/2017 Chronic fatigue syndrome 11/22/2017 Polycythemia vera 07/11/2017 Tension headache 06/13/2017 Essential hypertension 06/13/2017 Stress reaction 06/13/2017 Chronic maxillary sinusitis 01/21/2017 Headache, common migraine 11/03/2008 Migraine without aura, not refractory 11/03/2008 Hypoglycemia 11/07/2007 Encounters Date Type Department Care Team Description 10/07/2024 3:00 PM EDT Office Visit [facility] [address] [place] [phone] Dysuria (Primary Dx) 10/07/2024 Travel 10/07/2024 Telephone [facility] [address] [place] [phone] Ike Blount MA 10/05/2024 4:55 PM EDT Office Visit [facility] [address] [place] [phone] Jeri Obando PA Urinary frequency (Primary Dx); Dysuria 10/05/2024 Travel from Last 3 Months Immunizations Immunization Administration Dates Next Due Influenza, High Dose Seasona l, Preservative Free 12/31/2016 Influenza, injectable, quadr ivalent, preservative free 12/26/2019,12/25/2018,02/01/2018,2016 Influenza, seasonal, intrade rmal, preservative free 01/29/2015 Tdap 04/09/2015 Family History Medical History Relation Name Comments Asthma Brother Gucuvuvi Arthritis Father Ole Heart disease Father Ole Diabetes Father's Brother Radu Breast cancer Father's Sister 1 Kelly Diabetes Father's Sister 1 Kelly Diabetes Father's Sister 2 Rosalba Diabetes Maternal Grandmother Ruby Arthritis Mother Angelina Heart disease Mother Angelina Hypertension Mother Angelina Melanoma Mother's Brother Relation Name Status Comments Brother Gucuvuvi Alive Daughter Alive Father Ole Alive Father's Brother Radu Father's Sister 1 Kelly Father's Sister 2 Rosalba Maternal Grandmother Ruby Mother Angelina Alive Mother's Brother Social History Tobacco Use Types Packs/Day Years Used Date Smoking Tobacco: Former Cigarettes 0.5 15 0 04/01/1991 - 04/01/2006 Smokeless Tobacco: Never Tobacco Cessation:Counseling Given: Not [...] often do you attend chur ch or scientology services? 1 to 4 times per year [...] Recorded Patient Health Questionnaire-2 Score 0 03/03/2024 [facility] - Occupational [...] PM EDT Sexual Orientation Not on file Last Filed Vital Signs Vital Sign Reading Time Taken Comments Blood Pressure 138/88 10/05/2024 4:59 PM EDT Pulse 82 10/05/2024 4:59 PM EDT Temperature 36.7 C (98 F) 10/05/2024 4:59 PM EDT Respiratory Rate 16 04/22/2023 3:51 PM EST Oxygen Saturation 98% 10/05/2024 4:59 PM EDT Inhaled Oxygen Concentration - - Weight 91.2 kg (201 lb) 05/04/2024 11:21 AM EST Height 170.2 cm (5' 7 ) 03/03/2024 8:48 AM EST Body Mass Index 31.48 03/03/2024 8:48 AM EST Plan of Treatment Upcoming Encounters Date Type Department Care Team (Late st Contact Info) Description 10/28/2024 3:45 PM EDT Office Visit [facility] [address] [place] [address] Sherron Muir MD [address] [place] [address] Health Maintenance Due Date Last Done Comments CT Colonography 1972 FIT-DNA 1972 FIT 1972 FOBT 1970 Sigmoidoscopy 1970 Mammogram 03/21/2024 03/21/2023, 10/30, 01/03/2022, Additional history exists Influenza Vaccine (#1) 2024 0, 12/25/2018, 02/01/2018, Additional history exists Pap Smear 02/20/2025 02/20/2022 Cervical Cancer Screening 03/04/2025 HPV/Cotest 03/04/2025 03/04/2020 Colonoscopy 10/11/2031 10/10/2021, 10/10/2021, 09/29 Colorectal Cancer Screening 10/11/2031 Procedures Procedure Name Priority Date/Time Associated Diagnosis Comments URINALYSIS ANALYZER TEST Routine 10/05/2024 5:08 PM EDT Dysuria SHENG SCREENING W ANG 03/21/2023 6:00 PM EST PAP FLUID CERVICAL SCREENING Routine 02/20/2022 COLONOSCOPY Routine 10/10/2021 HPV W/GENOTYPE Routine 03/04/2020 from Last 3 Months or Most Recently Relevant to Health Maintenance Results * (ABNORMAL) URINALYSIS ANALYZER TEST (10/05/2024 [...] CARE TEST ENTER/ED IT ORDERABLES Final Result * SHENG SCREENING W ANG (03/21/2023 6:00 PM EST) Anatomical Region Laterality Modality Other 03/21/2023 6:00 PM EST Narrative 03/22/2023 8:14 AM EST * * *Final Report* * * DATE OF EXAM: Mar 21 2023 6:00PM W [id number] - [facility] SCREENING W ANG / PROCEDURE REASON: Encounter for screening mammogram for malignant neoplasm of breast * * * * Physician Interpretation * * * * RESULT: #[id number] - SHENG SCREENING W ANG BILATERAL DIGITAL SCREENING MAMMOGRAM [...] made to exams dated: 11/17/2022 mammogram - [facility], 01/03/2022 mammogram - [facility], 06/03/2020 mammogram, and 06/05/2019 mammogram - [facility]. The breasts are heterogeneously dense, which may obscure small masses. No significant masses, calcifications, or other findings are seen in either breast. There has been no significant interval change. IMPRESSION: NEGATIVE There is no mammographic evidence of malignancy. A 1 year screening mammogram is recommended. Sasha Guallpa M.D. ar/shaggy:03/22/2023 08:14:11 Webbing Supervisor(s): Sherron Feldman RT(R)(M), [facility] letter sent: Normal over 40 [...] Health, Family Medicine, and Medical/Surgical Oncology, the [facility] has carefully reviewed the data and [...] their providers when to stop screening mammograms. Labor Law Professor: Shaggy Transcribe Date/Time: Mar 21 2023 5:38P Dictated by : SASHA GUALLPA MD This examination was interpreted and the report reviewed and electronically signed by: SASHA GUALLPA MD on Mar 22 2023 8:14AM EST [id number]^ACN Procedure Note Radiology, Radiologist, MD - 03/22/2023 * * *Final Report* * * DATE OF EXAM: Mar 21 2023 6:00PM [facility] 0582 - [facility] SCREENING W ANG / PROCEDURE REASON: Encounter for screening mammogram for malignant neoplasm of breast * * * * Physician Interpretation * * * * RESULT: #[id number] - SHENG SCREENING W ANG BILATERAL DIGITAL SCREENING MAMMOGRAM TOMOSYNTHESIS WITH CAD: 03/21/2023 HISTORY: Encounter For Screening Mammogram For Malignant Neoplasm Of Breast / Screening Mammogram-Patient reports NO symptoms. /SEE TECHNOTE. RESULT: TECHNIQUE: The study was acquired using full field digital technology and interpreted from soft copy. Digital Breast Tomosynthesis (DBT) images were obtained and used to assist in the interpretation of this examination. Current study was also evaluated with a Computer Aided Detection (CAD). Comparison is made to exams dated: 11/17/2022 mammogram - [facility], 01/03/2022 mammogram - [facility], 06/03/2020 mammogram, and 06/05/2019 mammogram - [facility]. The breasts are heterogeneously dense, which may obscure small masses. No significant masses, calcifications, or other findings are seen in either breast. There has been no significant interval change. IMPRESSION: NEGATIVE There is no mammographic evidence of malignancy. A 1 year screening mammogram is recommended. Sasha sheppard/shaggy:03/22/2023 08:14:11 Webbing Supervisor(s): RT Alvarez(R)(M), [facility] letter sent: Normal over 40 [...] Health, Family Medicine, and Medical/Surgical Oncology, the [facility] has carefully reviewed the data and [...] their providers when to stop screening mammograms. Labor Law Professor: Shaggy Transcribe Date/Time: Mar 21 2023 5:38P Dictated by : SASHA GUALLPA MD This examination was interpreted and the report reviewed and electronically signed by: SASHA GUALLPA MD on Mar 22 2023 8:14AM EST [id number]^SI^ACN Generic External Data Provider [facility] Final Result * PAP FLUID CERVICAL SCREENING (02/20/2022) CASE REPORT [facility] Comment: Gynecologic Cytology Report Case: [id number] Authorizing Provider: Joellen Hall APRN.HUMAN RESOURCES COMPENSATION ANALYST Collected: 02/20/2022 10:58 AM Ordering Location: Gynecology Received: 02/20/2022 08:55 PM First Screen: YOLA Parsons, ASCP Rescreen: YOLA Watkins ASCMaricarmen Specimen: Pap, Senior Quality Control Inspector, Screening, CERVICAL SCREENING FLUID A - CERVICAL SCREENING FLUID Satisfactory for interpretation Negative for Intraepithelial lesion or malignancy. Atrophic specimen INE EXAM ABNORMAL PAP Yes, automatic HPV patients over 30 Postmenopausal The Pap Smear is a screening test for cervical cancer. False negative results occur with all screening tests, emphasizing the need for rescreening at recommended intervals, and clinical correlation. This specimen has been analyzed by the ThinPrep Imaging System, an automated imaging and review system, which assists the laboratory in evaluating cells on ThinPrep Pap tests. Following automated imaging, selected luke from every slide are reviewed by a tin recovery worker. Negative for Intraepithelial lesion or malignancy. Atrophic specimen Technical component, tin recovery worker screening performed at [facility], [address], [facility] [address] CLIA# [id number] Diagnostic interpretation performed at [facility] [address] [facility] [address] CLIA# [id number] Outdoor Adventure Guides: Juan Mayes M.D. PERFORMING LAB: see note [facility] Comment:[facility] - Certified Registered Locksmith Id information not found for OBX-specific spike machine feeder legend 02/20/2022 Richie Gupta MD [facility] Final Result [facility] * Colonoscopy (10/10/2021) Anatomical Region Laterality Modality Endoscopy 10/10/2021 Narrative 10/10/2021 12:00 AM EDT PERFORMED AT [facility] LOCATION:[place] [address] [address] Performed at: [facility] Gastrointestinal Endoscopy Patient Name: Tania Ashford Procedure Date: 10/10/2021 10:41 AM Date of : 1970 Admit Type: Outpatient Age: 50 Room: [address] Gender: Female Note Status: Finalized Attending MD: Clark Ngo MD Procedure: Colonoscopy Indications: Abnormal CT of the GI tract Providers: Clark Ngo MD Patient Profile: This is a 50 year old female. Refer to note in patient chart for documentation of history and physical. Last Colonoscopy: none. The patient''s first colonoscopy is today. Referring Physician: Naman Reynoso MD (Referring MD) Medicines: Fentanyl 100 micrograms IV Midazolam 5 mg IV Complications: No immediate complications. Requesting Provider: Procedure: Pre-Anesthesia Assessment: - Prior to the procedure a History and Physical was performed and patient medications allergies and sensitivities were reviewed. The patient''s tolerance of previous anesthesia was reviewed. - The risks and benefits of the procedure and the sedation options and risks were discussed with the patient. All questions were answered and informed consent was obtained. - ASA Grade Assessment: II - A patient with mild systemic disease. After I obtained informed consent the scope was passed under direct vision. Throughout the procedure the patient''s blood pressure pulse and oxygen saturations were monitored continuously. The Colonoscope was introduced through the anus and advanced to 20 cm into the ileum. The terminal ileum ileocecal valve appendiceal orifice and rectum were photographed. The entire colon was examined. The colonoscopy was performed without difficulty. The quality of the bowel preparation was good. The patient tolerated the procedure well. Moderate Sedation: The administration of moderate sedation was initiated at 10:56 AM. Findings: The terminal ileum appeared normal. Two sessile polyps were found in the ascending colon and cecum. The polyps were 3 to 5 mm in size. These polyps were removed with a jumbo cold forceps. Resection and retrieval were complete. A few small-mouthed diverticula were found in the sigmoid colon. Impression: - The examined portion of the ileum was normal. - Two 3 to 5 mm polyps in the ascending colon and in the cecum removed with a jumbo cold forceps. Resected and retrieved. - Diverticulosis in the sigmoid colon. There was no evidence of diverticular bleeding. Estimated Blood Loss: Estimated blood loss was minimal. Recommendation: - Discharge patient to home. - Resume previous diet. - Repeat colonoscopy in 5-10 years for screening purposes. - Patient has a contact number available for emergencies. The signs and symptoms of potential delayed complications were discussed with the patient. Return to normal activities tomorrow. Written discharge instructions were provided to the patient. - Continue present medications. Procedure Code(s): --- Professional --- 70828 Colonoscopy flexible; with biopsy single or multiple Diagnosis Code(s): --- Professional --- K63.5 Polyp of colon K57.30 Diverticulosis of large intestine without perforation or abscess without bleeding R93.3 Abnormal findings on diagnostic imaging of other parts of digestive tract CPT copyright 2019 [employer]. All rights reserved. The codes documented in this report are preliminary and upon scouring machine tender review may be revised to meet current compliance requirements. Attending Participation: I personally performed the entire procedure. I was present and participated during the entire procedure including non-fraga portions and during the administration and monitoring of Moderate Sedation. Scope In: 10:59:41 AM Scope Out: 11:21:[address] Clark Ngo MD 10/10/2021 11:32:32 AM This report has been signed electronically by Clark Ngo MD Number of Addenda: 0 Note Initiated On: 10/10/2021 10:41 AM [facility] - Certified Registered Locksmith Id information not found for OBX-specific spike machine feeder legend Procedure Note CONVERSION, GENERIC - 08/16/2022 PERFORMED AT [facility] LOCATION:[place] [address] Performed at: [facility] Gastrointestinal Endoscopy Patient Name: Tania Ashford Procedure Date: 10/10/2021 10:41 AM Date of : 1970 Admit Type: Outpatient Age: 50 Room: [place] [address] Gender: Female Note Status: Finalized Attending MD: Clark Ngo MD Procedure: Colonoscopy Indications: Abnormal CT of the GI tract Providers: Clark Ngo MD Patient Profile: This is a 50 year old female. Refer to note in patient chart for documentation of history and physical. Last Colonoscopy: none. The patient''s first colonoscopy is today. Referring Physician: Naman Reynoso MD (Referring MD) Medicines: Fentanyl 100 micrograms IV Midazolam 5 mg IV Complications: No immediate complications. Requesting Provider: Procedure: Pre-Anesthesia Assessment: - Prior to the procedure a History and Physical was performed and patient medications allergies and sensitivities were reviewed. The patient''stolerance of previous anesthesia was reviewed. - The risks and benefits of the procedure and the sedation options and risks were discussed with the patient. All questions were answered and informed consent was obtained. - ASA Grade Assessment: II - A patient with mild systemic disease. After I obtained informed consent the scope was passed under direct vision. Throughout the procedure the patient''s blood pressure pulse and oxygen saturations were monitored continuously.The Colonoscope was introduced through the anus and advanced to 20 cm into the ileum. The terminal ileum ileocecal valve appendiceal orifice and rectum were photographed. The entire colon was examined. The colonoscopy was performed without difficulty. The quality of the bowel preparationwas good. The patient tolerated the procedure well. Moderate Sedation: The administration of moderate sedation was initiated at 10:56 AM. Findings: The terminal ileum appeared normal. Two sessile polyps were found in the ascending colon and cecum. The polyps were 3 to 5 mm in size. These polyps were removed with ajumbo cold forceps. Resection and retrieval were complete. A few small-mouthed diverticula were found in the sigmoid colon. Impression: - The examined portion of the ileum was normal. - Two 3 to 5 mm polyps in the ascending colon andin the cecum removed with a jumbo cold forceps. Resected and retrieved. - Diverticulosis in the sigmoid colon. There wasno evidence of diverticular bleeding. Estimated Blood Loss: Estimated blood loss was minimal. Recommendation: - Discharge patient to home. - Resume previous diet. - Repeat colonoscopy in 5-10 years for screening purposes. - Patient has a contact number available for emergencies. The signs and symptoms of potential delayed complications were discussed with the patient. Return to normal activities tomorrow. Written discharge instructions were provided tothe patient. - Continue present medications. Procedure Code(s): --- Professional --- 67526 Colonoscopy flexible; with biopsy single or multiple Diagnosis Code(s): --- Professional --- K63.5 Polyp of colon K57.30 Diverticulosis of large intestine without perforation or abscess without bleeding R93.3 Abnormal findings on diagnostic imaging of other parts of digestive tract CPT copyright 2019 [employer]. All rights reserved. The codes documented in this report are preliminary and upon coderreview may be revised to meet current compliance requirements. Attending Participation: I personally performed the entire procedure. I was present and participated during the entire procedure including non-fraga portions and during the administration and monitoring of Moderate Sedation. Scope In: 10:59:41 AM Scope Out: 11:21:[address] Clark Ngo MD 10/10/2021 11:32:32 AM This report has been signed electronically by Clark Ngo MD Number of Addenda: 0 Note Initiated On: 10/10/2021 10:41 AM [facility] - Certified Registered Locksmith Id information not found for OBX-specific spike machine feeder legend Richie Gupta MD ENDOSCOPY PROCEDURE ORDERABLES F inal Result * HPV W/GENOTYPE (03/04/2020) HPV HIGHRISK TYPE 16 Negative for HPV DNA high risk type 16 by PCR. [facility] HPV HIGHRISK TYPE 18 Negative for HPV DNA high risk type 18 by PCR. [facility] HPV HIGHRISK OTHER Negative for HPV DNA high risk types: 31,33,35,39, 45,51,52,56, 58,59,66,68 by PCR. [facility] Comment: This test was developed and its performance characteristics determined by [facility] [place] [facility]). It has not been cleared or approved by the FDA. -[facility] is regulated under CLIA as qualified to perform high-complexity testing. This test is used for clinical purposes. It should not be regarded as investigational or for research. PERFORMING LAB: see note [facility] Comment:[facility] - [facility] [id number] [place] [address] 03/04/2020 Richie Gupta MD [facility] Final Result Performing Organization Address City/State/[facility] Co de Phone Number [facility] from Last 3 Months or Most Recently Relevant to Health Maintenance Insurance BS Care Teams Process Supervisor Relationship Specialty Start Date End Date Kevin Kyle DO [address] [facility] [address] [place] [address] PCP - General Family Medicine 05/23/23
--- OUTSIDE RECORDS SUMMARY | 2024-10-07 16:35 | XMS_ITS | Encounter Summary ---
Author Organization [facility] Address [address] [place] [address] Care Team Providers Care Hand Umbrella Tipper Name Role Phone Kevin Kyle DO Primary Care Provider [phone] Daniela Vazquez FOUNDRY WORKER GENERAL Unavailable Encounter Details Date Type Department Care Team (Late st Contact Info) Description 04/02/2024 Clinisync Result Encounter [facility] External Department Unsolicited [...] often do you attend chur ch or church services? 1 to 4 times per year 02/04/2023 Do you belong to any clubs o r organizations such as jainism groups, unions, fraternal or athletic groups, or [...] 03/03/2024 [facility] of Occupat ional [facility] - Occupational Stress Questionnaire Answer Date Recorded [...] place to sleep or slept in a penitentiary (including now)? Patient refused 02/04/2023 Comments No [...] DERM [address] [place] [id number] Sherron Muir MD [address] [place] [address] documented as of this encounter Procedures Procedure Name Priority Date/Time Associated Diagnosis Comments US RENAL AND BLADDER 04/02/2024 2:49 PM EST documented in this encounter Results * US RENAL AND BLADDER (04/02/2024 2:49 PM EST) Anatomical Region Laterality Modality Radiographic Catina ging 04/02/2024 2:49 PM EST Narrative 04/02/2024 2:52 PM EST The [address] [address] Ultrasound Report Signed Patient: JENNIFER NAVARRO MR#: [id number] : 1970 Acct:[id number] Age/Sex: 53 / F ADM Date: 04/02/24 Loc: US Attending Dr: Levi Sanchez M.D. Ordering Physician: Lvei Sanchez M.D. Date of Service: 04/02/24 Procedure(s): US renal bladder Accession Number(s): [id number] cc: MARTELL BURCIAGA ; Levi Sanchez M.D. The [address] [address] Patient Name: JENNIFER NAVARRO MRN: [id number] date: 1970 Sex: F Assigned Patient Location: US Current Patient Location: US Accession/Order Number: [id number] Exam Date: 04/02/2024 13:45 Report Date: 04/02/2024 14:49 At the request of: LEVI SANCHEZ Procedure: US renal bladder EXAMINATION: US renal bladder HISTORY: Urinary Tract Infection COMPARISON: No relevant comparison available. TECHNIQUE: Ultrasound examination was performed of the bladder. FINDINGS: Right Kidney: Normal in size and contour. The cortex measures 0.9 cm. No solid cortical mass or hydronephrosis Height: 3.76 cm Length: 8.50 cm Width: 4.27 cm Left Kidney: Normal in size and contour. The cortex measures 0.9 cm. No solid cortical mass or hydronephrosis. Height: 5.13 cm Length: 10.37 cm Width: 4.90 cm Urinary bladder: Prevoid volume 557 mL. Post void volume 7 mL Ureteral jets: Visualized bilaterally US/US renal bladder IMPRESSION: No acute abnormality Electronically authenticated by: RUBY SMALL Date: 04/02/2024 14:49 Dictated By: Ruby Small M.D. Signed By: 04/02/24 1452 DD/ 1449 TD/TT: Treating Engineer: Procedure Note Radiology, Radiologist, - 04/02/2024 [place] [address] Ultrasound Report Signed Patient: JENNIFER NAVARRO AMR#: [id number] : 1970Acct:[id number] Age/Sex: 53 / FADM Date: 04/02/24 Loc: US Attending Dr: Levi Sanchez M.D. Ordering Physician: Levi Sanchez M.D. Date of Service: 04/02/24 Procedure(s): US renal bladder Accession Number(s): [id number] cc: MARTELL BURCIAGA ; Levi Sanchez M.D. [place] [address] Patient Name: JENNIFER NAVARRO MRN: [id number] date: 1970 Sex: F Assigned Patient Location: US Current Patient Location: US Accession/Order Number: [id number] Exam Date: 04/02/2024 13:45 Report Date: 04/02/2024 14:49 At the request of: LEVI SANCHEZ Procedure: US renal bladder EXAMINATION: US renal bladder HISTORY: Urinary Tract Infection COMPARISON: No relevant comparison available. TECHNIQUE: Ultrasound examination was performed of the bladder. FINDINGS: Right Kidney: Normal in size and contour. The cortex measures 0.9 cm. Nosolid cortical mass or hydronephrosis Height: 3.76 cm Length: 8.50 cm Width: 4.27 cm Left Kidney: Normal in size and contour. The cortex measures 0.9 cm. Nosolid cortical mass or hydronephrosis. Height: 5.13 cm Length: 10.37 cm Width: 4.90 cm Urinary bladder: Prevoid volume 557 mL. Post void volume 7 mL Ureteral jets: Visualized bilaterally US/US renal bladder IMPRESSION: No acute abnormality Electronically authenticated by: RUBY MSALL Date: 04/02/2024 14:49 Dictated By: Ruby Small M.D. Signed By:04/02/24 1452 DD/ 1449 TD/TT: Treating Engineer: us Generic External Data Provider IMG XR PROCEDURES Final Result documented in this encounter Visit Diagnoses Not on filedocumented in this encounter Care Teams Hand Umbrella Tipper Relationship Specialty Start Date End Date Kevin Kyle DO [address] [place] [address] PCP - General Family Medicine 05/23/23 Daniela Vazquez NP [address] [place] [address] PCP - [place] [employer] 01/31/24 documented as of this encounter
--- OUTSIDE RECORDS SUMMARY | 2024-10-07 16:35 | XMS_ITS | Clinical Summary ---
Author Organization [facility] Address [address] [place] [address] Phone Care Team Providers Care Field Marketing Team Leader Name Role Phone Giuliano Davidson Vasiliy JAUREGUI Primary Care Provider [phone] Allergies Active Allergy Reactions Criticality Noted Date Comments Diphenhydramine Hives 03/05/2023 Other Reaction(s): Unknown Reaction Doxycycline Hives,Rash,Unknown Low 03/22/2021 Fexofenadine Hives,Unknown 03/22/2021 Loperamide Unknown 03/06/2023 Methylprednisolone Hives,Unknown 03/22/2021 Other Reaction(s): high BP Polyethylene Glycol Hives 03/22/2021 Triamcinolone Hives,Unknown 03/22/2021 Medications fluticasone (Flonase) 50 mcg/actuation nasal spray PLEASE SEE ATTACHED FOR DETAILED DIRECTIONS 4 Active mometasone furoate, bulk, 100 % powderIndicatio ns:Chronic rhinitis Compound 1 mg capsule to be added to sinus rinse twice daily. 60 g 3 4 Active Active Problems Problem Noted Date Diagnosed Date Skin rash 03/27/2024 Fatty liver 03/27/2024 Sinus congestion 03/27/2024 Lymphadenopathy 03/27/2024 Fatigue 03/27/2024 Multinodular goiter 08/09/2023 Metabolic dysfunction-associ ated steatotic liver disease (MASLD) 08/09/2023 Menopausal state 08/09/2023 Family History Medical History Relation Name Comments Liver disease Father Oel white dad Arthritis Mother Angelina Asthma Mother Angelina Atrial fibrillation Mother Angelina [place] polyps Mother Angelina Hypertension Mother Angelina Liver disease Mother Angelina Miscarriages / Stillbirths Mother Angelina Stroke Mother Angelina Cirrhosis Paternal Grandfather Ole grandpa Hemochromatosis Paternal Grandfather Ole grandpa Liver disease Paternal Grandfather Ole grandpa Relation Name Status Comments Father Ole white dad Alive Mother Angelina Alive Paternal Grandfather Ole grandpa Alive Social History Tobacco Use Types Packs/Day Years Used Date Smoking Tobacco: Former Cigarettes Passive Smoke Exposure: Never Smokeless Tobacco: Never Tobacco Cessation:Counseling Given: Not Answered Alcohol Use Standard Drinks/Week Comments Never 0 (1 standard drink = 0.6 oz pur e alcohol) PHQ-2 Answer Date Recorded Patient Health Questionnaire-2 Score 0 03/26/2024 Comments Unknown Sex and Gender Information Value Date Recorded Sex Assigned at Not on file Legal Sex Female 4:46 PM EST Gender Identity Not on file Sexual Orientation Not on file Last Filed Vital Signs Vital Sign Reading Time Taken Comments Blood Pressure 122/76 03/26/2024 11:14 AM EST Pulse 81 03/26/2024 11:14 AM EST Temperature 36.4 C (97.5 F) 03/26/2024 11:14 AM EST Respiratory Rate 16 03/26/2024 11:14 AM EST Oxygen Saturation 99% 03/26/2024 11:14 AM EST Inhaled Oxygen Concentration - - Weight 90.7 kg (200 lb) 03/26/2024 11:14 AM EST Height 170.2 cm (5' 7 ) 03/26/2024 11:14 AM EST Body Mass Index 31.32 03/26/2024 11:14 AM EST Plan of Treatment Health Maintenance Due Date Last Done Comments CT Colonography 1970 FIT-DNA (Cologuard) 1970 FIT 1970 HIV Screening 1970 Lipid Panel 1970 Sigmoidoscopy 1970 MMR Vaccines (1 of 1 - Standard series) 1973 Diabetes Screening 1990 Hepatitis C Screening 1990 Hepatitis A Vaccines (1 of 2 - Risk 2-dose series) 12/07/1991 Hepatitis B Vaccines (1 of 3 - 19+ 3-dose series) 12/07/1991 Pneumococcal Vaccine (1 of 2 - PCV) 12/07/1991 HPV/Cotest 1993 Cervical Cancer Screening 10/04/2018 Pap Smear 10/04/2018 10/05/2015 Zoster Vaccines (1 of 2) 2022 Mammogram 01/03/2023 01/03/2022 COVID-19 Vaccine ( - season) 2023 Yearly Adult Physical 05/07/2024 05/06/2023 Influenza Vaccine (#1) 2024 , 12/25/2018, 02/01/2018, Additional history exists DTaP/Tdap/Td Vaccines (2 - Td or Tdap) 04/09/2025 04/09/2015 Colonoscopy 10/11/2031 10/10/2021, 10/10/2021 Colorectal Cancer Screening 10/11/2031 Irritable Bowel Syndrome Discontinued 10/10/2021 HIB Vaccines Aged Out No longer eligi ble based on patient's age to complete this topic HPV Vaccines (No Doses Required) Completed IPV Vaccines Aged Out No longer eligi ble based on patient's age to complete this topic Meningococcal Vaccine Aged Out No alan blake eligible based on patient's age to complete this topic Rotavirus Vaccines Aged Out No longer eligible based on patient's age to complete this topic Procedures Procedure Name Priority Date/Time Associated Diagnosis Comments CONVERTED JUNK REMOVAL SPECIALIST CYTOLOGY Routine 10/05/2015 12:00 AM EDT from Last 3 Months or Most Recently Relevant to Health Maintenance Results * CONVERTED JUNK REMOVAL SPECIALIST CYTOLOGY (10/05/2015 12:00 AM EDT) Pathology Report Date of Procedure: 10/05/2015 Pathologist: [facility], Cytology Date Reported: 10/11/2015 Date Received: 10/05/2015 Submitting Physician: SHERRON BURROUGHS, BATCHER OPERATOR FINAL CYTOLOGICAL INTERPRETATION A. THINPREP PAP CERVICAL: Specimen adequacy: SATISFACTORY FOR EVALUATION. Quality Indicator: Endocervical/transf ormation zone component is present. Quality Indicator: Absence of adequate patient history (LMP date). General Categorization: NEGATIVE FOR INTRAEPITHELIAL LESION OR MALIGNANCY. HIGH RISK HPV TEST RESULT: NEGATIVE Reference Range: Negative Testing for high-risk (HR) type of human papilloma virus (HPV) is performed by the Klever ashok HPV Test. The ashok HPV Test is a qualitative polymerase chain reaction that amplifies DNA of HPV16, HPV18 and 12 other high-risk HPV types (31, 33, 35, 39, 45, 51, 52, 56, 58, 59, 66, and 68) associated with cervical cancer and its precursor lesions. A positive result indicates the presence of HPV DNA due to one or more of the 14 genotypes: 16, 18, 31, 33, 35, 39, 45, 51, 52, 56, 58, 59, 66, and 68. Negative results indicate HPV DNA concentrations are undetectable or below the pre-set threshold for detection. False negative results may be associated with unoptimized sampling. A negative HR HPV result does not exclude the possibility of future cytologic HSIL or underlying CIN2-3 or cancer. This test is approved for cervical specimens by the US Food and Drug Administration. Results of this test should be interpreted in conjunction with the patient's Pap test results. Please refer to ASC current guidelines for the use of HPV DNA testing, result interpretation, and patient management. The performance of this test was verified by the Molecular Diagnostic Laboratory at [facility]. The lab is certified under the Clinical Laboratory Amendments of 1988 (CLIA 88) as qualified to perform high complexity clinical laboratory testing. This specimen has been analyzed by the MakersKitPrep Imaging System ([employer] an automated imaging and review system, which assists the laboratory in evaluating cells on ThinPrep Pap tests. Following automated imaging, selected luke from every slide were reviewed by a alteration worker and/or pathologist. Electronically Signed Out By [facility], Cytology//JDH/QC By the signature on this report, the individual or group listed as making the Final Interpretation/Diag nosis certifies that they have reviewed this case. Educational Note: Cervical cytology is a screening procedure primarily for squamous cancers and precursors and has associated false-negative and false-positive results as evidenced by published data. Your patient's test should be interpreted in this context, together with patient's history and clinical findings. Regular sampling and follow-up of unexplained clinical signs and symptoms are recommended to minimize false negative results. Clinical History Date of Last Menstrual Period: (Not Entered) Previous Abnormal Cytology: ASCUS Other Clinical Conditions: HPV Test for All Interpretations - Exclude HPV Genotype High Risk Z77.9 Source of Specimen A: THINPREP PAP CERVICAL [facility] Department of Pathology [address] [place] [address] [facility] CONVERTED FINAL DIAGNOSIS A. THINPREP PAP CERVICAL: Specimen adequacy: SATISFACTORY FOR EVALUATION. Quality Indicator: Endocervical/transf ormation zone component is present. Quality Indicator: Absence of adequate patient history (LMP date). General Categorization: NEGATIVE FOR INTRAEPITHELIAL LESION OR MALIGNANCY. HIGH RISK HPV TEST RESULT: NEGATIVE Reference Range: Negative [facility]-HI STORY Z77.9 [facility] CON[facility] COMMENT Testing for high-risk (HR) type of human papilloma virus (HPV) is performed by the Klever ashok HPV Test. The ashok HPV Test is a qualitative polymerase chain reaction that amplifies DNA of HPV16, HPV18 and 12 other high-risk HPV types (31, 33, 35, 39, 45, 51, 52, 56, 58, 59, 66, and 68) associated with cervical cancer and its precursor lesions. A positive result indicates the presence of HPV DNA due to one or more of the 14 genotypes: 16, 18, 31, 33, 35, 39, 45, 51, 52, 56, 58, 59, 66, and 68. Negative results indicate HPV DNA concentrations are undetectable or below the pre-set threshold for detection. False negative results may be associated with unoptimized sampling. A negative HR HPV result does not exclude the possibility of future cytologic HSIL or underlying CIN2-3 or cancer. This test is approved for cervical specimens by the US Food and Drug Administration. Results of this test should be interpreted in conjunction with the patient's Pap test results. Please refer to ASCCP current guidelines for the use of HPV DNA testing, result interpretation, and patient management. The performance of this test was verified by the Molecular Diagnostic Laboratory at [facility]. The lab is certified under the Clinical Laboratory Amendments of 1988 (CLIA 88) as qualified to perform high complexity clinical laboratory testing. This specimen has been analyzed by the MakersKitPrep Imaging System ([employer] an automated imaging and review system, which assists the laboratory in evaluating cells on ThinPrep Pap tests. Following automated imaging, selected luke from every slide were reviewed by a alteration worker and/or pathologist. [facility] CONVERTED FINAL REPORT PDF LINK TO COPY AND PASTE [id number] [facility] TPP CERVICAL - Exclude Genotype 10/05/2015 10/05/2015 12:3 2 PM EDT Sherron Burroughs SYSTEMS TEST ENGINEER-BATCHER OPERATOR LAB CYTOLOGY ORDERABLES Final Result [facility] [id number] [place] [id number] from Last 3 Months or Most Recently Relevant to Health Maintenance Insurance [facility] Care Teams Field Marketing Team Leader Relationship Specialty Start Date End Date Giuliano Davidson DO [address] [facility], [facility] [address] [place] [address] PCP - General Internal Medicine 03/26/24
--- OUTSIDE RECORDS SUMMARY | 2024-10-07 16:35 | XMS_ITS | Encounter Summary ---
Author Organization [facility] Address [address] [place] [address] Care Team Providers Care Rice Field Worker Name Role Phone Richie Gupta MD Primary Care Provider [phone] Richie Gupta MD Unavailable Kevin Kyle DO Primary Care Provider Kevin Kyle DO Primary Care Provider [phone] Daniela Vazquez MIXING TUMBLER OPERATOR Unavailable Encounter Details Date Type Department Care Team (Late st Contact Info) Description 04/15/2023 Orders Only [facility] [address] [place] [id number] A, Unknown Practice [address] [place], [place] [id number] Social History Tobacco Use Types Packs/Day Years [...] How often do you attend chur or hindu services? 1 to 4 times [...] and heating? Not hard at all 02/04/2023 [facility] of Occupat ional Health - Occupational Stress [...] Visit [facility] DER[facility] [address] [place] [address] Sherron Muir MD [address] [place] [address] documented as of this encounter Procedures Procedure Name Priority Date/Time Associated Diagnosis Comments XR ABDOMEN 1 VIEW Routine 04/14/2023 9:15 AM EST SCANNED LABS Routine 04/13/2023 9:00 AM EST documented in this encounter Results * XR abdomen 1 view (04/14/2023 9:15 AM EST) Anatomical Region Laterality Modality Abdomen Radiographic Catina ging us Unknown Practice A IMG XR PROCEDURES Final Resul t * SCANNED LABS (04/13/2023 9:00 AM EST) us Unknown Practice A LAB CHG PERFORMABLES Final Re sult documented in this encounter Visit Diagnoses Not on filedocumented in this encounter Care Teams Rice Field Worker Relationship Specialty Start Date End Date Richie Gupta MD [address] [place] [address] PCP - General Family Medicine 10/16/22 04/29/23 Richie Gupta MD [address] [place] [address] PCP - [place] [employer] 11/30/22 Kevin Kyle DO [address] [place] [address] PCP - General Family Medicine 04/30/23 05/22/23 Kevin Kyle DO [address] [place] [address] PCP - General Family Medicine 05/23/23 Daniela Vazquez NP [address] [place] [address] PCP - [place] [employer] 01/31/24 documented as of this encounter
--- OUTSIDE RECORDS SUMMARY | 2024-10-07 16:35 | XMS_ITS | Encounter Summary ---
Author Organization [facility] Address [address] [place] [address] Care Team Providers Care Tool Dispatcher Name Role Phone Richie Gupta MD Primary Care Provider [phone] Richie Gupta MD Unavailable Kevin Kyle DO Primary Care Provider [phone] Kevin Kyle DO Primary Care Provider [phone] Daniela Vazquez NP Unavailable Encounter Details Date Type Department Care Team (Late st Contact Info) Description 03/12/2023 Clinisync Result Encounter [facility] External Department Unsolicited Provider, Generic External Data Social History Tobacco Use Types Packs/Day Years Used Date Smoking Tobacco: Former Cigarettes 0.5 15 1 6 2010 Smokeless Tobacco: Never Alcohol Use Standard Drinks/Week Comments Never 0 (1 standard drink = 0.6 oz pur e alcohol) Coffee,tea 2-3 cups per day Humiliation, Afraid, Rape, [...] How often do you attend chur or pentecostalism services? 1 to 4 times per year [...] and heating? Not hard at all 02/04/2023 [facility] of Occupat ional Health - Occupational Stress [...] Office Visit [facility] [address] [place] [address] Sherron Muir MD [address] [place] [address] documented as of this encounter Procedures Procedure Name Priority Date/Time Associated Diagnosis Comments [facility] SURGICAL PATHOLOGY Routine 03/12/2023 9:54 AM EST UPPER GI ENDOSCOPY 03/12/2023 9: 21 AM EST documented in this encounter Results * [facility] SURGICAL PATHOLOGY (03/12/2023 9:54 AM EST) [facility] CASE REPORT [facility] Comment: Surgical Pathology Report Case: [id number] Authorizing Provider: Moustapha Ingram MD Collected: 03/12/2023 09:54 AM Ordering Location: Gastroenterology Received: 03/12/2023 01:40 PM Pathologist: Rocco Tipton MD Specimens: A) - ESOPHAGUS BIOPSY, r/o EOE B) - ESOPHAGUS BIOPSY, r/o EOE [facility] FINAL DIAGNOSIS [facility] Comment: A. Esophagus, distal, biopsy: - Squamous mucosa with no diagnostic abnormality. B. Esophagus, proximal, biopsy: - Squamous mucosa with no diagnostic abnormality. GROSS DESCRIPTION [facility] Comment: A. ESOPHAGUS BIOPSY Received in formalin is one piece of willis, soft tissue measuring 0.6 x 0.4 x 0.2 cm. Totally submitted in one cassette. B. ESOPHAGUS BIOPSY Received in formalin are multiple pieces of willis, soft tissue aggregating to 0.5 x 0.4 x 0.1 cm. Totally submitted in one cassette. March 12, 2023 3:55 PM Gross examination performed at [facility], [address] [place] [address] [facility] FINAL PERFORMING LAB [facility] Comment: Diagnostic interpretation performed at [facility], [address] [place] [address]# [id number] Working Manager: Juan Mayes M.D. 03/12/2023 9:54 AM EST 03/12/2023 1:40 PM EST Narrative AJIT - 03/13/2023 9:16 AM EST Specimen Type: TISSUE SPECIMEN Ordering Facility: [facility] Address: [address] [place] [address] Original Ordering Provider: MOUSTAPHA INGRAM us Generic External Data Provider [facility] F inal Result [facility] [address] [facility] [address] [place] [address] * UPPER GI ENDOSCOPY (03/12/2023 9:21 AM EST) Anatomical Region Laterality Modality Other 03/12/2023 9:21 AM EST Narrative 03/12/2023 9:59 AM EST A31 Gastrointestinal Endoscopy Patient Name: Tania Ashford Procedure Date: 03/12/2023 9:21 AM Date of : 1970 Admit Type: Outpatient Age: 52 Room: [place] [address] Gender: Female Note Status: Finalized Attending MD: Moustapha Ingram MD, [id number] Procedure: Upper GI endoscopy Indications: Dysphagia Providers: Moustapha Ingram MD Patient Profile: This is a 52 [...] report has been signed electronically by Moustapha Ingram MD Number of Addenda: 0 Note Initiated On: 03/12/2023 9:21 AM Procedure Note Radiology, Radiologist, MD - 03/12/2023 A31 Gastrointestinal Endoscopy Patient Name: Tania Ashford Procedure Date: 03/12/2023 9:21 AM Date of : 1970 Admit Type: Outpatient Age: 52 Room: [place] [address] Gender: Female Note Status: Finalized Attending MD: Moustapha Ingram MD, [id number] Procedure: Upper GI endoscopy Indications: Dysphagia Providers: Moustapha Ingram MD Patient Profile: This is a 52 [...] report has been signed electronically by Moustapha Ingram MD Number of Addenda: 0 Note Initiated On: 03/12/2023 9:21 AM Generic External Data Provider [facility] IMAGING Final Result documented in this encounter Visit Diagnoses Not on filedocumented in this encounter Care Teams Tool Dispatcher Relationship Specialty Start Date End Date Richie Gupta MD [address] [facility] [address] [place] [address] PCP - General Family Medicine 10/16/22 04/29/23 Richie Gupta MD [address] [facility] [address] [place] [address] PCP - [place] [employer] 11/30/22 Kevin Kyle DO [address] [facility] [address] [place] [address] PCP - General Family Medicine 04/30/23 05/22/23 Kevin Kyle DO [address] [facility] [address] [place] [address] PCP - General Family Medicine 05/23/23 Daniela Vazquez NP [address] [place] [address] PCP - [place] [employer] 01/31/24 documented as of this encounter
--- OUTSIDE RECORDS SUMMARY | 2024-10-07 16:35 | XMS_ITS | Encounter Summary ---
Author Organization [facility] Address [address] [place] [address] Care Team Providers Care Integrity Director Name Role Phone Kevin Kyle DO Primary Care Provider [phone] Daniela Vazquez SAMPLE WRAPPER Unavailable Encounter Details Date Type Department Care Team (Late st Contact Info) Description 03/03/2024 Abstract [facility] [address] [facility] [address] [place] [phone] Kevin Kyle DO [address] [place] [address] Social History Tobacco Use Types Packs/Day Years [...] any clubs o r organizations such as mormonism groups, unions, fraternal or athletic groups, or [...] Recorded Patient Health Questionnaire-2 Score 0 03/03/2024 [facility] Occupat ionnm Health - Occupational Stress Questionnaire Answer Date [...] place to sleep or slept in a custodial (including now)? Patient refused 02/04/2023 Comments No [...] DERM [address] [place] [address] Sherron Muir MD [address] [place] [address] documented as of this encounter Visit Diagnoses Not on filedocumented in this encounter Care Teams Integrity Director Relationship Specialty Start Date End Date Kevin Kyle DO [address] [place] [address] PCP - General Family Medicine 05/23/23 Daniela Vazquez NP [address] [facility] [address] [place] [address] PCP - Chanel Luciano 01/31/24 documented as of this encounter
--- OUTSIDE RECORDS SUMMARY | 2024-10-07 16:35 | XMS_ITS | Clinical Summary ---
Author Organization [facility] Address [address] [place] [address] Care Team Providers Care Ems Instructor Name Role Phone Unavailable Primary Care Provider Unavailabl e Social History Tobacco Use Types Packs/Day Years Used Date Smoking Tobacco: Never Assessed [place] Safety & Environment Answer Date Rec orded Fear of Current or Ex-Partner Not on file Emotionally Abused Not on file 05/23/2023 Physically Abused Not on file 05/23/2023 Sexually Abused Not on file 05/23/2023 Physically or Sexually Abused Not on file Comments Unknown Sex and Gender Information Value Date Recorded Sex Assigned at Not on file Legal Sex Female 10:23 PM EDT Gender Identity Not on file Sexual Orientation Not on file Last Filed Vital Signs Vital Sign Reading Time Taken Comments Blood Pressure - - Pulse - - Temperature - - Respiratory Rate - - Oxygen Saturation - - Inhaled Oxygen Concentration - - Weight 76.2 kg (168 lb) 10/28/2020 2:47 PM EDT Height 170.2 cm (5' 7 ) 10/28/2020 2:46 PM EDT Body Mass Index 26.31 10/28/2020 2:46 PM EDT Plan of Treatment Not on file
--- OUTSIDE RECORDS SUMMARY | 2024-10-07 16:35 | XMS_ITS | Encounter Summary ---
Author Organization [facility] Address [address] [place] [address] Phone Care Team Providers Care News Library Director Name Role Phone Richie Gupta MD Primary Care Provider [phone] Giuliano Davidson DO Primary Care Provider [phone] Encounter Details Date Type Department Care Team (Late st Contact Info) Description 07/12/2021 Orders Only [facility] [address] [place] [address] Conversion, Onbase Social History Tobacco Use Types Packs/Day Years Used Date Smoking Tobacco: Never Assessed Comments Unknown Sex and Gender Information Value Date Recorded Sex Assigned at Not on file Legal Sex Female 4:46 PM EST Gender Identity Not on file Sexual Orientation Not on file documented as of this encounter Plan of Treatment Scheduled Orders Name Type Priority Associated Diagnoses Orde r Schedule OUTSIDE LAB SCAN Lab Ordered: 07/12/2021 documented as of this encounter Visit Diagnoses Not on filedocumented in this encounter Care Teams News Library Director Relationship Specialty Start Date End Date Richie Gupta MD [address] [place] [address] PCP - General Family Medicine 03/30/23 02/27/24 Giuliano Davidson DO [address] [facility], [address] [place] [address] PCP - General Internal Medicine 03/26/24 documented as of this encounter
--- OUTSIDE RECORDS SUMMARY | 2024-10-07 16:35 | XMS_ITS | Encounter Summary ---
Author Organization [facility] Address [address] [place] [address] Care Team Providers Care Heel Brusher Name Role Phone Kevin Kyle DO Primary Care Provider [phone] Daniela Vazquez PEDIATRIC ONCOLOGIST Unavailable Encounter Details Date Type Department Care Team (Late st Contact Info) Description 10/21/2023 Abstract [facility] [address] [facility] [address] [place] [phone] Kevin Kyle DO [address] [place] [address] Social History Tobacco Use Types Packs/Day Years [...] often do you attend chur ch or gnosticist services? 1 to 4 times per year [...] Date Recorded Patient Health Questionnaire-2 Score 0 06/05/2023 [facility] of Occupat ionmd Health - Occupational Stress Questionnaire Answer Date [...] place to sleep or slept in a detention (including now)? Patient refused 02/04/2023 Comments No [...] DERM [address] [place] [address] Sherron Muir MD [address] [place] [address] documented as of this encounter Visit Diagnoses Not on filedocumented in this encounter Care Teams Heel Brusher Relationship Specialty Start Date End Date Kevin Kyle DO [address] [place] [address] PCP - General Family Medicine 05/23/23 Daniela Vazquez NP [address] [place] [address] PCP - Chanel Luciano 01/31/24 documented as of this encounter
--- OUTSIDE RECORDS SUMMARY | 2024-10-07 16:35 | XMS_ITS | Encounter Summary ---
Author Organization [facility] Address [address] [place] [address] Care Team Providers Care Residential Sales Rep Name Role Phone Kevin Kyle DO Primary Care Provider [phone] Daniela Vazquez CORPORATE HUMAN RESOURCES MANAGER Unavailable Encounter Details Date Type Department Care Team (Late st Contact Info) Description 03/08/2024 Clinisync Result Encounter [facility] External Department Unsolicited [...] any clubs o r organizations such as rastafari groups, unions, fraternal or athletic groups, or [...] Score 0 03/03/2024 [facility] of Occupat ional [facility] - Occupational Stress Questionnaire Answer [...] DERM [address] [place] [address] Sherron Muir MD [address] [place] [address] documented as of this encounter Procedures Procedure Name Priority Date/Time Associated Diagnosis Comments ECG01 03/08/2024 11:47 PM EST documented in this encounter Results * ECG01 (03/08/2024 11:47 PM EST) Anatomical Region Laterality Modality Other 03/08/2024 11:4 7 PM EST Narrative 03/10/2024 8:27 AM EST Ventricular Rate : 91 BPM Atrial Rate : 91 BPM P-R Interval : 166 ms QRS Duration : 84 ms Q-T Interval : 350 ms QTC Calculation(Bazett) : 430 ms Calculated P Agu[place] : 17 degrees Calculated R Aguilar : -5 degrees Calculated T Agu[place] : 2 degrees NORMAL SINUS RHYTHM NORMAL ECG Confirmed by JARAD JUSTICE M.D. ([id number]), primer expeditor and drier DOUG URIBE ([id number]) on 03/10/2024 8:27:07 AM NAME : JENNIFER NAVARRO PID : [id number] : 1970 Gender : Female Race : ORD : Procedure Date : Mar 08 2024 23:47:41 Edit Date : Mar 10 2024 08:27:14 Diagnosis: NORMAL SINUS RHYTHM NORMAL ECG Confirmed by JARAD JUSTICE M.D. ([place]), DOUG Muñoz ([id number]) on 03/10/2024 8:27:07 AM Test Reason : Location : 2 : EDNS 014 Overread By : JARAD JUSTICE M.D. Edited By : DOUG URIBE Referred By : , Acquired by : david, Procedure Note Radiology, Radiologist, MD - 03/10/2024 Ventricular Rate : 91 BPM Atrial Rate : 91 BPM P-R Interval : 166 ms QRS Duration : 84 ms Q-T Interval : 350 ms QTC Calculation(Bazett) : 430 ms Calculated P Aguilar : 17 degrees Calculated R Aguilar : -5 degrees Calculated T Aguilar : 2 degrees NORMAL SINUS RHYTHM NORMAL ECG Confirmed by JARAD JUSTICE M.D. ([id number]), DOUG Muñoz ([id number])on 03/10/2024 8:27:07 AM NAME : JENNIFER NAVARRO PID : [id number] : 1970 Gender : Female Race : ORD : Procedure Date : Mar 08 2024 23:47:41 Edit Date : Mar 10 2024 08:27:14 Diagnosis: NORMAL SINUS RHYTHM NORMAL ECG Confirmed by JARAD JUSTICE M.D. ([id number]), DOUG Muñoz ([id number])on 03/10/2024 8:27:07 AM Test Reason : Location : 2 : EDNS 014 Overread By : JARAD JUSTICE M.D. Edited By : DOUG URIBE Referred By : , Acquired by : david, us Generic External Data Provider [facility] Final Result documented in this encounter Visit Diagnoses Not on filedocumented in this encounter Care Teams Residential Sales Rep Relationship Specialty Start Date End Date Kevin Kyle DO [address] [place] [address] PCP - General Family Medicine 05/23/23 Daniela Vazquez NP [address] [place] [address] PCP - Chanel Commercial 01/31/24 documented as of this encounter
--- OUTSIDE RECORDS SUMMARY | 2024-10-07 16:35 | XMS_ITS | Encounter Summary ---
Author Organization [facility] Address [address] [place] [address] Care Team Providers Care Manager Field Services Name Role Phone Richie Gupta MD Primary Care Provider [phone] Richie Gupta MD Unavailable Kevin Kyle DO Primary Care Provider Kevin Kyle DO Primary Care Provider [phone] Daniela Vazquez NP Unavailable Encounter Details Date Type Department Care Team (Late st Contact Info) Description 02/27/2023 Abstract [facility] [address] [facility] [address] [place] [phone] Richie Gupta MD 112 [facility] 110 [place] [address] Social History Tobacco Use Types Packs/Day Years [...] How often do you attend chur or islam services? 1 to 4 times per year 02/04/2023 Do you belong to any clubs o r organizations such as catholic groups, unions, fraternal or athletic groups, or [...] and heating? Not hard at all 02/04/2023 [facility] of Occupat ional Health - Occupational Stress [...] money to buy more. Never true 02/05/20 Within the past 12 months, t he [...] to sleep or slept in a senior living (including now)? Patient refused 02/04/2023 Comments No Sex and Gender Information Value Date Recorded Sex Assigned at Not on file Legal Sex Female 6:48 PM EDT Gender Identity Female 06/13/2022 6:48 PM EDT Sexual Orientation Not on file COVID-19 Exposure Response Date Recorded In the last 10 days, have yo u been in contact with someone who was confirmed or suspected to have Coronavirus/COVID-19? No / Unsure 02/04/2023 8:39 AM EST documented as of this encounter Plan of Treatment Upcoming Encounters Date Type Department Care Team (Late st Contact Info) Description 10/28/2024 3:45 PM EDT Office Visit [facility] [address] [place] [address] Sherron Muir MD [address] [place] [address] documented as of this encounter Visit Diagnoses Not on filedocumented in this encounter Care Teams Manager Field Services Relationship Specialty Start Date End Date Richie Gupta MD [address] [place] [address] PCP - General Family Medicine 10/16/22 04/29/23 Richie Gupta MD [address] [place] [address] PCP - [place] [employer] 11/30/22 Kevin Kyle DO [address] [place] [address] PCP - General Family Medicine 04/30/23 05/22/23 Kevin Kyle DO [address] [facility] [address] [place] [address] PCP - General Family Medicine 05/23/23 Daniela aVzquez NP [address] [place] [address] PCP - [place] [employer] 01/31/24 documented as of this encounter
--- OUTSIDE RECORDS SUMMARY | 2024-10-07 16:35 | XMS_ITS | Encounter Summary ---
Author Organization [facility] Address [address] [place] [address] Care Team Providers Care Senior Sas Programmer Name Role Phone Richie Gupta MD Primary Care Provider [phone] Richie Gupta MD Unavailable Kevin Kyle DO Primary Care Provider [phone] Kevin Kyle DO Primary Care Provider Daniela Vazquez RADIO MECHANIC Unavailable Encounter Details Date Type Department Care Team (Late st Contact Info) Description 01/25/2023 Abstract [facility] [address] [phone] Marcelo Dawn MD [address] [place] [address] Social History Tobacco Use Types Packs/Day Years [...] [address] [place] [address] documented as of this encounter Visit Diagnoses Not on filedocumented in this encounter Care Teams Senior Sas Programmer Relationship Specialty Start Date End Date Richie Gupta MD [address] [place] [id number] PCP - General Family Medicine 10/16/22 04/29/23 Richie Gupta MD [address] [place] [address] PCP - [place] [employer] 11/30/22 Kevin Kyle DO [address] [place] [address] PCP - General Family Medicine 04/30/23 05/22/23 Kevin Kyle DO [address] [place] [address] PCP - General Family Medicine 05/23/23 Daniela Vazquez NP [address] [place] [address] PCP - [place] [employer] 01/31/24 documented as of this encounter
--- OUTSIDE RECORDS SUMMARY | 2024-10-07 16:35 | XMS_ITS | Encounter Summary ---
Author Organization [facility] Address [address] [place] [address] Care Team Providers Care Hot Plate Plywood Press Operator Name Role Phone Kevin Kyle DO Primary Care Provider [phone] Daniela Vazquez PARTS DELIVERY DRIVER Unavailable Encounter Details Date Type Department Care [...] often do you attend chur ch or sabianist services? 1 to 4 times per year 02/04/2023 Do you belong to any clubs o r organizations such as anglican groups, unions, fraternal or athletic groups, or [...] Recorded Patient Health Questionnaire-2 Score 0 03/03/2024 [facility] of Occupat ional [facility] - Occupational Stress Questionnaire Answer Date [...] DERM [address] [place] [address] Sherron Muir MD [address] [place] [address] documented as of this encounter Procedures Procedure Name Priority Date/Time Associated Diagnosis Comments ECG 12-LEAD 03/08/2024 5:14 PM EST documented in this encounter Results * ECG 12 lead (03/08/2024 5:14 PM EST) 03/08/2024 5:14 PM EST Narrative [facility] - 03/10/2024 8:26 AM EST Ventricular Rate : 97 BPM Atrial Rate : 97 BPM P-R Interval : 150 ms QRS Duration : 76 ms Q-T Interval : 342 ms QTC Calculation(Bazett) : 434 ms Calculated P [place] : 40 degrees Calculated R [place] : 43 degrees Calculated T [place] : -14 degrees NORMAL SINUS RHYTHM CANNOT EXCLUDE ANTERIOR MYOCARDIAL INFARCTION , AGE UNDETERMINED ABNORMAL ECG 1716 Confirmed by MARELY URIARTE MD ([id number]), legal editor DOUG URIBE ([id number]) on 03/10/2024 8:26:47 AM NAME : JENNIFER NAVARRO PID : [id number] : 1970 Gender : Female Race : ORD : [id number] Procedure Date : Mar 08 2024 17:14:21 Edit Date : Mar 10 2024 08:26:51 Diagnosis: NORMAL SINUS RHYTHM CANNOT EXCLUDE ANTERIOR MYOCARDIAL INFARCTION , AGE UNDETERMINED ABNORMAL ECG 1716 Confirmed by MARELY URIARTE MD ([id number]), legal editor DOUG URIBE ([id number]) on 03/10/2024 8:26:47 AM Test Reason : Arrhythmia Location : 2 : EDNS C317-866 Overread By : MARELY URIARTE MD Edited By : DOUG URIBE Referred By : , Acquired by : LEON, Procedure Note Radiology, Radiologist, MD - 03/10/2024 Ventricular Rate : 97 BPM Atrial Rate : 97 BPM P-R Interval : 150 ms QRS Duration : 76 ms Q-T Interval : 342 ms QTC Calculation(Bazett) : 434 ms Calculated P [place] : 40 degrees Calculated R [place] : 43 degrees Calculated T [place] : -14 degrees NORMAL SINUS RHYTHM CANNOT EXCLUDE ANTERIOR MYOCARDIAL INFARCTION , AGE UNDETERMINED ABNORMAL ECG 1716 Confirmed by MARELY URIARTE MD ([id number]), legal editor DOUG URIBE ([id number]) on03/10/2024 8:26:47 AM NAME : JENNIFER NAVARRO PID : [id number] : 1970 Gender : Female Race : ORD : [id number] Procedure Date : Mar 08 2024 17:14:21 Edit Date : Mar 10 2024 08:26:51 Diagnosis: NORMAL SINUS RHYTHM CANNOT EXCLUDE ANTERIOR MYOCARDIAL INFARCTION , AGE UNDETERMINED ABNORMAL ECG 1716 Confirmed by MARELY URIARTE MD ([id number]), legal editor DOUG URIBE ([id number]) on03/10/2024 8:26:47 AM Test Reason : Arrhythmia Location : 2 : EDNS [id number] Overread By : MARELY URIARTE MD Edited By : DOUG URIBE Referred By : , Acquired by : LEON, us Generic External Data Provider ECG ORDERABLES F inal Result [facility] documented in this encounter Visit Diagnoses Not on filedocumented in this encounter Care Teams Hot Plate Plywood Press Operator Relationship Specialty Start Date End Date Kevin Kyle DO [address] [place] [address] PCP - General Family Medicine 05/23/23 Daniela Vazquez NP [address] [place] [address] PCP - Chanel Luciano 01/31/24 documented as of this encounter
--- OUTSIDE RECORDS SUMMARY | 2024-10-07 16:35 | XMS_ITS | Encounter Summary ---
Author Organization [facility] Address [address] [place] [address] Phone Care Team Providers Care Transportation Maintenance Worker Name Role Phone Richie Gupta MD Primary Care Provider [phone] Giuliano Davidson DO Primary Care Provider [phone] Encounter Details Date Type Department Care Team (Late st Contact Info) Description 01/24/2021 Orders Only [facility] [address] [place] [address] Conversion, Onbase Social History Tobacco Use Types [...] r Schedule OUTSIDE LAB SCAN Lab Ordered: 01/24/2021 documented as of this encounter Visit Diagnoses Not on filedocumented in this encounter Care Teams Transportation Maintenance Worker Relationship Specialty Start Date End Date Richie Gupta MD [address] [place] [address] PCP - General Family Medicine 03/30/23 02/27/24 Giuliano Davidson DO [address] [facility], [address] [place] [address] PCP - General Internal Medicine 03/26/24 documented as of this encounter
--- OUTSIDE RECORDS SUMMARY | 2024-10-07 16:35 | XMS_ITS | Patient Health Record ---
Author Organization [facility] Address [address] [place] [address] Care Team Providers Care Managed Services Consultant Name Role Phone Mateo Sanchez Primary Care Provider Allergies Allergen (clinical drug ingredient) Drug/Non Drug Allergy documented on EMR Reaction Allergy Type Onset Date Status Steroid Steroid (uncoded) Hives, elevate d HR Allergy Active doxycycline Doxycycline hives, elevated HR Drug Allergy Active triamcinolone Kenalog-10 hives, GI issues Drug Allergy Active Results Component Value Reference Range Notes UA DIP NONAUTO WO MICRO (810 02) - IN OFFICE Reviewed date:04/05/2024 09:01:05 PM Interpretation: Performing Lab: Notes/Report: COLOR Straw CLARITY clear GLUCOSE neg BILIRUBIN neg KETONE neg SPECIFIC GRAVITY 1.015 BLOOD 250 PH 5 PROTEIN neg UROBILINOGEN neg NITRITE nge LEUKOCYTE ESTERASE ++ UA DIP NONAUTO WO MICRO (810 02) - IN OFFICE Reviewed date:10/05/2024 04:05:12 PM Interpretation: Performing Lab: Notes/Report: COLOR light yellow CLARITY clear GLUCOSE n BILIRUBIN n KETONE n SPECIFIC GRAVITY 1.000 BLOOD trace PH 5 PROTEIN n UROBILINOGEN n NITRITE n LEUKOCYTE ESTERASE n US renal bladder Reviewed date:04/05/2024 09:01:05 PM Interpretation: Performing Lab: Notes/Report: Source Facility: [facility] [place] [address] [place] [address] Ultrasound Report Signed Patient: JENNIFER NAVARRO MR#: [id number] : 1970 Acct:[id number] Age/Sex: 53 / F ADM Date: 04/02/24 Loc: US Attending Dr: Levi Sanchez M.D. Ordering Physician: Levi Sanchez M.D. Date of Service: 04/02/24 Procedure(s): US renal bladder Accession Number(s): [id number] cc: MARTELL BURCIAGA ; Levi Sanchez M.D. [place] [id number] Patient Name: JENNIFER NAVARRO MRN: [id number] date: 1970 Sex: F Assigned Patient Location: US Current Patient Location: US Accession/Order Number: [id number] Exam Date: 04/02/2024 13:45 Report Date: 04/02/2024 [...] Signed By: 04/02/24 1452 DD/ 1449 TD/TT: Office Copy Selector: [place] [address] Ultrasound Report Signed Patient: JENNIFER COLLINS MR#: [id number] : 1970 Acct:[id number] Age/Sex: 53 / F ADM Date: 04/02/24 Loc: US Attending Dr: Levi Sanchez M.D. Ordering Physician: Levi Sanchez M.D. Date of Service: 04/02/24 Procedure(s): US renal bladder Accession Number(s): [id number] cc: MARTELL BURCIAGA ; Levi Sanchez M.D. [place] [id number] Patient Name: JENNIFER NAVARRO MRN: [facility]:[id number] date: 1970 Sex: F Assigned Patient Location: US Current Patient Location: US Accession/Order Numb er: [id number] Exam Date: 04/02/2024 13:45 Report Date: 04/02/2024 14:49 At the request of: LEVI SANCHEZ Procedure: US renal bladder EXAMINATION: US renal bladder HISTORY: Urinary Tra ct Infection COMPARISON: No relev ant comparison available. TECHNIQUE: Ultrasoun d examination was performed of the bladder. FINDINGS: Right Kidney: Normal in size and contour. The cortex measures 0.9 cm. No solid cortical mass or hydronephrosis Height: 3.76 cm Ghazala th: 8.50 cm Width: 4.27 cm Left Kidney: Normal in size and contour. The cortex measures 0.9 cm. No solid cortical mass or hydronephrosis. Height: 5.13 cm Ghazala th: 10.37 cm Width: 4.90 cm Urinary bladder: Pre void volume 557 mL. Post void volume 7 mL Ureteral jets: Visua lized bilaterally U S/US renal bladder IMPRESSION: No acute abnormality Electronically authe nticated by: RUBY SMALL Date: 04/02/2024 14:49 Dictated By: Ruby Small M.D. Signed By: 04/02/24 1452 DD/ 1449 TD/TT: Office Copy Selector: Reason For Referral Diagnosis 1 Screening for colon cancer (Z12.11) Referral Organization [facility] Medicine Referring Provider First Name Mateo Referring Provider Last Name Ca Referring Provider Speciality [facility] icine Referred Provider Specialty Gastroentero logy Referral Priority Routine Medications Medication SIG (Take, Route, Fr equency, Duration) Notes Start Date End Date Status Cefdinir 300 MG 2 capsule Orally onc e a day for 10 days 10/05/2024 Active Pepcid 40 MG 1 tablet Orally BID for 30 days 07/08 Active Pyridium 200 MG 1 tablet after meals Orally Three times a day for 2 days 10/05/2024 Act renetta Sucralfate 1 GM/10ML 10 mL 1 hour before meals and at bedtime on an empty stomach Orally AC and hs for 30 days 07/09/2024 Act renetta Problems Problem Type SNOMED Code ICD Code Onset Dates Problem Status W/U Status Risk Notes Problem Tinea corporis (45075238) Tinea corporis (B35.4) Active confirmed Problem Cardiac arrhythmia (377090014) Other specified cardiac arrhythmias (I49.8) Active confirmed Problem Hypertension (03867706) Hypertension (I10) Active confirmed Problem Gastroesophageal reflux disease (093508464) GERD (gastroesophageal reflux disease) (K21.9) Active confirmed Problem Arthritis (0834036) Arthritis (M19.90) Active c onfirmed Problem Anemia (811767119) Anemia (D64.9) Active confir med Problem Gastroesophageal reflux disease (481161924) GERD without esophagitis (K21.9) Active confirmed Problem Thyroid nodule (978323536) Thyroid nodule (E04.1) Active confirmed Problem Well adult (039825807) Well adult (Z00.00) Active confirmed Problem Lymphadenopathy (90019878) Lymphadenopathy (R59.1) Active confirmed Problem Diverticulitis (43163327) Diverticulitis (K57.92) Active confirmed Problem Liver disease (168511370) Liver disease (K76.9) Active confirmed Problem Lymphadenitis (75824453) Axillary lymphadenitis (I88.9) Active confirmed Problem Irritable bowel syndrome (39722261) Irritable bowel syndrome (IBS) (K58.9) Active confirmed Problem High cholesterol (86206415) High cholesterol (E78.00) Active confirmed Vital Signs Blood pressure diastolic 96 mm Hg 07/08/2024 Height 67 in 07/08/2024 Blood pressure systolic 134 mm Hg 07/08/2024 Weight 197.4 lbs 07/08/2024 BMI 30.91 kg/m2 07/08/2024 Encounters Encounter Location Date Provider Diagnosis [facility] [place] [address] [place] [address] 03/30/2024 Mateo Sanchez [facility] [place] [address] [facility]], [place] [address] 03/31/2024 Mateo Bacay UTI (urinary tract infection) N39.0 [facility] [place] [address] [facility]], [place] [address] 04/02/2024 Mateo Sanchez [facility] [place] [address] [facility]], [place] [address] 04/05/2024 Mateo Sanchez [facility] [place] [address] [facility]], [place] [address] 05/22/2024 Mateo Sanchez Screening for colon cancer Z12.11 [facility] [place] [address] [facility] [place] [address] 06/01/2024 Mateo Sanchez [facility] [place] [address] [facility] [place] [address] 07/09/2024 Mateo Ca [facility] [place] [address] [facility] [place] [address] 07/09/2024 Mateo Ca [facility] [address] [place] [address] 07/09/2024 Mateo Sanchez [facility] [place] [address] [facility]], [place] [address] 10/05/2024 Mateo Sanchez [facility] [address] [place] [facility] [place] [address] 10/06/2024 Mateo Hoy Urinary urgency R39. 15 [facility] [place] [address] [facility]], [place] [address] 03/30/2024 Mateo Hoy Lymphadenopathy R59. 1 ; Well adult Z00.00 ; Thyroid nodule E04.1 ; Tinea corporis B35.4 ; Other specified cardiac arrhythmias I49.8 and UTI (urinary tract infection) N39.0 [facility] [place] [address] [facility]], [place] [address] 10/05/2024 Mateo Hoy Urinary urgency R39. 15 [facility] [place] [address] [facility] [place] [address] 06/01/2024 Mateo Hoy Axillary lymphadenit is I88.9 [facility] [place] [address] [place] [address] 07/01/2024 Mateo Hoy GERD without esophag itis K21.9 [facility] [place] [address] [place] [address] 07/08/2024 Mateo Hoy GERD (gastroesophage al reflux disease) K21.9 Assessments Encounter Date Diagnosis (ICD Code) Assessment Notes Treatment Notes Treatment Clinical Notes Section Notes 03/30/2024 Lymphadenopathy (ICD-10 - R59.1) 03/30/2024 Well adult (ICD-10 - Z00.00) 06/01/2024 Axillary lymphadenitis (ICD-10 - I88.9) 07/01/2024 GERD without esophagitis (ICD-10 - K21.9) 07/08/2024 GERD (gastroesophageal reflux disease) (ICD-10 - K21.9) 10/05/2024 Urinary urgency (ICD-10 - R39.15) 03/31/2024 UTI (urinary tract infection) (ICD-10 - N39.0) 05/22/2024 Screening for colon cancer (ICD-10 - Z12.11) 10/06/2024 Urinary urgency (ICD-10 - R39.15) 03/30/2024 Thyroid nodule (ICD-10 - E04.1) 03/30/2024 Tinea corporis (ICD-10 - B35.4) 03/30/2024 Other specified cardiac arrhythmias (ICD-10 - I49.8) 03/30/2024 UTI (urinary tract infection) (ICD-10 - N39.0) Plan Of Treatment Pending Test Test Name Order Date UA (URINALYSIS, COMPLETE) 10/06/2024 HEMOGLOBIN A1C (GLYCO) 06/01/2024 IRON, TOTAL 06/01/2024 LIPID PANEL (CHOL/TRIG/HDL/LDL) 06/02/19 25 CBC WITH DIFF 06/01/2024 VITAMIN D, 25 LEVEL (TOTAL) 06/01/2024 Urine Culture 10/06/2024 Insulin Level 06/01/2024 URINE MICROSCOPIC ONLY 10/06/2024 CT CHEST WO CON 06/01/2024 US KIDNEYS BLADDER 03/31/2024 THYROID PANEL (T4/TSH/FREE T3) renal bladder 10/06/2024 CMP (COMP MET ACHARYA) w/eGFR CKD-EPI 2024 Insurance Providers Payer Name Payer Address Payer Phone Subscriber Number Group Number Insured Name Patient Relationship to Insured Coverage Start Date Coverage End Date [employer] ACCESS PPO PLUS LOCAL PLAN [address] [place] [address] [id number] Jennifer Puga Self - patient is the insured Medical (General) History Medical History History ICD Code Arthritis M19.90 Anemia D64.9 Diverticulitis K57.92 GERD (gastroesophageal reflux disease) K 21.9 High cholesterol E78.00 Hypertension I10 Irritable bowel syndrome (IBS) K58.9 Liver disease K76.9 Surgical History Surgery Date(Month/Year) CHOLECYSTECTOMY Tonsils Cauterized 1997
--- OUTSIDE RECORDS SUMMARY | 2024-10-07 16:35 | XMS_ITS | Encounter Summary ---
Author Organization [facility] Address [address] [place] [address] Care Team Providers Care Radiation Technician Name Role Phone AnabellaKevin Primary Care Provider [phone] Daniela Vazquez AUTOCAD ELECTRICAL DESIGNER Unavailable Encounter Details Date Type Department Care Team (Late st Contact Info) Description 03/03/2024 Abstract [facility] [address] [place] [address] Unallocated, Noms Provider, [address] [place] [address] Social History Tobacco Use Types Packs/Day Years [...] often do you attend chur ch or anabaptist services? 1 to 4 times per year 02/04/2023 Do you belong to any clubs o r organizations such as mu-ism groups, unions, fraternal or athletic groups, or [...] Recorded Patient Health Questionnaire-2 Score 0 03/03/2024 [facility] Health - Occupational Stress Questionnaire Answer Date [...] place to sleep or slept in a correction (including now)? Patient refused 02/04/2023 Comments No [...] DERM [address] [place] [address] Sherron Muir MD [address] [place] [address] documented as of this encounter Visit Diagnoses Not on filedocumented in this encounter Care Teams Radiation Technician Relationship Specialty Start Date End Date Kevin Kyle DO [address] [facility] [address] [place] [address] PCP - General Family Medicine 05/23/23 Daniela Vazquez NP [address] [facility] [address] [place] [address] PCP - Chanel Luciano 01/31/24 documented as of this encounter
--- OUTSIDE RECORDS SUMMARY | 2024-10-07 16:35 | XMS_ITS | Patient Health Record ---
Author Organization [facility] Address [address] [place] [address] [place] [address] Care Team Providers Care Digging Machine Operator Name Role Phone Vinay Wong Unavailable [phone] Allergies Allergen (clinical drug ingredient) Drug/Non Drug Allergy documented on EMR Reaction Allergy Type Onset Date Status triamcinolone Kenalog Unknown Drug Allergy Act renetta doxycycline Doxycycline Unknown Drug Allergy Act renetta Reason For Referral No Information Medications Medication SIG (Take, Route, Fr equency, Duration) Notes Start Date End Date Status Econazole Nitrate 1 % 1 application Exte rnally Once a day; Duration: 14 days 03/04/2023 Active Social History Tobacco Use: Social History Observation Description Date Details (start date - stop date) Former Smoker NA - NA tobacco use Question Answer Notes Patient is a: former smoker quit 2004 Problems Problem Type SNOMED Code ICD Code Onset Dates Problem Status W/U Status Risk Notes Problem Post-thrombotic syndrome of right lower extremity (535206042466206 02) 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 confirmed Problem Achilles bursitis (293005870) Achilles tendinitis, right leg (M76.61) Active confirmed Problem Peroneal tendinitis (52078290) Peroneal tendinitis, right leg (M76.71) Active confirmed Problem Neuralgia and neuritis, unspecified (M79.2) Active confirmed Problem Pain in right foot (817950742103972 ) Pain in right foot (M79.671) Active confirmed Problem Plantar fascial fibromatosis (51906169) Plantar fascial fibromatosis (M72.2) Active confirmed Problem Tinea pedis (8484411) Tinea pedis (B35.3) Active confirmed Plan Of Treatment No Information Insurance Providers Payer Name Payer Address Payer Phone Subscriber Number Group Number Insured Name Patient Relationship to Insured Coverage Start Date Coverage End Date Chanel Blue Cross and Blue Shield [address] [place] [address] [id number] Tania Puga Self - patient is the insured Medical (General) History Medical History History ICD Code stomach ulcers preeclampsia hiatal hernia IBS Surgical History Surgery Date(Month/Year) gall bladder 2010 neck surgery 2020 Hospitalization History Reason Date(Month/Year) child 2006 gall bladder 2010
--- OUTSIDE RECORDS SUMMARY | 2024-10-07 16:35 | XMS_ITS | Encounter Summary ---
Author Organization [facility] Address [address] [place] [address] Care Team Providers Care Senior Applications Architect Name Role Phone Richie Gupta MD Primary Care Provider [phone] Richie Gupta MD Unavailable Kevin Kyle DO Primary Care Provider Kevin Kyle DO Primary Care Provider [phone] Daniela Vazquez NP Unavailable Encounter Details Date Type Department Care Team (Late st Contact Info) Description 02/27/2023 Abstract [facility] [address] [facility] [address] [place] [phone] Richie Gupta MD [address] [facility] [address] [place] [address] Social History Tobacco Use Types [...] How often do you attend chur or scientology services? 1 to 4 times [...] and heating? Not hard at all 02/04/2023 [facility] Occupat ional Health - Occupational Stress [...] FERRER [address] [place] [address] Sherron Muir MD [address] [place] [address] documented as of this encounter Visit Diagnoses Not on filedocumented in this encounter Care Teams Senior Applications Architect Relationship Specialty Start Date End Date Richie Gupta MD [address] [place] [address] PCP - General Family Medicine 10/16/22 04/29/23 Richie Gupta MD [address] [place] [address] PCP - [place] [employer] 11/30/22 Kevin Kyle DO [address] [place] [address] PCP - General Family Medicine 04/30/23 05/22/23 Kevin Kyle DO [address] [facility] [address] [place] [address] PCP - General Family Medicine 05/23/23 Daniela Vazquez NP [address] [place] [address] PCP - [place] [employer] 01/31/24 documented as of this encounter
--- OUTSIDE RECORDS SUMMARY | 2024-10-07 16:35 | XMS_ITS | Encounter Summary ---
Author Organization [facility] Address [address] [place] [address] Care Team Providers Care Emt Driver Name Role Phone Kevin Kyle DO Primary Care Provider [phone] Daniela Vazquez CONSULTANT INTERNSHIP Unavailable Encounter Details Date Type Department Care Team (Late st Contact Info) Description 03/09/2024 Abstract [facility] [address] [facility] [address] [place] [address] Kevin Kyle DO [address] [place] [address] Social History Tobacco Use Types Packs/Day Years [...] often do you attend chur ch or worship services? 1 to 4 times per year 02/04/2023 Do you belong to any clubs o r organizations such as presybeterian groups, unions, fraternal or athletic groups, or [...] Recorded Patient Health Questionnaire-2 Score 0 03/03/2024 [facility] ionnd Health - Occupational Stress Questionnaire Answer Date [...] place to sleep or slept in a halfway (including now)? Patient refused 02/04/2023 Comments No [...] DERM [address] [place] [address] Sherron Muir MD [address] [place] [address] documented as of this encounter Visit Diagnoses Not on filedocumented in this encounter Care Teams Emt Driver Relationship Specialty Start Date End Date Kevin Kyle DO [address] [place] [address] PCP - General Family Medicine 05/23/23 Daniela Vazquez NP [address] [place] [address] PCP - Chanel Luciano 01/31/24 documented as of this encounter
--- OUTSIDE RECORDS SUMMARY | 2024-10-07 16:35 | XMS_ITS | Encounter Summary ---
Author Organization [facility] Address [address] [place] [address] Care Team Providers Care Head Still Operator Name Role Phone Richie Gupta MD Primary Care Provider [phone] Richie Gupta MD Unavailable Kevin Kyle DO Primary Care Provider [phone] Kevin Kyle DO Primary Care Provider Daniela Vazquez CONSUMER LOAN OFFICER Unavailable Encounter Details Date Type Department Care Team (Late st Contact Info) Description 10/16/2022 Abstract [facility] [address] [facility] [address] [place] [address] Sherron Muir MD [address] [facility] [address] [place] [address] Social History Tobacco Use Types Packs/Day Years [...] [address] [place] [address] documented as of this encounter Visit Diagnoses Not on filedocumented in this encounter Care Teams Head Still Operator Relationship Specialty Start Date End Date Richie Gupta MD [address] [place] [address] PCP - General Family Medicine 10/16/22 04/29/23 Richie Gupta MD [address] [place] [address] PCP - [place] [employer] 11/30/22 Kevin Kyle DO [address] [place] [address] PCP - General Family Medicine 04/30/23 05/22/23 Kevin Kyle DO [address] [place] [address] PCP - General Family Medicine 05/23/23 Daniela Vazquez NP [address] [place] [address] PCP - [place] [employer] 01/31/24 documented as of this encounter
--- OUTSIDE RECORDS SUMMARY | 2024-10-07 16:36 | XMS_ITS | Encounter Summary ---
Author Organization [facility] Address [address] [place] [address] Care Team Providers Care Offal Separator Name Role Phone Richie Gupta MD Primary Care Provider [phone] Richie Gupta MD Unavailable Kevin Kyle DO Primary Care Provider [phone] Kevin Kyle DO Primary Care Provider Daniela Vazquez COTTON BAG SEWER Unavailable Encounter Details Date Type Department Care Team (Late st Contact Info) Description 10/26/2022 Orders Only [facility] [address] [place] [address] A, Unknown Practice [address] [place], [place] [address] Social History Tobacco Use Types Packs/Day Years [...] DERM [address] [place] [address] Sherron Muir MD [address] [place] [address] documented as of this encounter Procedures Procedure Name Priority Date/Time Associated Diagnosis Comments SCANNED LABS Routine 10/23/2022 8:55 AM EDT FOOT AP & LAT OR 2 VIEWS LT Routine 10/23/2022 8:53 AM EDT SCANNED LABS Routine 10/23/2022 8:53 AM EDT documented in this encounter Results * SCANNED LABS (10/23/2022 8:55 AM EDT) us Unknown Practice A LAB CHG PERFORMABLES Final Re sult * SCANNED LABS (10/23/2022 8:53 AM EDT) us Unknown Practice A LAB CHG PERFORMABLES Final Re sult * FOOT AP & LAT OR 2 VIEWS LT (10/23/2022 8:53 AM EDT) Anatomical Region Laterality Modality Radiographic Catina ging us Unknown Practice A IMG XR PROCEDURES Final Resul t documented in this encounter Visit Diagnoses Not on filedocumented in this encounter Care Teams Offal Separator Relationship Specialty Start Date End Date Richie Gupta MD [address] [facility] [address] [place] [address] PCP - General Family Medicine 10/16/22 04/29/23 Richie Gupta MD [address] [facility] [address] [place] [address] PCP - [place] [employer] 11/30/22 Kevin Kyle DO [address] [place] [address] PCP - General Family Medicine 04/30/23 05/22/23 Kevin Kyle DO [address] [place] [address] PCP - General Family Medicine 05/23/23 Daniela Vazquez NP [address] [facility] [address] [place] [address] [facility] 01/31/24 documented as of this encounter
--- OUTSIDE RECORDS SUMMARY | 2024-10-07 16:36 | XMS_ITS | Encounter Summary ---
Author Organization [facility] Address [address] [place] [place] [address] Care Team Providers Care Ship Design Teacher Name Role Phone AnabellaKevin Miroslava JAUREGUI Primary Care Provider [phone] Encounter Details Date Type Department Care Team (Late st Contact Info) Description 10/07/2024 Telephone [facility] [address] [facility] [address] [place] [id number] Ike Blount MA Social History Tobacco Use Types Packs/Day Years [...] often do you attend chur ch or bahai services? 1 to 4 times per year 02/04/2023 Do you belong to any clubs o r organizations such as sabianist groups, unions, fraternal or athletic groups, or [...] Recorded Patient Health Questionnaire-2 Score 0 03/03/2024 [facility] Answer Date [...] on file documented as of this encounter Miscellaneous Notes * Telephone Encounter - Ike Blount MA - 10/07/2024 2:50 PM EDT Contacted pt informed her what is going on, pt will stop here in the today JUSTIN to give a urine sample to be sent out to the lab today. Pt understood. * Telephone Encounter - Joan Mosher MA - 10/07/2024 2:[address] Lugo we will ask the pt to get here and give us another sample before starting the atb * Telephone Encounter - Ike Blount MA - 10/07/2024 1:25 PM EDT Pt called and is requesting for health trax results, pt saw summer workman. Jeri ordered for urine to be sent out for a culture but that was never obtained for send out. Pt called asking if she can take the Macrobid since the urine culture was never sent out. Pt is still having sx, but has an appointment with her urologist soon. Please review and advise thank you. Our conservation science officer Joan is aware of the situation. documented in this encounter Plan of Treatment Upcoming Encounters Date Type Department Care Team (Late st Contact Info) Description 10/28/2024 3:45 PM EDT Office Visit [facility] [address] [place] [address] Sherron Muir MD [address] [place] [address] documented as of this encounter Visit Diagnoses Not on filedocumented in this encounter Care Teams Ship Design Teacher Relationship Specialty Start Date End Date Kevin Kyle DO [address] [place] [address] PCP - General Family Medicine 05/23/23 documented as of this encounter
--- OUTSIDE RECORDS SUMMARY | 2024-10-07 16:36 | XMS_ITS | Encounter Summary ---
Author Organization [facility] Address [address] [place] [address] Care Team Providers Care Fundraising Officer Name Role Phone AnabellaKevin Primary Care Provider [phone] Encounter Details Date Type Department Care Team (Latest Contact Info) Description 10/05/2024 Travel Social History Tobacco Use Types Packs/Day [...] How often do you attend chur or rastafarian services? 1 to 4 times per year 02/04/2023 Do you belong to any clubs o r organizations such as buddhism groups, unions, fraternal or athletic groups, or [...] Questionnaire-2 Score 0 03/03/2024 [facility]ational Stress Questionnaire Answer Date [...] [facility] [address] [place] [address] Sherron Muir MD [address] [place] [address] documented as of this encounter Visit Diagnoses Not on filedocumented in this encounter Care Teams Fundraising Officer Relationship Specialty Start Date End Date Kevin Kyle DO [address] [place] [address] PCP - General Family Medicine 05/23/23 documented as of this encounter
--- OUTSIDE RECORDS SUMMARY | 2024-10-07 16:36 | XMS_ITS | Encounter Summary ---
Author Organization [facility] Address [address] [place] [address] Care Team Providers Care Gym Manager Name Role Phone Richie Burciaga MD Primary Care Provider [phone] Richie Burciaga MD Unavailable Kevin Kyle DO Primary Care Provider [phone] Kevin Kyle DO Primary Care Provider Daniela Vazquez NP Unavailable Encounter Details Date Type Department Care Team (Late st Contact Info) Description 03/28/2023 Clinisync Result Encounter [facility] External Department Unsolicited Suzanne Mcclain, WIRE CUTTER [address] [facility] [address] [place] [address] Social History Tobacco Use Types Packs/Day Years [...] How often do you attend chur or hoahaoism services? 1 to 4 times per year [...] heating? Not hard at all 02/04/2023 [facility] of Occupat ional Health - Occupational Stress [...] place to sleep or slept in a skilled nursing (including now)? Patient refused 02/04/2023 Comments No [...] Visit [facility] [address] [place] [address] Sherron Muir MD [address] [place] [address] documented as of this encounter Procedures Procedure Name Priority Date/Time Associated Diagnosis Comments US THYROID 03/28/2023 6:48 AM EST documented in this encounter Results * US thyroid (03/28/2023 6:48 AM EST) Anatomical Region Laterality Modality Head, Neck Ultrasound 03/28/2023 6:48 AM EST Narrative 03/28/2023 6:51 AM EST [address] [address] Ultrasound Report Signed Patient: Jennifer Navarro MR#: [id number] : 1970 Acct:[id number] Age/Sex: 52 / F ADM Date: 03/27/23 Loc: US Attending Dr: SUZANNE MCCLAIN Ordering Physician: SUZANNE MCCLAIN Date of Service: 03/27/23 Procedure(s): US thyroid Accession Number(s): [id number] cc: RICHIE BURCIAGA ; SUZANNE MCCLAIN [address] [address] Patient Name: JENNIFER NAVARRO MRN: [id number] date: 1970 Sex: F Assigned Patient Location: US Current Patient Location: Accession/Order Number: [id number] Exam Date: 03/27/2023 11:36 Report Date: 03/28/2023 06:48 At the request of: SUZANNE MCCLAIN Procedure: US thyroid EXAMINATION: US thyroid HISTORY: Thyroid Nodule E04.1 COMPARISON: No relevant comparison available. FINDINGS: RIGHT LOBE: Normal size and echotexture. Contains a 3 mm TR 3 nodule. Lobe size: 4.6 x 1.4 x 1.7 cm LEFT LOBE: Normal size and echotexture. Contains a 6 mm TR 4 nodule. Lobe size: 4.6 x 1.3 x 1.5 cm ISTHMUS: Normal size and echotexture. Thickness: 2 mm US/US thyroid IMPRESSION: 1. Normal homogeneous echotexture bilaterally with incidental small TR 3 nodule on right and TR 4 nodule left. Follow-up in 2 years is recommended. TR4 (moderately suspicious): If > 1.0 cm, follow-up ultrasound in 1, 2, 3, and 5 years. If > 1.5 cm, fine needle aspiration (FNA). TR3 (mildly suspicious): > 1.5 cm, follow-up ultrasound in 1, 3, and 5 years. > 2.5 cm, fine needle aspiration. Electronically authenticated by: MARINO KUMAR Date: 03/28/2023 06:48 Dictated By: Marino Kumar M.D. Signed By: 03/28/2351 DD/ TD/TT: Supervisor Phosphorus Processing: Procedure Note Radiology, Radiologist, MD - 03/28/2023 [place] [address] Ultrasound Report Signed Patient: Jennifer Navarro AMR#: [id number] : 1970Acct:[id number] Age/Sex: 52 / FADM Date: 03/27/23 Loc: US Attending Dr: SUZANNE MCCLAIN Ordering Physician: SUZANNE MCCLAIN Date of Service: 03/27/23 Procedure(s): US thyroid Accession Number(s): [id number] cc: RICHIE BURCIAGA ; SUZANNE MCCLAIN The [address] [address] Patient Name: JENNIFER NAVARRO MRN: [id number] date: 1970 Sex: F Assigned Patient Location: US Current Patient Location: Accession/Order Number: [id number] Exam Date: 03/27/2023 11:36 Report Date: 03/28/2023 06:48 At the request of: SUZANNE MCCLAIN Procedure: US thyroid EXAMINATION: US thyroid HISTORY: Thyroid Nodule E04.1 COMPARISON: No relevant comparison available. FINDINGS: RIGHT LOBE: Normal size and echotexture. Contains a 3 mm TR 3 nodule. Lobe size: 4.6 x 1.4 x 1.7 cm LEFT LOBE: Normal size and echotexture. Contains a 6 mm TR 4 nodule. Lobe size: 4.6 x 1.3 x 1.5 cm ISTHMUS: Normal size and echotexture. Thickness: 2 mm US/US thyroid IMPRESSION: 1. Normal homogeneous echotexture bilaterally with incidental small TR 3 nodule on right and TR 4 nodule left. Follow-up in 2 years is recommended. TR4 (moderately suspicious): If > 1.0 cm, follow-up ultrasound in 1, 2, 3,and 5 years. If > 1.5 cm, fine needle aspiration (FNA). TR3 (mildly suspicious): > 1.5 cm, follow-up ultrasound in 1, 3, and 5years. > 2.5 cm, fine needle aspiration. Electronically authenticated by: MARINO KUMAR Date: 03/28/2023 06:48 Dictated By: Marino Kumar M.D. Signed By:03/28/2351 DD/ 7 TD/TT: Supervisor Phosphorus Processing: us Suzanne Mcclain WIRE CUTTER IMG US PROCEDURES Final Resu lt documented in this encounter Visit Diagnoses Not on filedocumented in this encounter Care Teams Gym Manager Relationship Specialty Start Date End Date Richie Burciaga MD [address] [place] [address] PCP - General Family Medicine 10/16/22 04/29/23 Richie Burciaga MD [address] [place] [address] PCP - [place] [employer] 11/30/22 Kevin Kyle DO [address] [facility] [address] [place] [address] PCP - General Family Medicine 04/30/23 05/22/23 Kevin Kyle DO [address] [place] [address] PCP - General Family Medicine 05/23/23 Daniela Vazquez NP [address] [place] [address] PCP - [place] [employer] 01/31/24 documented as of this encounter
--- OUTSIDE RECORDS SUMMARY | 2024-10-07 16:36 | XMS_ITS | Continuity of Care Document ---
Author Organization [facility] Address [address] [place] [id number] Phone [phone] Care Team Providers Care Put In Beat Adjuster Name Role Phone SHILPI WRIGHT M.D. Care Team Information Receiv er Unavailable
--- OUTSIDE RECORDS SUMMARY | 2024-10-07 16:36 | XMS_ITS | Encounter Summary ---
Author Organization [facility] Address [address] [place] [address] Care Team Providers Care Papier Mache Molder Name Role Phone Richie Gupta MD Primary Care Provider [phone] Richie Gupta MD Unavailable Kevin Kyle DO Primary Care Provider [phone] Kevin Kyle DO Primary Care Provider [phone] Daniela Vazquez NP Unavailable Encounter Details Date Type Department Care Team (Late st Contact Info) Description 03/21/2023 Clinisync Result Encounter [facility] External Department Unsolicited [...] often do you attend chur ch or oriental orthodox services? 1 to 4 times per year 02/04/2023 Do you belong to any clubs o r organizations such as rastafarian groups, unions, fraternal or athletic groups, or [...] and heating? Not hard at all 02/04/2023 [facility] of Occupat ional Health - Occupational [...] DERM [address] [place] [address] Sherron Muir MD [address] [place] [address] documented as of this encounter Procedures Procedure Name Priority Date/Time Associated Diagnosis Comments SHENG SCREENING W ANG 03/21/2023 6:00 PM EST documented in this encounter Results * SHENG SCREENING W ANG (03/21/2023 6:00 PM EST) Anatomical Region Laterality Modality Other 03/21/2023 6:00 PM EST Narrative 03/22/2023 8:14 AM EST * * *Final Report* * * DATE OF EXAM: Mar 21 2023 6:00PM W 0582 - [facility] SCREENING W ANG / PROCEDURE REASON: Encounter for screening mammogram for malignant neoplasm of breast * * * * Physician Interpretation * * * * RESULT: #[id number] - SHENG SCREENING W ANG BILATERAL DIGITAL [...] made to exams dated: [facility], 01/03/2022 mammogram - [facility], 06/03/2020 mammogram, and 06/05/2019 mammogram - [facility]. The breasts are heterogeneously dense, which may obscure small masses. No significant masses, calcifications, or other findings are seen in either breast. There has been no significant interval change. IMPRESSION: NEGATIVE There is no mammographic evidence of malignancy. A 1 year screening mammogram is recommended. Sasha sheppard/shaggy:03/22/2023 08:14:11 Textile Supervisor(s): Sherron Feldman RT(R)(M), [facility] letter sent: Normal over 40 Mammogram [...] Health, Family Medicine, and Medical/Surgical Oncology, the [facility] has carefully reviewed the data and [...] their providers when to stop screening mammograms. Director Of Trauma: Shaggy Transcribe Date/Time: Mar 21 2023 5:38P Dictated by : SASHA JONES MD This examination was interpreted and the report reviewed and electronically signed by: SASHA JONES MD on Mar 22 2023 8:14AM EST [id number]^[email or web address]^SI^ACN Procedure Note Radiology, Radiologist, MD - 03/22/2023 * * *Final Report* * * DATE OF EXAM: Mar 21 2023 6:00PM [facility] 0582 - [facility] SCREENING W ANG / PROCEDURE REASON: Encounter for screening mammogram for malignant neoplasm of breast * * * * Physician Interpretation * * * * RESULT: #[id number] - [facility] SCREENING W ANG BILATERAL DIGITAL [...] made to exams dated: 11/17/2022 [facility], 01/03/2022 mammogram - [facility], 06/03/2020 mammogram, and 06/05/2019 mammogram - [facility]. The breasts are heterogeneously dense, which may obscure small masses. No significant masses, calcifications, or other findings are seen in either breast. There has been no significant interval change. IMPRESSION: NEGATIVE There is no mammographic evidence of malignancy. A 1 year screening mammogram is recommended. Sasha sheppard/shaggy:03/22/2023 08:14:11 Textile Supervisor(s): RT Alvarez(R)(M), [facility] letter sent: Normal over 40 Mammogram [...] Health, Family Medicine, and Medical/Surgical Oncology, the [facility] has carefully reviewed the data and [...] their providers when to stop screening mammograms. Director Of Trauma: Shaggy Transcribe Date/Time: Mar 21 2023 5:38P Dictated by : SASHA JONES MD This examination was interpreted and the report reviewed and electronically signed by: SASHA JONES MD on Mar 22 2023 8:14AM EST [id number]^AGFA_IDC^SI^ACN us Generic External Data Provider [facility] Final Result documented in this encounter Visit Diagnoses Not on filedocumented in this encounter Care Teams Papier Mache Molder Relationship Specialty Start Date End Date Richie Gupta MD [address] [facility] [address] [place] [address] PCP - General Family Medicine 10/16/22 04/29/23 Richie Gupta MD [address] [facility] [address] [place] [address] PCP - Chanel Luciano 11/30/22 Kevin Kyle DO [address] [facility] [address] [place] [address] PCP - General Family Medicine 04/30/23 05/22/23 Kevin Kyle DO [address] [facility] [address] [place] [address] PCP - General Family Medicine 05/23/23 Daniela Vazquez NP [address] [facility] [address] [place] [address] PCP - [place] [facility] 01/31/24 documented as of this encounter
--- OUTSIDE RECORDS SUMMARY | 2024-10-07 16:36 | XMS_ITS | Encounter Summary ---
Author Organization [facility] Address [address] [place] [address] Care Team Providers Care Hydraulic Mechanic Name Role Phone Richie Gupta MD Unavailable Kevin Kyle DO Primary Care Provider Daniela Vazquez NP Unavailable Encounter Details Date Type Department Care Team (Late st Contact Info) Description 06/14/2023 Abstract [facility] [address] [facility] [address] [place] [phone] Bertrand Iqbal DO [address] [place] [address] Social History Tobacco Use Types Packs/Day Years [...] How often do you attend chur or cheondoism services? 1 to 4 times [...] Recorded Patient Health Questionnaire-2 Score 0 06/05/2023 [facility] [place] of Occupat ional Health - Occupational Stress [...] Office Visit [facility] [address] [place] [address] Sherron Muir MD [address] [place] [address] documented as of this encounter Visit Diagnoses Not on filedocumented in this encounter Care Teams Hydraulic Mechanic Relationship Specialty Start Date End Date Richie Gupta MD [address] [facility] [address] [place] [address] PCP - [place] [employer] 11/30/22 Kevin Kyle DO [address] [facility] [address] [place] [address] PCP - General Family Medicine 05/23/23 Daniela Vazquez NP [address] [facility] [address] [place] [address] PCP - [place] [employer] 01/31/24 documented as of this encounter
--- OUTSIDE RECORDS SUMMARY | 2024-10-07 16:36 | XMS_ITS | Encounter Summary ---
Author Organization [facility] Address [address] [place] [address] Care Team Providers Care Process Analyst Name Role Phone Richie Gupta MD Primary Care Provider [phone] Richie Gupta MD Unavailable Kevin Kyle DO Primary Care Provider [phone] Kevin Kyle DO Primary Care Provider [phone] Daniela Vazquez NP Unavailable Encounter Details Date Type Department Care Team (Late st Contact Info) Description 03/22/2023 Clinisync Result Encounter [facility] External Department Unsolicited [...] often do you attend chur ch or nondenominational services? 1 to 4 times per year 02/04/2023 Do you belong to any clubs o r organizations such as christian groups, unions, fraternal or athletic groups, or [...] and heating? Not hard at all 02/04/2023 [facility] of Occupat ional Health - Occupational Stress [...] Office Visit [facility] [address] [place] [address] Sherron Muir MD [address] [place] [address] documented as of this encounter Procedures Procedure Name Priority Date/Time Associated Diagnosis Comments [facility] PAP FLUID CERVICAL DIAGNOSTIC Routine 03/22/2023 10:58 AM EST [facility] HPV W/GENOTYPE THIN PREP Routine 03/22/2023 10:58 AM EST XR ESOPHAGRAM 03/22/2023 9:39 AM EST documented in this encounter Results * [facility] PAP FLUID CERVICAL DIAGNOSTIC (03/22/2023 10:58 AM EST) [facility] CASE REPORT [facility] Comment: Gynecologic Cytology Report Case: [id number] Authorizing Provider: Joellen Rich APRN.CUT OFF SAW GRADER Collected: 03/22/2023 10:58 AM Ordering Location: Gynecology Received: 03/22/2023 01:03 PM First Screen: Kyle Espinoza Tech Specimen: Pap Test, ThinPrep, Cervix [facility] ADEQUACY INTERPRETATION Satisfactory for interpretation [facility] CYTOLOGY INTERPRETATION PAP [facility] Comment: Negative for intraepithelial lesion or malignancy. CYTOLOGY PAP OTHER INT Atrophic specimen [facility] CLINICAL HISTORY, CYTOLOGY, PHOTOGRAVURE PRESS OPERATOR Routine Exam [facility] Comment:Menopausal [facility] LMP menopausal [facility] HPV REFLEX Yes HPV [facility] PAP DISCLAIMER COMMENT The Pap Smear is a screening test for cervical cancer. False negative results occur with all screening tests, emphasizing the need for rescreening at recommended intervals, and clinical correlation. [facility] PAP TAX CONSULTANT COMMENT This specimen has been analyzed by the ThinPrep Imaging System, an automated imaging and review system, which assists the laboratory in evaluating cells on ThinPrep Pap tests. Following automated imaging, selected luke from every slide are reviewed by a fermentation operator. [facility] FINAL PERFORMING LAB [facility] Comment: Technical component, fermentation operator screening performed at [facility], [facility] [place] [address] CLIA# [id number] Diagnostic interpretation performed at [facility], [address] [id number] CLIA# [id number] [employer] Professionals: Juan Mayes M.D. 03/22/2023 10:5 8 AM EST 03/26/2023 3:09 PM EST Narrative [facility] - 04/03/2023 10:16 AM EST Specimen Type: FLUID SPECIMEN Ordering Facility: [facility] Address: [address] [place] [address] Original Ordering Provider: JOELLEN RICH us Generic External Data Provider [facility] F inal Result Performing Organization Address [facility] de Phone Number AJIT CC [address] [place] [place] [phone] * [facility] HPV W/GENOTYPE THIN PREP (03/22/2023 10:58 AM EST) [facility] HPV16 AG SPEC QL Negative for HPV DNA high risk type 16 by PCR Negative for HPV DNA high risk type 16 by PCR [facility]CF HPV18 AG SPEC QL Negative for HPV DNA high risk type 18 by PCR Negative for HPV DNA high risk type 18 by PCR [facility] HPV HR 12 DNA CVX QL SONIA+PROBE Negative for HPV DNA high risk types: 31,33,35,39, 45,51,52,56, 58,59,66,68 by PCR. Negative for HPV DNA high risk types: 31,33,35,39, 45,51,52,56, 58,59,66,68 by PCR. [facility] 03/22/2023 10:5 8 AM EST 03/26/2023 3:10 PM EST Narrative [facility] - 03/28/2023 9:11 PM EST Specimen Type: FLUID SPECIMEN Ordering Facility: [facility] Address: [address] [place] [address] Original Ordering Provider: JOELLEN RICH Generic External Data Provider KRYSTLENC F inal Result Performing Organization Address [facility] de Phone Number AJIT BAUM [address] [address] * XR ESOPHAGRAM (03/22/2023 9:39 AM EST) Anatomical Region Laterality Modality Radiographic Catina ging 03/22/2023 9:39 AM EST Narrative 03/22/2023 4:35 PM EST * * *Final Report* * [...] Area Product (DAP): Fluoro time: 1:24 min:sec Loan Coordinator: BRETT Transcribe Date/Time: Mar 22 2023 4:25P Dictated by : Elli BAZAN MD This examination was interpreted and the report reviewed and electronically signed by: Elli BAZAN MD on Mar 22 2023 4:33PM EST [id number]^AGFA_[id number]^SI^ACN Procedure Note Radiology, Radiologist, - 03/22/2023 * * *Final Report* * [...] satisfactory. No hiatal hernia. No gastroesophageal reflux isobserved. IMPRESSION: Normal esophagram. Fluoroscopic Radiation Summary: Plane A, Air Kerma: 66.3 mGy Dose Area Product (DAP): Fluoro time: 1:24 min:sec Loan Coordinator: CreoPop Transcribe Date/Time: Mar 22 2023 4:25P Dictated by : Elli BAZAN MD This examination was interpreted and the report reviewed and electronically signed by: Elli BAZAN MD on Mar 22 2023 4:33PM EST [id number]^AGFA_[id number]^SI^ACN us Generic External Data Provider IMG XR PROCEDURES Final Result documented in this encounter Visit Diagnoses Not on filedocumented in this encounter Care Teams Process Analyst Relationship Specialty Start Date End Date Richie Gupta MD [address] [place] [address] PCP - General Family Medicine 10/16/22 04/29/23 Richie Gupta MD [address] [place] [address] PCP - [place] [employer] 11/30/22 Kevin Kyle DO [address] [place] [address] PCP - General Family Medicine 04/30/23 05/22/23 Kevin Kyle DO [address] [place] [address] PCP - General Family Medicine 05/23/23 Daniela Vazquez RETRIMMER [address] [place] [address] PCP - [place] [employer] 01/31/24 documented as of this encounter
--- OUTSIDE RECORDS SUMMARY | 2024-10-07 16:36 | XMS_ITS | Encounter Summary ---
Author Organization [facility] Address [address] [place] [address] Care Team Providers Care Curriculum Supervisor Name Role Phone Richie Burciaga MD Primary Care Provider [phone] Richie Burciaga MD Unavailable Kevin Kyle DO Primary Care Provider [phone] Kevin Kyle DO Primary Care Provider [phone] Daniela Vazquez NP Unavailable Encounter Details Date Type Department Care Team (Late st Contact Info) Description 03/27/2023 Clinisync Result Encounter [facility] External Department Unsolicited Suzanne Mcclain, MIXING ROLL OPERATOR [address] [facility] [address] [place] [address] Social History Tobacco Use Types Packs/Day Years [...] any clubs o r organizations such as scientology groups, unions, fraternal or athletic groups, or [...] and heating? Not hard at all 02/04/2023 [facility] [place] [facility] - Occupational Stress [...] place to sleep or slept in a chcf (including now)? Patient refused 02/04/2023 Comments No [...] DERM [address] [place] [address] Sherron Muir MD [address] [place] [address] documented as of this encounter Procedures Procedure Name Priority Date/Time Associated Diagnosis Comments XR CHEST 2V 03/27/2023 5:26 PM EST documented in this encounter Results * XR CHEST 2V (03/27/2023 5:26 PM EST) Anatomical Region Laterality Modality Other 03/27/2023 5:26 PM EST Narrative 03/27/2023 5:28 PM EST [address] [address] XRay Report Signed Patient: Jennifer Navarro MR#: [id number] : 1970 Acct:[id number] Age/Sex: 52 / F ADM Date: 03/27/23 Loc: Attending Dr: SUZANNE MCCLAIN Ordering Physician: SUZANNE MCCLAIN Date of Service: 03/27/23 Procedure(s): XR chest 2V Accession Number(s): [id number] cc: RICHIE BURCIAGA ; SUZANNE MCCLAIN [place] [address] Patient Name: JENNIFER NAVARRO MRN: [id number] date: 1970 Sex: F Assigned Patient Location: Current Patient Location: [place] Accession/Order Number: [id number] Exam Date: 03/27/2023 11:21 Report Date: 03/27/2023 17:26 At the request of: SUZANNE MCCLAIN Procedure: XR chest 2V EXAM: XR chest 2V HISTORY: Sternal Pain R07.89 COMPARISON: None. TECHNIQUE: PA and lateral views of the chest performed. FINDINGS: The trachea is midline. The heart size is normal. The cardiomediastinal silhouette and hilar shadows are normal. The lung volumes are normal. The lung luke are clear. There is no pneumothorax. There is a 0.7 cm metallic appearing foreign body within the left upper abdomen. Correlate with clinical findings to determine the etiology of this. There is no osseous abnormality. XR/XR chest 2V IMPRESSION: There is a 0.7 cm metallic appearing foreign body within the left upper abdomen. Correlate with clinical findings to determine the etiology of this. The PA and lateral views of the chest are otherwise unremarkable. Electronically authenticated by: MARLEN SANTIAGO Date: 03/27/2023 17:26 Dictated By: Marlen Santiago M.D. Signed By: 03/27/238 DD/ 25 TD/TT: Diplomatic Interpreter/Translator: Procedure Note Radiology, Radiologist, - 03/27/2023 [place] [address] XRay Report Signed Patient: Jennifer Navarro AMR#: [id number] : 1970Acct:[id number] Age/Sex: 52 / FADM Date: 03/27/23 Loc: Attending Dr: SUZANNE MCCLAIN Ordering Physician: SUZANNE MCCLAIN Date of Service: 03/27/23 Procedure(s): XR chest 2V Accession Number(s): [id number] cc: RICHIE BURCIAGA ; SUZANNE MCCLAIN [place] [address] Patient Name: JENNIFER NAVARRO MRN: [id number] date: 1970 Sex: F Assigned Patient Location: Current Patient Location: [place] Accession/Order Number: [id number] Exam Date: 03/27/2023 11:21 Report Date: 03/27/2023 17:26 At the request of: SUZANNE MCCLAIN Procedure: XR chest 2V EXAM: XR chest 2V HISTORY: Sternal Pain R07.89 COMPARISON: None. TECHNIQUE: PA and lateral views of the chest performed. FINDINGS: The trachea is midline. The heart size is normal. The cardiomediastinal silhouette and hilar shadows are normal. The lung volumes are normal. Thelung luke are clear. There is no pneumothorax. There is a 0.7 cm metallic appearing foreign body within the left upper abdomen. Correlate withclinical findings to determine the etiology of this. There is no osseousabnormality. XR/XR chest 2V IMPRESSION: There is a 0.7 cm metallic appearing foreign body within the left upper abdomen. Correlate with clinical findings to determine the etiology ofthis. The PA and lateral views of the chest are otherwise unremarkable. Electronically authenticated by: MARLEN SANTIAGO Date: 03/27/2023 17:26 Dictated By: Marlen Santiago M.D. Signed By:03/27/231727 DD/ 1726 TD/TT: Diplomatic Interpreter/Translator: us Suzanne Mcclain MIXING ROLL OPERATOR [facility] Final Resu lt documented in this encounter Visit Diagnoses Not on filedocumented in this encounter Care Teams Curriculum Supervisor Relationship Specialty Start Date End Date Richie Burciaga MD [address] [place] [address] PCP - General Family Medicine 10/16/22 04/29/23 Richie Burciaga MD [address] [place] [address] PCP - [facility] [employer] 11/30/22 Kevin Kyle DO [address] [place] [address] PCP - General Family Medicine 04/30/23 05/22/23 Kevin Kyle DO [address] [place] [address] PCP - General Family Medicine 05/23/23 Daniela Vazquez NP [address] [place] [address] PCP - [facility] [employer] 01/31/24 documented as of this encounter
[2024-10-07 16:49] LABS: Glucose Urine UA NEGATIVE (NEGATIVE)
[2024-10-07 16:55] LABS: Cast Seen? NONE SEEN #/LPF (NONE SEEN); Crystals Seen? None Seen #/HPF (None Seen); Urine Culture Indicated ALREADY ORDERED
== END 2024-10-07 16:33 | disposition home or self-care (01) ==
LOC: LAB 16:32
PROVIDERS: PCP Family Medicine; Visit Provider Family Medicine
DX: R39.15 Urgency of urination (principal)
CPT/HCPCS: 81001; 87086

== ENCOUNTER 2025-03-08 13:37 | Outpatient (REF) | payer BC, SELFPAY ==
[2025-03-08 14:54] LABS: C. Difficile PCR NEGATIVE
== END 2025-03-08 13:38 | disposition home or self-care (01) ==
LOC: LAB 13:37
PROVIDERS: PCP Family Medicine; Visit Provider Family Medicine
DX: K52.9 Noninfective gastroenteritis and colitis, unspecified (principal)
CPT/HCPCS: 83631; 87045; 87046; 87177; 87209; 87427; 87493